=== PATIENT | female | born 1955 | race American Indian/Alaskan Native ===

== ENCOUNTER 2019-07-05 14:04 | Emergency (ER) | payer MEDICARE, OTHER ==
[~2019-07-05] VITALS: Ht 157.5 cm; Wt 104.3 kg
[~2019-07-05 14:04] MED LIST: ALBUTEROL SULF8.5 GM INH; CLINDAMYCIN HC300 MG PO; DULERA 200 MCG/13 GM INH; FENOFIBRATE54 MG PO; GLIPIZIDE XL10 MG PO; GLYBURIDE2.5 MG PO; LANTUS100 UNITS/ SUB-Q; LISINOPRIL5 MG PO; LORATADINE10 MG PO; LYRICA50 MG PO; MAGOX 400400 MG PO; METFORMIN HCL1000 MG PO; PANTOPRAZOLE SO40 MG PO; SIMVASTATIN20 MG PO; TRAMADOL HCL50 MG PO; VICODIN HP 10-1 EAC1 PO; VITAMIN D5000 UNIT PO
--- OUTSIDE RECORDS SUMMARY | 2019-07-05 14:08 | XMS ---
PreManage Notification: NOLAN SCHUMACHER [employer] [facility] Events No recent Security Events currently on file CRITERIA MET - FERN CARE PROVIDERS Madeline Castaneda [facility] Marychuy MATHUR PHONE: [phone] Samantha has no Care Guidelines for this patient. E.Hunter VISIT COUNT (12 MO.) 2 Kobi Ross M.C. 1 [facility] Bland TOTAL 3 NOTE: Visits indicate total known visits. ED/C VISIT TRACKING (12 MO.) 07/05/2019 14:05 [facility]ru[facility] TYPE: Emergency COMPLAINT: - HIP PAIN, NON INJ 05/27/2019 20:00 [facility] [place] TYPE: Emergency DIAGNOSES: - Unspecified abdominal pain - Flank Pain - Sciatica, right side - Hip/leg/lower back pain [facility] DIAGNOSES: - Lumbago with sciatica, right side - Hip Pain - back pain INPATIENT VISIT TRACKING (12 MO.) No inpatient visits to display in this time frame [id number]
== END 2019-07-05 18:00 | disposition home or self-care (01) ==
LOC: ED 14:04
DX: G89.29 Other chronic pain (principal); M25.551 Pain in right hip; I10 Essential (primary) hypertension; E11.9 Type 2 diabetes mellitus without complications; Z87.891 Personal history of nicotine dependence; Z88.0 Allergy status to penicillin; Z79.899 Other long term (current) drug therapy; Z79.4 Long term (current) use of insulin
CPT/HCPCS: 96372; 99283; J1200; J1630; J1885; J2060

== ENCOUNTER 2019-07-20 11:14 | Inpatient (IN) | payer MEDICARE, OTHER ==
[~2019-07-20] VITALS: Ht 157.5 cm; Wt 112.0 kg
--- NOTE | ~2019-07-20 | DS ---
[facility] [address] [place], [place] [address] Draft ADMISSION DATE: 07/27/2019 DISCHARGE DATE: 07/29/2019 FINAL DIAGNOSES AT THE TIME OF DISCHARGE: 1. End-stage osteoarthritis, right hip. 2. Diabetes. 3. Chronic pain syndrome. 4. Chronic obstructive pulmonary disease. HISTORY OF PRESENT ILLNESS: The patient is a 64-year-old female with end-stage osteoarthritis of the right hip. She has gone to the point where no treatment gives her any significant pain relief. Because of the failure of conservative management, she presents for elective total hip arthroplasty, having been previously seen and cleared by her primary care provider out at [facility]. HOSPITAL COURSE: The patient was admitted to Day Surgery on July 27, 2019 and was taken from the Day Surgery area to the operating room, where she underwent an uneventful press-fit total hip arthroplasty on the right with a [place] cup on the right with two screws, 52 mm shell, 36 mm neutral insert, and a size 4 standard offset 36 mm Oxford stem. Postoperatively, the patient has done well. Despite her chronic pain issues, she is currently well managed with the Dilaudid and Oxy IR. We will plan on discharging her home, weightbearing as tolerated. She has been on and will continue on Xarelto 10 mg one once a day for DVT prophylaxis. We are sending her home on alternating Dilaudid and Oxy IR. We have been told her she will need to follow up with her primary care provider for her chronic pain management medication, which appears to be an extended release oral morphine preparation. We will have her referred to physical therapy for the total hip program. I have told her it is okay for her to bathe with her current dressing on. She can remove the dressing on Friday and re-dress as needed. Also explained to her that there are no sutures and there are no clips. Her skin was closed with a perforated strip and Super glue. She can leave that in place until we see her back. I would have her follow up in about six weeks. Bebeto Carey MD PATIENT NAME: NOLAN SCHUMACHER DISCHARGE SUMMARY DATE OF : 57 REPORT #: [id number] PHYSICIAN: BEBETO CAREY MD PCP: LIZ KING REPORT IS CONFIDENTIAL AND NOT TO BE RELEASED WITHOUT AUTHORIZATION [facility] [address] [facility] [place] [address] Draft TRAN/PARISA /[id number] Copies: ~ PATIENT NAME: NOLAN SCHUMACHER DISCHARGE SUMMARY DATE OF : 57 REPORT #: [id number] PHYSICIAN: BEBETO CAREY MD PCP: LIZ KING REPORT IS CONFIDENTIAL AND NOT TO BE RELEASED WITHOUT AUTHORIZATION
--- OUTSIDE RECORDS SUMMARY | ~2019-07-20 | XMS | Encounter Summary ---
Demographics + + + | Address | [address] | | | [place] [address] | + + + | Home Phone | | + + + | Preferred Language | Unknown | + + + | Marital Status | Single | + + + | Restorationist Affiliation | Unknown | + + + | Race | Unknown | + + + | Ethnic Group | Unknown | + + + Author + + + | Author | [facility] | | | and [place] | + + + | Organization | [facility] | | | and [place] | + + + | Address | Unknown | + + + | Phone | Unavailable | + + + Support + + + + + | Name | Relationship | Address | Phone | + + + + + | Geni Serrano | ECON | [place] | | | | | [phone] | | + + + + + | Brittany Cabrera | ECON | Unknown | | + + + + + Care Team Providers + +------+ + | Care Urologist Md Name | Role | Phone | + +------+ + | Madeline Castaneda PA-C | PCP | Unavailable | + +------+ + Reason for Visit + + + | Reason | Comments | + + + | Neck Pain | | + + + Encounter Details +--------+ + + + + | Date | Type | Department | Care Team | Description | +--------+ + + + + | 07/09/ | Emergency | [facility] | Terrell Hollingsworth MD | Neck pain (Primary | | 2019 | | [facility] | [address] | Dx); COPD | | | | CENTER [address] | [place] | exacerbation (HCC); | | | | [place] | [phone] | Bronchitis | | | | [address] | | | | | | [phone] | Chacho García, | | | | | | [address] | | | | | | [facility] | | | | | | [place] [address] | | | | | | [phone] | | | | | | | | +--------+ + + + + Social History + + + +--------+------+ | Tobacco Use | Types | Packs/Day | Years | Date | | | | | Used | | + + + +--------+------+ | Former Smoker | Cigarettes | 1 | 45 | | + + + +--------+------+ + +---+---+---+ | Smokeless Tobacco: | | | | | Never Used | | | | + +---+---+---+ + + +---------+ + | Alcohol Use | Drinks/We | oz/Week | Comments | | | ek | | | + + +---------+ + | Yes | 0 | 0.0 | Rare | | | Standard | | | | | drinks or | | | | | | | | | | equivalen | | | | | t | | | + + +---------+ + + + + | Sex Assigned at | Date Recorded | | | | + + + | Not on file | | + + + + + + + | Job Start Date | Occupation | Industry | + + + + | Not on file | Not on file | Not on file | + + + + + + + + | Travel History | Travel Start | Travel End | + + + + + + | No recent travel history available. | + + documented as of this encounter Last Filed Vital Signs + + + + | Vital Sign | Reading | Time Taken | + + + + | Blood Pressure | 138/64 | 07/09/20191457 PDT | + + + + | Pulse | 85 | 07/09/20191935 PDT | + + + + | Temperature | 38.2 C (100.7 F) | 07/09/20191457 PDT | + + + + | Respiratory Rate | 18 | 07/09/20191644 PDT | + + + + | Oxygen Saturation | 96% | 07/09/20191935 PDT | + + + + | Inhaled Oxygen | - | - | | Concentration | | | + + + + | Weight | - | - | + + + + | Height | 157.5 cm (5' 2") | 07/09/2019 1458 PDT | + + + + | Body Mass Index | - | - | + + + + documented in this encounter Discharge Instructions Instructions Chacho García MD - 07/09/2019Prednisone for 5 days Use your inhalers every 4-6 hours Azithromycin for 5 days Robaxin muscle relaxer for your neck Follow-up with primary care Continue your current medications AttachmentsThe following attachments cannot be sent through Care Everywhere.Bronchitis, Ant ibiotic Treatment (Adult) (Latvian)Back and Neck Pain, General (Latvian)COPD Flare (Latvian) documented in this encounter Medications at Time of Discharge + + + +---------+ + + | Medication | Sig | Dispensed | Refills | Start | End Date | | | | | | Date | | + + + +---------+ + + | albuterol 90 | Inhale 1-2 puffs | | 0 | | | | mcg/puff inhaler | into the lungs every | | | | | | | 6 hours as needed | | | | | | | for Wheezing. | | | | | + + + +---------+ + + | Alcohol Swabs 70 % | by Does not apply | | 0 | | | | PADS | route. 1 to wipe | | | | | | | area as directed | | | | | + + + +---------+ + + | atorvaSTATin | Take 1 tablet by | 30 | 5 | 11/24/19 | | | (LIPITOR) 20 mg | mouth nightly. | tablet | | 18 | | | tablet | | | | | | + + + +---------+ + + | azithromycin | Take 2 tablets by | 6 | 0 | 07/09/20 | | | (ZITHROMAX) 250 mg | mouth on day 1, and | tablet | | 19 | | | tablet | 1 tablet by mouth | | | | | | | every day | | | | | + + + +---------+ + + | furosemide (LASIX) | Take 1 tablet by | 30 | 5 | 11/24/19 | | | 80 mg tablet | mouth Daily. | tablet | | 18 | | + + + +---------+ + + | | Take 1 tablet by | | 0 | | | | HYDROcodone-acetamin | mouth every 6 hours | | | | | | ophen (NORCO) 10-325 | as needed for Pain. | | | | | | mg per tablet | | | | | | + + + +---------+ + + | insulin glargine | Inject 18 Units | 1 pen | 4 | 05/03/20 | | | (LANTUS SOLOSTAR) | under the skin | | | 16 | | | 100 units/mL | nightly. | | | | | | injection (pen) | | | | | | + + + +---------+ + + | insulin lispro | Inject 0-6 Units | | 0 | 02/27/20 | | | (HUMALOG KWIKPEN) | under the skin 4 | | | 16 | | | 100 units/mL | times daily (with | | | | | | injection (pen) | meals and nightly). | | | | | + + + +---------+ + + | levothyroxine | Take 1 tablet by | 30 | 0 | 02/27/20 | | | (SYNTHROID, | mouth every morning | tablet | | 16 | | | LEVOTHROID) 50 mcg | (before breakfast). | | | | | | tablet | | | | | | + + + +---------+ + + | loratadine | Take 10 mg by mouth | | 0 | | | | (CLARITIN) 10 mg | Daily. | | | | | | tablet | | | | | | + + + +---------+ + + | losartan (COZAAR) | Take 1 tablet by | | 0 | 11/24/19 | | | 50 mg tablet | mouth Daily. | | | 18 | | + + + +---------+ + + | metFORMIN | Take 1,000 mg by | | 0 | | | | (GLUCOPHAGE) 1000 MG | mouth 2 times daily | | | | | | tablet | (with breakfast & | | | | | | | dinner). | | | | | + + + +---------+ + + | morphine (MSIR) 15 | Take 15 mg by mouth | | 0 | | | | mg tablet | every 12 hours as | | | | | | | needed for Pain. | | | | | + + + +---------+ + + | nicotine | Place 1 patch onto | | 0 | | | | (NICODERM) 21 mg/24 | the skin every 24 | | | | | | hr | hours. | | | | | + + + +---------+ + + | potassium chloride | Take 10 mEq by mouth | | 0 | | | | (KLOR-CON) 10 MEQ | Daily. With food | | | | | | ER tablet | | | | | | + + + +---------+ + + | pregabalin | Take 300 mg by mouth | | 0 | | | | (LYRICA) 150 MG | 2 times daily. | | | | | | capsule | | | | | | + + + +---------+ + + | methocarbamol | Take 2 tablets by | 30 | 0 | 07/09/20 | | | (ROBAXIN) 750 mg | mouth every 6 hours | tablet | | 19 | 9 | | tablet | as needed for Muscle | | | | | | | spasms for up to 3 | | | | | | | days. | | | | | + + + +---------+ + + | predniSONE | Take 6 tablets by | 30 | 0 | 07/09/20 | | | (DELTASONE) 10 mg | mouth Daily for 5 | tablet | | 19 | 9 | | tablet | days. | | | | | + + + +---------+ + + documented as of this encounter Plan of Treatment +--------+---------+ + + + | Date | Type | Specialty | Care Team | Description | +--------+---------+ + + + | 07/27/ | Office | Pulmonology | Jayy Oswald MD | | | 2019 | Visit | | [address] | | | | | | [place] | | | | | | [address] | | | | | | | | +--------+---------+ + + + + +--------+ + + | Name | Priori | Associated Diagnoses | Date/Time | | | ty | | | + +--------+ + + | ED INFORMATION EXCHANGE | Routin | | 07/09/2019 14:31 PDT | | | e | | | + +--------+ + + documented as of this encounter Procedures + +--------+ + + + | Procedure Name | Priori | Date/Time | Associated Diagnosis | Comments | | | ty | | | | + +--------+ + + + | CT ANGIOGRAM | STAT | 07/09/2019 | | Results for this | | PULMONARY | | 18:22 PDT | | procedure are in the | | | | | | results section. | + +--------+ + + + | XR CERVICAL SPINE 2 | STAT | 07/09/2019 | | Results for this | | OR 3 VIEWS | | 17:36 PDT | | procedure are in the | | | | | | results section. | + +--------+ + + + | XR CHEST AP PORTABLE | STAT | 07/09/2019 | | Results for this | | | | 17:36 PDT | | procedure are in the | | | | | | results section. | + +--------+ + + + | CBC WITH | STAT | 07/09/2019 | | Results for this | | DIFFERENTIAL | | 17:03 PDT | | procedure are in the | | | | | | results section. | + +--------+ + + + | B TYPE NATRIURETIC | STAT | 07/09/2019 | | Results for this | | PEPTIDE | | 17:03 PDT | | procedure are in the | | | | | | results section. | + +--------+ + + + | D-DIMER | STAT | 07/09/2019 | | Results for this | | | | 16:44 PDT | | procedure are in the | | | | | | results section. | + +--------+ + + + | BASIC METABOLIC | STAT | 07/09/2019 | | Results for this | | PANEL | | 16:44 PDT | | procedure are in the | | | | | | results section. | + +--------+ + + + | ED INFORMATION | Routin | 07/09/2019 | | | | EXCHANGE | e | 14:31 PDT | | | + +--------+ + + + +---+--------+ | | | | | Proced | | | ure | | | Note - | | | Cruzito, | | | Lab In | | | | | | Hlseve | | | n - | | | | | | 2018 | | | 1432 | | | PDT | | | Format | | | ting | | | of | | | this | | | note | | | might | | | be | | | differ | | | ent | | | from | | | the | | | origin | | | al.COL | | | LECTIV | | | E?NOTI | | | FICATI | | | ON?/ | | | | | | 9 | | | 14:30? | | | ENDY, | | | HOPE | | | M?MRN: | | | | | | [id number] | | | [id number] | | | riteri | | | a Met | | | Care | | | Guidel | | | inesSe | | | curity | | | and | | | Safety | | | No | | | recent | | | | | | Securi | | | ty | | | Events | | | | | | curren | | | tly on | | | | | | fileED | | | Care | | | Guidel | | | inesTh | | | ere | | | are | | | curren | | | tly no | | | ED | | | Care | | | Guidel | | | john | | | for | | | this | | | patien | | | t. | | | Please | | | check | | | your | | | facili | | | ty's | | | medica | | | l | | | record | | | s | | | system | | | .Care | | | Histor | | | yMedic | | | al/Scot | | | [email or web address] | | | /10/19 | | | 12:00 | | | AM | | | [facility] | | [facility] | | | al?? | | | PATIEN | | | T IS A | | | | | | YELLOW | | | [facility] | | | MEMBER | | | .?? | | | PLEASE | | | REFER | | | | | | PATIEN | | | T TO | | | [facility] | | | [facility] | [facility] | | | FOR | | | NON | | | EMERGE | | | NT | | | MEDICA | | | L | | | NEEDS. | | | ?? | | | [facility]LLOW | | | [facility] | | | [facility] | | | CAN | | | SEE | | | PATIEN | | | TS | | | SAME | | | DAY | | | FOR | | | APTS | | | IF | | | PATIEN | | | T | | | CALLS | | | FIRST | | | THING | | | IN THE | | | | | | MORNIN | | | G.Pres | | | cripti | | | on | | | Drug | | | Report | | | (12 | | | Mo.)Rx | | | | | | Detail | | | sFill | | | Date | | | Drug | | | Descri | | | ption | | | Qty. | | | Prescr | | | iber | | | CS MED | | | | | | 2018-0 | | | 9-18 | | | OXYCOD | | | ONE-AC | | | ETAMIN | | | OPHEN | | | 5-325 | | | 15 | | | MICHAE | | | L | | | MINCKL | | | ER 2 | | | 22.5 | | | Rx | | | Summar | | | yMetri | | | c | | | Count | | | CS | | | II-V | | | Rx 1 | | | CS-II | | | Rx 1 | | | Quanti | | | ty | | | Dispen | | | sed 15 | | | | | | Unique | | | | | | Prescr | | | ibers | | | 1 | | | Unique | | | | | | Pharma | | | cies 1 | | | | | | Benzos | | | 0 | | | Opioid | | | s 1 | | | Long | | | Acting | | | | | | Opioid | | | s 0 | | | E.D. | | | Visit | | | Count | | | (12 | | | mo.)Fa | | | cility | | | | | | Visits | | | Low | | | Acuity | | | | | | Provid | | | ence | | | [facility] | | | [facility] | | Medica | | | l | | | Center | | | 3 0 | | | [facility] | | [facility] | | | al 1 0 | | | Total | | | 4 0 | | | Note: | | | Visits | | | | | | indica | | | te | | | total | | | known | | | visits | | | . | | | Medica | | | id Low | | | | | | Acuity | | | Dx | | | are | | | the | | | number | | | of | | | primar | | | y | | | diagno | | | ses on | | | the | | | Medica | | | id's | | | Low | | | Acuity | | | dx | | | list. | | | | | | Recent | | | | | | Emerge | | | ncy | | | Depart | | | ment | | | Visit | | | Summar | | | yDate | | | Facili | | | ty | | | City | | | State | | | Type | | | Diagno | | | ses or | | | Chief | | | | | | Compla | | | int | | | Sep | | | 13, | | | 2019 | | | Provid | | | ence | | | [facility] | [facility] | | [place] | | | [place] | | | Emerge | | | ncy | | | Neck | | | Pain | | | Sep 9, | | | 2019 | | | [facility] | | [facility] | | | [place] | | | [place] | | | Emerge | | | ncy | | | Pain | | | in | | | right | | | hip | | | Type | | | 2 | | | diabet | | | es | | | mellit | | | us | | | withou | | | t | | | compli | | | cation | | | s | | | Other | | | chroni | | | c pain | | | | | | Person | | | al | | | histor | | | y of | | | nicoti | | | ne | | | depend | | | ence | | | Long | | | term | | | (curre | | | nt) | | | use of | | | | | | insuli | | | n | | | Allerg | | | y | | | status | | | to | | | penici | | | llin | | | | | | Essent | | | ial | | | (prima | | | ry) | | | hypert | | | ension | | | | | | Other | | | long | | | term | | | (curre | | | nt) | | | drug | | | therap | | | y Aug | | | 1, | | | 2019 | | | Prov[facility] | | | ence | | | [facility] | | [place] | | | [place] | | | Emerge | | | ncy | | | | | | Hip/le | | | g/lowe | | | r back | | | pain | | | | | | Flank | | | Pain | | | | | | Unspec | | | ified | | | abdomi | | | nal | | | pain | | | | | | Sciati | | | ca, | | | right | | | side | | | Sep | | | 18, | | | 2018 | | | Provid | | | ence | | | [facility] | [facility] | | [place] | | | [place] | | | Emerge | | | ncy | | | back | | | pain | | | Hip | | | Pain | | | | | | Lumbag | | | o with | | | | | | sciati | | | ca, | | | right | | | side | | | Recent | | | | | | Inpati | | | ent | | | Visit | | | Summar | | | yNo | | | record | | | ed | | | inpati | | | ent | | | visits | | | . Care | | | | | | TeamPr | | | ovider | | | | | | Specia | | | lty | | | Phone | | | Fax | | | Servic | | | e | | | Dates | | | CANWEL | | | L, | | | LIZ | | | MARY ANNE, | | | PA-C | | | Physic | | | indu | | | Assist | | | ant: | | | Medica | | | l | | | Sep | | | 10, | | | 2019 - | | | | | | Curren | | | t | | | Jaci | | | n | | | Bourre | | | t, | | | PA-C, | | | PA-C | | | Primar | | | y Care | | | ([phone]) | | | | | | [phone] | | | 30 | | | [phone]) | | | [phone] | | | 72 | | | Curren | | | t | | | Collec | | | tive | | | Portal | | | This | | | patien | | | t has | | | regist | | | ered | | | at the | | | | | | Provid | | | ence | | | [facility] | | | [facility] | [facility] | | | l | | | Center | | | | | | Emerge | | | ncy | | | Depart | | | ment | | | For | | | more | | | inform | | | ation | | | visit: | | | | | | https: | | | //secu | | | re.col | | | lectiv | | | emedic | | | al.com | | | /notif | | | [id number] | | | [email or web address]-[email or web address] | | | [phone] | | | [phone] | | | [phone] | | | [email or web address] | | | f6 | | | PLEASE | | | NOTE: | | | 1. | | | Any | | | care | | | recomm | | | endati | | | ons | | | and | | | other | | | clinic | | | al | | | inform | | | ation | | | are | | | provid | | | ed as | | | guidel | | | john | | | or for | | | | | | histor | | | ical | | | purpos | | | es | | | only, | | | and | | | provid | | | ers | | | should | | | | | | exerci | | | se | | | their | | | own | | | clinic | | | al | | | judgme | | | nt | | | when | | | provid | | | ing | | | care. | | | 2. | | | You | | | may | | | only | | | use | | | this | | | inform | | | ation | | | for | | | purpos | | | es of | | | treatm | | | ent, | | | paymen | | | t or | | | health | | | care | | | operat | | | ions | | | activi | | | ties, | | | and | | | subjec | | | t to | | | the | | | limita | | | tions | | | of | | | applic | | | able | | | Collec | | | tive | | | Polici | | | es. | | | 3. | | | You | | | should | | | | | | consul | | | t | | | direct | | | ly | | | with | | | the | | | organi | | | zation | | | that | | | provid | | | ed a | | | care | | | guidel | | | ine or | | | other | | | | | | clinic | | | al | | | histor | | | y with | | | any | | | questi | | | ons | | | about | | | additi | | | onal | | | inform | | | ation | | | or | | | accura | | | cy or | | | comple | | | teness | | | of | | | inform | | | ation | | | provid | | | ed.? | | | 2018 | | | Collec | | | tive | | | Medica | | | l | | | [employer] | | | logies | | | , Inc[employer] | | | - | | | [email or web address] | | | llecti | | | vemedi | | | [email or web address] | | | m | +---+--------+ documented in this encounter Results CT Angiogram Pulmonary w Contrast (07/09/2019 18:22 PDT) + + | Specimen | + + | | + + + + + | Narrative | Performed At | + + + | TECHNIQUE: After administration of 80 mL Omnipaque 350 | [facility] | | intravenously, axial CT imaging was obtained through the chest with | | | coronal and sagittal reformats. CLINICAL INFORMATION: cough low | | | O2 sat COMPARISON: Chest radiograph obtained same day. | | | FINDINGS: DIAGNOSTIC QUALITY: Motion artifact and suboptimal contrast | | | opacification of the distal subsegmental arteries limits evaluation. | | | BONES: No osteoblastic or osteolytic lesion. Rightward curvature | | | of the thoracic spine. No acute osseous abnormality. CHEST: | | | Chest Wall: No supraclavicular or axillary lymphadenopathy. No acute | | | subcutaneous soft tissue abnormality. Mediastinum and loy: Mildly | | | prominent precarinal lymph node measuring up to 13 mm in short axis. | | | Mild prominent appearance of multiple right hilar lymph nodes | | | measuring up to 13 mm in short axis. Heart and pericardium: No CT | | | evidence of right heart strain. Borderline cardiomegaly. No | | | pericardial effusion. Vessels: Given limitations, there is no | | | evidence of a pulmonary artery filling defect. Normal caliber of the | | | thoracic aorta. Coronary artery calcifications. Lungs: Platelike | | | atelectasis at the lingula and lower lobes. Tiny calcified granuloma | | | at the inferior right middle lobe. Atelectasis noted at the medial | | | aspect of the right middle lobe. Small patchy groundglass opacities | | | are noted at the medial left lower lobe with up to 6 mm groundglass | | | nodular components. Large airways: Unremarkable. Pleura: No pleural | | | effusion or pneumothorax. UPPER ABDOMEN: Low-attenuation of the | | | liver likely representing hepatic steatosis. IMPRESSION - | | | Suboptimal opacification of the subsegmental pulmonary arteries and | | | motion artifact limiting evaluation. However, there is no evidence of | | | central to segmental pulmonary embolism. Small groundglass | | | opacities at the medial left lower lobe may represent an | | | infectious/inflammatory process. The largest groundglass nodular | | | component measures up to 6 mm. Mild mediastinal and right hilar | | | lymph node enlargement, likely reactive changes. Borderline | | | cardiomegaly. Hepatic steatosis. Dictated and Signed by: | | | Shon Kramer MD Electronically signed: 07/09/2019 7:11 PM | | + + + + + | Procedure Note | + + | Cruzito, Rad Results In - 07/09/2019 1914 PDT TECHNIQUE: After administration of 80 mL | | Omnipaque 350 intravenously, axial CTimaging was obtained through the chest with coronal | | and sagittal reformats.CLINICAL INFORMATION: coughlow O2 satCOMPARISON: Chest | | radiograph obtained same day.FINDINGS:DIAGNOSTIC QUALITY: Motion artifact and suboptimal | | contrast opacification of thedistal subsegmental arteries limits evaluation.BONES: No | | osteoblastic or osteolytic lesion. Rightward curvature of the thoracicspine. No acute | | osseous abnormality.CHEST:Chest Wall: No supraclavicular or axillary lymphadenopathy. No | | acutesubcutaneous soft tissue abnormality.Mediastinum and loy: Mildly prominent | | precarinal lymph node measuring up to 13mm in short axis. Mild prominent appearance of | | multiple right hilar lymph nodesmeasuring up to 13 mm in short axis.Heart and | | pericardium: No CT evidence of right heart strain. Borderlinecardiomegaly. No | | pericardial effusion. Vessels: Given limitations, there is no evidence of a pulmonary | | artery fillingdefect. Normal caliber of the thoracic aorta. Coronary artery | | calcifications. Lungs: Platelike atelectasis at the lingula and lower lobes. Tiny | | calcifiedgranuloma at the inferior right middle lobe. Atelectasis noted at the | | medialaspect of the right middle lobe. Small patchy groundglass opacities are noted | | atthe medial left lower lobe with up to 6 mm groundglass nodular components.Large | | airways: Unremarkable.Pleura: No pleural effusion or pneumothorax. UPPER ABDOMEN: | | Low-attenuation of the liver likely representing hepaticsteatosis.IMPRESSION -Suboptimal | | opacification of the subsegmental pulmonary arteries and motionartifact limiting | | evaluation. However, there is no evidence of central tosegmental pulmonary | | embolism.Small groundglass opacities at the medial left lower lobe may represent | | aninfectious/inflammatory process. The largest groundglass nodular componentmeasures up | | to 6 mm.Mild mediastinal and right hilar lymph node enlargement, likely | | reactivechanges.Borderline cardiomegaly.Hepatic steatosis.Dictated and Signed by: | | Shon Kramer MD Electronically signed: 07/09/2019 7:11 PM | | | |Lungs: Platelike atelectasis at the lingula and lower lobes. Tiny calcified | |granuloma at the inferior right middle lobe. Atelectasis noted at the medial | |aspect of the right middle lobe. Small patchy groundglass opacities are noted at | |the medial left lower lobe with up to 6 mm groundglass nodular components. | |Large airways: Unremarkable. | |Pleura: No pleural effusion or pneumothorax. | | | |UPPER ABDOMEN: Low-attenuation of the liver likely representing hepatic | |steatosis. | | | | | |IMPRESSION - | | | |Suboptimal opacification of the subsegmental pulmonary arteries and motion | |artifact limiting evaluation. However, there is no evidence of central to | |segmental pulmonary embolism. | | | |Small groundglass opacities at the medial left lower lobe may represent an | |infectious/inflammatory process. The largest groundglass nodular component | |measures up to 6 mm. | | | |Mild mediastinal and right hilar lymph node enlargement, likely reactive | |changes. | | | |Borderline cardiomegaly. | | | |Hepatic steatosis. | | | |Dictated and Signed by: Shon Kramer MD | | Electronically signed: 07/09/2019 7:11 PM | + + + +---------+ + + | Performing | Address | City/State/Zipcode | Phone Number | | Organization | | | | + +---------+ + + | [facility] | | | | + +---------+ + + XR Cervical Spine 2 or 3 Views (07/09/2019 17:36 PDT) + + | Specimen | + + | | + + + + + | Narrative | Performed At | + + + | CLINICAL INFORMATION: NECK PAIN. COMPARISON: None. | [facility] | | FINDINGS: AP, lateral, and odontoid views of the cervical spine. | | | Limited visualization of C7 and T1. Alignment: Mild degenerative | | | anterolisthesis of C4. Vertebral bodies: Normal in height. No | | | vertebral fracture. Disk spaces and facet joints: Moderate | | | degenerative disc disease at C5-C6. Multilevel facet arthrosis, most | | | notable at C4-C5. Soft tissues: No acute abnormality appreciated. | | | IMPRESSION - Limited assessment of the lower cervical | | | spine. Otherwise, no acute cervical spine abnormality identified. | | | Multilevel cervical spondylosis with mild C4 degenerative | | | spondylolisthesis. Dictated and Signed by: Shon Kramer MD | | | Electronically signed: 07/09/2019 9:22 PM | | + + + + + | Procedure Note | + + | Cruzito, Rad Results In 07/09/20196 PDT | | CLINICAL INFORMATION: NECK PAIN. | | | | COMPARISON: None. | | | | FINDINGS: | | AP, lateral, and odontoid views of the cervical spine. Limited visualization of | | C7 and T1. | | | | Alignment: Mild degenerative anterolisthesis of C4. | | | | Vertebral bodies: Normal in height. No vertebral fracture. | | | | Disk spaces and facet joints: Moderate degenerative disc disease at C5-C6. | | Multilevel facet arthrosis, most notable at C4-C5. | | | | Soft tissues: No acute abnormality appreciated. | | | | | | IMPRESSION - | | | | Limited assessment of the lower cervical spine. Otherwise, no acute cervical | | spine abnormality identified. | | | | Multilevel cervical spondylosis with mild C4 degenerative spondylolisthesis. | | | | Dictated and Signed by: Shon Kramer MD | | Electronically signed: 07/09/2019 9:22 PM | + + + +---------+ + + | Performing | Address | City/State[facility] | Phone Number | | Organization | | | | + +---------+ + + | [facility] | | | | + +---------+ + + XR Chest AP Portable (07/09/2019 17:36 PDT) + + | Specimen | + + | | + + + + + | Narrative | Performed At | + + + | CLINICAL INFORMATION: NECK PAIN. COMPARISON: 02/24/2016. | [facility] | | FINDINGS: Portable frontal chest radiograph Lungs: No focal | | | airspace disease, pleural effusion, or pneumothorax. Mild atelectasis | | | at the lung bases. Heart/mediastinum: Cardiac silhouette is of | | | normal size. Central pulmonary vasculature has a normal appearance. | | | Bones: No acute osseous abnormality appreciated. IMPRESSION - | | | No acute disease. Dictated and Signed by: Shon Kramer MD | | | Electronically signed: 07/09/2019 9:23 PM | | + + + + + | Procedure Note | + + | Cruzito, Rad Results In - 07/09/20196 PDT | | CLINICAL INFORMATION: NECK PAIN. | | | | COMPARISON: 02/24/2016. | | | | FINDINGS: | | Portable frontal chest radiograph | | | | Lungs: No focal airspace disease, pleural effusion, or pneumothorax. Mild | | atelectasis at the lung bases. | | | | Heart/mediastinum: Cardiac silhouette is of normal size. Central pulmonary | | vasculature has a normal appearance. | | | | Bones: No acute osseous abnormality appreciated. | | | | IMPRESSION - No acute disease. | | | | Dictated and Signed by: Shon Kramer MD | | Electronically signed: 07/09/2019 9:23 PM | + + + +---------+ + + | Performing | Address | City/State/Zipcode | Phone Number | | Organization | | | | + +---------+ + + | [facility] | | | | + +---------+ + + B Type Natriuretic Peptide (07/09/2019 17:03 PDT) + +-------+ + + + | Component | Value | Ref Range | Performed | Pathologist | | | | | At | Signature | + +-------+ + + + | BNP | 27 | <100 pg/mL | [facility] | | | | | | [facility] | | | | | | [facility] | | | | | | [facility] - | | | | | | LABORATORY | | + +-------+ + + + + + | Specimen | + + | Blood | + + + + + + + | Performing | Address | City/State/Zipcode | Phone Number | | Organization | | | | + + + + + | [facility] | [address] | [place] | [phone] | | [facility] | | [address] | | | - LABORATORY | | | | + + + + + CBC with Differential (07/09/2019 17:03 PDT) + + + + + + | Component | Value | Ref Range | Performed | Pathologist | | | | | At | Signature | + + + + + + | WBC | 14.3 (H) | 4.0 - 11.0 K/uL | [facility] | [facility] | | | [facility] | | | | | | [facility] | | | | | | [facility] - | | | | | | LABORATORY | | + + + + + + | RBC | 4.56 | 3.70 - 5.20 | [facility] | | | | | M/uL | [facility] | | | | | | [facility] | | | | | | C[facility] - | | | | | | LABORATORY | | + + + + + + | Hemoglobin | 14.0 | 11.5 - 16.0 | [facility] | | | | | g/dL | [facility] | | | | | | [facility]ICAL | | | | | | CENTER - | | | | | | LABORATORY | | + + + + + + | Hematocrit | 41.8 | 34.0 - 47.0 % | [facility] | | | | | | [facility] | | | | | | [facility] | | | | | | CENTER - | | | | | | LABORATORY | | + + + + + + | MCV | 91.7 | 83.0 - 101.0 fL | [facility] | | | | | | [facility] | | | | | | [facility] | | | | | | C[facility] - | | | | | | LABORATORY | | + + + + + + | MCH | 30.7 | 28.0 - 35.0 pg | [facility] | | | | | | [facility] | | | | | | [facility] | | | | | | CENTER - | | | | | | LABORATORY | | + + + + + + | MCHC | 33.5 | 32.0 - 36.0 | [facility] | | | | | g/dL | [facility] | | | | | | [facility] | | | | | | CENTER - | | | | | | LABORATORY | | + + + + + + | RDW-CV | 12.9 | <15.0 % | [facility] | | | | | | [facility] | | | | | | [facility] | | | | | | CENTER - | | | | | | LABORATORY | | + + + + + + | RDW-SD | 43.8 | 35.1 - 46.3 fL | [facility] | | | | | | [facility] | | | | | | [facility] | | | | | | [facility] - | | | | | | LABORATORY | | + + + + + + | Platelet | 137 (L) | 140 - 440 K/uL | [facility] | | | Count | | | [facility] | | | | | | [facility] | | | | | | CENTER - | | | | | | LABORATORY | | + + + + + + | MPV | 12.3 | 6.5 - 12.4 fL | [facility] | | | | | | [facility] | | | | | | [facility] | | | | | | CENTER - | | | | | | LABORATORY | | + + + + + + | % | 82.0 | 45.0 - 82.0 % | [facility] | | | Neutrophils | | | [facility] | | | | | | [facility]ICAL | | | | | | CENTER - | | | | | | LABORATORY | | + + + + + + | % | 9.5 (L) | 20.0 - 45.0 % | [facility] | | | Lymphocytes | | | [facility] | | | | | | [facility]ICAL | | | | | | CENTER - | | | | | | LABORATORY | | + + + + + + | % Monocytes | 6.7 | 4.0 - 12.0 % | [facility] | | | | | | [facility] | | | | | | [facility]ICAL | | | | | | CENTER - | | | | | | LABORATORY | | + + + + + + | % | 1.0 | 0.0 - 5.0 % | [facility] | | | Eosinophils | | | [facility] | | | | | | MEDICAL | | | | | | CENTER - | | | | | | LABORATORY | | + + + + + + | % Basophils | 0.4 | 0.0 - 1.0 % | [facility] | | | | | | [facility] | | | | | | MEDICAL | | | | | | CENTER - | | | | | | LABORATORY | | + + + + + + | % Immature | 0.4 | 0.0 - 0.4 % | [facility] | | | Granulocyte | | | [facility] | | | s | | | MEDICAL | | | | | | CENTER - | | | | | | LABORATORY | | + + + + + + | Absolute | 11.72 (H) | 1.80 - 8.50 | [facility] | | | Neutrophils | | K/uL | [facility] | | | | | | [facility] | | | | | | CENTER - | | | | | | LABORATORY | | + + + + + + | Absolute | 1.35 | 0.60 - 3.20 | [facility] | | | Lymphocytes | | K/uL | [facility] | | | | | | [facility] | | | | | | CENTER - | | | | | | LABORATORY | | + + + + + + | Absolute | 0.95 | 0.00 - 1.00 | [facility] | | | Monocytes | | K/uL | [facility] | | | | | | [facility] | | | | | | CENTER - | | | | | | LABORATORY | | + + + + + + | Absolute | 0.14 | 0.00 - 0.40 | [facility] | | | Eosinophils | | K/uL | [facility] | | | | | | [facility]ICAL | | | | | | CENTER - | | | | | | LABORATORY | | + + + + + + | Absolute | 0.05 | 0.00 - 0.10 | [facility] | | | Basophils | | K/uL | [facility] | | | | | | [facility] | | | | | | CENTER - | | | | | | LABORATORY | | + + + + + + | Absolute | 0.05 (H) | 0.00 - 0.03 | [facility] | | | Immature | | K/uL | [facility] | | | Granulocyte | | | MEDICAL | | | s | | | CENTER - | | | | | | LABORATORY | | + + + + + + | % nRBC | 0 | 0 - 2 per 100 | [facility] | | | | | WBCs | [facility] | | | | | | [facility]ICAL | | | | | | CENTER - | | | | | | LABORATORY | | + + + + + + | Absolute | 0.00 | 0.00 - 0.01 | [facility] | | | nRBC | | K/uL | [facility] | | | | | | MEDICAL | | | | | | CENTER - | | | | | | LABORATORY | | + + + + + + + + | Specimen | + + | Blood | + + + + + + + | Performing | Address | City/State/Zipcode | Phone Number | | Organization | | | | + + + + + | [facility] | [address] | [place] | [phone] | | [facility] | | [address] | | | - LABORATORY | | | | + + + + + D-Dimer (07/09/2019 16:44 PDT) + + + + + + | Component | Value | Ref Range | Performed | Pathologist | | | | | At | Signature | + + + + + + | D-Dimer | 0.64 (H)Comment: This | <=0.50 ug/mL | [facility] | | | Quantitativ | quantitative D-Dimer | FEU | [facility] | | | e | assay has been evaluated | | MEDICAL | | | | for screening for | | CENTER - | | | | venous thrombotic | | LABORATORY | | | | disease, and may be | | | | | | useful in ruling out, | | | | | | but not ruling in | | | | | | disease. Values less | | | | | | than 0.50 ug/mL FEU | | | | | | (Fibrinogen Equivalent | | | | | | Units) have a negative | | | | | | predictive value of | | | | | | approximately 95% for | | | | | | ruling out large | | | | | | pulmonary emboli or | | | | | | proximal deep vein | | | | | | thrombosis. Distal DVT | | | | | | are not excluded. An | | | | | | elevated D-dimer can be | | | | | | present in patients with | | | | | | liver disease, | | | | | | , eclampsia, | | | | | | heart disease and some | | | | | | cancers among other | | | | | | conditions. The presence | | | | | | of rheumatoid factor at | | | | | | a level >50 IU/mL may | | | | | | falsely elevate the | | | | | | determined D-dimer | | | | | | levels. | | | | + + + + + + + + | Specimen | + + | Blood | + + + + + + + | Performing | Address | City/State/Zipcode | Phone Number | | Organization | | | | + + + + + | [facility] | [address] | [place] | [phone] | | [facility] | | [address] | | | - LABORATORY | | | | + + + + + Basic Metabolic Panel (07/09/2019 16:44 PDT) + + + + + + | Component | Value | Ref Range | Performed | Pathologist | | | | | At | Signature | + + + + + + | Na | 134 (L) | 136 - 145 | [facility] | | | | | mmol/L | [facility] | | | | | | MEDICAL | | | | | | CENTER - | | | | | | LABORATORY | | + + + + + + | K | 4.7 | 3.4 - 5.1 | [facility] | | | | | mmol/L | [facility] | | | | | | MEDICAL | | | | | | CENTER - | | | | | | LABORATORY | | + + + + + + | Cl | 99 | 98 - 107 mmol/L | [facility] | | | | | | [facility] | | | | | | MEDICAL | | | | | | CENTER - | | | | | | LABORATORY | | + + + + + + | CO2 | 25 | 20 - 31 mmol/L | [facility] | | | | | | [facility] | | | | | | MEDICAL | | | | | | CENTER - | | | | | | LABORATORY | | + + + + + + | Anion Gap | 10 | 3 - 16 mmol/L | [facility] | | | | | | [facility] | | | | | | MED[facility] | | | | | | CENTER - | | | | | | LABORATORY | | + + + + + + | Glucose | 140 (H) | 60 - 106 mg/dL | [facility] | | | | | | [facility] | | | | | | MEDICAL | | | | | | CENTER - | | | | | | LABORATORY | | + + + + + + | BUN | 12 | 9 - 23 mg/dL | [facility] | | | | | | [facility] | | | | | | MEDICAL | | | | | | CENTER - | | | | | | LABORATORY | | + + + + + + | Creatinine | 1.04 (H) | 0.55 - 1.02 | [facility] | | | | | mg/dL | [facility] | | | | | | MEDICAL | | | | | | CENTER - | | | | | | LABORATORY | | + + + + + + | eGFR if not | 54 (L)Comment: | >=60 | [facility] | | | | GLOMERULAR FILTRATION | mL/min/1.73m2 | [facility] | | | [place] | RATE,ESTIMATED mL/min | | MEDICAL | | | | /1.39z4Domv than 60 | | CENTER - | | | | Chronic kidney | | LABORATORY | | | | disease,if found over a | | | | | | 3-month period.Less than | | | | | | 15 Kidney | | | | | | failureFor | | | | | | Americans,multiply the | | | | | | calculated GFR by 1.21. | | | | | | | | | | + + + + + + | Calcium | 9.5 | 8.7 - 10.4 | [facility] | | | | | mg/dL | [facility] | | | | | | MEDICAL | | | | | | CENTER - | | | | | | LABORATORY | | + + + + + + | BUN/Creatin | 11.5 | | [facility] | | | ine Ratio | | | [facility] | | | | | | MEDICAL | | | | | | CENTER - | | | | | | LABORATORY | | + + + + + + + + | Specimen | + + | Blood | + + + + + + + | Performing | Address | City/State/Zipcode | Phone Number | | Organization | | | | + + + + + | [facility] | [address] | [place] | [phone] | | [facility] | | [address] | | | - LABORATORY | | | | + + + + + documented in this encounter Visit Diagnoses + + | Diagnosis | + + | Neck pain - Primary Cervicalgia | + + | COPD exacerbation (HCC) Obstructive chronic bronchitis with exacerbation | + + | Bronchitis Bronchitis, not specified as acute or chronic | + + documented in this encounter Administered Medications + +--------+ +-------+------+------+ | Medication Order | MAR | Action | Dose | Rate | Site | | | Action | Date | | | | + +--------+ +-------+------+------+ | albuterol-ipratropium 2.5-0.5 | Given | 07/09/20 | 3 mLs | | | | mg/3 mL nebulizer solution 3 mL | | 19 16:42 | | | | | 3 mL, Nebulization, RT Once, Fri | | PDT | | | | | 07/09/19 at 1630, For 1 dose | | | | | | + +--------+ +-------+------+------+ +---+---+ | | | +---+---+ + +-------+ +--------+---+---+ | azithromycin (ZITHROMAX) tablet | Given | 07/09/20 | 500 mg | | | | 500 mg 500 mg, Oral, ONCE, Fri | | 19 18:59 | | | | | 07/09/19 at 1835, For 1 dose, | | PDT | | | | | Indications: Bacterial | | | | | | | Exacerbation of COPD | | | | | | + +-------+ +--------+---+---+ +---+---+ | | | +---+---+ + +-------+ +--------+---+---+ | iohexol (OMNIPAQUE 350) 350 | Given | 07/09/20 | 80 mLs | | | | mg/mL injection 80 mL 80 mL, | | 19 18:28 | | | | | Intravenous, ONCE PRN, Other, | | PDT | | | | | Starting 07/09/19 at 1822, For | | | | | | | 1 dose, Cat Scanner | | | | | | + +-------+ +--------+---+---+ +---+---+ | | | +---+---+ + +-------+ + +---+---+ | methocarbamol (ROBAXIN) tablet | Given | 07/09/20 | 1,500 mg | | | | 1,500 mg 1,500 mg, Oral, ONCE, | | 19 16:28 | | | | | 07/09/19 at 1630, For 1 dose | | PDT | | | | + +-------+ + +---+---+ +---+---+ | | | +---+---+ + +-------+ +-------+---+---+ | predniSONE (DELTASONE) tablet | Given | 07/09/20 | 60 mg | | | | 60 mg 60 mg, Oral, ONCE, Fri | | 19 18:59 | | | | | 07/09/19 at 1835, For 1 dose | | PDT | | | | + +-------+ +-------+---+---+ +---+---+ | | | +---+---+ + +------+ +--------+-------+---+ | sodium chloride 0.9% (NS) bolus | Push | 07/09/20 | 45 mLs | 2700 | | | 45 mL 45 mL, Intravenous, | | 19 18:28 | | mL/hr | | | Administer over 1 Minutes, ONCE | | PDT | | | | | PRN, for contrast study, Starting | | | | | | | Fri07/09/19 at 1822, For 1 dose, | | | | | | | May infuse at a different rate | | | | | | | per protocol., Cat Scanner | | | | | | + +------+ +--------+-------+---+ +---+---+ | | | +---+---+ documented in this encounter
--- OUTSIDE RECORDS SUMMARY | ~2019-07-20 | XMS | Encounter Summary ---
Demographics + + + | Address | [address] | | | [place] [address] | + + + | Home Phone | | + + + | Preferred Language | Unknown | + + + | Marital Status | Single | + + + | Alevism Affiliation | NON | + + + | Race | or | + + + | Ethnic Group | Not or | + + + Author + + + | Author | [facility] | + + + | Organization | [facility] | + + + | Address | Unknown | + + + | Phone | Unavailable | + + + Support + + +---------+ + | Name | Relationship | Address | Phone | + + +---------+ + | Geni Oliva | ECON | Unknown | | + + +---------+ + Care Team Providers + +------+ + | Care Veneer Press Operator Name | Role | Phone | + +------+ + | Camacho Fields MD | PCP | | + +------+ + Reason for Referral Consultation (Routine) +--------+--------+ + + + + | Status | Reason | Specialty | Diagnoses / | Referred By | Referred To | | | | | Procedures | Contact | Contact | +--------+--------+ + + + + | Closed | | Orthopedics | Diagnoses | Jayant, | Monico, | | | | | Pain in | MD Cody | MD Nasim | | | | | joint, | [address] | [address] | | | | | pelvic | [place] | [facility] | | | | | region and | Rd | Rd [place], | | | | | thigh | [place], [place] | [place] | | | | | Osteoarthros | [address] | [address] | | | | | is, | Phone: | | | | | | unspecified | [phone] | | | | | | whether | Fax: | | | | | | generalized | [phone] | | | | | | or | | | | | | | localized, | | | | | | | pelvic | | | | | | | region and | | | | | | | thigh | | | | | | | Procedures | | | | | | | CONSULT TO | | | | | | | ORTHOPEDICS | | | | | | | AND | | | | | | | REHABILITATI | | | | | | | ON | | | +--------+--------+ + + + + Reason for Visit + + + | Reason | Comments | + + + | Return Patient | | + + + Consultation (Routine) +--------+--------+ + + + + | Status | Reason | Specialty | Diagnoses / | Referred By | Referred To | | | | | Procedures | Contact | Contact | +--------+--------+ + + + + | Closed | | Orthopedics | | Brody, | Jayant, | | | | | | MD Asuncion | MD Anatoliy | | | | | | [address] | [address] | | | | | | Marcela | [place] | | | | | | [place], [place] | [place], | | | | | | [address] | [place] | | | | | | | [address] | | | | | | | Phone: | | | | | | | [phone] | | | | | | | Fax: | | | | | | | [phone] | +--------+--------+ + + + + Encounter Details +--------+---------+ + + + | Date | Type | Department | Care Team | Description | +--------+---------+ + + + | 04/21/ | Office | Orthopaedic Spine | Cody Saba MD | Lumbago; Spinal | | 2008 | Visit | Center at [facility] [address] | [address] | Stenosis of Lumbar | | | | [address] | [address] [place], | Region; Pain in | | | | Mailcode: CH8N | [place] [address] | Joint, Pelvic Region | | | | [facility] | [phone] | and Thigh; | | | | and Healing, | | Osteoarth NOS-Pelvis | | | | Building | | | | | | Floor [place], [place] | | | | | | [address] | | | | | | [phone] | | | +--------+---------+ + + + Social History + + + +--------+------+ | Tobacco Use | Types | Packs/Day | Years | Date | | | | | Used | | + + + +--------+------+ | Current Every Day | Cigarettes | 1 | 40 | | | Smoker | | | | | + + + +--------+------+ + + +---------+ + | Alcohol Use | Drinks/Week | oz/Week | Comments | + + +---------+ + | Not Asked | | | | + + +---------+ + [...] + + documented as of this encounter Progress Notes Cody Saba MD - 04/21/2009 11:24 AM PDT Hafsa Cabrera is a 53 y.o. female returns to clinic today with a chief complaint of low back pain and right hip pain as described previously. Since the last visit, patient notes she is without significant changes. I have reviewed her MRI and xrays with her today regarding lumbar spine spinal stenosis and hip degenerative joint disease. Past Medical History Diagnosis Date Unspecified Arthropathy, Site Unspecified Asthma Other General Symptoms Depressive Disorder, not Elsewhere Classified Pure Hypercholesterolemia Acute, but Ill-Defined, Cerebrovascular Disease Medications marked Taking as of 04/21/09 encounter (Office Visit) with CODY SABA Medication Sig Dispense Refill Cyanocobalamin (VITAMIN B-12) 1,000 mcg Sublingual Tablet, Sublingual Place 1,000 mcg u nder tongue once daily. Physical examination: patient is alert, cooperative and in no apparent distress. Gait is n on-antalgic with normal coordination. Patient is able to transfer independently to and from chair and exam table. She has na antalgic gait. ASSESSMENT: Encounter Diagnoses Code Name Primary? 724.2 Lumbago 724.02 Spinal Stenosis of Lumbar Region 719.45 Pain in Joint, Pelvic Region and Thigh 715.95 Osteoarth NOS-Pelvis PLAN: Orders Placed This Encounter Consult to orthopedics and rehabilitation Spine Surgery - moderate to severe symptomatic lumbar spine spinal stenosis Ortho - Hip dysplasia/degenerative changes Cyanocobalamin 1,000 mcg sublingual tab Sig: Place 1,000 mcg under tongue once daily. Return if symptoms worsen or fail to improve. documented in this enco unter Plan of Treatment Not on filedocumented as of this encounter Visit Diagnoses + + | Diagnosis | + + | Lumbago | + + | Spinal stenosis, lumbar region, without neurogenic claudication | + + | Pain in joint, pelvic region and thigh | + + | Osteoarthrosis, unspecified whether generalized or localized, pelvic region and thigh | + + documented in this encounter"
--- OUTSIDE RECORDS SUMMARY | ~2019-07-20 | XMS | Encounter Summary ---
Demographics + + + | Address | [address] | | | [place] [address] | + + + | Home Phone | | + + + | Preferred Language | Unknown | + + + | Marital Status | Single | + + + | Zoroastrianism Affiliation | NON | + + + | Race | or | + + + | Ethnic Group | Not or | + + + Author + + + | Author | [facility] | + + + | Organization | [facility] | + + + | Address | Unknown | + + + | Phone | Unavailable | + + + Support + + +---------+ + | Name | Relationship | Address | Phone | + + +---------+ + | Geni Oliva | ECON | Unknown | | + + +---------+ + Care Team Providers + +------+ + | Care Video Arcade Manager Name | Role | Phone | + [...] Closed | | Orthopedics | Diagnoses | [facility] | [facility] | | | | | Lumbar back | MD Asuncion | Ctr [facility] | | | | | pain Rt | [address] | [address] | | | | | knee pain | Ave | Ave | | | | | Procedures | [place], [place] | Mailcode: | | | | | CONSULT TO | [address] | [facility] | | | | | SPINE ORTHO | | for Health | | | | | | | and Healing, | | | | | | | Building [address], | | | | | | | 8th Floor | | | | | | | [facility] [place] | | | | | | | [address] | | | | | | | Phone: | | | | | | | [phone] | | | | | | | Fax: | | | | | | | [phone] | +--------+--------+ + + + + Reason for Visit + + + | Reason | Comments | + + + | New patient | | | consultation | | + + + Consultation (Routine) +--------+--------+ + + + + | Status | Reason | Specialty | Diagnoses / | Referred By | Referred To | | | | | Procedures | Contact | Contact | +--------+--------+ + + + + | Closed | | Neurology | Diagnoses | Donnie, | [facility] | | | | | Back pain | Camacho Wan MD | [facility] [address] | | | | | Leg pain | [place] | [address] | | | | | Neuropathy | [place] | Mailcode: | | | | | | [facility] | [facility] | | | | | | [address] | for Health | | | | | | [place], | and Healing, | | | | | | [place] [address] | Building 1, | | | | | | Phone: | [facility] Floor | | | | | | [phone] | [place], [place] | | | | | | Fax: | [address] | | | | | | [phone] | Phone: | | | | | | | [phone] | | | | | | | Fax: | | | | | | | [phone] | +--------+--------+ + + + + Encounter Details +--------+---------+ + + + | Date | Type | Department | Care Team | Description | +--------+---------+ + + + | 01/27/ | Office | Neurology at | Asuncion Skinner, | Lumbar Back Pain; | | 2008 | Visit | [facility] & | MD | Rt Knee Pain | | | | Healing [address] | | | | | | [address] Mailcode: | | | | | | [facility] | | | | | | Health and Healing, | | | | | | [facility] | | | | | | Floor [place], [place] | | | | | | [address] | | | | | | [phone] | | | +--------+---------+ + + + Social History + +-------+ +--------+------+ | Tobacco Use | Types | Packs/Day | Years | Date | | | | | Used | | + +-------+ +--------+------+ | Never Assessed | | | | | + +-------+ +--------+------+ + + + | Sex Assigned at [...] Filed Vital Signs + + + + + | Vital Sign | Reading | Time Taken | Comments | + + + + + | Blood Pressure | 137/79 | 01/27/2009 9:49 AM | | | | | PDT | | + + + + + | Pulse | 80 | 01/27/2009 9:49 AM | | | | | PDT | | + + + + + | Temperature | - | - | | + + + + + | Respiratory Rate | 18 | 01/27/2009 9:49 AM | | | | | PDT | | + + + + + | Oxygen Saturation | 92% | 01/27/2009 9:49 AM | | | | | PDT | | + + + + + | Inhaled Oxygen | - | - | | | Concentration | | | | + + + + + | Weight | 113.4 kg (250 lb 1.6 | 01/27/2009 9:49 AM | | | | oz) | PDT | | + + + + + | Height | 157.5 cm (5' 2") | 01/27/2009 9:49 AM | | | | | PDT | | + + + + + | Body Mass Index | 45.74 | 01/27/2009 9:49 AM | | | | | PDT | | + + + + + documented in this encounter Patient Instructions Patient Instructions Asuncion Skinner MD - 01/27/2009 11:06 AM PDTRecommend back exercises , physical therapy, and marketing graphics specialist.Electronically signed by Asuncion Skinner MD at 12/2008 11:06 AM PDT documented in this encounter Progress Notes Asuncion Skinner MD - 02/16/2009 5:58 PM PDTMRI Lumbar spine showed: 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 Disk bulges more prominent on the left than the right, however. KD suncion Skinner MD - 01/27/2009 11:05 AM PDT Clinic Date: 01/27/2009 Clinic: General Neurology Clinic Hafsa Cabrera is a 53 y.o. female referred here by Dr. Fields for back and right leg pain. Starting in 2005, her back increased and she developed pain and numbness in the whole right leg. Pain also more pronounced in the right knee. The pain in the back is constant, throbb ing, no change with position or medications (narcotics, Lyrica, Amitriptiline 100 mg, Neuron tin 300 BID, Baclofen 20 BID). The is also coldness down the right leg. More recently, glenys n is coming on in the left leg. There is a sense of bladder/bowel urgency, but she attribut es this to difficulty ambulating to the bathroom due to pain. No incontinence. There are b outs of muscle spasm in the back and anterior abdomen that last a few seconds, but take amanda diego to go away. She also falls once a day due to poor balance from the pain. On review of systems, she also notes: depression, cold intolerance, hot flashes, urinary dribbling, brock e in appetite, fatigue, poor sleep, weight gain, memory changes, headache, dizziness, numbne ss/tingling right leg, leg swelling, shortnes sof breath, wheezing and unbalanced walking. All other systems negative except as noted. 14 point review of systems form completed by etta locke and reviewed by myself during appointment. See patient form scanned into EMR. Past Medical History Diagnosis Date Unspecified Arthropathy, Site Unspecified Asthma Other General Symptoms Depressive Disorder, not Elsewhere Classified Pure Hypercholesterolemia Acute, but Ill-Defined, Cerebrovascular Disease Current outpatient prescriptions Medication Sig fenofibrate nanocrystallized 48 mg Oral Tablet Take 48 mg by mouth once daily. metformin 500 mg Oral Tablet Take 500 mg by mouth once daily. MULTI-VITAMIN ORAL Take by mouth. PHENYLALANINE OR Take by mouth. pioglitazone 15 mg Oral Tablet Take 15 mg by mouth once daily. Take 15mg twice daily Allergies: Penicillins Family History: mother living with HTN, father 72 diabetes and CHF, sister with diabet es, brother with diabetes, another brother with diabetes, brother with IA and aneurysm Social History: History Social History Marital Status: Single Spouse Name: N/A Number of Children: None Years of Education: N/A Occupational History Not working due to back pain. 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 Social History Main Topics Tobacco Use: 1 ppd for 40 yrs Alcohol Use: 1/2 gallon whiskey per week Drug Use: Not on file Sexually Active: Not on file Other Topics Concern Not on file Social History Narrative No narrative on file Physical Examination: Vital Signs: BP 137/79 | Pulse 80 | Resp 18 | Ht 1.575 m (5' 2") | Wt 113.445 kg (250 lb 1. 6 oz) | SpO2 92% General: The patient looks her stated age. She is leaning to the right in the chair from mo derate back pain. She has no speech or language problems. Cardiac: Regular rate and rhythm. Lungs: Clear. Skin: Normal. Neurologic: Cranial Nerve 2: Pupils are equally reactive to light. Visual stewart are intact . Cranial nerves 3, 4, and 6: Extraocular muscles are normal. Cranial nerve 5: Sensation is intact to V1 through V3. Cranial nerve 7: Face is symmetric. Cranial nerve 10: Normal palate movement. Cranial nerve 12: Normal tongue movement. On motor examination,she has 5/5 strength bilaterally in the deltoid, triceps, biceps, inte rossei, left iliopsoas, quadriceps, hamstrings, and dorsiflexion. On the right leg, there w as give away weakness from back and right knee pain. Reflexes are 2+ symmetrically throughout except absent in toes. Toes are downgoing. Sensory exam is decreased to light touch in the left leg. On gait testing, she has an antalgic gait, with flexion of the back. Ancillary Studies: MRI of the lumbar spine: results will be added once scanned into [facility]. Impression: Hafsa Davey is a 53 y.o. female with a 3 year history of back pain. This pain is se teresa enough to render her disabled and has negatively impacted her quality of life. She has n't found any relief from pharmacologic agents. I recommend an exercise program and referra l to a back specialist. There is no clear neuorlogic compromise, and the pain appears to be orthopedic in nature. Plan: I recommend physical therapy and back exercises. I recommend aerobic exercise which may also promote weight loss (her weight gain is likely negatively impacting her back pain as is her sedentary lifestyle) and consultation with a cora quachan. I recommend smoking and alcohol cessation. I referred her to [facility] spine clinic. documented in this e ncounter Plan of Treatment Not on filedocumented as of this encounter Procedures + +--------+ + + + | Procedure Name | Priori | Date/Time | Associated Diagnosis | Comments | | | ty | | | | + +--------+ + + + | LAB REPORTS | | 01/16/2009 | | Results for this | | | | 12:00 AM | | procedure are in the | | | | PDT | | results section. | + +--------+ + + + documented in this encounter Results LAB REPORTS (01/16/2009 12:00 AM PDT) + + + | Narrative | Performed At | + + + | | | + + + + + | Procedure Note | + + | Coral Recio - 01/16/2009 12:00 AM PDT | | | + + documented in this encounter Visit Diagnoses + + | Diagnosis | + + | Lumbar back pain Lumbago | + + | Rt knee pain Pain in joint, lower leg | + + documented in this encounter
--- OUTSIDE RECORDS SUMMARY | ~2019-07-20 | XMS | Encounter Summary ---
Demographics + + + | Address | [address] | | | [place] [address] | + + + | Home Phone | | + + + | Preferred Language | Unknown | + + + | Marital Status | Single | + + + | Spiritism Affiliation | NON | + + + | Race | or | + + + | Ethnic Group | Not or | + + + Author + + + | Author | [facility] | + + + | Organization | [facility] | + + + | Address | Unknown | + + + | Phone | Unavailable | + + + Support + + +---------+ + | Name | Relationship | Address | Phone | + + +---------+ + | Geni Oliva | ECON | Unknown | | + + +---------+ + Care Team Providers + +------+ + | Care Vpk Teacher Name | Role | Phone | + +------+ + | Camacho Fields MD | PCP | | + +------+ + Reason for Visit + + + | Reason | Comments | + + + | Erroneous Encounter | | | - Disregard | | + + + Encounter Details +--------+---------+ + + + | Date | Type | Department | Care Team | Description | +--------+---------+ + + + | 08/24/ | Office | Orthopaedic Spine | Helene Mahoney PA | Other Specified | | 2008 | Visit | Center at [facility] [address] | [address] | Pre-Operative | | | | [address] | [address] [place], | Examination (Primary | | | | Mailcode: [address] | [place] [address] | Dx); ERRONEOUS | | | | [facility] | [phone] | ENCOUNTER - NO | | | | and Healing, | | DIAGNOSIS | | | | [address], [address]th | | | | | | Floor [facility] [place] | | | | | | [address] | | | | | | [phone] | | | +--------+---------+ + + + Social History + + + +--------+------+ | Tobacco Use | Types | Packs/Day | Years | Date | | | | | Used | | + + + +--------+------+ | Former Smoker | Cigarettes | 1 | 40 | | + + + +--------+------+ + + +---------+ + | Alcohol Use | Drinks/Week | oz/Week | Comments | + + +---------+ + | Yes | | | 1/2 kevinon riddhiey | | | | | per week, | | | | | occassional | + + +---------+ + + + [...] + + documented as of this encounter Patient Instructions Patient Instructions Ana Love - 07/19/2009 12:10 PM PDTRegistration Locations (please check in at one of the following registration desks prior to surgery) For surgeries scheduled [place] take place [place] the [facility]: Surgeries scheduled in the [facility] ( [facility]): registration is located on the 4th floor of [facility] (Day Surgery). Surgeries scheduled in the [facility]: registration is located on the 9th floor. Surgeries scheduled in [facility]: registration is located on the 6th floor. Surgeries scheduled in the [facility]: registration is located i n the [facility] on the first floor. For surgeries scheduled to take place at the [facility]: registration is l ocated on the 4th floor (Surgery Center). Important Information Due to the increased prevalence of pests in our community, we are asking patients to partne r with us to keep our hospital clean. If you have noticed bugs or other pests in your home, on your belongings or on your body, please contact your doctor's office prior to your admis erik. For your safety and protection, please limit what you bring to the hospital. All valuables should be left at home. This includes pillows, blankets, clothing, purses, wallets, money an d jewelry. Patients may not bring personal electronics into the hospital, including hairdry ers, electric dwain, radios and CD players. If you use specialized medical equipment at [facility], please check with your provider before bringing it with you into the hospital. Registration Process for all Admissions/Surgeries Please bring your insurance card(s) with you and be prepared to pay any co-payment, co-insu therese or deposit that may be required. Once you arrive at the registration desk, you will be interviewed by a Patient Access Servi ce Specialist (FILEMON). Demographics will be verified (example: name, date of , Social Se curity Number, address, insurance). You will be asked to sign some paperwork: Terms and Conditions of Service, Notice of Privac y Practices Acknowledgement and Genetic Testing Opt Out. You will be given some paperwork: copies of any forms signed by you, Patient Rights, Respon sibilities and Safety, Understanding Advance Directives, and Smoking Cessation Brochure.Elec tronically signed by Ana Love at 07/19/2009 12:10 PM PDT documented in this encounter Progress Notes Helene Mahoney PA - 08/25/2009 8:09 AM PDTThis encounter was opened in error. Please disre jacobo this note. document ed in this encounter Plan of Treatment Not on filedocumented as of this encounter Visit Diagnoses + + | Diagnosis | + + | Other specified pre-operative examination - Primary | + + | ERRONEOUS ENCOUNTER - NO DIAGNOSIS | + + documented in this encounter"
--- OUTSIDE RECORDS SUMMARY | ~2019-07-20 | XMS | Encounter Summary ---
Demographics + + + | Address | [address] | | | [place] [address] | + + + | Home Phone | | + + + | Preferred Language | Unknown | + + + | Marital Status | Single | + + + | Yarsanism Affiliation | NON | + + + | Race | or | + + + | Ethnic Group | Not or | + + + Author + + + | Author | [facility] | + + + | Organization | [facility] | + + + | Address | Unknown | + + + | Phone | Unavailable | + + + Support + + +---------+ + | Name | Relationship | Address | Phone | + + +---------+ + | Geni Oliva | ECON | Unknown | | + + +---------+ + Care Team Providers + +------+ + | Care Header Machine Operator Name | Role | Phone | + +------+ + | Camacho Fields MD | PCP | | + +------+ + Encounter Details +--------+ + + + + | Date | Type | Department | Care Team | Description | +--------+ + + + + | 11/20/ | Hospital | Radiology/Imaging | | | | 2009 | Encounter | Lab at [facility] [address] | | | | | | [address] Mailcode: | | | | | | [facility] | | | | | | Health and Healing, | | | | | | [facility] | | | | | | Floor [place], [place] | | | | | | [address] | | | | | | [phone] | | | +--------+ + + + [...] + | Yes | | | 1/2 jeff lord | | | | | per week, [...] + + documented as of this encounter Medications at Time of Discharge + + + +---------+ + + | Medication | Sig | Dispensed | Refills | Start | End Date | | | | | | Date | | + + + +---------+ + + | fenofibrate | Take 0.5 Tabs by | qs | 0 | 08/22/20 | | | nanocrystallized 145 | mouth once daily. | | | 09 | | | mg Oral Tablet | | | | | | + + + +---------+ + + | fenofibrate | Take 48 mg by mouth | | 0 | | | | nanocrystallized 48 | once daily. | | | | | | mg Oral Tablet | | | | | | + + + +---------+ + + | glimepiride | Take 1 Tab by mouth | qs | 0 | 08/22/20 | | | (AMARYL) 4 mg Oral | once daily with | | | 09 | | | Tablet | breakfast. | | | | | + + + +---------+ + + | metformin 500 mg | Take 4 Tabs by mouth | qs | 0 | 08/22/20 | | | Oral Tablet | once daily. | | | 09 | | + + + +---------+ + + | oxycodone, | Take 1-3 Tabs by | 250 Tab | 0 | 11/20/19 | | | immediate release, 5 | mouth every six | | | 10 | | | mg Oral Tablet | hours as needed. | | | | | + + + +---------+ + + | sodium phosphates | Insert 118 mL | qs | 0 | 08/22/20 | | | 19-7 gram/118 mL | rectally once daily | | | 09 | | | Rectal Enema | as needed for | | | | | | | constipation. | | | | | + + + +---------+ + + | sorbitol 70 % | Take by mouth. | qs | 0 | 08/22/20 | | | Solution | | | | 09 | | + + + +---------+ + + documented as of this encounter Plan of Treatment Not on filedocumented as of this encounter Procedures + +--------+ + + + | Procedure Name | Priori | Date/Time | Associated Diagnosis | Comments | | | ty | | | | + +--------+ + + + | X-RAY SPINE | Routin | 11/20/2009 | Spinal stenosis of | Results for this | | LUMBOSACRAL 3 VIEWS | e | 12:03 PM | lumbar region | procedure are in the | | | | PST | | results section. | + +--------+ + + + documented in this encounter Results X-RAY SPINE LUMBOSACRAL 3 VIEWS (11/20/2009 12:03 PM PST) + + + + + + | Component | Value | Ref Range | Performed | Pathologist | | | | | At | Signature | + + + + + + | SPINE | STUDY: SPINE LUMBOSACRAL | | | | | LUMBOSACRAL | 3 VIEWS 11/20/09 | | | | | 3 VIEWS | 12:03:00 COMPARISON: | | | | | | 09/06/09 FINDINGS: There | | | | | | is redemonstration of | | | | | | prior diskectomies and | | | | | | interbody bonegrafting | | | | | | from L3 through L5 and | | | | | | posterior paraspinal citlali | | | | | | and | | | | | | screwfixation. There | | | | | | is no hardware loosening | | | | | | or failure or change | | | | | | ingraft | | | | | | position. There is no | | | | | | motion across the fused | | | | | | levels withflexion and | | | | | | extension. Trace | | | | | | retrolisthesis of L2 on | | | | | | L3 is unchangedand does | | | | | | not change between | | | | | | flexion and | | | | | | extension. A | | | | | | minimalthoracolumbar | | | | | | levoscoliosis is | | | | | | unchanged. Mild L2-3 | | | | | | degenerativedisk disease | | | | | | is stable. IMPRESSION: | | | | | | 1. Unchanged L3-L5 | | | | | | anterior and posterior | | | | | | fusion. No change | | | | | | inalignment, dynamic | | | | | | instability, or hardware | | | | | | or graft complication. | | | | | | 2. Unchanged mild | | | | | | L2-3 degenerative disk | | | | | | disease, trace | | | | | | L2-3retrolisthesis, and | | | | | | mild thoracolumbar | | | | | | levoscoliosis. I have | | | | | | personally viewed this | | | | | | procedure/exam and | | | | | | reviewed this report. | | | | | | Author: KONG ORONA, | | | | | | StephanReviewer: KONG ORONA, | | | | | | Stephan STATUS FINAL / | | | | | | Dr. KONG ORONA | | | | + + + + + + + + | Specimen | + + | | + + + +---------+ + + | Performing | Address | City/State/Zipcode | Phone Number | | Organization | | | | + +---------+ + + | [facility]PARTMENT OF | | | | | RADIOLOGY | | | | + +---------+ + + documented in this encounter Visit Diagnoses + + | Diagnosis | + + | Spinal stenosis, lumbar region, without neurogenic claudication | + + documented in this encounter"
--- OUTSIDE RECORDS SUMMARY | ~2019-07-20 | XMS | Encounter Summary ---
Demographics + + + | Address | [address] | | | [place] [address] | + + + | Home Phone | | + + + | Preferred Language | Unknown | + + + | Marital Status | Single | + + + | Temple Affiliation | NON | + + + | Race | or | + + + | Ethnic Group | Not or | + + + Author + + + | Author | [facility] | + + + | Organization | [facility] | + + + | Address | Unknown | + + + | Phone | Unavailable | + + + Support + + +---------+ + | Name | Relationship | Address | Phone | + + +---------+ + | Geni Oliva | ECON | Unknown | | + + +---------+ + Care Team Providers + +------+ + | Care Commercial Front Load Driver Name | Role | Phone | + +------+ + PCP | Unavailable | + +------+ + Encounter Details +--------+ + + + + | Date | Type | Department | Care Team | Description | +--------+ + + + + | 09/11/ | Results | Surgical Oncology | Orville Szymanski MD | | | 2000 | Only | [address] | [address] | | | | | [place] Mailcode: | [place], [place] | | | | | [id number] [facility] | [address] | | | | | [address] | [phone] | | | | | [place], [place] | | | | | | [address] | | | | | | [phone] | | | +--------+ + + + + Social History + +-------+ [...] | + +--------+ + + + | NON COMMUNICATION ELECTRONIC TECHNICIAN CYTOLOGY | Routin | 09/11/2001 | | Results for this | | | e | | | procedure are in the | | | | | | results section. | + +--------+ + + + documented in this encounter Results NON-COMMUNICATION ELECTRONIC TECHNICIAN CYTOLOGY (09/11/2001) + + + + + + | Component | Value | Ref Range | Performed | Pathologist | | | | | At | Signature | + + + + + + | NON-COMMUNICATION ELECTRONIC TECHNICIAN | [facility] | | [facility] | | | CYTOLOGY | DESCRIPTION:CLINICAL | | DEPARTMENT | | | | HISTORY: 46 yo with | | OF | | | | Right breast upper outer | | PATHOLOGY | | | | quadrant | | | | | | withfibrocystii change | | | | | | with dominant nodule | | | | | | approximately 2 cm | | | | | | tender,non-fixed.SOURCE | | | | | | OF SPECIMEN:FNA Breast | | | | | | FNA, done by pathologist | | | | | | Diagnosis:Negative for | | | | | | malignancy. | | | | | | Adequacy:Satisfactory | | | | | | for evaluation. | | | | | | Immediate | | | | | | Impression:Negative for | | | | | | malignancy.Rendering | | | | | | Diagnostician: Aris | | | | | | jakob Carrillo | | | | | | Stephan,Ph.D.PathologistEle | | | | | | ctronically Signed | | | | | | 09/15/2001Comment: | | | | | | SOURCE OF SPECIMEN: | | | | | | Breast FNA, done by | | | | | | pathologist | | | | + + + + + + + + | Specimen | + + | | + + + + + + + | Performing | Address | City/State/Zipcode | Phone Number | | Organization | | | | + + + + + | [facility]PARTMENT | [phone] | [place] [address] | | | PATHOLOGY | [address] | | | + + + + + | [facility] | [phone] | [place] [address] | | | PATHOLOGY | [address] | | | + + + + + documented in this encounter Visit Diagnoses Not on filedocumented in this encounter"
--- OUTSIDE RECORDS SUMMARY | ~2019-07-20 | XMS | Clinical Summary ---
Demographics + + + | Address | [address] | | | [place] [address] | + + + | Home Phone | | + + + | Preferred Language | Unknown | + + + | Marital Status | Single | + + + | Baptism Affiliation | Unknown | + + + | Race | Unknown | + + + | Ethnic Group | Unknown | + + + Author + + + | Author | [facility] | | | and [place] | + + + | Organization | [facility] | | | and [place] | + + + | Address | Unknown | + + + | Phone | Unavailable | + + + Support + + + + + | Name | Relationship | Address | Phone | + + + + + | Geni Serrano | ECON | [place] | | | | | [address] | | + + + + + | Brittany Cabrera | ECON | Unknown | | + + + + + Care Team Providers + +------+ + | Care Service Mechanic Name | Role | Phone | + +------+ + | Madeline Castaneda PA-C | PCP | Unavailable | + +------+ + Allergies + + + +--------+ + | Active Allergy | Reactions | Severity | Noted | Comments | | | | | Date | | + + + +--------+ + | Penicillin V | Hives | Low | | | | Potassium | | | | | + + + +--------+ + Medications + + + +---------+------+------+-------+ | Medication | Sig | Dispensed | Refills | Star | End | Statu | | | | | | t | Date | s | | | | | | Date | | | + + + +---------+------+------+-------+ | albuterol 90 | Inhale 1-2 puffs | | 0 | | | Activ | | mcg/puff inhaler | into the lungs every | | | | | e | | | 6 hours as needed | | | | | | | | for Wheezing. | | | | | | + + + +---------+------+------+-------+ | insulin lispro | Inject 0-6 Units | | 0 | 05/0 | | Activ | | (HUMALOG KWIKPEN) | under the skin 4 | | | 3/20 | | e | | 100 units/mL | times daily (with | | | 16 | | | | injection (pen) | meals and nightly). | | | | | | + + + +---------+------+------+-------+ | levothyroxine | Take 1 tablet by | 30 | 0 | 05/0 | | Activ | | (SYNTHROID, | mouth every morning | tablet | | 3/20 | | e | | LEVOTHROID) 50 mcg | (before breakfast). | | | 16 | | | | tablet | | | | | | | + + + +---------+------+------+-------+ | insulin glargine | Inject 18 Units | 1 pen | 4 | 05/0 | | Activ | | (LANTUS SOLOSTAR) | under the skin | | | 3/20 | | e | | 100 units/mL | nightly. | | | 16 | | | | injection (pen) | | | | | | | + + + +---------+------+------+-------+ | | Take 1 tablet by | | 0 | | | Activ | | HYDROcodone-acetamin | mouth every 6 hours | | | | | e | | ophen (NORCO) 10-325 | as needed for Pain. | | | | | | | mg per tablet | | | | | | | + + + +---------+------+------+-------+ | loratadine | Take 10 mg by mouth | | 0 | | | Activ | | (CLARITIN) 10 mg | Daily. | | | | | e | | tablet | | | | | | | + + + +---------+------+------+-------+ | metFORMIN | Take 1,000 mg by | | 0 | | | Activ | | (GLUCOPHAGE) 1000 MG | mouth 2 times daily | | | | | e | | tablet | (with breakfast & | | | | | | | | dinner). | | | | | | + + + +---------+------+------+-------+ | potassium chloride | Take 10 mEq by mouth | | 0 | | | Activ | | (KLOR-CON) 10 MEQ | Daily. With food | | | | | e | | ER tablet | | | | | | | + + + +---------+------+------+-------+ | atorvaSTATin | Take 1 tablet by | 30 | 5 | 01/2 | | Activ | | (LIPITOR) 20 mg | mouth nightly. | tablet | | 9/20 | | e | | tablet | | | | 18 | | | + + + +---------+------+------+-------+ | furosemide (LASIX) | Take 1 tablet by | 30 | 5 | 01/2 | | Activ | | 80 mg tablet | mouth Daily. | tablet | | 9/20 | | e | | | | | | 18 | | | + + + +---------+------+------+-------+ | losartan (COZAAR) | Take 1 tablet by | | 0 | 01/2 | | Activ | | 50 mg tablet | mouth Daily. | | | 9/20 | | e | | | | | | 18 | | | + + + +---------+------+------+-------+ | Alcohol Swabs 70 % | by Does not apply | | 0 | | | Activ | | PADS | route. 1 to wipe | | | | | e | | | area as directed | | | | | | + + + +---------+------+------+-------+ | pregabalin | Take 300 mg by mouth | | 0 | | | Activ | | (LYRICA) 150 MG | 2 times daily. | | | | | e | | capsule | | | | | | | + + + +---------+------+------+-------+ | nicotine | Place 1 patch onto | | 0 | | | Activ | | (NICODERM) 21 mg/24 | the skin every 24 | | | | | e | | hr | hours. | | | | | | + + + +---------+------+------+-------+ | morphine (MSIR) 15 | Take 15 mg by mouth | | 0 | | | Activ | | mg tablet | every 12 hours as | | | | | e | | | needed for Pain. | | | | | | + + + +---------+------+------+-------+ | azithromycin | Take 2 tablets by | 6 | 0 | 09/1 | | Activ | | (ZITHROMAX) 250 mg | mouth on day 1, and | tablet | | 3/20 | | e | | tablet | 1 tablet by mouth | | | 19 | | | | | every day | | | | | | + + + +---------+------+------+-------+ | predniSONE | Take 6 tablets by | 30 | 0 | 09/1 | 09/1 | Expir | | (DELTASONE) 10 mg | mouth Daily for 5 | tablet | | 3/20 | 8/20 | ed | | tablet | days. | | | 19 | 19 | | + + + +---------+------+------+-------+ | methocarbamol | Take 2 tablets by | 30 | 0 | 09/1 | 09/1 | Expir | | (ROBAXIN) 750 mg | mouth every 6 hours | tablet | | 3/20 | 6/20 | ed | | tablet | as needed for Muscle | | | 19 | 19 | | | | spasms for up to 3 | | | | | | | | days. | | | | | | + + + +---------+------+------+-------+ Active Problems + + + | Problem | Noted Date | + + + | Central stenosis of spinal canal L1/2 | 09/30/2018 | + + + | Chest pain | 01/21/2018 | + + + + + | Overview: Nuclear Stress Test 12/10/17 shows regadenoson EKG | | is normal, normal Regadenoson Sestamibi myocardial perfusion | | study with a normal left ventricular size and wall thickness, | | preserved left ventricular systolic function. LVEF by gated | | SPECT 83 %.Echocardiogram done on 02/03/18 shows mild biatrial | | dilatation, normal left ventricular size with a mild concentric | | left ventricular hypertrophy, left ventricular systolic function | | is preserved, LVEF is 65%, grade 1 left ventricular diastolic | | dysfunction, normal valvular structure, normal right-sided | | pressure, normal IVC with normal respiratory collapse, the | | predominant rhythm is normal sinus with the heart rate ranging | | between 72 and 129 beats per minute, the average heart rate was | | 89 beats per minute during the 47:28 hour recording, very rare | | premature ventricular contractions including three runs of | | bigeminy, the longest being 3 cycles, very rare premature atrial | | contractions, all singles, two runs of sinus tachycardia with the | | longest run 11 beats (14:06-3) and the maximum heart rate 132 | | beats per minute (14:07-3), the patient did not return a diary or | | report any symptoms. Geovani Duckworth MD48 hour holter monitor | | done on 02/06/18 shows the predominant rhythm is normal sinus | | with the heart rate ranging between 72 and 129 beats per minute, | | the average heart rate was 89 beats per minute during the 47:28 | | hour recording, very rare premature ventricular contractions | | including three runs of bigeminy, the longest being 3 cycles, | | very rare premature atrial contractions, all singles, two runs of | | sinus tachycardia with the longest run 11 beats (14:06-3) and | | the maximum heart rate 132 beats per minute (14:07-3), the | | patient did not return a diary or report any symptoms. Geovani | | MD Donita | + + + + + | Stress incontinence | 07/29/2017 | + + + | Laryngeal mass | 06/10/2016 | + + + | Chronic kidney disease, stage 3 | 02/24/2016 | + + + | Metabolic acidosis with increased anion gap and reduced excretion | 02/24/2016 | | of inorganic acids | | + + + | Acute renal failure (ARF) | 02/23/2016 | + + + | Hyperkalemia | 02/23/2016 | + + + | Hypoglycemia | 02/23/2016 | + + + | Type 2 diabetes mellitus with kidney complication | 02/23/2016 | + + + | SCIATICA | | + + + | ARTHRITIS, KNEES, BILATERAL | | + + + | LUMBAR RADICULOPATHY | | + + + | Morbid obesity | | + + + | ARTHROSCOPY, HX OF | | + + + | OSTEOARTHRITIS, LUMBOSACRAL SPINE | | + + + | TOTAL KNEE REPLACEMENT, RIGHT, HX OF | | + + + | DIABETIC PERIPHERAL NEUROPATHY | | + + + | Hyperlipidemia, mixed | | + + + | Chronic low back pain | | + + + | Vitamin D deficiency | | + + + | COPD (chronic obstructive pulmonary disease) | | + + + | Allergic rhinitis | | + + + | Trochanteric bursitis | | + + + | Acquired hypothyroidism | | + + + | Asthma | | + + + | Essential hypertension with goal blood pressure less than 130/80 | | + + + | GERD (gastroesophageal reflux disease) | | + + + | History of cardioembolic stroke | | + + + | Palpitations | | + + + + + | Overview: 48-hour Holter monitor 02/03/2018 shows | | predominant rhythm is normal sinus with the heart rate ranging | | between 72 and 129 beats per minute, average heart rate was 89 | | beats per minute during the 47:28 hour recording, very rare | | premature ventricular contractions including three runs of | | bigeminy, the longest being 3 cycles, very rare premature atrial | | contractions, all singles, two runs of sinus tachycardia with the | | longest run 11 beats (14:06-3) and the maximum heart rate 132 | | beats per minute (14:07-3), patient did not return a diary or | | report any symptoms. | + + + +---+ | Heart failure | | + +---+ + + | Overview: Echocardiogram 02/03/2018 shows mild biatrial | | dilatation, normal left ventricular size with a mild concentric | | left ventricular hypertrophy, left ventricular systolic function | | is preserved. LVEF is 65%, grade 1 left ventricular diastolic | | dysfunction, normal valvular structure, normal right-sided | | pressure, normal IVC with normal respiratory collapse. | + + Encounters +--------+ + + + + | Date | Type | Specialty | Care Team | Description | +--------+ + + + + | 07/09/ | Emergency | Emergency Medicine | Terrell Hollingsworth MD | Neck pain (Primary | | 2018 | | | Chacho García, | Dx); COPD | | | | | MD | exacerbation ([facility]); | | | | | | Bronchitis | +--------+ + + + + | 05/27/ | Emergency | Emergency Medicine | Chacho García, | Right flank pain | | 2018 | | | MD | (Primary Dx); Right | | | | | | sided sciatica | +--------+ + + + + from Last 3 Months Family History + + + + + | Medical History | Relation | Name | Comments | + + + + + | Brain cancer | Brother | | | + + + + + | Hypertension | Brother | | | + + + + + | Diabetes | Brother | | | + + + + + | Hypertension | Brother | | | + + + + + | Renal failure | Brother | | | + + + + + | Heart disease | Brother | | | + + + + + | Hypertension | Brother | | | + + + + + | Hypertension | Brother | | | + + + + + | Hypertension | Brother | | | + + + + + | Diabetes | Father | Carrillo | | | | | F Deborah | | | | | Sr | | + + + + + | Heart failure | Father | Carrillo | | | | | F Deborah | | | | | Sr | | + + + + + | Hypertension | Father | Carrillo | | | | | F Deborah | | | | | Sr | | + + + + + | No known problems | Maternal | | | | | Grandfath | | | | | er | | | + + + + + | No known problems | Maternal | | | | | Grandmoth | | | | | er | | | + + + + + | Other (see comment) | Maternal | | Brain Tumor | | | Uncle | | | + + + + + | Arthritis | Mother | Bobbi L | | | | | Whitrigh | | | | | t | | + + + + + | COPD | Mother | Bobbi L | | | | | Whitrigh | | | | | t | | + + + + + | Heart disease | Mother | Bobbi L | Stent placed | | | | Whitrigh | | | | | t | | + + + + + | Hypertension | Mother | Bobbi L | | | | | Whitrigh | | | | | t | | + + + + + | Uterine cancer | Mother | Bobbi L | | | | | Whitrigh | | | | | t | | + + + + + | No known problems | Paternal | | | | | Grandfath | | | | | er | | | + + + + + | No known problems | Paternal | | | | | Grandmoth | | | | | er | | | + + + + + | Diabetes | Sister | Geni | | | | | Kosey | | + + + + + | Diabetes | Sister | | | + + + + + + + + + + | Relation | Name | Status | Comments | + + + + + | Brother | | | Brain Tumor | | | | (Age | | | | | 10) | | + + + + + | Brother | | Alive | | + + + + + | Brother | | Alive | | + + + + + | Brother | | Alive | | + + + + + | Brother | | | | + + + + + | Brother | | | | + + + + + | Father | Carrillo F | | Heart Failure | | | Deborah Sr | (Age | | | | | 72) | | + + + + + | Maternal Grandfather | | | | + + + + + | Maternal Grandmother | | | | + + + + + | Maternal Uncle | | | | + + + + + | Mother | Bobbi L | Alive | | | | [place] | | | + + + + + | Paternal Grandfather | | Alive | | + + + + + | Paternal Grandmother | | Alive | | + + + + + | Sister | Geni | Alive | | | | [place]y | | | + + + + + | Sister | | | | + + + + + Social History + [...] recent travel history available. | + + Last Filed Vital Signs + + + + | Vital Sign | Reading | Time Taken | + + + + | Blood Pressure | 138/64 | 07/09/2019 1458 PDT | + + + + | Pulse | 85 | 07/09/2019 1936 PDT | + + + + | Temperature | 38.2 C (100.7 F) | 07/09/20191457 PDT | + + + + | Respiratory Rate | 18 | 07/09/2019 1645 PDT | + + + + | Oxygen Saturation | 96% | 07/09/20191935 PDT | + + + + | Inhaled Oxygen | - | - | | Concentration | | | + + + + | Weight | 108.2 kg (238 lb 8.6 | 10/12/2018 0739 PST | | | oz) | | + + + + | Height | 157.5 cm (5' 2") | 07/09/20191457 PDT | + + + + | Body Mass Index | 43.63 | 10/12/2018 0739 PST | + + + + Plan of Treatment +--------+---------+ + + + | Date | Type | Specialty | Care Team | Description | +--------+---------+ + + + | 07/27/ | Office | Pulmonology | Jayy Oswald MD | | | 2019 | Visit | | [address] | | | | | | [place] | | | | | | [address] | | | | | | | | +--------+---------+ + + + + + + + + | Health Maintenance | Due Date | Last Done | Comments | + + + + + | Diabetic Eye Exam | | | | | | 4 | | | + + + + + | Diabetic Foot Exam | | | | | | 4 | | | + + + + + | Breast Cancer | | | | | Screening | 6 | | | + + + + + | Colorectal Cancer | | | | | Screening | 6 | | | | (Colonoscopy) | | | | + + + + + | Vaccine: | | 08/27/2009, 09/04/2000 | | | Dtap/Tdap/Td (1 - | 9 | | | | Tdap) | | | | + + + + + | Vaccine: | | 08/14/2010, 08/28/2005 | | | Pneumococcal 19-64 | 1 | | | | Highest Risk (3 of 3 | | | | | - PCV13) | | | | + + + + + | Adult Annual | | | | | Wellness Visit | 5 | | | + + + + + | Statin Therapy | | | | | (optimal intensity) | 5 | | | + + + + + | Hemoglobin A1c | | 02/24/2016 | | | Screening | 6 | | | + + + + + | Vaccine: Zoster (2 | | 06/27/2016 | | | of 3) | 6 | | | + + + + + | Vaccine: Influenza | | 07/07/2018, 08/06/2017, | | | (#1) | 9 | 06/27/2016, Additional history | | | | | exists | | + + + + + | Hepatitis C | Completed | 02/24/2016 | | | Screening | | | | + + + + + Implants + +------+--------+ +--------+--------+--------+ | Implanted | Type | Area | Manufacture | Device | Shelf | Model | | | | | r | | Expira | / | | | | | | Identi | tion | Serial | | | | | | fier | Date | / Lot | + +------+--------+ +--------+--------+--------+ | Graft Infuse Bone Kit Xxs - | | Right: | SOF[employer]OR | | 03/26/ | [id number] | | [id number]: Qty: 1 on | | Spine | DANEK - DIV | | 2016 | 0 / | | 08/22/2015 by Brady Becerra | | | [employer] | | | [id number] | | DO Edy | | Lumbar | - SFDK | | | [id number] | + +------+--------+ +--------+--------+--------+ | Set Scrw Ns G5 Brk Off Ti | | Right: | SOFAMOR | | | [id number] | | 4.75 - [id number]: | | Spine | DANEK - DIV | | | 0 / / | | Qty: 6 on 08/22/2015 by | | | [employer] | | | | | Brady Becerra DO | | Lumbar | - SFDK | | | | + +------+--------+ +--------+--------+--------+ | Puneet Sextant Ccm [id number] - | | Right: | [employer] - | | | [id number] | | [id number]: Qty: 2 on | | Spine | MEDT | | | 5100 / | | 08/22/2015 by Brady Becerra | | | | | | / | | DO Edy | | Lumbar | | | | | + +------+--------+ +--------+--------+--------+ | Bone Chips 15cc - | | Right: | TAIWANESE | | 01/26/ | [id number] | | [id number]: Qty: 1 on | | Spine | RED CROSS - | | 2019 | / | | 08/22/2015 by Brady Becerra | | | AMRR | | | /38-36 | | DO Edy | | Lumbar | | | | 55 | + +------+--------+ +--------+--------+--------+ | Impl Spn Spcr Capstone | | Right: | [employer] - | | 06/19/ | [id number] | | [id number] - [id number]: | | Spine | MEDT | | 2023 | 0 / | | Qty: 1 on 08/22/2015 by | | | | | | /[id number] | | Brady Becerra DO | | Lumbar | | | | 583 | + +------+--------+ +--------+--------+--------+ | Algrft Stephanie [place] 5cc Dbm | | Right: | OSTEOTECH - | | 04/17/ | [id number] | | - [id number]: Qty: | | Spine | OSTT | | 2018 | /[id number] | | 1 on 08/22/2015 by Hernan, | | | | | | 3-033 | | Brady Snow DO | | Lumbar | | | | / | + +------+--------+ +--------+--------+--------+ | Screw Irma Solera 6.5x55mm - | | Right: | SOF[employer]OR | | | [id number] | | [id number]: Qty: 2 on | | Spine | DANEK - DIV | | | [id number] | | 08/22/2015 by Brady Becerra | | | [employer] | | | / / | | DO Edy | | Lumbar | - SFDK | | | | + +------+--------+ +--------+--------+--------+ | Screw Irma Solera 6.5x60mm - | | Right: | SOFAMOR | | | [id number] | | [id number]: Qty: 1 on | | Spine | DANEK - DIV | | | [id number] | | 08/22/2015 by Brady Becerra | | | [employer] | | | / / | | DO Edy | | Lumbar | - SFDK | | | | + +------+--------+ +--------+--------+--------+ | Screw Solera Sextant 7.5x60 - | | Right: | [employer] - | | | [id number] | | [id number]: Qty: 1 | | Spine | MEDT | | | [id number] | | on 08/22/2015 by Hernan, | | | | | | / / | | Brady Snow DO | | Lumbar | | | | | + +------+--------+ +--------+--------+--------+ | Screw 7.5x50mm Sextant - | | Right: | [employer] - | | | [id number] | | [id number]: Qty: 1 on | | Spine | MEDT | | | [id number] | | 08/22/2015 by Brady Becerra | | | | | | / / | | DO Edy | | Lumbar | | | | | + +------+--------+ +--------+--------+--------+ | Screw Slra Andersontant 7.5.55 - | | Right: | [employer] - | | | [id number] | | [id number]: Qty: 1 on | | Spine | MEDT | | | 71856 | | 08/22/2015 by Brady Becerra | | | | | | / / | | A, DO | | Lumbar | | | | | + +------+--------+ +--------+--------+--------+ Procedures + +--------+ + + + | [...] | | n - | | | 09/13/ | | | 2019 | | | 1432 | | | [...] | | | FICATI | | | ON?09/ | | | 13/201 | | | 9 | | | 14:30? | | | DEBORAH, | | | HOPE | | | M?MRN: | | | | | | [id number] | | | [id number] | | | riteri | | | [...] | | | St. | | | [place] | | | y | | | [...] | | | St. | | | [place] | | | y | | | [...] | | | St. | | | [place] | | | y H. | | [...] | | | ed.? | | | 2019 | | | Collec | | | tive | | | Medica | | | l | | | Techno | | | logies | | | , Inc[employer] | | | - | | | [email or web address] | | | llecti | | | vemedi | | | [email or web address] | | | m | +---+--------+ + +--------+ +---+ + | CT RENAL STONE WO | STAT | 05/27/2019 | | Results for this | | CONTRAST | | 22:25 PDT | | procedure are in the | | | | | | results section. | + +--------+ +---+ + | URINALYSIS WITH | STAT | 05/27/2019 | | Results for this | | MICROSCOPIC WITH | | 21:38 PDT | | procedure are in the | | CULTURE IF INDICATED | | | | results section. | + +--------+ +---+ + | EXTRA LAVENDER TOP | Routin | 05/27/2019 | | Results for this | | TUBE | e | 20:59 PDT | | procedure are in the | | | | | | results section. | + +--------+ +---+ + | EXTRA BLUE TOP TUBE | Routin | 05/27/2019 | | Results for this | | | e | 20:59 PDT | | procedure are in the | | | | | | results section. | + +--------+ +---+ + | EXTRA GREEN TOP TUBE | Routin | 05/27/2019 | | Results for this | | | e | 20:59 PDT | | procedure are in the | | | | | | results section. | + +--------+ +---+ + | COMPREHENSIVE | STAT | 05/27/2019 | | Results for this | | METABOLIC PANEL | | 20:59 PDT | | procedure are in the | | | | | | results section. | + +--------+ +---+ + | CBC WITH | STAT | 05/27/2019 | | Results for this | | DIFFERENTIAL | | 20:59 PDT | | procedure are in the | | | | | | results section. | + +--------+ +---+ + from Last [address] Angiogram Pulmonary w Contrast (07/09/2019 [...] + + | Performing | Address | City/[facility] | Phone Number | | Organization [...] | | spondylolisthesis. Dictated and Signed by: hSon Kramer MD | | | Electronically signed: [...] + | [place], Rad Results In - 07/09/20192125 PDT | | CLINICAL INFORMATION: NECK PAIN. [...] | | | + +---------+ + + CBC with Differential (07/09/2019 17:03 PDT)Only the most recent of 2 results within the ti me period is included. + + + + + + | [...] | | | | M/uL | [facility] | | | | [...] | | Neutrophils | | K/uL | [facility] | | | | | | [facility] | | | | | | [facility] - | | | | | | LABORATORY | | + + + + + + | Absolute | 1.35 | 0.60 - 3.20 | [facility] | | | Lymphocytes | | K/uL | [facility] | | | | | | [facility] | | | | | | [facility] - | | | | | | LABORATORY | | + + + + + + | Absolute | 0.95 | 0.00 - 1.00 | [facility] | | | Monocytes | | K/uL | [facility] | | | | | | [facility] | | | | | | C[facility] - | | | | | | LABORATORY | | + + + + + + | Absolute | 0.14 | 0.00 - 0.40 | [facility] | | | Eosinophils | | K/uL | [facility] | | | | | | MEDICAL | | | | | | CENTER - | | | | | | LABORATORY | | + + + + + + | Absolute | 0.05 | 0.00 - 0.10 | [facility] | | | Basophils | | K/uL | [facility] | | | | | | MEDICAL | | | | | | CENTER - | | | | | | LABORATORY | | + + + + + + | Absolute | 0.05 (H) | 0.00 - 0.03 | [facility] | | | Immature | | K/uL | [facility] | | | Granulocyte | | [...] | 0.00 | 0.00 - 0.01 | [facility] | | | nRBC | | K/uL | [facility] | | | | | [...] | [address] | [place] | [phone] | | [facility] | | [address] | | | - LABORATORY | | | | + + + + + B Type Natriuretic Peptide (07/09/2019 [...] + | [facility] | [address] | [place] | [phone] | | [facility] | | [address] | | | - LABORATORY | | [...] Quantitativ | quantitative D-Dimer | FEU | [facility] | | | e | assay has [...] + + + + + | [facility] | [address] | [place] | [phone] | | [facility] | | [address] | | | - LABORATORY | | | | + + + + + Basic Metabolic Panel (07/09/2019 16:44 PDT) + + + + + + | Component | Value | Ref Range | Performed | Pathologist | | | | | At | Signature | + + + + + + | Na | 134 (L) | 136 - 145 | [facility] | | | | | mmol/L | [facility] | | | | | | MEDICAL | | | | | | CENTER - | | | | | | LABORATORY | | + + + + + + | K | 4.7 | 3.4 - 5.1 | [facility] | | | | | mmol/L | [...] [facility] | | | | | | [facility] | | | | | | [...] not | 54 (L)Comment: | >=60 | [facility] | | | | GLOMERULAR FILTRATION | mL/min/1.73m2 | [facility] | | | [place] | RATE,ESTIMATED mL/min | | MEDICAL | | | | /1.78c4Bdyi than 60 | | CENTER - | [...] + | BUN/Creatin | 11.5 | | [facility] | | | ine Ratio | | | [facility] | | [...] + + | [facility] | [address] | [place] | [phone] | | [facility] | | [address] | | | - LABORATORY | | | | + + + + + CT Renal Stone Wo Contrast (05/27/2019 22:25 PDT) + + | Specimen | + + | | + + + + + | Narrative | Performed At | + + + | CT ABDOMEN AND PELVIS WITHOUT CONTRAST (CPT) CT KUB | [facility] | | CLINICAL INFORMATION: Right flank and back pain. COMPARISON: [place] | | | ASP AND/OR INJ MAJOR JOINT RIGHT (11/16/2018); CT ABDOMEN PELVIS WO | | | CONTRAST (07/14/2018); [place] KEREN STATS NO CHARGE (08/22/2015); | | | PROCEDURE: Axial images through the abdomen and pelvis. Multiplanar | | | reconstructions. At least one of the following CT dose | | | optimization techniques were used: Automated exposure control; | | | Adjustment of mA and/or kV according to patient size; Use of | | | iterative reconstruction technique. FINDINGS: No acute hepatic | | | abnormality. Evidence of prior cholecystectomy. Mild physiologic | | | dilatation of the extrahepatic bile ducts. Normal appearance of the | | | pancreas, spleen, and adrenal glands. Mild nonspecific bilateral | | | perinephric fat stranding. No significant hydronephrosis, | | | hydroureter, or renal calculi. Urinary bladder is largely collapsed | | | and without evidence for suspicious abnormality. Uterus is surgically | | | absent. A few noninflamed colonic diverticula are identified. No | | | evidence of suspicious bowel dilatation or thickening. Small | | | fat-containing umbilical hernia without evidence of inflammatory | | | changes. Severe right and moderate left hip osteoarthritis. No acute | | | osseous abnormality identified. Posterior interbody fusion changes | | | are without acute abnormality. Multilevel severe neural foraminal | | | narrowing and likely central spinal stenosis. IMPRESSION- No | | | acute findings within the abdomen or pelvis. No urinary system | | | stone or obstruction. A preliminary report was sent without | | | significant discrepancy. Dictated and Signed by: | | | Gilbert Short MD Electronically signed: 05/28/2019 7:49 AM | | + + + + + | Procedure Note | + + | [place], Rad Results In - 05/28/2019 0752 PDT | | CT ABDOMEN AND PELVIS WITHOUT CONTRAST (CPT) | | | | CT KUB | | | | CLINICAL INFORMATION: | | Right flank and back pain. | | | | COMPARISON: | | [place] ASP AND/OR INJ MAJOR JOINT RIGHT (11/16/2018); CT ABDOMEN PELVIS WO | | CONTRAST (07/14/2018); [place] KEREN STATS NO CHARGE (08/22/2015); | | | | PROCEDURE: | | Axial images through the abdomen and pelvis. Multiplanar | | reconstructions. | | | | At least one of the following CT dose optimization techniques were | | used: Automated exposure control; Adjustment of mA and/or kV according | | to patient size; Use of iterative reconstruction technique. | | | | FINDINGS: | | No acute hepatic abnormality. Evidence of prior cholecystectomy. Mild | | physiologic dilatation of the extrahepatic bile ducts. Normal appearance of the | | pancreas, spleen, and adrenal glands. Mild nonspecific bilateral perinephric fat | | stranding. No significant hydronephrosis, hydroureter, or renal calculi. Urinary | | bladder is largely collapsed and without evidence for suspicious abnormality. | | Uterus is surgically absent. A few noninflamed colonic diverticula are | | identified. No evidence of suspicious bowel dilatation or thickening. Small | | fat-containing umbilical hernia without evidence of inflammatory changes. Severe | | right and moderate left hip osteoarthritis. No acute osseous abnormality | | identified. Posterior interbody fusion changes are without acute abnormality. | | Multilevel severe neural foraminal narrowing and likely central spinal stenosis. | | | | IMPRESSION- | | No acute findings within the abdomen or pelvis. | | | | No urinary system stone or obstruction. | | | | | | | | A preliminary report was sent without significant discrepancy. | | | | Dictated and Signed by: Gilbert Short MD | | Electronically signed: 05/28/2019 7:49 AM | + + + +---------+ + + | Performing | Address | City/State/Zipcode | Phone Number | | Organization | | | | + +---------+ + + | [facility] | | | | + +---------+ + + Urinalysis with Microscopic with Culture if Indicated (05/27/2019 21:38 PDT) + + + + + + | Component | Value | Ref Range | Performed | Pathologist | | | | | At | Signature | + + + + + + | Color | Yellow | Light Yellow, | [facility] | | | | | Yellow, Straw | [facility] | | | | | | [facility] | | | | | | [facility] - | | | | | | LABORATORY | | + + + + + + | Clarity | Hazy (A) | Clear | [facility] | | | | | | [facility] | | | | [facility] | [facility] | | | [facility] - | | | | | | LAB[facility]ATORY | | + + + + + + | pH, Urine | 5.0 | 5.0 - 8.0 | [facility] | | | | | | [facility] | | | | [facility] | [facility] | | | | | | [facility] - | | | | | | LABORATORY | | + + + + + + | Specific | 1.020 | 1.001 - 1.030 | [facility] | | | [place] | | | [facility] | | | | | | [facility] | | | | | | [facility] - | | | | | | LABORATORY | | + + + + + + | Protein, | 30 mg/dL (A) | Negative | [facility] | | | Urine | | | [facility] | | | | | | [facility] | | | | | | [facility] - | | | | | | LABORATORY | | + + + + + + | Blood, | Negative | Negative | [facility] | | | Urine | | | [facility] | | | | | | [facility] | | | | | | [facility] - | | | | | | LABORATORY | | + + + + + + | Glucose, | Negative | Negative | [facility] | | | Urine | | | [facility] | | | | | | [facility] | | | | | | [facility] - | | | | | | LABORATORY | | + + + + + + | Ketones, | Negative | Negative | [facility] | | | Urine | | | [facility] | | | | | | [facility] | | | | | | [facility] - | | | | | | LABORATORY | | + + + + + + | Bilirubin, | Negative | Negative | [facility] | | | Urine | | | [facility] | | | | | | [facility] | | | | | | [facility] - | | | | | | LABORATORY | | + + + + + + | Nitrite, | Negative | Negative | [facility] | | | Urine | | | [facility] | | | | | | [facility] | | | | | | C[facility] - | | | | | | LABORATORY | | + + + + + + | Leukocyte | Negative | Negative | [facility] | | | Esterase, | | | [facility] | | | Urine | | | MEDICAL | | | | | | CENTER - | | | | | | LABORATORY | | + + + + + + | Urobilinoge | Negative | 0.2 mg/dL, 1.0 | [facility] | | | n, Urine | | mg/dL, Negative | [facility] | | | | | | [facility] | | | | | | C[facility] - | | | | | | LABORATORY | | + + + + + + | WBC UA | 0-2 | 0 - 2 /HPF | [facility] | | | | | | [facility] | | | | | | [facility] | | | | | | [facility] - | | | | | | LABORATORY | | + + + + + + | RBC UA | 0-2 | 0 - 2 /HPF | [facility] | | | | | | [facility] | | | | | | [facility] | | | | | | [facility] - | | | | | | LABORATORY | | + + + + + + | SQUAMOUS | 50-100 (A) | 0 - 2 /LPF | [facility] | | | EPITHELIAL | | | [facility] | | | UA | | | MEDICAL | | | | | | CENTER - | | | | | | LABORATORY | | + + + + + + | BACTERIA UA | Negative | Negative /HPF | [facility] | | | | | | [facility] | | | | | | [facility] | | | | | | CENTER - | | | | | | LABORATORY | | + + + + + + | MUCUS UA | Present (A) | Negative /LPF | [facility] | | | | | | [facility] | | | | | | [facility] | | | | | | CENTER - | | | | | | LABORATORY | | + + + + + + + + | Specimen | + + | Urine | + + + + + + + | Performing | Address | City/State/Zipcode | Phone Number | | Organization | | | | + + + + + | [facility] | [address] | [place] | [phone] | | [facility] | | [address] | | | - LABORATORY | | | | + + + + + Extra Lavender Top Tube (05/27/2019 20:59 PDT) + +-------+ + + + | Component | Value | Ref Range | Performed | Pathologist | | | | | At | Signature | + +-------+ + + + | Extra | Done | | [facility] | | | Lavender | | | [facility] | | | Top Tube | | | MEDICAL | | | [...] + | [facility] | [address] | [place] | [phone] | | [facility] | | [address] | | | - LABORATORY | | | | + + + + + Extra Green Top Tube (05/27/2019 20:59 PDT) + +-------+ + + + | Component | Value | Ref Range | Performed | Pathologist | | | | | At | Signature | + +-------+ + + + | Extra Green | Done | | [facility] | | | Top Tube | | | [facility] | | | | | | [...] [facility] | [address] | [place] | [phone] | | [facility] | | [address] | | | - LABORATORY | | | | + + + + + Extra Blue Top Tube (05/27/2019 20:59 PDT) + +-------+ + + + | Component | Value | Ref Range | Performed | Pathologist | | | | | At | Signature | + +-------+ + + + | Extra Blue | Done | | [facility] | | | Top Tube | | | [facility] | | [...] + + | [facility] | [address] | [place] | [phone] | | [facility] | | [address] | | | - LABORATORY | | | | + + + + + Comprehensive Metabolic Panel (05/27/2019 20:59 PDT) + + + + + + | Component | Value | Ref Range | Performed | Pathologist | | | | | At | Signature | + + + + + + | Na | 139 | 136 - 145 | [facility] | | | | | mmol/L | [facility] | | | | | | MEDICAL | | | | | | CENTER - | | | | | | LABORATORY | | + + + + + + | K | 3.9 | 3.4 - 5.1 | [facility] | | | | | mmol/L | [facility] | | | | | | MEDICAL | | | | | | CENTER - | | | | | | LABORATORY | | + + + + + + | Cl | 105 | 98 - 107 mmol/L | [facility] | | | | | | [facility] | | | | | | [facility] | | | | | | CENTER - | | | | | | LABORATORY | | + + + + + + | CO2 | 27 | 20 - 31 mmol/L | [facility] | | | | | | [facility] | | | | | | [facility] | | | | | | CENTER - | | | | | | LABORATORY | | + + + + + + | Anion Gap | 7 | 3 - 16 mmol/L | [facility] | | | | | | [facility] | | | | | | [facility] | | | | | | CENTER - | | | | | | LABORATORY | | + + + + + + | Glucose | 214 (H) | 60 - 106 mg/dL | [facility] | | | | | | [facility] | | | | | | [facility] | | | | | | CENTER - | | | | | | LABORATORY | | + + + + + + | BUN | 17 | 9 - 23 mg/dL | [facility] | | | [facility] | [facility] | [facility] | | | | | | [facility] - | | | | | | LAB[facility]ATORY | | + + + + + + | Creatinine | 1.25 (H) | 0.55 - 1.02 | [facility] | | | | | mg/dL | [facility] | | | | [facility] | | | | | | CENTER - | | | | | | LABORATORY | | + + + + + + | eGFR if not | 43 (L)Comment: | >=60 | [facility] | | | | GLOMERULAR FILTRATION | mL/min/1.73m2 | [facility] | | | [place] | RATE,ESTIMATED mL/min | | MEDICAL | | | | /1.60o0Rvap than 60 | | CENTER - | [...] + + + + | Calcium | 10.4 | 8.7 - 10.4 | [facility] | | | | | mg/dL | [facility] | | | | | | [facility] | | | | | | CENTER - | | | | | | LABORATORY | | + + + + + + | Albumin | 4.5 | 3.2 - 4.8 g/dL | [facility] | | | | | | [facility] | [facility] | [facility] | | | | | | C[facility] - | | | | | | LABORATORY | | + + + + + + | Bilirubin | 0.4 | 0.3 - 1.2 mg/dL | [facility] | | | Total | | | [facility] | | | | | | [facility] | | | | | | CENTER - | | | | | | LABORATORY | | + + + + + + | Total | 7.4 | 5.7 - 8.2 g/dL | [facility] | | | Protein | | | [facility] | | | | | | [facility] | | | | | | CENTER - | | | | | | LABORATORY | | + + + + + + | AST | 16 | 0 - 34 U/L | [facility] | | | | | | [facility] | | | [facility] | | [facility] | | | | | | CENTER - | | | | | | LABORATORY | | + + + + + + | ALT | 16 | 10 - 49 U/L | [facility] | | | | | | [facility] | | | | | | [facility] | | | | | | CENTER - | | | | | | LABORATORY | | + + + + + + | Alkaline | 122 (H) | 46 - 116 U/L | [facility] | | | Phosphatase | | | [facility] | | | | | | [facility] | | | | | | CENTER - | | | | | | LABORATORY | | + + + + + + | Globulin | 2.9 | 2.1 - 3.8 g/dL | [facility] | | | | | | [facility] | | | | | | [facility] | | | | | | CENTER - | | | | | | LABORATORY | | + + + + + + | Albumin/Tita | 1.6 | 0.8 - 1.9 | [facility] | | | bulin Ratio | | | [facility] | | | | | | [facility] | | | | | | CENTER - | | | | | | LABORATORY | | + + + + + + | BUN/Creatin | 13.6 | | [facility] | | | ine [...] ST[facility] | [address] | [place] | [phone] | | [facility] | | [address] | | | - LABORATORY | | | | + + + + + from Last 3 Months Insurance + +--------+ +--------+ +---------+--------+ | Payer | Benefi | Subscriber | Effect | Phone | Address | Type | | | t Plan | ID | janice | | | | | | / | | Dates | | | | | | Group | | | | | | + +--------+ +--------+ +---------+--------+ | MEDICARE | MEDICA | [id number] | 06/27/20 | [phone] | | Medica | | | RE | | 09-Pre | 5 | | re | | | PART A | | sent | | | | | | AND B | | | | | | + +--------+ +--------+ +---------+--------+ | MEDICARE | MEDICA | [id number] | 06/27/20 | [phone] | | Medica | | | RE | | 09-Pre | 5 | | re | | | PART A | | sent | | | | | | AND B | | | | | | + +--------+ +--------+ +---------+--------+ | [employer] | [employer] | [id number] | | | | Indemn | | SERVICE | YELLOW | | 956-Pr | | | ity | | | HAWK | | esent | | | | + +--------+ +--------+ +---------+--------+ | [employer] | [employer] | [id number] | 10/27/19 | | | Indemn | | SERVICE | YELLOW | | 19-Pre | | | ity | | | HAWK | | sent | | | | + +--------+ +--------+ +---------+--------+ + +--------+ +--------+ + + | Guarantor Name | Accoun | Relation to | Date | Phone | Billing Address | | | t Type | Patient | of | | | | | | | | | | + +--------+ +--------+ + + | Hafsa Cabrera | Person | Self [birth year] | [address] | | | al/Fam | | 1955 | [phone] | [place] | | | teri | | | 1 (Home) | [phone] | + +--------+ +--------+ + + | Hafsa Cabrera | Person | Self | [birth year] | | [address] | | | al/Fam | | 1955 | [phone] | [place] | | | [place] | | | [address] (Home) | [phone] | + +--------+ +--------+ + + Advance Directives Patient has advance care planning documents, and code status on file. For more information, please contact:[facility] [place] [address] + + + + + | Code Status | Date | Date | Comments | | | Activated | Inactivated | | + + + + + | Full Code | 06/18/2016 | 06/18/2016 | | | | 16:03 | 19:39 | | + + + + + + + + + + | | | | | + + + + + | DNR (No | 02/24/2016 | 02/27/2016 | DNR DNI per patient | | Code) | 2:13 | 15:23 | | + + + + + + + +---+ | Orders discussed with: | Patient | | + + +---+ | RN or MD to pronounce: | RN may | | | | pronounce | | + + +---+ + + + +---+ | | | | | + + + +---+ | Full Code | 08/22/2015 | 08/25/2015 | | | | 15:20 | 14:11 | | + + + +---+
--- OUTSIDE RECORDS SUMMARY | ~2019-07-20 | XMS | Encounter Summary ---
Demographics + + + | Address | [address] | | | [place] [address] | + + + | Home Phone | | + + + | Preferred Language | Unknown | + + + | Marital Status | Single | + + + | Congregation Affiliation | NON | + + + | Race | or | + + + | Ethnic Group | Not or | + + + Author + + + | Author | [facility] | + + + | Organization | [facility] | + + + | Address | Unknown | + + + | Phone | Unavailable | + + + Support + + +---------+ + | Name | Relationship | Address | Phone | + + +---------+ + | Geni Oliva | ECON | Unknown | | + + +---------+ + Care Team Providers + +------+ + | Care Policy Checker Name | Role | Phone | + +------+ + | Camacho Fields MD | PCP | | + +------+ + Reason for Visit + + + | Reason | Comments | + + + | Change of medication | | + + + Encounter Details +--------+ + + + + | Date | Type | Department | Care Team | Description | +--------+ + + + + | 03/08/ | Telephone | [facility] | [facility] | Change of medication | | 2009 | | Center at [facility] [address] | [facility] | | | | | [address] | Care [address] | | | | | Mailcode: [address] | | | | | [facility] | [place] [address] | | | | | and Healing, | [phone] | | | | | Building | | | | | | Floor [place], [place] | | | | | | [address] | | | | | | [phone] | | | +--------+ + + + [...] + | Yes | | | 1/2 gallon whiskey | | | | | per week, [...] filedocumented as of this encounter Visit Diagnoses Not on filedocumented in this encounter"
--- OUTSIDE RECORDS SUMMARY | ~2019-07-20 | XMS | Encounter Summary ---
Demographics + + + | Address | [address] | | | [place] [address] | + + + | Home Phone | | + + + | Preferred Language | Unknown | + + + | Marital Status | Single | + + + | Episcopal Affiliation | Unknown | + + + | Race | Unknown | + + + | Ethnic Group | Unknown | + + + Author + + + | Author | [facility] | | | and [place] | + + + | Organization | [facility] | | | and [place] | + + + | Address | Unknown | + + + | Phone | Unavailable | + + + Support + + + + + | Name | Relationship | Address | Phone | + + + + + | Geni Serrano | ECON | [place] | | | | | [phone] | | + + + + + | Brittany Cabrera | ECON | Unknown | | + + + + + Care Team Providers + +------+ + | Care Scagliola Mechanic Name | Role | Phone | + +------+ + | Madeline Castaneda PA-C | PCP | Unavailable | + +------+ + Reason for Visit + + + | Reason | Comments | + + + | Flank Pain | right | + + + Auth/Cert +--------+--------+ + + + + | Status | Reason | Specialty | Diagnoses / | Referred By | Referred To | | | | | Procedures | Contact | Contact | +--------+--------+ + + + + | | | | | | | +--------+--------+ + + + + Encounter Details +--------+ + + + + | Date | Type | Department | Care Team | Description | +--------+ + + + + | 05/27/ | Emergency | [facility] | Chacho García, | Right flank pain | | 2019 | [facility] | MD [address] | (Primary Dx); Right | | | | CENTER [address] | [facility] [place] | sided sciatica | | | | [place], [place] | [place] [address] | | | | | [address] | [phone] | | | | | [phone] | | | +--------+ + + + [...] + + + | Blood Pressure | 164/78 | 05/27/20192314 PDT | + + + + | Pulse | 85 | 05/27/20192314 PDT | + + + + | Temperature | 36.9 C (98.4 F) | 05/27/20192017 PDT | + + + + | Respiratory Rate | 20 | 05/27/20192017 PDT | + + + + | Oxygen Saturation | 96% | 05/27/2019 2315 PDT | + + + + | Inhaled Oxygen | - | - | | Concentration | | | + + + + | Weight | - | - | + + + + | Height | - | - | + + + + | Body Mass Index | - | - | + + + + documented in this encounter Discharge Instructions Instructions Chacho García MD - 05/27/2019Resume your usual medications Follow-up with primary care AttachmentsThe following attachments cannot be sent through Care Everywhere.Sciatica (Engli )Flank Pain, Uncertain Cause (Citizen Of [place])documented in this encounter Medications at Time of [...] Units | 1 pen | 4 | 02/27/20 | | | (LANTUS SOLOSTAR) | under [...] [place] | | | | | | [address] | | | | | | | | +--------+---------+ + + + documented as of this encounter Procedures + +--------+ + + + | Procedure Name | Priori | Date/Time | Associated Diagnosis | Comments | | | ty | | | | + +--------+ + + + | CT RENAL STONE WO | STAT | 05/27/2019 | | Results for this | | CONTRAST | | 22:25 PDT | | procedure are in the | | | | | | results section. | + +--------+ + + + | URINALYSIS WITH | STAT | 05/27/2019 | | Results for this | | MICROSCOPIC WITH | | 21:38 PDT | | procedure are in the | | CULTURE IF INDICATED | | | | results section. | + +--------+ + + + | EXTRA LAVENDER TOP | Routin | 05/27/2019 | | Results for this | | TUBE | e | 20:59 PDT | | procedure are in the | | | | | | results section. | + +--------+ + + + | EXTRA GREEN TOP TUBE | Routin | 05/27/2019 | | Results for this | | | e | 20:59 PDT | | procedure are in the | | | | | | results section. | + +--------+ + + + | EXTRA BLUE TOP TUBE | [...] | + +--------+ + + + | COMPREHENSIVE | STAT | 05/27/2019 | | Results for this | | METABOLIC PANEL | | 20:59 PDT | | procedure are in the | | | | | | results section. | + +--------+ + + + documented in this encounter Results CT Renal Stone Wo Contrast (05/27/2019 22:25 [...] | | | Yellow, Straw | [facility] | | | | | | [facility] | | | | | | CENTER - | | | | | | LABORATORY | | + + + + + + | Clarity | Hazy (A) | Clear | [facility] | | | | | | [facility] | | | | | | [facility] | | | | | | [facility] - | | | | | | LABORATORY | | + + + + + + | pH, Urine | 5.0 | 5.0 - 8.0 | [facility] | | | | | | [facility] | | | | | | [facility] | | | | | | CENTER - | | | | | | LABORATORY | | + + + + + + | Specific | 1.020 | 1.001 - 1.030 | [facility] | | | [place] | | | [facility] | | | | | | [facility] | | | | | | CENTER - | | | | | | LABORATORY | | + + + + + + | Protein, | 30 mg/dL (A) | Negative | [facility] | | | Urine | | | [facility] | | | | | | [facility] | | | | | | CENTER - | | | | | | LABORATORY | | + + + + + + | Blood, | Negative | Negative | [facility] | | | Urine | | | [facility] | | | | | | [facility] | | | | | | CENTER - | | | | | | LABORATORY | | + + + + + + | Glucose, | Negative | Negative | [facility] | | | Urine | | | [facility] | | | | | | [facility] | | | | | | CENTER - | | | | | | LABORATORY | | + + + + + + | Ketones, | Negative | Negative | [facility] | | | Urine | | | [facility] | | | | | | [facility] | | | | | | CENTER - | | | | | | LABORATORY | | + + + + + + | Bilirubin, | Negative | Negative | [facility] | | | Urine | | | [facility] | | | | | | [facility] | | | | | | CENTER - | | | | | | LABORATORY | | + + + + + + | Nitrite, | Negative | Negative | [facility] | | | Urine | | | [facility] | | | | | | MEDICAL | | | | | | CENTER - | | | | | | LABORATORY | | + + + + + + | Leukocyte | Negative | Negative | [facility] | | | Esterase, | | | [facility] | | | Urine | | | MEDICAL | | | | | | CENTER - | | | | | | LABORATORY | | + + + + + + | Urobilinoge | Negative | 0.2 mg/dL, 1.0 | [facility] | | | n, Urine | | mg/dL, Negative | [facility] | | | | | | MEDICAL | | | | | | CENTER - | | | | | | LABORATORY | | + + + + + + | WBC UA | 0-2 | 0 - 2 /HPF | [facility] | | | | | | [facility] | | | | | | [facility] | | | | | | [facility]ENTER - | | | | | | LABORATORY | | + + + + + + | RBC UA | 0-2 | 0 - 2 /HPF | [facility] | | | | | | [facility] | | | | | | [facility] | | | | | | CENTER - | | | | | | LABORATORY | | + + + + + + | SQUAMOUS | 50-100 (A) | 0 - 2 /LPF | [facility] | | | EPITHELIAL | | | [facility] | | | UA | | | MEDICAL | | | | | | CENTER - | | | | | | LABORATORY | | + + + + + + | BACTERIA UA | Negative | Negative /HPF | [facility] | | | | | | [facility] | | | | | | [facility] | | | | | | CENTER - | | | | | | LABORATORY | | + + + + + + | MUCUS UA | Present (A) | Negative /LPF | [facility] | | | | | | [facility] [address] | [place] | [phone] | | [facility] | | [address] | | | - LABORATORY | | [...] | | Lavender | | | [facility] | | | Top Tube | | [...] | + + + + + | [address] | [address] | [place] | [phone] | | [facility] | | [address] | | | - LABORATORY | | [...] [address] | [place] | [phone] | | [facility] | | [address] | | | - LABORATORY | | [...] | | Top Tube | | | [facility] | | [...] [address] | [place] | [phone] | | [facility] | | [address] | | | - LABORATORY | | [...] | | | | mmol/L | [facility] | | | | | | MEDICAL | | | | | | CENTER - | | | | | | LABORATORY | | + + + + + + | K | 3.9 | 3.4 - 5.1 | [facility] | | | | | mmol/L | [facility] | | | | | | MEDICAL | | | | | | CENTER - | | | | | | LABORATORY | | + + + + + + | Cl | 105 | 98 - 107 mmol/L | [facility] | | | | | | [facility] | | | | | | MEDICAL [...] | | | | | | [facility] | | | | | | MEDICAL | | | | | | CENTER - | | | | | | LABORATORY | | + + + + + + | Glucose | 214 (H) | 60 - 106 mg/dL | [facility] | | | | | | [facility] | | | | | | [facility]ICAL | | | | | | CENTER - | | | | | | LABORATORY | | + + + + + + | BUN | 17 | 9 - 23 mg/dL | [facility] | | | | | | [facility] | | | | | | MEDICAL | | | | | | CENTER - | | | | | | LABORATORY | | + + + + + + | Creatinine | 1.25 (H) | 0.55 - 1.02 | [facility] | | | | | mg/dL | [facility] | | | | | | MEDICAL | | | | | | CENTER - | | | | | | LABORATORY | | + + + + + + | eGFR if not | 43 (L)Comment: | >=60 | [facility] | | | | GLOMERULAR FILTRATION | mL/min/1.73m2 | [facility] | | | [place] | RATE,ESTIMATED mL/min | | MEDICAL | | | | /1.62l9Mfrc than 60 | | CENTER - | [...] | | | | mg/dL | [facility] | | | | | | MEDICAL | | | | | | CENTER - | | | | | | LABORATORY | | + + + + + + | Albumin | 4.5 | 3.2 - 4.8 g/dL | [facility] | | | | | | [facility] | | | | | | MEDICAL | | | | | | CENTER - | | | | | | LABORATORY | | + + + + + + | Bilirubin | 0.4 | 0.3 - 1.2 mg/dL | [facility] | | | Total | | | [facility] | | | | | | MEDICAL | | | | | | CENTER - | | | | | | LABORATORY | | + + + + + + | Total | 7.4 | 5.7 - 8.2 g/dL | [facility] | | | Protein | | | [facility] | | | | | | MEDICAL | | | | | | CENTER - | | | | | | LABORATORY | | + + + + + + | AST | 16 | 0 - 34 U/L | [facility] | | | | | | [facility] | | | | | | MEDICAL | | | | | | CENTER - | | | | | | LABORATORY | | + + + + + + | ALT | 16 | 10 - 49 U/L | [facility] | | | | | | [facility] | | | | | | MEDICAL | | | | | | CENTER - | | | | | | LABORATORY | | + + + + + + | Alkaline | 122 (H) | 46 - 116 U/L | [facility] | | | Phosphatase | | | [facility] | | | | | | MEDICAL | | | | | | CENTER - | | | | | | LABORATORY | | + + + + + + | Globulin | 2.9 | 2.1 - 3.8 g/dL | [facility] | | | | | | [facility] | | | | | | MEDICAL | | | | | | CENTER - | | | | | | LABORATORY | | + + + + + + | Albumin/Tita | 1.6 | 0.8 - 1.9 | [facility] | | | bulin Ratio | | | [facility] | | | | | | MEDICAL | | | | | | CENTER - | | | | | | LABORATORY | | + + + + + + | BUN/Creatin | 13.6 | | [facility] | | | ine Ratio | | | [facility] | | | | | | MEDICAL [...] + + | [facility] | [address] | [place] | [phone] | | [facility] | | [address] | | | - LABORATORY | | | | + + + + + CBC with Differential (05/27/2019 20:59 PDT) + + + + + + | Component | Value | Ref Range | Performed | Pathologist | | | | | At | Signature | + + + + + + | WBC | 12.6 (H) | 4.0 - 11.0 K/uL | [facility] | | | | | | [facility] | | | | | | MEDICAL | | | | | | CENTER - | | | | | | LABORATORY | | + + + + + + | RBC | 4.77 | 3.70 - 5.20 | [facility] | | | | | M/uL | [facility] | | | | | | MEDICAL | | | | | | CENTER - | | | | | | LABORATORY | | + + + + + + | Hemoglobin | 14.3 | 11.5 - 16.0 | [facility] | | | | | g/dL | [facility] | | | | | | MEDICAL | | | | | | CENTER - | | | | | | LABORATORY | | + + + + + + | Hematocrit | 43.6 | 34.0 - 47.0 % | [facility] | | | | | | [facility] | | | | | | MEDICAL | | | | | | CENTER - | | | | | | LABORATORY | | + + + + + + | MCV | 91.4 | 83.0 - 101.0 fL | [facility] | | | | | | [facility] | | | | | | MEDICAL | | | | | | CENTER - | | | | | | LABORATORY | | + + + + + + | MCH | 30.0 | 28.0 - 35.0 pg | [facility] | | | | | | [facility] | | | | | | MEDICAL | | | | | | CENTER - | | | | | | LABORATORY | | + + + + + + | MCHC | 32.8 | 32.0 - 36.0 | [facility] | | | | | g/dL | [facility] | | | | | | MEDICAL | | | | | | CENTER - | | | | | | LABORATORY | | + + + + + + | RDW-CV | 13.0 | <15.0 % | [facility] | | | | | | [facility] | | | | | | MEDICAL | | | | | | CENTER - | | | | | | LABORATORY | | + + + + + + | RDW-SD | 43.4 | 35.1 - 46.3 fL | [facility] | | | | | | [facility] | | | | | | MEDICAL | | | | | | CENTER - | | | | | | LABORATORY | | + + + + + + | Platelet | 199 | 140 - 440 K/uL | [facility] | | | Count | | | [facility] | | | | | | MEDICAL | | | | | | CENTER - | | | | | | LABORATORY | | + + + + + + | MPV | 11.8 | 6.5 - 12.4 fL | [facility] | | | | | | [facility] | | | | | | MEDICAL | | | | | | CENTER - | | | | | | LABORATORY | | + + + + + + | % | 79.3 | 45.0 - 82.0 % | [facility] | | | Neutrophils | | | [facility] | | | | | | MEDICAL | | | | | | CENTER - | | | | | | LABORATORY | | + + + + + + | % | 12.7 (L) | 20.0 - 45.0 % | [facility] | | | Lymphocytes | | | [facility] | | | | | | MEDICAL | | | | | | CENTER - | | | | | | LABORATORY | | + + + + + + | % Monocytes | 7.0 | 4.0 - 12.0 % | [facility] | | | | | | [facility] | | | | | | MEDICAL | | | | | | CENTER - | | | | | | LABORATORY | | + + + + + + | % | 0.3 | 0.0 - 5.0 % | [facility] | | | Eosinophils | | | [facility] | | | | | | MEDICAL | | | | | | CENTER - | | | | | | LABORATORY | | + + + + + + | % Basophils | 0.4 | 0.0 - 1.0 % | [facility] | | | | | | [facility] | | | | | | MEDICAL | | | | | | CENTER - | | | | | | LABORATORY | | + + + + + + | % Immature | 0.3 | 0.0 - 0.4 % | [facility] | | | Granulocyte | | | [facility] | | | s | | | MEDICAL | | | | | | CENTER - | | | | | | LABORATORY | | + + + + + + | Absolute | 10.03 (H) | 1.80 - 8.50 | [facility] | | | Neutrophils | | K/uL | [facility] | | | | | | [facility] | | | | | | CENTER - | | | | | | LABORATORY | | + + + + + + | Absolute | 1.60 | 0.60 - 3.20 | [facility] | | | Lymphocytes | | K/uL | [facility] | | | | | | MEDICAL | | | | | | CENTER - | | | | | | LABORATORY | | + + + + + + | Absolute | 0.88 | 0.00 - 1.00 | [facility] | | | Monocytes | | K/uL | [facility] | | | | | | MEDICAL | | | | | | CENTER - | | | | | | LABORATORY | | + + + + + + | Absolute | 0.04 | 0.00 - 0.40 | [facility] | | | Eosinophils | | K/uL | [facility] | | | | | | MEDICAL | | | | | | CENTER - | | | | | | LABORATORY | | + + + + + + | Absolute | 0.05 | 0.00 - 0.10 | [facility] | | | Basophils | | K/uL | [facility] | | | | | | MEDICAL | | | | | | CENTER - | | | | | | LABORATORY | | + + + + + + | Absolute | 0.04 (H) | 0.00 - 0.03 | [facility] | | | Immature | | K/uL | [facility] | | | Granulocyte | | | MEDICAL | | | s | | | CENTER - | | | | | | LABORATORY | | + + + + + + | % nRBC | 0 | 0 - 2 per 100 | [facility] | | | | | WBCs | [facility] | | | | | | MEDICAL | | | | | | CENTER - | | | | | | LABORATORY | | + + + + + + | Absolute | 0.00 | 0.00 - 0.01 | [facility] | | | nRBC | | K/uL | [facility] | | | | | | [facility] [...] [address] | [place] | [phone] | | [facility] | | [address] | | | - LABORATORY | | | | + + + + + documented in this encounter Visit Diagnoses + + | Diagnosis | + + | Right flank pain - Primary Abdominal pain, unspecified site | + + | Right sided sciatica Sciatica | + + documented in this encounter Administered Medications + +--------+ +------+------+------+ | Medication Order | MAR | Action | Dose | Rate | Site | | | Action | Date | | | | + +--------+ +------+------+------+ | morphine injection 4 mg 4 mg, | Given | 05/27/20 | 4 mg | | | | Intravenous, ONCE, Laquita 05/27/19 at | | 19 21:55 | | | | | 2150, For 1 dose | | PDT | | | | + +--------+ +------+------+------+ +---+---+ | | | +---+---+ + +-------+ +------+---+---+ | morphine injection 8 mg 8 mg, | Given | 05/27/20 | 8 mg | | | | Intravenous, ONCE, Laquita 05/27/19 at | | 19 21:02 | | | | | 2050, For 1 dose | | PDT | | | | + +-------+ +------+---+---+ +---+---+ | | | +---+---+ + +-------+ +------+---+---+ | ondansetron (ZOFRAN) injection | Given | 05/27/20 | 4 mg | | | | 4 mg 4 mg, Intravenous, ONCE, | | 19 21:02 | | | | | Laquita 05/27/19 at 2050, For 1 dose | | PDT | | | | + +-------+ +------+---+---+ +---+---+ | | | +---+---+ + +---------+ +--------+-------+---+ | sodium chloride 0.9% (NS) bolus | New Bag | 05/27/20 | 1,000 | 1000 | | | 1,000 mL 1,000 mL, Intravenous, | | 19 21:02 | mLs | mL/hr | | | Administer over 1 Hours, ONCE, | | PDT | | | | | Laquita 05/27/19 at 2049, For 1 dose | | | | | | + +---------+ +--------+-------+---+ +---+---+ | | | +---+---+ documented in this encounter"
--- OUTSIDE RECORDS SUMMARY | ~2019-07-20 | XMS | Encounter Summary ---
Demographics + + + | Address | [address] | | | [place] [address] | + + + | Home Phone | | + + + | Preferred Language | Unknown | + + + | Marital Status | Single | + + + | Shinto Affiliation | NON | + + + | Race | or | + + + | Ethnic Group | Not or | + + + Author + + + | Author | [facility] | + + + | Organization | [facility] | + + + | Address | Unknown | + + + | Phone | Unavailable | + + + Support + + +---------+ + | Name | Relationship | Address | Phone | + + +---------+ + | Geni Oliva | ECON | Unknown | | + + +---------+ + Care Team Providers + +------+ + | Care Histologist Technologist Name | Role | Phone | + [...] Closed | | Orthopedics | Diagnoses | Saba, | [place], | | | | | Pain in | MD Artemio | MD Nasim | | | | | joint, | [address] | [address] | | | | | pelvic | [place] | | | | | region and | Rd | Rd [place], | | | | | thigh | [place], [place] | [place] | | | | | Osteoarthros | [address] | [address] | | | | | is, | Phone: | | | | | | unspecified | [phone] | | | | | | whether | Fax: | | | | | | generalized | [phone] | | | | | | or [...] Description | +--------+---------+ + + + | 05/15/ | Office | Orthopaedics at | [place], | Spinal Stenosis of | | 2008 | Visit | [facility] [address] | MD Nasim | Lumbar Region | | | | [address] | | (Primary Dx) | | | | Mailcode: [id number] | | | | | | Physician's [facility] | | | | | | [place], [place] | | | | | | [address] | | | | | | [phone] | | | +--------+---------+ + + + [...] +---------+ + | Yes | | | | + + +---------+ [...] + + + | Blood Pressure | - | - | | + + + + + | Pulse | - | - | | + + + + + | Temperature | - | - | | + + + + + | Respiratory Rate | - | - | | + + + + + | Oxygen Saturation | - | - | | + + + + + | Inhaled Oxygen | - | - | | | Concentration | | | | + + + + + | Weight | 113.4 kg (250 lb) | 05/15/2009 1:48 PM | | | | | PDT | | + + + + + | Height | 157.5 cm (5' 2") | 05/15/2009 1:48 PM | | | | | PDT | | + + + + + | Body Mass Index | 45.73 | 05/15/2009 1:48 PM | | | | | PDT | | + + + + + documented in this encounter Progress Notes Chato Zelaya MD - 05/24/2009 2:58 PM PDT [id number] [id number] Referred From and Faxed To: Dr. Saba Referred To: Bryan Marc M.D. Consulting Physician: Bryan Marc M.D. Consultation Date: 05/15/2009 Referring Physician: Dr. Saba Chief Complaint: Hip and back pain. HPI: This is a 53-year-old female with a 3-year history of hip, back, and flank pain which seems to radiate down to the knee. The pain became severe over the course of the year and has been increasing since that time. The patient has tried gabapentin with minimal relief. The pain seems to be worse when she is ambulating but appears to be fairly constant at all other times. She was referred from Dr. Saba to Dr. Hope and to Dr. Marc. Dr. Hope's initial assessment was these were changes secondary to the stenosis of the lumbar spine, but he wanted to get a recommendation from Dr. Marc prior to any surgery in the spine. The pain does seem to improve with swimming. Past Medical History: Diabetes and high blood pressure. Medications: Please see chart. Allergies: PENICILLIN. Social History: The patient has a 45 pack-year history of smoking and currently smokes a pack a day. Review of Systems: There was some intake form reviewed, and it is shown to be otherwise noncontributory. Physical Exam: The patient is 5 feet 2 inches, 250 pounds. She ambulates with cane favoring her left leg. She has hip flexion on the lower extremities from 0 to 110 and internal and external rotation of the hip flexed refers to the right flank and buttocks area. She is tender diffusely starting at the flank and buttock on the right side all the way to the knee. She has 4/5 knee extension, 4+/5 ankle dorsiflexion, 5/5 ankle plantar flexion, and palpable DP pulse. Imaging: X-rays show mild degenerative changes in the hip. There is no collapse of femoral head. Assessment and Plan: Etiology of pain is unlikely to be coming from the hip. The exams are consistent with an osteoarthritis pain and no pain refers to the groin area. Plan: The patient to follow up with Dr. Hope for potential surgery. The patient does not need to follow up with a joint surgeon. [place]o [place] M.D. Bryan Marc M.D. JJ / JOSE [id number] / [id number] / [id number] / cc: * Dr. Saba Shelia Morales MD - 05/15/2009 2:36 PM PDTI performed a history and physical examination of the patient and discussed her management with the resident. I reviewed the resident s note and agree with the documented findings and plan of care. No evidence of significant hip disease and s uspect most if not all symptoms from spine but prognosis guarded for complete relief with figueredo rgery. 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 Bryan Marc M.D. Short Story Writer Adult Reconstruction documented in this encounter Plan of Treatment Not on filedocumented as of this encounter Visit Diagnoses + + | Diagnosis | + + | Spinal stenosis, lumbar region, without neurogenic claudication - Primary | + + documented in this encounter
--- OUTSIDE RECORDS SUMMARY | ~2019-07-20 | XMS | Encounter Summary ---
Demographics + + + | Address | [address] | | | [place] [address] | + + + | Home Phone | | + + + | Preferred Language | Unknown | + + + | Marital Status | Single | + + + | Rastafari Affiliation | NON | + + + | Race | or | + + + | Ethnic Group | Not or | + + + Author + + + | Author | [facility] | + + + | Organization | [facility] | + + + | Address | Unknown | + + + | Phone | Unavailable | + + + Support + + +---------+ + | Name | Relationship | Address | Phone | + + +---------+ + | Geni Oliva | ECON | Unknown | | + + +---------+ + Care Team Providers + +------+ + | Care Executive Personal Assistant Name | Role | Phone | + +------+ + | Camacho Fields MD | PCP | | + +------+ + Reason for Referral Diagnostic Testing (Routine) +--------+--------+ + + + + | Status | Reason | Specialty | Diagnoses / | Referred By | Referred To | | | | | Procedures | Contact | Contact | +--------+--------+ + + + + | Closed | | Radiology | Diagnoses | Berent, | Rad Ct Scan | | | | | Spinal | CLAYTON Narayan | [address] | | | | | stenosis, | [address] | [address] | | | | | lumbar | [address] Ven[address]as | [address] | | | | | region, | Rd | Mailcode: | | | | | without | [place], [place] | [address] [facility] | | | | | neurogenic | [address] | Hospital | | | | | claudication | Phone: | [place], [place] | | | | | Procedures | [phone] | [address] | | | | | CT SPINE | Fax: | Phone: | | | | | LUMBAR WO | [phone] | [phone] | | | | | CONTRASTR | | Fax: | | | | | | | [phone] | +--------+--------+ + + + + Diagnostic Testing (Routine) +--------+--------+ + + + + | Status | Reason | Specialty | Diagnoses / | Referred By | Referred To | | | | | Procedures | Contact | Contact | +--------+--------+ + + + + | Closed | | Radiology | Diagnoses | Berent, | Rad Ct Scan | | | | | Spinal | CLAYTON Narayan | Rickey [address] | | | | | stenosis, | [address] | [address] | | | | | lumbar | [address] Ven[address]as | [address] | | | | | region, | Rd | Mailcode: | | | | | without | [place], [place] | [address] [facility] | | | | | neurogenic | [address] | Hospital | | | | | claudication | Phone: | [place], [place] | | | | | Procedures | [phone] | [address] | | | | | CT SPINE | Fax: | Phone: | | | | | LUMBAR WO | [phone] | [phone] | | | | | CONTRASTR | | Fax: | | | | | | | [phone] | +--------+--------+ + + + + Encounter Details +--------+ + + + + | Date | Type | Department | Care Team | Description | +--------+ + + + + | 12/21/ | Hospital | Radiology/Imaging | | | | 2009 | Encounter | Lab at [facility] [address] | | | | | | [address] Mailcode: | | | | | | [facility] | | | | | | Health and Healing, | | | | | | [place] [address], [facility] | | | | | | Floor [place], [place] | | | | | | [address] | | | | | | [phone] | | | +--------+ + + + [...] + +--------+ + + + | CT SPINE LUMBAR WO | Routin | 12/21/2009 | Spinal stenosis of | Results for this | | CONTRAST | e | 10:21 AM | lumbar region | procedure are in the | | | | PST | | results section. | + +--------+ + + + documented in this encounter Results CT SPINE LUMBAR WO CONTRASTR (12/21/2009 10:21 AM PST) + + + + + + | Component | Value | Ref Range | Performed | Pathologist | | | | | At | Signature | + + + + + + | CT LUMBAR | TECHNIQUE:LUMBAR SPINE | | | | | SPINE WO | CT WITHOUT CONTRAST | | | | | CONTRAST | CLINICAL DATA:Right | | | | | | lumbar radiculopathy sp | | | | | | fusion. LUMBAR | | | | | | SPINE:posterior spinal | | | | | | fusion hardware includes | | | | | | pedicle screws at | | | | | | [id number] L5. At L4, | | | | | | only a left-sided screw | | | | | | is | | | | | | present. Bilateralscr | | | | | | ews are seen at L3 and | | | | | | at L5. Each screw | | | | | | extends through | | | | | | thepedicle, on the left | | | | | | at L3 and right at L5, | | | | | | the medial margin of | | | | | | thepedicle cortex is | | | | | | disrupted by the | | | | | | screw. The screw tips | | | | | | remain inthe vertebral | | | | | | bodies. Intervertebra | | | | | | l spacing devices in the | | | | | | rodsspanning the L3 | | | | | | through L5 levels are | | | | | | also present. A | | | | | | hemilaminectomy defect | | | | | | and a defect in the | | | | | | superior | | | | | | facetarticulations is | | | | | | seen at the left side of | | | | | | L3. A right | | | | | | [id number] has | | | | | | been performed. Lumbar | | | | | | lordosis is | | | | | | maintained. The | | | | | | vertebral body | | | | | | heights,intervertebral | | | | | | disc heights are | | | | | | normally maintained. | | | | | | Broad-based disk at | | | | | | L2-L3, disk osteophyte | | | | | | at L3-L4 and | | | | | | broad-baseddisk at L4-L5 | | | | | | result in narrowing of | | | | | | the spinal canal. The | | | | | | left F8gcoyap foramen | | | | | | is at least mildly | | | | | | narrowed. L3, L4 and | | | | | | L5 neuralforaminal | | | | | | narrowing is noted on | | | | | | the right. Air and soft | | | | | | tissue swelling have | | | | | | resolved. | | | | | | IMPRESSION:Since | | | | | | [id number];Resolving soft | | | | | | tissue postoperative | | | | | | changes.No change in | | | | | | hardware | | | | | | position.Persistent | | | | | | multilevel neural | | | | | | foraminal stenosis and | | | | | | mild spinal | | | | | | canalstenosis. I have | | | | | | personally viewed this | | | | | | procedure/exam and | | | | | | reviewed this report. | | | | | | Author: ROBINSON DOMINGUEZ | | | | | | StephanReviewer: ROBINSON Hendrix | | | | | | Stephan DOMINGUEZ STATUS | | | | | | FINAL / Dr. ROBINSON Hendrix | | | | | | ALBERTO | | | | + + + + + + + + | Specimen | + + | | + + + +---------+ + + | Performing | Address | City/State/Zipcode | Phone Number | | Organization | | | | + +---------+ + + | [facility] | | | | | RADIOLOGY | | | | + +---------+ + + documented in this encounter Visit Diagnoses + + | Diagnosis | + + | Spinal stenosis, lumbar region, without neurogenic claudication | + + documented in this encounter"
--- OUTSIDE RECORDS SUMMARY | ~2019-07-20 | XMS | Encounter Summary ---
Demographics + + + | Address | [address] | | | [place] [address] | + + + | Home Phone | | + + + | Preferred Language | Unknown | + + + | Marital Status | Single | + + + | Sabianism Affiliation | NON | + + + | Race | or | + + + | Ethnic Group | Not or | + + + Author + + + | Author | [facility] | + + + | Organization | [facility] | + + + | Address | Unknown | + + + | Phone | Unavailable | + + + Support + + +---------+ + | Name | Relationship | Address | Phone | + + +---------+ + | Geni Oliva | ECON | Unknown | | + + +---------+ + Care Team Providers + +------+ + | Care Franchise Specialist Name | Role | Phone | + +------+ + | Camacho Fields MD | PCP | | + +------+ + Reason for Visit + + + | Reason | Comments | + + + | Refill Encounters | | + + + Encounter Details +--------+ + + + + | Date | Type | Department | Care Team | Description | +--------+ + + + + | 10/24/ | Telephone | Orthopaedic Spine | Sherwin Hope | Refill Encounters | | 2008 | | Center at [facility] [address] | MD [facility] | | | | | [address] | Care [address] | | | | | Mailcode: [address] | [address] | | | | | [facility] | [place] [address] | | | | | and Healing, | [phone] | | | | | [facility] | | | | | | Floor [place], [place] | | | | | | [address] | | | | | | [phone] | | | +--------+ + + + [...] | Yes | | | 1/2 jeff whiskey | | | | | per [...]
--- OUTSIDE RECORDS SUMMARY | ~2019-07-20 | XMS | Encounter Summary ---
Demographics + + + | Address | [address] | | | [place] [address] | + + + | Home Phone | | + + + | Preferred Language | Unknown | + + + | Marital Status | Single | + + + | Mandaeism Affiliation | NON | + + + | Race | or | + + + | Ethnic Group | Not or | + + + Author + + + | Author | [facility] | + + + | Organization | [facility] | + + + | Address | Unknown | + + + | Phone | Unavailable | + + + Support + + +---------+ + | Name | Relationship | Address | Phone | + + +---------+ + | Geni Oliva | ECON | Unknown | | + + +---------+ + Care Team Providers + +------+ + | Care Insights Strategist Name | Role | Phone | + [...] Description | +--------+---------+ + + + | 07/20/ | Office | Orthopaedic Spine | Helene Mahoney PA | Other Specified | | 2008 | Visit | Center at [facility] [address] | [address] | Pre-Operative | | | | [address] | [address] [place], | Examination (Primary | | | | Mailcode: [address] | [place] [address] | Dx); ERRONEOUS | | | | [facility] | [phone] | ENCOUNTER - NO | | | | and Healing, | | DIAGNOSIS | | | | Building [address], [address]th | | | | | | Floor [facility] [place] | | | | | | [address] | | | | | | [phone] | | | +--------+---------+ + + + [...] Patient Instructions Patient Instructions Ana Love - 06/23/2009 9:35 AM PDTRegistration Locations (please check in at one of the following registration desks prior to surgery) For surgeries scheduled to take place on the mallory at the [facility]: Surgeries scheduled in the [facility] ([address] [place] [address]): registration is located on the 4th floor of [facility] (Day Surgery). Surgeries scheduled in the [facility]: registration is located on the 9th floor. Surgeries scheduled in [facility]: registration is located on the 6th floor. Surgeries scheduled in the [facility]: registration is located i n the [facility] on the first floor. For surgeries scheduled to take place at the [facility]: registration is l [...] If you use specialized medical equipment at [facility], please check with your provider [...] Brochure.Elec tronically signed by Ana Love at 06/23/2009 9:35 AM PDT documented in this encounter Progress Notes Helene Mahoney PA - 07/21/2009 8:48 AM PDTThis encounter was opened in error. [...]
--- OUTSIDE RECORDS SUMMARY | ~2019-07-20 | XMS | Encounter Summary ---
Demographics + + + | Address | [address] | | | [place] [address] | + + + | Home Phone | | + + + | Preferred Language | Unknown | + + + | Marital Status | Single | + + + | Judaism Affiliation | NON | + + + | Race | or | + + + | Ethnic Group | Not or | + + + Author + + + | Author | [facility] | + + + | Organization | [facility] | + + + | Address | Unknown | + + + | Phone | Unavailable | + + + Support + + +---------+ + | Name | Relationship | Address | Phone | + + +---------+ + | Geni Oliva | ECON | Unknown | | + + +---------+ + Care Team Providers + +------+ + | Care Meat Seafood Associate Name | Role | Phone | + +------+ + | Camacho Fields MD | PCP | | + +------+ + Reason for Visit AUTH/CERT +--------+--------+ + + + + | Status | Reason | Specialty | Diagnoses / | Referred By | Referred To | | | | | Procedures | Contact | Contact | +--------+--------+ + + + + | Closed | | | | | [facility] | | | | | | | Orthopaedics | | | | | | | [address] | | | | | | | [address] | | | | | | | [address] | | | | | | | [facility] | | | | | | | [facility] | | | | | | | (MNP/OLD ILSAN) | | | | | | | [place], | | | | | | | [place] [address] | +--------+--------+ + + + + Encounter Details +--------+ + + + + | Date | Type | Department | Care Team | Description | +--------+ + + + + | 08/17/ | Hospital | Cardiac | Sjh, Car Ecg Tech | | | 2008 | Encounter | Non-Invasive Testing | [address] | | | | | at [facility] | [facility] | | | | | [address] [facility] | [place] [address] | | | | | [facility] | | | | | | Mailcode: [address] | | | | | | [facility] | | | | | | [facility] | | | | | | [place] [address] | | | | | | [phone] | | | +--------+ + + + [...] | + +--------+ + + + | 12 LEAD ECG | Routin | 08/17/2009 | Other specified | Results for this | | | e | 9:56 AM | pre-operative | procedure are in the | | | | PDT | examination | results section. | + +--------+ + + + documented in this encounter Results 12 LEAD ECG (08/17/2009 9:56 AM PDT) + + + + + + | Component | Value | Ref Range | Performed | Pathologist | | | | | At | Signature | + + + + + + | VENTRICULAR | 86 | BPM | [facility] | | | RATE | | | OF | | | | | | CARDIOLOGY | | + + + + + + | ATRIAL RATE | 86 | BPM | [facility] | | | | | | OF | | | | | | CARDIOLOGY | | + + + + + + | P-R | 140 | ms | [facility] | | | INTERVAL | | | OF | | | | | | CARDIOLOGY | | + + + + + + | QRS | 80 | ms | [facility] | | | DURATION | | | OF | | | | | | CARDIOLOGY | | + + + + + + | QT | 370 | ms | [facility] | | | | | | OF | | | | | | CARDIOLOGY | | + + + + + + | QTC | 442 | ms | [facility] | | | | | | OF | | | | | | CARDIOLOGY | | + + + + + + | P AXIS | 73 | degrees | [facility] | | | | | | OF | | | | | | CARDIOLOGY | | + + + + + + | R AXIS | 8 | degrees | [facility] | | | | | | OF | | | | | | CARDIOLOGY | | + + + + + + | T AXIS | 36 | degrees | [facility] | | | | | | OF | | | | | | CARDIOLOGY | | + + + + + + | EKG | Normal sinus rhythmLow | | [facility] | | | DIAGNOSIS | voltage QRSBorderline | | OF | | | | ECG"I have personally | | CARDIOLOGY | | | | interpreted this report, | | | | | | either alone or with a | | | | | | trainee."Confirmed by | | | | | | SANTI KIRKLAND ([id number]) on | | | | | | 18-Aug-2009 19:41:46 | | | | + + + + + + | LINK TO | | | [facility] | | | [facility] | | | OF | | | (ECG | | | CARDIOLOGY | | | VIEWER) | | | | | + + + + + + + + | Specimen | + + | | + + + + + | Narrative | Performed At | + + + | Please click | [facility] | | on view image for the detailed interpretation from [employer] results. | CARDIOLOGY | | | | + + + + + + + + | Performing | Address | City/State/Zipcode | Phone Number | | Organization | | | | + + + + + | [facility] | [address] | [place], [place] | | | CARDIOLOGY | [address] | [address] | | + + + + + documented in this encounter Visit Diagnoses + + | Diagnosis | + + | Other specified pre-operative examination | + + documented in this encounter
--- OUTSIDE RECORDS SUMMARY | ~2019-07-20 | XMS | Encounter Summary ---
Demographics + + + | Address | [address] | | | [place] [address] | + + + | Home Phone | | + + + | Preferred Language | Unknown | + + + | Marital Status | Single | + + + | Religion Affiliation | NON | + + + | Race | or | + + + | Ethnic Group | Not or | + + + Author + + + | Author | [facility] | + + + | Organization | [facility] | + + + | Address | Unknown | + + + | Phone | Unavailable | + + + Support + + +---------+ + | Name | Relationship | Address | Phone | + + +---------+ + | Geni Oliva | ECON | Unknown | | + + +---------+ + Care Team Providers + +------+ + | Care Commercial Loan Officer Name | Role | Phone | + +------+ + | Camacho Fields MD | PCP | | + +------+ + Encounter Details +--------+ + + + + | Date | Type | Department | Care Team | Description | +--------+ + + + + | 05/02/ | Documentati | Neurology at | Asuncion Skinner, | | | 2008 | on | [facility] & | | | | | | Healing [address] | | | | | | [address] Mailcode: | | | | | | [facility] | | | | | | Health and Healing, | | | | | | Building | | | | | | Floor [place], [place] | | | | | | [address] | | | | | | [phone] | | | +--------+ + + + [...]
--- OUTSIDE RECORDS SUMMARY | ~2019-07-20 | XMS | Encounter Summary ---
Demographics + + + | Address | [address] | | | [place] [address] | + + + | Home Phone | | + + + | Preferred Language | Unknown | + + + | Marital Status | Single | + + + | Sikh Affiliation | NON | + + + [...] Team Providers + +------+ + | Care Livestock Brands Inspector Name | Role | Phone | + [...] Closed | | Radiology | Diagnoses | Jayant | [facility] | | | | | Lumbago | MD Artemio | [address] | | | | | Acquired | [address] | [address] | | | | | spondylolysi | [address] | Rd | | | | | s Lumbar | Rd | Mailcode: | | | | | radiculopath | [place], [place] | [address] | | | | | y | [address] | [place] | | | | | Procedures | Phone: | Research | | | | | MRI SPINE | [phone] | Center | | | | | LUMBAR WO | Fax: | [place], [place] | | | | | CONT | [phone] | [address] | | | | | | | Phone: | | | | | | | [phone] | | | | | | | Fax: | | | | | | | [phone] | +--------+--------+ + + + + Diagnostic Testing (Routine) +--------+--------+ + + + + | Status | Reason | Specialty | Diagnoses / | Referred By | Referred To | | | | | Procedures | Contact | Contact | +--------+--------+ + + + + | Closed | | Radiology | Diagnoses | [place], | [facility] | | | | | Lumbago | MD Artemio | [address] | | | | | Acquired | [address] | [address] | | | | | spondylolysi | [address] | Rd | | | | | s Lumbar | Rd | Mailcode: | | | | | radiculopath | [place], [place] | [address] | | | | | y | [address] | [place] | | | | | Procedures | Phone: | Research | | | | | MRI SPINE | [phone] | Center | | | | | LUMBAR WO | Fax: | [place], [place] | | | | | CONT | [phone] | [address] | | | | | | | Phone: | | | | | | | [phone] | | | | | | | Fax: | | | | | | | [phone] | +--------+--------+ + + + + Encounter Details +--------+ + + + + | Date | Type | Department | Care Team | Description | +--------+ + + + + | 04/21/ | Hospital | Radiology/Imaging | | | | 2008 | Encounter | Lab at [facility] [address] | | | | | | [address] Mailcode: | | | | | | [facility] | | | | | | Health and Healing, | | | | | | Building [address] | | | | | | Floor [place], [place] | | | | | | [address] | | | | | | [phone] | | | +--------+ + + + [...] at Time of Discharge + + + +---------+--------+ + | Medication | Sig | Dispensed | Refills | Start | End Date | | | | | | Date | | + + + +---------+--------+ + | fenofibrate | Take 48 mg by mouth | | 0 | | | | nanocrystallized 48 | once daily. | | | | | | mg Oral Tablet | | | | | | + + + +---------+--------+ + documented as of this encounter Plan of Treatment Not on filedocumented as of this encounter Procedures + +--------+ + + + | Procedure Name | Priori | Date/Time | Associated Diagnosis | Comments | | | ty | | | | + +--------+ + + + | MRI SPINE LUMBAR WO | Routin | 04/21/2009 | Lumbago Acquired | Results for this | | CONT | e | 9:26 AM | Spondylolysis | procedure are in the | | | | PDT | Lumbar Radiculopathy | results section. | + +--------+ + + + documented in this encounter Results MRI SPINE LUMBAR WO CONT (04/21/2009 9:26 AM PDT) + + + + + + | Component | Value | Ref Range | Performed | Pathologist | | | | | At | Signature | + + + + + + | MR LUMBAR | Examination: MRI of the | | | | | SPINE WO | lumbar spine without | | | | | CONT | contrast.Comparison: | | | | | | None available.History: | | | | | | Right L5 | | | | | | radiculopathy.Technique: | | | | | | Using a 1.5 Jaymie | | | | | | magnet, multiple routine | | | | | | MR images wereobtained | | | | | | through the lumbar spine | | | | | | without | | | | | | contrast.Findings: The | | | | | | examination is mildly | | | | | | degraded secondary to | | | | | | patientmotion and | | | | | | several sequences were | | | | | | repeated. There is | | | | | | minimalanterior | | | | | | subluxation of L3 on L4 | | | | | | which is felt to be | | | | | | secondary to | | | | | | theassociated | | | | | | degenerative articular | | | | | | facet changes. The | | | | | | vertebral bodyheights | | | | | | are maintained. The | | | | | | bone marrow and cord | | | | | | signal are normalexcept | | | | | | for mild edematous | | | | | | degenerative endplate | | | | | | changes at L3-L4.The | | | | | | conus terminates at the | | | | | | superior third of | | | | | | L1. The spinal | | | | | | canalis diffusely | | | | | | narrowed secondary to | | | | | | congenitally short | | | | | | pedicles.T12-L1: Minimal | | | | | | degenerative endplate | | | | | | changes without spinal | | | | | | canalstenosis or neural | | | | | | foraminal | | | | | | narrowing.L1-L2: Minimal | | | | | | degenerative end plate | | | | | | and right greater than | | | | | | leftarticular facet | | | | | | changes without spinal | | | | | | canal stenosis or | | | | | | neuralforaminal | | | | | | narrowing.L2-L3: | | | | | | Degenerative endplate | | | | | | and articular facet | | | | | | changes withoutspinal | | | | | | canal stenosis or neural | | | | | | foraminal | | | | | | narrowing.L3-L4: | | | | | | Degenerative endplate | | | | | | and articular facet | | | | | | changes witharticular | | | | | | facet hypertrophy and | | | | | | ligamentum flavum laxity | | | | | | along withthe | | | | | | congenitally narrowed | | | | | | canal are contributing | | | | | | to near | | | | | | completeeffacement of | | | | | | the cerebral spinal | | | | | | fluid, moderate to | | | | | | severe spinalcanal | | | | | | stenosis, bilateral | | | | | | lateral recess | | | | | | narrowing, and | | | | | | mildbilateral neural | | | | | | foraminal narrowing | | | | | | slightly worse on the | | | | | | right.L4-L5: | | | | | | Degenerative endplate | | | | | | and articular facet | | | | | | changes witharticular | | | | | | facet hypertrophy and | | | | | | ligamentum flavum laxity | | | | | | arecontributing to | | | | | | partial effacement of | | | | | | the cerebral spinal | | | | | | fluid whencombined with | | | | | | the generally small | | | | | | canal are causing | | | | | | moderate spinalcanal | | | | | | stenosis, mild bilateral | | | | | | lateral recess | | | | | | narrowing, and | | | | | | moderateright greater | | | | | | than left neural | | | | | | foraminal | | | | | | narrowing.L5-S1: Mild | | | | | | degenerative endplate | | | | | | and articular facet | | | | | | changes withoutspinal | | | | | | canal stenosis or neural | | | | | | foraminal | | | | | | narrowing.Impression:Deg | | | | | | enerative changes of the | | | | | | lumbar spine which are | | | | | | worst at L3-L4 andL4-L5 | | | | | | which is primarily | | | | | | secondary to articular | | | | | | facet hypertrophy | | | | | | andligamentum flavum | | | | | | laxity in the setting of | | | | | | a 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 KRISTY HICKS | | | | | | PRELIMINARY - UNSIGNED / | | | | | | Dr. KRISTY OLIVAREZ | | | | + + + + + + + + | Specimen | + + | | + + + +---------+ + + | Performing | Address | City/State/Zipcode | Phone Number | | Organization | | | | + +---------+ + + | [facility] | | | | | RADIOLOGY | | | | + +---------+ + + documented in this encounter Visit Diagnoses + + | Diagnosis | + + | Lumbago | + + | Acquired spondylolysis Acquired spondylolisthesis | + + | Lumbar radiculopathy Thoracic or lumbosacral neuritis or radiculitis, unspecified | + + documented in this encounter"
--- OUTSIDE RECORDS SUMMARY | ~2019-07-20 | XMS | Encounter Summary ---
Demographics + + + | Address | [address] | | | [place] [address] | + + + | Home Phone | | + + + | Preferred Language | Unknown | + + + | Marital Status | Single | + + + | Mu-Ism Affiliation | NON | + + + | Race | or | + + + | Ethnic Group | Not or | + + + Author + + + | Author | [facility] | + + + | Organization | [facility] | + + + | Address | Unknown | + + + | Phone | Unavailable | + + + Support + + +---------+ + | Name | Relationship | Address | Phone | + + +---------+ + | Geni Oliva | ECON | Unknown | | + + +---------+ + Care Team Providers + +------+ + | Care Tomographic Tech Name | Role | Phone | + +------+ + | Camacho Fields MD | PCP | | + +------+ + Reason for Visit +--------+ + | Reason | Comments | +--------+ + | Preop | | +--------+ + Encounter Details +--------+ + + + + | Date | Type | Department | Care Team | Description | +--------+ + + + + | 06/23/ | Telephone | Orthopaedic Spine | Sherwin Hope | Preop | | 2008 | | Center at [facility] [address] | MD [facility] | | | | | [address] | Care | | | | | Mailcode: CH8N | [address] | | | | | [facility] | [place] [address] | | | | | and [place], | [phone] | | | | | Building | | | | | | Floor [place], [place] | | | | | | [address] | | | | | | [phone] | | | +--------+ + + + [...]
--- OUTSIDE RECORDS SUMMARY | ~2019-07-20 | XMS | Encounter Summary ---
Demographics + + + | Address | [address] | | | [place] [address] | + + + | Home Phone | | + + + | Preferred Language | Unknown | + + + | Marital Status | Single | + + + | Jain Affiliation | NON | + + + | Race | or | + + + | Ethnic Group | Not or | + + + Author + + + | Author | [facility] | + + + | Organization | [facility] | + + + | Address | Unknown | + + + | Phone | Unavailable | + + + Support + + +---------+ + | Name | Relationship | Address | Phone | + + +---------+ + | Geni Oliva | ECON | Unknown | | + + +---------+ + Care Team Providers + +------+ + | Care First Dyer Name | Role | Phone | + +------+ + | Camacho Fields MD | PCP | | + +------+ + Reason for Visit + + + | Reason | Comments | + + + | Pre-op evaluation | | + + + Encounter Details +--------+---------+ + + + | Date | Type | Department | Care Team | Description | +--------+---------+ + + + | 08/17/ | Office | Orthopaedic Spine | Helene Mahoney PA | Other Specified | | 2008 | Visit | Center at [facility] [address] | [address] | Pre-Operative | | | | [address] | [address] [place], | Examination (Primary | | | | Mailcode: [address] | [place] [address] | Dx) | | | | [facility] | [phone] | | | | | and Healing, | | | | | | Building | | | | | | Floor [place], [place] | | | | | | [address] | | | | | | [phone] | | | +--------+---------+ + + + [...] + + + + | Weight | 115.2 kg (254 lb) | 08/17/2009 11:03 AM | | | | | PDT | | + + + + + | Height | 157.5 cm (5' 2") | 08/17/2009 11:03 AM | | | | | PDT | | + + + + + | Body Mass Index | 46.46 | 08/17/2009 11:03 AM | | | | | PDT | | + + + + + documented in this encounter Patient Instructions Patient Instructions Ana Love - 08/11/2009 12:13 PM PDTRegistration Locations (please check in at one of the following registration desks prior to surgery) For surgeries scheduled to take place on the [place] [facility] the [place]: Surgeries scheduled in the [facility] ([address] [place] [address]): registration is located on the 4th floor of [facility] (Day Surgery). Surgeries scheduled in the [facility]: registration is located on the 9th floor. Surgeries scheduled in [facility]: registration is located on the 6th floor. Surgeries scheduled in the [facility]: registration is located i n the [facility] on the first floor. For surgeries scheduled to take place at the [facility]: registration is l [...] If you use specialized medical equipment at [facility], please check with your provider before bringing [...] Brochure.Elec tronically signed by Ana Love at 08/11/2009 12:13 PM PDT documented in this encounter Progress Notes Helene Mahoney PA - 08/17/2009 1:43 PM PDTFormatting of this note might be different from t he original. Subjective: Hafsa Cabrera is a 54 y.o. female who is a patient of Dr. Hope. The patient is here today for a preoperative visit. She has a history of LBP and right leg pain. The pat ient has been diagnosed with lumbar stenosis L3-5 and spondylolisthesis L3-4. Planned Proce dure: POSTERIOR SPINAL FUSION L3-5; POSTERIOR INTERBODY FUSION L3-4 AND L4-5; INSTRUMENTATIO N L3-5; PLACE PROSTHETIC DEVICE X 2 (CAGES); BMP on 08/18/09. Research category: Lumbar fusion Past Medical History Diagnosis Date Unspecified Arthropathy, Site Unspecified Asthma Other General Symptoms Depressive Disorder, not Elsewhere Classified Pure Hypercholesterolemia Acute, but Ill-Defined, Cerebrovascular Disease Past Surgical History Procedure Date Hx cholecystectomy 1989 Hx hysterectomy 2004 Current outpatient prescriptions: fenofibrate nanocrystallized 48 mg Oral Tablet, Take 48 m g by mouth once daily. , Disp: , Rfl: metformin 500 mg Oral Tablet, Take 500 mg by mouth once daily. , Disp: , Rfl: PHENYLALANINE OR, Take by mouth. , Disp: , Rfl: History Social History Marital Status: Single Spouse Name: N/A Number of Children: N/A Years of Education: N/A Occupational History Not on file. Social History Main Topics Tobacco Use: Quit -- 1.0 packs/day for 40 years Alcohol Use: Yes Drug Use: No Sexually Active: Not on file Other Topics Concern Not on file Social History Narrative No narrative on file Allergies Allergen Reactions Penicillins Family History Problem Relation Heart Father CHD Heart Brother CHD Diabetes Father Diabetes Sister Diabetes Brother Review of Systems: Patient is in good health, denies recent health changes. Review of Sys tems: An [place] review of systems was conducted. Denies recent F/C/N/V. Likewise no SOB, BP, LO, dizziness. No changes in B/B. Pertinent positives: none. Objective: GA: Hafsa Cabrera is a 54 y.o. female who is a well-formed, well nourished female in no acut e distress. She is alert and oriented x 3. Affect is appropriate. Ht 1.575 m (5' 2") | Wt 115.214 kg (254 lb) MUSCULOSKELETAL: deferred to subsequent exam. Spine: no special positioning consideration s. DERM: Surgical site is clear of any skin irritation or rash. Previous incision: none. IMAGING: mri in impax Assessment: lumbar stenosis and spondylolisthesis. Recommendations/Plan: PARQ held with patient: yes Patient has freely signed the consent form for surgery: yes Date/time of surgery: 08/18/09 6 am Driving directions, map, hotel list: yes NPO the night before surgery: yes Med reconciliation form and allergy list reviewed: yes Patient given spine surgery guide: yes Patient informed of length of surgery time and length of stay: 4 days Patient made aware of possible ICU admission, if indicated: na Make pt aware of approximate discharge time: yes Patient made aware of possible brace application after surgery (TLSO or aspen collar): na Patient made aware of possible need for bone stimulator: na Patient given PPI (prilosec 20mg the night before and the morning of surgeryfor cervical sp ine surgery): na. Patient informed to stop asa, nsaids, coumadin, steroids (for RA or resp), or fosamax: na. Patient encouraged on smoking cessation: quit months ago. Films requested to be printed: no Patient informed of follow up visit: yes Hospitalist or PCP preop clearence: na Patient sent to PAT and Lab: yes. Other: icbma signed. Should the patient have any questions or concerns prior to their next visit, they have been notified to contact the clinic. documented in this encou nter Plan of Treatment Not on filedocumented as of this encounter Visit Diagnoses + + | Diagnosis | + + | Other specified pre-operative examination - Primary | + + documented in this encounter
--- OUTSIDE RECORDS SUMMARY | ~2019-07-20 | XMS | Encounter Summary ---
Demographics + + + | Address | [address] | | | [place] [address] | + + + | Home Phone | | + + + | Preferred Language | Unknown | + + + | Marital Status | Single | + + + | Tenriism Affiliation | NON | + + + [...] Team Providers + +------+ + | Care Tumble Tailstock Turret Lathe Operator Name | Role | Phone | + +------+ + PCP | Unavailable | + +------+ + Encounter Details +--------+ + + + + | Date | Type | Department | Care Team | Description | +--------+ + + + + | 09/11/ | Office | [facility] | Note, Outpatient | Progress Note | | 2000 | Visit-Trans | MEDICINE | Clinic | | | | cribed | | | | +--------+ + + [...] documented as of this encounter Progress Notes Interface, Brick And Tile Making Machine Operator In - 07/30/2006 1:04 AM PDTCLINIC DATE: 09/11/2001 MULTIDISCIPLINARY BREAST CLINIC REASON FOR NOTE: Consultation. CONSULTING PROVIDERS: Dr. Vika Mcdermott and Dr. Rajiv Pastor. REASON FOR CONSULTATION: Right breast mass. HISTORY OF PRESENT ILLNESS: Ms. Cabrera is a 47-year-old female who comes to clinic today, is referred for right breast mass. This mass has been present for 6 months, and the patient believes that it is enlarged. It is tender. The patient denies any trauma, previous similar masses, no lymphadenopathy, or any nipple discharge. REVIEW OF SYSTEMS: The patient has no new systemic complaints and also denies any new cardiac, pulmonary, GI, , CLINICAL REHABILITATION AIDE, musculoskeletal, neurological, or ENT problems. PAST MEDICAL HISTORY: Unremarkable. PREVIOUS OPERATIONS: Include an open cholecystectomy and an ovarian cystectomy. FAMILY HISTORY: Negative for breast or ovarian cancer. GYNECOLOGICAL HISTORY: The patient had menarche at the age of 12. She is 1, and perimenopausal. ALLERGIES: She has no allergies. MEDICATIONS: She takes no medicines. PERSONAL HISTORY: She has a history of both alcohol and cigarette intake. PHYSICAL EXAMINATION: GENERAL: A stocky, healthy-appearing female who is pleasant and in no acute distress. HEENT: Sclerae anicteric. Back is nontender. There is no supraclavicular, cervical, or axillary adenopathy on either side. BREASTS: Large and pendulous, and palpation reveals deeply located fibrocystic tissue clustered in the upper outer quadrant and found somewhat firm. It is firmer on the right than on the left side; on the right side, the patient's upper outer quadrant tissue is coalesced into a rubbery area which I believe constitutes the mass in question. It is slightly tender, surrounded by other fibrocystic tissue and not hard or worrisome on palpation. There are no overlying skin changes. There is no nipple discharge and no other dominant masses on either breast. Fine needle aspiration of this mass was performed by Dr. Anirudh Carrillo at my request. The results were benign. The patient brings with her mammograms from the [facility], which were done on September 10, 2001. An ultrasound was also performed at the same time. These studies were negative. Specifically, the mammography was done with a metal marker, and there was no underlying mass seen. Further ( ) is unremarkable, and no focal masses were seen. ASSESSMENT: The patient has a triple test score of 4. That is, the mass is dominant but likely represents fibrocystic tissue. Imaging and biopsy are negative. In our experience, such lesions were all benign, and I think it can be safely watched. The patient appears quiet compliant and after some discussion, we mutually agreed on the following plan: The patient can be discharged from clinic. She is interested in embarkingon Friday for some extensive traveling, and I think it is safe to do so given the negative triple test. The patient will return on a p.r.n. basis if the mass enlarges or if she, otherwise, has concern. Otherwise, she will follow up with her providers at [facility]. Radiographically, the patient should have another mammogram in 1 year's time. Orville Szymanski M.D. KATELYN / JOSE [id number] / [id number] / [id number] / [id number] cc: [facility] [address] [place] [address] Vika Mcdermott M.D. [address] [address] Rajiv Pastor M.D. [address] [address] [id number] signed by Interface, Brick And Tile Making Machine Operator In at 07/30/2006 1:04 AM PDTdoc umented in this encounter Plan of Treatment Not on filedocumented as of this encounter Visit Diagnoses Not on filedocumented in this encounter"
--- OUTSIDE RECORDS SUMMARY | ~2019-07-20 | XMS | Encounter Summary ---
Demographics + + + | Address | [address] | | | [place] [address] | + + + | Home Phone | | + + + | Preferred Language | Unknown | + + + | Marital Status | Single | + + + | Congregational Affiliation | NON | + + + | Race | or | + + + | Ethnic Group | Not or | + + + Author + + + | Author | [facility] | + + + | Organization | [facility] | + + + | Address | Unknown | + + + | Phone | Unavailable | + + + Support + + +---------+ + | Name | Relationship | Address | Phone | + + +---------+ + | Geni Oliva | ECON | Unknown | | + + +---------+ + Care Team Providers + +------+ + | Care Professor Of Geology Name | Role | Phone | + [...] | | | | | without | [place], [place] | [address] [facility] | | | | | neurogenic | [address] | Hospital | | | | | claudication | Phone: | [place], [place] | | | | | Procedures | [phone] | [address] | | | | | CT SPINE | Fax: | Phone: | | | | | LUMBAR WO | [phone] | [phone] | | | | | CONTRASTR | | Fax: | | | | | | | [phone] | +--------+--------+ + + + + Encounter Details +--------+ + + + + | Date | Type | Department | Care Team | Description | +--------+ + + + + | 11/24/ | Documentati | Orthopaedics at | Helene Mahoney PA | | | 2009 | on | [facility] [address] | [address] | | | | | [address] Mailcode: CH12A | [address] [place], | | | | | [facility] | [place] [address] | | | | | and Healing, | [phone] | | | | | | | | | | | Floor [place], [place] | | | | | | [address] | | | | | | [phone] | | | +--------+ + + + [...] | Yes | | | 1/2 kevinon whiskey | | | | | per [...] Not on filedocumented as of this encounter Results CT SPINE LUMBAR WO [...] at | | | | | | [id number] L5. At L4, | | | | [...] right | | | | | | V0wkxknlkgudtdnmo has | | | | | | [...] | | | | | | left [id number] foramen | | | | | | [...] IMPRESSION:Since | | | | | | [id number];Resolving soft | | | | | | [...] | | | | | Author: ROBINSON DOMINGUEZ, | | | | | | M.HunterReviewer: ROBINSON Hendrix | | | | | | Stephan DOMINGUEZ STATUS | | | | | | FINAL / DrFelix Hendrix | | | | | | ALBERTO | | | | + + + + + + + + | Specimen | + + | | + + + +---------+ + + | Performing | Address | City/State/Zipcode | Phone Number | | Organization | | | | + +---------+ + + | [facility] DEPARTMENT OF | | | | | RADIOLOGY | | | | + +---------+ + + documented in this encounter Visit Diagnoses + + | Diagnosis | + + | Spinal stenosis, lumbar region, without neurogenic claudication - Primary | + + documented in this encounter"
--- OUTSIDE RECORDS SUMMARY | ~2019-07-20 | XMS | Encounter Summary ---
Demographics + + + | Address | [address] | | | [place] [address] | + + + | Home Phone | | + + + | Preferred Language | Unknown | + + + | Marital Status | Single | + + + | Mormon Affiliation | NON | + + + | Race | or | + + + | Ethnic Group | Not or | + + + Author + + + | Author | [facility] | + + + | Organization | [facility] | + + + | Address | Unknown | + + + | Phone | Unavailable | + + + Support + + +---------+ + | Name | Relationship | Address | Phone | + + +---------+ + | Geni Oliva | ECON | Unknown | | + + +---------+ + Care Team Providers + +------+ + | Care Automation Qa Analyst Name | Role | Phone | + +------+ + | Camacho Fields MD | PCP | | + +------+ + Encounter Details +--------+ + + + + | Date | Type | Department | Care Team | Description | +--------+ + + + + | 11/20/ | Water Supply Engineer | Orthopaedic Spine | Sherwin Hope | Spinal stenosis of | | 2009 | | Center at [facility] [address] | MD [facility] | lumbar region | | | | [address] | Care | (Primary Dx) | | | | Mailcode: CH8N | [address] | | | | | [facility] | [place] [address] | | | | | and [place], | [phone] | | | | | [facility] | | | | | | Floor [place], [place] | | | | | | [address] | | | | | | [phone] | | | +--------+ + + + [...] on filedocumented as of this encounter Results X-RAY SPINE LUMBOSACRAL 3 [...] | | | | | posterior paraspinal ictlali | | | | | | and [...] ORONA, | | | | | | M.Danielle.Reviewer: KONG ORONA, | | | | | | M.Danielle. STATUS FINAL / | | | | | | Dr. KONG ORONA | | | | + + + + + + + + | Specimen | + + | | + + + +---------+ + + | Performing | Address | City/State/Zipcode | Phone Number | | Organization | | | | + +---------+ + + | [place] DEPARTMENT OF | | | | | RADIOLOGY | | | | + +---------+ + + documented in this encounter Visit Diagnoses + + | Diagnosis | + + | Spinal stenosis, lumbar region, without neurogenic claudication - Primary | + + documented in this encounter"
--- OUTSIDE RECORDS SUMMARY | ~2019-07-20 | XMS | Encounter Summary ---
Demographics + + + | Address | [address] | | | [place] [address] | + + + | Home Phone [...] Team Providers + +------+ + | Care Charge Poster Name | Role | Phone | + +------+ + | Marlen Rodarte MD | PCP | | + +------+ + Encounter Details +--------+ + + + + | Date | Type | Department | Care Team | Description | +--------+ + + + + | 10/06/ | Results | Orthopaedics at | Sherwin Hope | | | 2008 | Only | [facility] [address] MD [facility] | | | | | Ave Mailcode: CH12A | Care | | | | | [facility] | [address] | | | | | and Healing, | [place] [address] | | | | | Building [address], [address]th | [phone] | | | | | Floor [place], [place] | | | | | | [address] | | | | | | [phone] | | | +--------+ + + + [...] | + +--------+ + + + | ORT L-SPN3V OR LESS | Routin | 10/06/2009 | | Results for this | | [id number] | e | 11:16 AM | | procedure are in the | | | | PST | | results section. | + +--------+ + + + documented in this encounter Results ORT L-SPN3V OR LESS [id number] (10/06/2009 11:16 AM PST) + + | Specimen | + + | | + + + + + | Narrative | Performed At | + + + | EXAM: LUMBAR SPINE SERIES HISTORY: Back surgery. Follow-up. | [facility] | | COMPARISON: None FINDINGS: AP, flexion lateral and extension lateral | DEPARTMENT OF | | views of the lumbar spine were obtained. Fixation device is noted | RADIOLOGY | | extending from L3-L5. There are five screws securing the fixation | | | rods to the vertebra. No evidence of loosening is seen. Slight | | | retrolisthesis (5 mm) is noted at L2-L3. No change in alignment of | | | the vertebra is seen with flexion and extension. Small spurs are | | | noted throughout. There is narrowing of the L3-4 and L4-5 disc spaces | | | present. Disc prostheses are seen at L3-4 and L4-5. No | | | compression deformity is noted. Surgical clips are seen in the right | | | upper abdomen. IMPRESSION: Postsurgical changes are noted. No | | | change in alignment is seen with flexion and extension. Mild to | | | moderate degenerative disease. | | + + + + + | Procedure Note | + + | Interface, Radiology Results - 06/16/2015 11:58 AM PDT EXAM: LUMBAR SPINE SERIES | | HISTORY: Back surgery. Follow-up. | | COMPARISON: None | | FINDINGS: AP, flexion lateral and extension lateral views of the | | lumbar spine were obtained. Fixation device is noted extending from | | L3-L5. There are five screws securing the fixation rods to the | | vertebra. No evidence of loosening is seen. Slight retrolisthesis | | (5 mm) is noted at L2-L3. No change in alignment of the vertebra is | | seen with flexion and extension. Small spurs are noted throughout. | | There is narrowing of the L3-4 and L4-5 disc spaces present. Disc | | prostheses are seen at L3-4 and L4-5. No compression deformity is | | noted. Surgical clips are seen in the right upper abdomen. | | IMPRESSION: Postsurgical changes are noted. No change in | | alignment is seen with flexion and extension. Mild to moderate | | degenerative disease. | + + + +---------+ + + | Performing | Address | City/State/Zipcode | Phone Number | | Organization | | | | + +---------+ + + | [facility] DEPARTMENT OF | | | | | RADIOLOGY | | | | + +---------+ + + documented in this encounter Visit Diagnoses Not on filedocumented in this encounter"
--- OUTSIDE RECORDS SUMMARY | ~2019-07-20 | XMS | Encounter Summary ---
Demographics + + + | Address | [address] | | | [place] [address] | + + + | Home Phone | | + + + | Preferred Language | Unknown | + + + | Marital Status | Single | + + + | Gnosticism Affiliation | NON | + + + | Race | or | + + + | Ethnic Group | Not or | + + + Author + + + | Author | [facility] | + + + | Organization | [facility] | + + + | Address | Unknown | + + + | Phone | Unavailable | + + + Support + + +---------+ + | Name | Relationship | Address | Phone | + + +---------+ + | Geni Oliva | ECON | Unknown | | + + +---------+ + Care Team Providers + +------+ + | Care Jira Administrator Name | Role | Phone | + +------+ + | Camacho Richardson MD | PCP | | + +------+ + Reason for Referral Diagnostic Testing (Urgent) +--------+--------+ + + + + | Status | Reason | Specialty | Diagnoses / | Referred By | Referred To | | | | | Procedures | Contact | Contact | +--------+--------+ + + + + | Closed | | Radiology | Procedures | Rakesh | [address] Scan | | | | | CT SPINE | Camila Snow MD | [facility] [address] | | | | | [address] | | [address] | | | | | CONTRASTR | Orthopaedics | [address] | | | | | | [address] | Mailcode: | | | | | | [address] | [address] [facility] | | | | | [address] | [facility] | | | | | | [place], [place] | [place], [place] | | | | | | [address] | [phone] | | | | | | | Phone: | | | | | | | [phone] | | | | | | | Fax: | | | | | | | [phone] | +--------+--------+ + + + + Diagnostic Testing (Urgent) +--------+--------+ + + + + | Status | Reason | Specialty | Diagnoses / | Referred By | Referred To | | | | | Procedures | Contact | Contact | +--------+--------+ + + + + | Closed | | Radiology | Procedures | [place], | Rad Ct Scan | | | | | CT SPINE | Camila Snow MD | [address] | | | | | LUM[address] WO | | Jessica Reis | | | | | CONTRASTR | Orthopaedics | [address] | | | | | | [address] | Mailcode: | | | | | | Jessica Reis | [address] [facility] | | | | | | [address] | [facility] | | | | | | [place], [place] | [place], [place] | | | | | | [address] | [address] | | | | | | | Phone: | | | | | | | [phone] | | | | | | | Fax: | | | | | | | [phone] | +--------+--------+ + + + + Reason for Visit AUTH/CERT +--------+--------+ + [...] | | | | | [address] | | | | | | | [address] | | | | | | | [address] | | | | | | | [place] | | | | | | | [facility] | | | | | | | ([facility]) | | | | | | | [place], | | | | | | | [place] [address] | +--------+--------+ + + + + Encounter Details +--------+ + + + + | Date | Type | Department | Care Team | Description | +--------+ + + + + | 08/18/ | Hospital | [facility] [address] [address] | Sherwin Hope | | | 2008 - | Encounter | [address] | MD [facility] | | | | | [address] | Care [address] | | | 08/22/ | | [facility] | [address] | | | 2008 | | ([facility]) | [place] [address] | | | | | [place], [place] | [phone] | | | | | [address] | | | +--------+ + + + [...] + + + | Blood Pressure | 119/81 | 08/22/2009 8:22 AM | | | | | PDT | | + + + + + | Pulse | 96 | 08/22/2009 8:22 AM | | | | | PDT | | + + + + + | Temperature | 37.1 C (98.8 F) | 08/22/2009 8:22 AM | | | | | PDT | | + + + + + | Respiratory Rate | 16 | 08/22/2009 8:22 AM | | | | | PDT | | + + + + + | Oxygen Saturation | 97% | 08/22/2009 8:22 AM | | | | | PDT | | + + + + + | Inhaled Oxygen | - | - | | | Concentration | | | | + + + + + | Weight | 115 kg (253 lb 8.5 | 08/18/2009 6:27 AM | | | | oz) | PDT | | + + + + + | Height | 157.5 cm (5' 2") | 08/18/2009 2:00 AM | | | | | PDT | | + + + + + | Body Mass Index | 46.37 | 08/18/2009 2:00 AM | | | | | PDT | | + + + + + documented in this encounter Discharge Summaries Helene Mahoney PA - 08/22/2009 8:45 AM PDTFormatting of this note might be different from matteo riley. INPATIENT PHYSICIAN DISCHARGE SUMMARY Attending Physician: Sherwin Hope MD PCP: Camacho RICHARDSON Admission Date: 08/18/2009 Discharge Date: 08/22/09 Diagnoses Prinicipal Final Diagnosis 1. L3-4 degenerative spondylolisthesis and stenosis, L4-5 stenosis Postoperative Diagnosis: Same Procedure Performed: L3-4, L4-5 interbody fusion, placement of prostheetic devices Instrumentation L3-L5 Hemilaminectomy L3-4 and L4-5 for decompression of nerve roots BMP, allograft chips Microscopic dissection of foramen Additional Diagnoses: DM TYPE 2 (DIABETES MELLITUS, TYPE 2) COPD (CHRONIC OBSTRUCTIVE PULMONARY DISEASE) DEPRESSION DYSLIPIDEMIA ACUTE, BUT ILL-DEFINED, CEREBROVASCULAR DISEASE OBESITY Reason For Admission: Spine surgery Hospital Course: Patient admitted on 08/18/09 for spine surgery under care of Trae Hope MD and the Spine S [facility]. There were no complications. Transferred to ortho floor [facility] for recovery and rehab iliation. Hospital course uneventful. PT and OT daily. Mobilized well. Drains removed an d dressing changed daily over incision site. Pain well controlled on oral pain medication. Tolerated regular diet. Bowel and bladder function normal. Ready for discharge on 9 to SNF in stable condition. START taking these medications acetaminophen 325 mg Oral Tablet Take 1-2 Tabs by mouth every four hours as needed. Qty: qs Refills: 0 bisacodyl 10 mg Rectal Suppository Insert 1 Suppository rectally twice daily as needed for constipation. Qty: qs Refills: 0 cyclobenzaprine 5 mg Oral Tablet Take 1 Tab by mouth three times daily as needed for muscle spasms. Do not use longer than 2-3 weeks. Qty: qs Refills: 0 fenofibrate nanocrystallized 145 mg Oral Tablet Take 0.5 Tabs by mouth once daily. Qty: qs Refills: 0 glimepiride (AMARYL) 4 mg Oral Tablet Take 1 Tab by mouth once daily with breakfast. Qty: qs Refills: 0 magnesium hydroxide 400 mg/5 mL Oral Suspension Take 30 mL by mouth every four hours as needed for constipation. Qty: qs Refills: 0 oxycodone, immediate release, 5 mg Oral Tablet Take 1-4 Tabs by mouth every three hours as needed. Qty: 150 Refills: 0 pregabalin 100 mg Oral Capsule Take 1 Cap by mouth two times daily. Max: 600 mg/day Qty: qs Refills: 0 promethazine 12.5 mg Oral Tablet Take 1 Tab by mouth four times daily as needed for nausea/vomiting. Qty: qs Refills: 0 senna-docusate 8.6-50 mg Oral Tablet Take 1 Tab by mouth two times daily. Qty: qs Refills: 0 simethicone chew 80 mg Oral Tablet, Chewable Take 1 Tab by mouth three times daily as needed for bloating. Qty: qs Refills: 0 sodium phosphates 19-7 gram/118 mL Rectal Enema Insert 118 mL rectally once daily as needed for constipation. Qty: qs Refills: 0 sorbitol 70 % Solution Take by mouth. Qty: qs Refills: 0 CONTINUE these medications which have CHANGED metformin 500 mg Oral Tablet Take 4 Tabs by mouth once daily. Qty: qs Refills: 0 CONTINUE these medications which have NOT CHANGED fenofibrate nanocrystallized 48 mg Oral Tablet Take 48 mg by mouth once daily. PHENYLALANINE OR Take by mouth. Vital Signs Per policy PPD for Facility Administer PPD upon arrival Wound Care Wound Care Your incision should be kept clean and dry. Change your dressing daily and check the incis ion for any signs of infection, such as: redness, swelling, unusual pain, or increasing manuel inage. If you have sutures or eleonora, do not get your wound wet for 5-7 days after your operation . Sponge bath or cover the incision with a waterproof bandage. Keep your incision covered with a dressing until there is no discharge on bandage. If you have sterie strips (paper tape) over your incision, keep the incision covered until there is no discharge on bandage. Do not remove sterie strips, they will fall off on own. Trim edges of the sterie strips if they start to peel up. Do not get your wound wet for 5-7 days after your operation. Do not soak in a bath tub or hot tub until your wound is completely healed, this usually ta kes 3-4 weeks. Do not use lotions, powders, oils, or ointments on your incision. Diet Diabetic (Consistent Carbohydrate) Activity Physical Activity Walking everyday will help you recover your strength and endurance. You may also use stair s as much as you can tolerate. Walking outside or walking on a treadmill is permitted (no i ncline). Restrictions Do not bend or twist your waist if you had lumbar surgery. Do not lift anything greater than ten pounds until your doctor tells you it is okay. You cannot drive a car while taking narcotic pain medication or while you are in a cervical collar. You may be a passenger for short distances (20-30 minutes). If you must take a lo nger trip, be sure to make several stops, so you can walk and stretch your legs. Reclining the passenger seat seems to be the most comfortable position for most patients. Do not smoke or chew tobacco for at least 3 months if you have had a fusion. ROM Precautions lumbar spine precautions Spine Precautions No Brace Necessary Discharge POLST completed unknown Destination: Destination: [facility] Facility Condition on Discharge Good Discharge Follow Up Provider and Clinic: follow up with PCP in 2 weeks for wound check and suture removal. Fol low up with Dr Hope at the [facility] during October 05 or . Call to p & s surgery center appointments [phone] Outstanding labs/studies: none Discharging Physician: CLAYTON MONTANA Attending Physician: Sherwin Hope MD documented in this encou nter Discharge Instructions Instructions Helene Mahoney PA - 08/21/2009 Spine Surgery Discharge Instructions For patients having Discectomy, Laminectomy, or Fusion Surgery Medication You will be given a written prescription for narcotic pain medication. Please follow th e directions as prescribed. Please remember that the purpose of the pain medication is to d ecrease the amount of pain you are experiencing, not to eliminate all of your pain. You may take the written prescription to any pharmacy. [facility] has a pharmacy located in the [facility] and the [facility] and [facility]. We will give you enough pain medication for the first two weeks you are at home. If you ne ed a refill please call [phone]. Please allow 48 hours for refills to be filled. Some medications require the written prescription be picked up in person or it can be mailed to pharmacy. If you feel you do not need your prescribed pain medication, you may use over the counter T ylenol. Follow the dose on the bottle. Make sure to take an oral stool softener while on narcotic pain medication to prevent const ipation. We suggest over the counter colace (docusate sodium) or senokot (senna). Anti-inflammatory medications such as Advil, Motrin, Ibuprofen, Naproxen, Aleve, Relafen, a nd Celebrex should not be used if you had a spinal fusion. Please avoid these medications f or three months after surgery. Tylenol is safe to use after a fusion. Steroid medications such as Prednisone or Solu-Medrol should not be used if you had a spina l fusion. If you are prescribed a steroid medication after surgery please notify your surge on. If you are prescribed a blood thinner (lovenox, heparin, or coumadin) after surgery please notify your surgeon. Physical Activity Walking everyday will help you recover your strength and endurance. You may also use st airs as much as you can tolerate. Walking outside or walking on a treadmill is permitted (n o incline). Restrictions Do not bend or twist your waist if you had lumbar surgery. Do not lift anything greater than ten pounds until your doctor tells you it is okay. You cannot drive a car while taking narcotic pain medication or while you are in a cervical collar. You may be a passenger for short distances (20-30 minutes). If you must take a lo nger trip, be sure to make several stops, so you can walk and stretch your legs. Reclining the passenger seat seems to be the most comfortable position for most patients. Do not smoke or chew tobacco for at least 3 months if you have had a fusion. Wound Care Your incision should be kept clean and dry. Change your dressing daily and check the in cision for any signs of infection, such as: redness, swelling, unusual pain, or increasing drainage. If you have sutures or eleonora, do not get your wound wet for 5-7 days after your operation . Sponge bath or cover the incision with a waterproof bandage. Keep your incision covered with a dressing until there is no discharge on bandage. If you have sterie strips (paper tape) over your incision, keep the incision covered until there is no discharge on bandage. Do not remove sterie strips, they will fall off on own. Trim edges of the sterie strips if they start to peel up. Do not get your wound wet for 5-7 days after your operation. Do not soak in a bath tub or hot tub until your wound is completely healed, this usually ta kes 3-4 weeks. Do not use lotions, powders, oils, or ointments on your incision. Sleeping You may sleep in any position which makes you comfortable. Many patients find comfort s leeping in a reclining chair. It is normal to have difficulty sleeping for the first few we eks following your surgery. We recommend trying over the counter Benadryl or Tylenol PM. Follow-up Appointments You will need a follow-up appointment at 2 weeks, 6 weeks, and 12 weeks after surgery. Please call [phone] to schedule or confirm your 2 week post-op appointment for a wound check and suture/staple removal. Primary care doctor: as needed for non orthopedic issues When to call us Call us right away if any of the following occur: Redness or warm around the incision Excessive bleeding or drainage from the incision. Fever, chills, or night sweats New weakness or lack of sensation in your arms or legs Shortness of breath or difficulty breathing. Bowel or bladder incontinence Swelling of your thighs or calves Postural headache (one that is worse when you are sitting or standing upright and better wh en you are lying flat). Contact Information [facility] Located at [facility]12th floor [address] [place] [address] Website [email or web address] Center[facility]/spine Nights or weekends, call the [facility] depalletizer operator [phone] and ask to speak with the orthopedi c resident concrete handler. documented in this encounter Medications at Time of Discharge + + + +---------+ + + | Medication | Sig | Dispensed | Refills | Start | End Date | | | | | | Date | | + + + +---------+ + + | fenofibrate | Take 0.5 Tabs by | qs | 0 | 10/27/20 | | | nanocrystallized 145 | mouth [...] documented as of this encounter Progress Notes Christopher Novak MD - 08/22/2009 8:46 AM PDTFormatting of this note might be different f rom the original. Ortho Progress Note 08/22/2009 Hospital Day #4 POD #4 s/p L3-4, L4-5 interbody fusion, placement of prostheetic devices, instrumentation L 3-L5, hemilaminectomy L3-4 and L4-5 for decompression of nerve roots, BMP, allograft chips, microscopic dissection of foramen S: Some sleep last PM. Pain OK. O: Ht 157.5 cm (5' 2")( < 3 %ile), Wt 115 kg (253 lbs 8.5 oz)( < 3 %ile), BP 105/63, Pulse 91, Temperature 36.7 C (98 F), RR 16, SpO2 96%. Intake/Output Summary (Last 24 hours) at 08/21/09915 Last data filed at 08/21/09 0600 Gross per 24 hour Intake 1810 ml Output 1750 ml Net 60 ml Drains: none Exam: AAO x4 PERRL 4 to 3 mm bilaterally No facial asymmetry DARLING spon +follows commands x4 Dressing changed, incision c/d/i RLE 4/5 HF/KE/DF/EHL/PF R lateral calf with reduced sensation A/P: 54 yo female with degenerative spondylolisthesis L3-4, lumbar stenosis L3-4 L4-5, s/p L3-4, L4-5 interbody fusion, placement of prostheetic devices, instrumentation L3-L5, hemila minectomy L3-4 and L4-5 for decompression of nerve roots, BMP, allograft chips, microscopic dissection of foramen 1. Patient is improving. Exam stable. 2. Mobilize with PT/OT 3. Pain management 4. DC to SNF today robles Faculty - 08/22/2009 12:00 AM ATIFHafsa Cabrera [id number] [facility] REC NUMBER: [id number] NAME : Hafsa Cabrera DATE : 1955 Admit Date: 08/18/2009 Discharge Date: 08/22/2009 PHYSICIAN'S REQUEST FOR HOME HEALTH SERVICES Relevant History: Location to receive services if other than home: Allergies: Height: Weight: Ordering Physician: [id number] [facility] , [place] [address] Physician to follow for ongoing home health orders: PCP Name: PCP Phone: Discharge Need(s): 1. [facility] Facility Discharge Vendor: [employer] Discharge Suggested First Visit/Delivery Date: Discharge Service/Equipment: 2. Transportation Discharge Vendor: [facility] Discharge Suggested First Visit/Delivery Date: 08/22/2009 Discharge Service/Equipment: Plant Technician/Control Room Operator: RAJAN Wolfe Cuchulain L, MD - 08/21/2009 9:15 AM PDT Ortho Progress Note 08/21/2009 Hospital Day #3 POD # 3 s/p L3-4, L4-5 interbody fusion, placement of prostheetic devices, instrumentation L3-L5, hemilaminectomy L3-4 and L4-5 for decompression of nerve roots, BMP, allograft chips, microscopic dissection of foramen S: Painful earlier this AM, no meds overnight. Feels OK. Doesn't want stacy out. O: Ht 157.5 cm (5' 2")( < 3 %ile), Wt 115 kg (253 lbs 8.5 oz)( < 3 %ile), BP 124/58, Pulse 98, Temperature 36.7 C (98.1 F), RR 16, SpO2 93%. Intake/Output Summary (Last 24 hours) at 08/21/09 0916 Last data filed at 08/21/09 0600 Gross per 24 hour Intake 1810 ml Output 1750 ml Net 60 ml Drains: none Exam: AAO x4 PERRL 4 to 3 mm bilaterally No facial asymmetry DARLING spon +follows commands x4 RLE 4/5 HF/KE/DF/EHL/PF R lateral calf with reduced sensation A/P: 54 yo female with degenerative spondylolisthesis L3-4, lumbar stenosis L3-4 L4-5, s/p L3-4, L4-5 interbody fusion, placement of prostheetic devices, instrumentation L3-L5, hemila minectomy L3-4 and L4-5 for decompression of nerve roots, BMP, allograft chips, microscopic dissection of foramen 1. Patient is improving. Exam stable. 2. Mobilize with PT/OT 3. Pain management 4. DC stacy today. Will likely need protective undergarments. 5. Appreciate glycemic team input 6. DC planning, will need SNF 9 :18 AM Luis Medrano MD - 08/21/2009 8:01 AM PDT CLINICAL HOSPITALIST SERVICE ([facility])-PROGRESS NOTE Glycemic team follow up: HOSPITAL DAY: 3 Author: LUIS SANTANA MD Subjective: No n/v Physical Exam: Vitals (Most recent): Blood pressure 124/58, pulse 98, temperature 36.7 C (98.1 F), res p. rate 16, height 1.575 m (5' 2"), weight 115 kg (253 lb 8.5 oz), SpO2 93%. Intake/Output Summary (Last 24 hours) at 08/21/09800 Last data filed at 08/21/09 06 Gross per 24 hour Intake 1810 ml Output 1750 ml Net 60 ml General : Alert and oriented x 3 Studies: CBC with diff last 72 hours (or 3 results) Recent Labs Basename 08/21/0963608/20/0971908/19/09699 WBC 9.0 11.0 11.7* HB 10.2* 10.3* 11.7* HCT 29.6* 30.0* 34.5* PLT 142* 137* 145* NEUTROPERC -- -- -- BANDPCT -- -- -- LYMPHPERC -- -- -- MONOPERC -- -- -- BASOPERC -- -- -- EOSPERC -- -- -- Chemistries: Last 72 Hours (or 3 results): Recent Labs Basename 08/21/0937 08/20/0920 08/19/09 0700 NA 133* 132* 133* K 4.4 3.7 4.5 CL 96* 97 100 BICARB 30 29 23 BUN 8 11 13 CR 0.73 0.72 1.25* GLU 188* 217* 344* CA 8.3* 8.0* 8.0* MG -- -- -- PO4 -- -- -- Lab Results Component Value Date GLU 188 08/21/09 GLU 217 08/20/09 GLU 344 08/19/09 Current Meds: acetaminophen (aka TYLENOL) tablet 325-650 mg, 325-650 mg, Oral, Q4H PRN bisacodyl (aka DULCOLAX) suppository 10 mg, 10 mg, Rectal, BID PRN cyclobenzaprine (aka FLEXERIL) tablet 5 mg, 5 mg, Oral, TID PRN dextrose injection 25 mL, 25 mL, Intravenous, PRN vzfwhfpeeqAITUU-egyoiowgx-SOJGLB (aka SPECIAL MOUTHWASH) suspension 5 mL, 5 mL, Oral, QID P RN docusate sodium (aka COLACE) capsule 100 mg, 100 mg, Oral, BID PRN fenofibrate nanocrystallized (aka TRICOR) tablet 72.5 mg, 72.5 mg, Oral, DAILY glucagon (aka GLUCAGEN) injection 1 mg, 1 mg, Intramuscular, PRN glucose chewable tablet 15 g, 15 g, Oral, Q15MIN PRN HYDROmorphone (aka DILAUDID) injection 0.2-0.8 mg, 0.2-0.8 mg, Intravenous, Q2H PRN influenza (tri-stephanie split) - PF vaccine (aka FLUZONE) injection 0.5 mL, 0.5 mL, Intramus cular, ONE TIME DURING VISIT insulin aspart (aka NOVOLOG) injection 1-16 Units, 1-16 Units, Subcutaneous, AC and HS PRN insulin aspart (aka NOVOLOG) injection 10 Units, 10 Units, Subcutaneous, TID AC insulin glargine (aka LANTUS) injection 45 Units, 45 Units, Subcutaneous, DAILY magnesium hydroxide (aka MILK OF MAGNESIA) suspension 30 mL, 30 mL, Oral, Q4H PRN naloxone (aka NARCAN) injection, , Intravenous, PRN ondansetron (aka ZOFRAN) injection 4 mg, 4 mg, Intravenous, Q12H PRN oxycodone immediate release (aka ROXICODONE) tablet 5-20 mg, 5-20 mg, Oral, Q3H PRN pregabalin (aka LYRICA) capsule 100 mg, 100 mg, Oral, BID prochlorperazine (aka COMPAZINE) injection 2.5-10 mg, 2.5-10 mg, Intravenous, Q4H PRN promethazine (aka PHENERGAN) injection 6.25-12.5 mg, 6.25-12.5 mg, Intravenous, Q4H PRN senna-docusate (aka SENOKOT S) 8.6-50 mg 1 Tab, 1 Tab, Oral, BID simethicone chew (aka MYLICON) tablet 80 mg, 80 mg, Oral, TID PRN sodium phosphates (aka FLEET) 19-7 gram/118 mL rectal enema 118 mL, 118 mL, Rectal, DAILY P RN sorbitol liquid 30-60 mL, 30-60 mL, Oral, Q2H PRN Assessment/Plan: 54F with type 2 DM, COPD, depression, dyslipidemia and cerebrovascular dis ease underwent lumbar spine surgery. 1. Type 2 DM: HbA1C is pending. Diet : Diabetic CBGs (24h) : 192 202 226 223 169 Target glucose : Fasting <140 and Random <180 (Non-ICU patients) Home Rx : Metformin 1250 mg once a day Current Rx : Lantus 35 units qam, Novolog 8 units tid ac and Novolog SSI-aggressive scal e IV fluids : None BMP : Noted. K is 4.4 Hypoglycemia : None Other pertinent factors : Obese, non-compliance with Rx and diet. Recommendations: 1. Increase Lantus to 45 units daily. 2. Increase pre-prandial Novolog to 10 units tid. 3. Change Novolog SSI to moderate scale. 4. At the time of discharge, due to her non-compliance and disinclination to take insulin, start her on Metformin ER 2000 mg once a day (4 pills of Metformin ER 500 mg) Amaryl 4 mg daily. LUIS SANTANA MD [facility] Clinical Hospitalist Service [facility] DEPARTMENT: Hosp ([facility])- [phone] Place of Service: - [address] [facility] [id number] CPT: 95189 Subsequent Visit Prob Focused/Low Complexity 15 min Total time spent on this encounter: 15 minutes Camila Caruso MD - 08/20/2009 9:04 AM PDT Ortho Progress Note 08/20/2009 Hospital Day #2 POD # 2 s/p L3-4, L4-5 interbody fusion, placement of prostheetic devices, instrumentation L3-L5, hemilaminectomy L3-4 and L4-5 for decompression of nerve roots, BMP, allograft chips, microscopic dissection of foramen S: No events reported overnight. Patient states that her R leg pain is better, but "still there." Patient is waiting on "new bed" for comfort. O: Last Vitals: BP 95/63 | Pulse 107 | Temp 37.4 C (99.3 F) | Resp 16 | Ht 1.575 m (5' 2") | Wt 115 kg (253 lb 8.5 oz) | SpO2 97% 24 Hour Vital Min/Max: Systolic (24hrs), Av mmHg, Min:95 mmHg, Max:126 mmHg Diastolic (24hrs), Av mmHg, Min:63 mmHg, Max:72 mmHg Pulse Min: 97 Max: 107 Temp Min: 36.9 C (98.4 F) Max: 37.4 C (99.3 F) Resp Min: 14 Max: 16 SpO2 Min: 93 % Max: 97 % Intake/Output Summary (Last 24 hours) at 08/20/09 0905 Last data filed at 08/20/09 0800 Gross per 24 hour Intake 2995 ml Output 3325 ml Net -330 ml Drains: none Exam: AAO x4 PERRL 4 to 3 mm bilaterally No facial asymmetry DARLING spon +follows commands x4 RLE 4+/5 HF 4/5 KE 5/5 DF/EHL/PF Allodynia R thigh non-dermatomal medial>lateral A/P: 54 yo female with degenerative spondylolisthesis L3-4, lumbar stenosis L3-4 L4-5, s/p L3-4, L4-5 interbody fusion, placement of prostheetic devices, instrumentation L3-L5, hemila minectomy L3-4 and L4-5 for decompression of nerve roots, BMP, allograft chips, microscopic dissection of foramen 1. Patient is improved this morning 2. Mobilize with PT/OT 3. Pain management Luis Hardy MD - 08/20/2009 7:58 AM PDTFormatting of this note might be different f rom the original. CLINICAL HOSPITALIST SERVICE ([facility])-PROGRESS NOTE Glycemic team follow up: HOSPITAL DAY: 2 Author: LUIS SANTANA MD Subjective: No n/v. Physical Exam: Vitals (Most recent): Blood pressure 95/63, pulse 107, temperature 37.4 C (99.3 F), res p. rate 16, height 1.575 m (5' 2"), weight 115 kg (253 lb 8.5 oz), SpO2 97%. Intake/Output Summary (Last 24 hours) at 08/20/09 0758 Last data filed at 08/20/09 0500 Gross per 24 hour Intake 2645 ml Output 3325 ml Net -680 ml General : Asleep. Easily woken up. Studies: CBC with diff last 72 hours (or 3 results) Recent Labs Basename 08/19/09 0700 08/17/09 0950 WBC 11.7* 8.7 HB 11.7* 13.5 HCT 34.5* 39.9 PLT 145* 163 NEUTROPERC -- -- BANDPCT -- -- LYMPHPERC -- -- MONOPERC -- -- BASOPERC -- -- EOSPERC -- -- Chemistries: Last 72 Hours (or 3 results): Recent Labs Basename 08/19/09 0700 08/17/09 0950 NA 133* 138 K 4.5 4.1 CL 100 99 BICARB 23 26 BUN 13 13 CR 1.25* 0.74 GLU 344* 281* CA 8.0* 9.3 MG -- -- PO4 -- -- Lab Results Component Value Date GLU 344 08/19/09 GLU 281 08/17/09 Current Meds: acetaminophen (aka TYLENOL) tablet 325-650 mg, 325-650 mg, Oral, Q4H PRN bisacodyl (aka DULCOLAX) suppository 10 mg, 10 mg, Rectal, BID PRN cyclobenzaprine (aka FLEXERIL) tablet 5 mg, 5 mg, Oral, TID PRN dextrose injection 25 mL, 25 mL, Intravenous, PRN docusate sodium (aka COLACE) capsule 100 mg, 100 mg, Oral, BID PRN fenofibrate nanocrystallized (aka TRICOR) tablet 72.5 mg, 72.5 mg, Oral, DAILY glucagon (aka GLUCAGEN) injection 1 mg, 1 mg, Intramuscular, PRN glucose chewable tablet 15 g, 15 g, Oral, Q15MIN PRN HYDROmorphone (aka DILAUDID) injection 0.2-0.8 mg, 0.2-0.8 mg, Intravenous, Q2H PRN influenza (tri-stephanie split) 07-06 PF vaccine (aka FLUZONE) injection 0.5 mL, 0.5 mL, Intramus cular, ONE TIME DURING VISIT insulin aspart (aka NOVOLOG) injection 1-16 Units, 1-16 Units, Subcutaneous, AC and HS PRN insulin aspart (aka NOVOLOG) injection 8 Units, 8 Units, Subcutaneous, TID AC insulin glargine (aka LANTUS) injection 35 Units, 35 Units, Subcutaneous, DAILY lactated ringers IV, , Intravenous, CONTINUOUS magnesium hydroxide (aka MILK OF MAGNESIA) suspension 30 mL, 30 mL, Oral, Q4H PRN naloxone (aka NARCAN) injection, , Intravenous, PRN ondansetron (aka ZOFRAN) injection 4 mg, 4 mg, Intravenous, Q12H PRN oxycodone immediate release (aka ROXICODONE) tablet 5-20 mg, 5-20 mg, Oral, Q3H PRN pregabalin (aka LYRICA) capsule 100 mg, 100 mg, Oral, BID prochlorperazine (aka COMPAZINE) injection 2.5-10 mg, 2.5-10 mg, Intravenous, Q4H PRN promethazine (aka PHENERGAN) injection 6.25-12.5 mg, 6.25-12.5 mg, Intravenous, Q4H PRN senna-docusate (aka SENOKOT S) 8.6-50 mg 1 Tab, 1 Tab, Oral, BID simethicone chew (aka MYLICON) tablet 80 mg, 80 mg, Oral, TID PRN sodium phosphates (aka FLEET) 19-7 gram/118 mL rectal enema 118 mL, 118 mL, Rectal, DAILY P RN sorbitol liquid 30-60 mL, 30-60 mL, Oral, Q2H PRN Assessment/Plan: 54F with type 2 DM, COPD, depression, dyslipidemia and cerebrovascular dis ease underwent lumbar spine surgery. 1. Type 2 DM: HbA1C is pending. Diet : Diabetic CBGs (24h) : [phone] 192 Target glucose : Fasting <140 and Random <180 (Non-ICU patients) Home Rx : Metformin 1250 mg once a day Current Rx : Metformin 500 mg daily IV fluids : LR at 125 cc/hr BMP : Noted. K is 3.7 and creatinine is 0.72 Hypoglycemia : None Other pertinent factors : Obese, non-compliance with Rx and diet. Recommendations: 1. Increase Lantus to 35 units daily. 2. Increase pre-prandial Novolog to 8 units tid. 3. Change Novolog SSI to aggressive scale. 4. Stop iv fluids. 5. Supplement K+. LUIS SANTANA MD [address] Clinical Hospitalist Service [facility] EPIC DEPARTMENT: Hosp ([facility])- [phone] Place of Service: IP - [phone] [facility] [phone] CPT: 21812 Subsequent Visit Prob Focused/Low Complexity 15 min Total time spent on this encounter: 10 minutes Camila Caruso MD - 08/19/2009 8:51 AM PDT Ortho Progress Note 08/19/2009 Hospital Day #1 POD # 1 s/p L3-4, L4-5 interbody fusion, placement of prostheetic devices, instrumentation L3-L5, hemilaminectomy L3-4 and L4-5 for decompression of nerve roots, BMP, allograft chips, microscopic dissection of foramen S: Refer to post-operative notes for events overnight. Patient states he R leg is feeling better this morning O: Last Vitals: BP 151/78 | Pulse 109 | Temp 37 C (98.6 F) | Resp 16 | Ht 1.575 m (5' 2") | Wt 115 kg (253 lb 8.5 oz) | SpO2 100% 24 hour Vitals min/max : Temp Min: 36.8 C (98.2 F) Max: 37 C (98.6 F) Systolic (24hrs), Av mmHg, Min:97 mmHg, Max:151 mmHg Diastolic (24hrs), Av mmHg, Min:63 mmHg, Max:98 mmHg Pulse Min: 88 Max: 109 SpO2 Min: 100 % Max: 100 % Drains: none Exam: AAO x4 PERRL 4 to 3 mm bilaterally No facial asymmetry DARLING spon +follows commands x4 RLE 4+/5 HF 4-/5 KE 5/5 DF/EHL/PF Allodynia R thigh non-dermatomal medial>lateral HEMATOCRIT Date Value Range Status 08/19/09 34.5* 36.0-46.0 (%) Final 08/17/09 39.9 36.0-46.0 (%) Final A/P: 54 yo female with degenerative spondylolisthesis L3-4, lumbar stenosis L3-4 L4-5, s/p L3-4, L4-5 interbody fusion, placement of prostheetic devices, instrumentation L3-L5, hemila minectomy L3-4 and L4-5 for decompression of nerve roots, BMP, allograft chips, microscopic dissection of foramen 1. Patient is improved this morning 2. Suspect either neuroapraxia from surgical intervention versus positioning for surgery, t his is improving this morning 3. Mobilize with PT/OT 4. Pain management [facility] Sherwin muñoz MD - 08/19/2009 6:48 AM PDTOrthopaedic Spine Staff Note S: R thigh numbness, but feels strong to her. Pain control is good. O: Blood pressure 151/78, pulse 109, temperature 37 C (98.6 F), resp. rate 16, height 1.575 m (5' 2"), weight 115 kg (253 lb 8.5 oz), SpO2 100%. Incision/Dressing C/D/I Sens I to LT IP Q TA EHL G R 5 5 5 5 L 5 5 5 5 A/P: POD#1 s/p MIS TLIF L3-4, L4-5 1. I think this is positioning related 2. Pain control 3. Mobilize, but will need to be careful with quad weakness when she mobilizes. Sherwin Hope M.D. Dialysis Registered Nurse [facility] Camila Caruso MD - 08/18/2009 9:38 PM PDTOrtho Spine Fellow Post-operative Note: Patient is s/p L3-4, L4-5 interbody fusion, placement of prostheetic devices, instrumentati on L3-L5, hemilaminectomy L3-4 and L4-5 for decompression of nerve roots, BMP, allograft chi ps, microscopic dissection of foramen S: Patient complains of R leg pain. States that her R leg feels painful in the entire thi gh. States that this radiates to the hip with movement. Pain is different from prior to figueredo rgical intervention. O: Ht 157.5 cm (5' 2")( < 3 %ile), Wt 115 kg (253 lbs 8.5 oz)( < 3 %ile), BP 97/63, Pulse 89, Temperature 36.8 C (98.2 F), RR 16, SpO2 100%. AAO x4 PERRL 3 to 2 mm bilaterally No facial asymmetry DARLING spon, decreased in RLE RLE motor HF/KE 2/5 DF/EHL/PF 3/4 Allodynia throughout R thigh - no dermatomal distribution Exam limited by pain A/P: 54 yo female with R leg and low back pain, noted to have lumbar stenosis, L3/L4 degen erative spondylosis and scoliosis. 1. Will obtain an urgent CT L-spine to evaluate hardware placement 2. Compartments in thigh are soft at this time, however will monitor throughout the night f or evidence of possible compartment syndrome 3. Will start Lyrica 100mg PO bid 4. Will give one time dose of Decadron 10mg IV 5. Discussed with Dr. Hope who is aware and agrees documented in this encounter Plan of Treatment Not on filedocumented as of this encounter Procedures + +--------+ + + + | Procedure Name | Priori | Date/Time | Associated Diagnosis | Comments | | | ty | | | | + +--------+ + + + | PROCEDURE NOTE | Routin | 12/01/2015 | | Results for this | | | e | 11:58 AM | | procedure are in the | | | | PST | | results section. | + +--------+ + + + | BASIC METABOLIC SET | Routin | 08/21/2009 | | Results for this | | (NA, K, CL, TCO2, | e | 6:37 AM | | procedure are in the | | BUN, CR, GLU, CA) | | PDT | | results section. | + +--------+ + + + | CBC ONLY | Routin | 08/21/2009 | | Results for this | | | e | 6:37 AM | | procedure are in the | | | | PDT | | results section. | + +--------+ + + + | BASIC METABOLIC SET | Routin | 08/20/2009 | | Results for this | | (NA, K, CL, TCO2, | e | 7:20 AM | | procedure are in the | | BUN, CR, GLU, CA) | | PDT | | results section. | + +--------+ + + + | CBC ONLY | Routin | 08/20/2009 | | Results for this | | | e | 7:20 AM | | procedure are in the | | | | PDT | | results section. | + +--------+ + + + | HEMOGLOBIN A1C, | Routin | 08/20/2009 | | Results for this | | BLOOD | e | 7:20 AM | | procedure are in the | | | | PDT | | results section. | + +--------+ + + + | ANESTHESIA/SEDATION | | 08/20/2009 | | Results for this | | | | 12:00 AM | | procedure are in the | | | | PDT | | results section. | + +--------+ + + + | BASIC METABOLIC SET | Routin | 08/19/2009 | | Results for this | | (NA, K, CL, TCO2, | e | 7:00 AM | | procedure are in the | | BUN, CR, GLU, CA) | | PDT | | results section. | + +--------+ + + + | CBC ONLY | Routin | 08/19/2009 | | Results for this | | | e | 7:00 AM | | procedure are in the | | | | PDT | | results section. | + +--------+ + + + | CT SPINE LUMBAR WO | Urgent | 08/18/2009 | | Results for this | | CONTRAST | | 7:39 PM | | procedure are in the | | | | PDT | | results section. | + +--------+ + + + | X-RAY PORTABLE SPINE | Routin | 08/18/2009 | | Results for this | | LUMBOSACRAL 2 VIEWS | e | 4:17 PM | | procedure are in the | | | | PDT | | results section. | + +--------+ + + + | X-RAY FLUOROSCOPY > | Routin | 08/18/2009 | | Results for this | | 1 HOUR | e | 4:16 PM | | procedure are in the | | | | PDT | | results section. | + +--------+ + + + | PRODUCT - RED CELLS | Routin | 08/18/2009 | | Results for this | | LEUKOREDUCED | e | 8:48 AM | | procedure are in the | | | | PDT | | results section. | + +--------+ + + + | PRODUCT - RED CELLS | Routin | 08/18/2009 | | Results for this | | LEUKOREDUCED | e | 8:48 AM | | procedure are in the | | | | PDT | | results section. | + +--------+ + + + | ANESTHESIA/SEDATION | | 08/18/2009 | | Results for this | | | | 12:00 AM | | procedure are in the | | | | PDT | | results section. | + +--------+ + + + | ANESTHESIA/SEDATION | | 08/18/2009 | | Results for this | | | | 12:00 AM | | procedure are in the | | | | PDT | | results section. | + +--------+ + + + | INTRAOPERATIVE NEURO | Routin | 08/18/2009 | | Results for this | | MONITORING | e | | | procedure are in the | | | | | | results section. | + +--------+ + + + | ORDERS OTHER | | 08/17/2009 | | Results for this | | | | 5:42 PM | | procedure are in the | | | | PDT | | results section. | + +--------+ + + + | ANESTHESIA/SEDATION | | 08/17/2009 | | Results for this | | | | 12:00 AM | | procedure are in the | | | | PDT | | results section. | + +--------+ + + + documented in this encounter Results PROCEDURE NOTE (12/01/2015 11:58 AM PST)CBC ONLY (08/21/2009 6:37 AM PDT) + + + + + + | Component | Value | Ref Range | Performed | Pathologist | | | | | At | Signature | + + + + + + | WHITE CELL | 9.0 | 4.4 - 11.0 K/cu | [facility] | | | COUNT | | mm | DEPARTMENT | | | | | | OF | | | | | | PATHOLOGY | | + + + + + + | RED CELL | 3.31 (L) | 4.00 - 5.20 | [facility] | | | COUNT | | M/cu mm | DEPARTMENT | | | | | | OF | | | | | | PATHOLOGY | | + + + + + + | HEMOGLOBIN | 10.2 (L) | 12.0 - 16.0 | [facility] | | | | | g/dL | DEPARTMENT | | | | | | OF | | | | | | PATHOLOGY | | + + + + + + | HEMATOCRIT | 29.6 (L) | 36.0 - 46.0 % | [facility] | | | | | | DEPARTMENT | | | | | | OF | | | | | | PATHOLOGY | | + + + + + + | MCV | 89.3 | 80.0 - 96.0 fL | [facility] | | | | | | DEPARTMENT | | | | | | OF | | | | | | PATHOLOGY | | + + + + + + | MCHC | 34.4 | 33.4 - 35.5 | [facility] | | | | | g/dL | DEPARTMENT | | | | | | OF | | | | | | PATHOLOGY | | + + + + + + | RDW | 12.3 | 11.5 - 15.0 % | [facility] | | | | | | DEPARTMENT | | | | | | OF | | | | | | PATHOLOGY | | + + + + + + | PLATELET | 142 (L) | 150 - 400 K/cu | [facility] | | | COUNT | | mm | DEPARTMENT | | | | | | OF | | | | | | PATHOLOGY | | + + + + + + + + | Specimen | + + | Blood - Blood | + + + + + + + | Performing | Address | City/State/Zipcode | Phone Number | | Organization | | | | + + + + + | [facility] DEPARTMENT [facility] | [address] | [place] [address] | | | PATHOLOGY | [address] | | | + + + + + BASIC METABOLIC SET (NA, K, CL, TCO2, BUN, CR, GLU, CA) (08/21/2009 6:37 AM PDT) + +---------+ + + + | Component | Value | Ref Range | Performed | Pathologist | | | | | At | Signature | + +---------+ + + + | GLUCOSE, | 188 (H) | 60 - 99 mg/dL | [facility] | | | PLASMA | | | DEPARTMENT | | | (LAB) | | | OF | | | | | | PATHOLOGY | | + +---------+ + + + | BUN, PLASMA | 8 | 6 - 20 mg/dL | [facility] | | | (LAB) | | | DEPARTMENT | | | | | | OF | | | | | | PATHOLOGY | | + +---------+ + + + | CREATININE | 0.73 | 0.60 - 1.10 | [facility] | | | PLASMA | | mg/dL | DEPARTMENT | | | (LAB) | | | OF | | | | | | PATHOLOGY | | + +---------+ + + + | SODIUM, | 133 (L) | 134 - 143 | [facility] | | | PLASMA | | mmol/L | DEPARTMENT | | | (LAB) | | | OF | | | | | | PATHOLOGY | | + +---------+ + + + | POTASSIUM, | 4.4 | 3.4 - 5.0 | [facility] | | | PLASMA | | mmol/L | DEPARTMENT | | | (LAB) | | | OF | | | | | | PATHOLOGY | | + +---------+ + + + | CHLORIDE, | 96 (L) | 97 - 108 mmol/L | [facility] | | | PLASMA | | | DEPARTMENT | | | (LAB) | | | OF | | | | | | PATHOLOGY | | + +---------+ + + + | CALCIUM, | 8.3 (L) | 8.6 - 10.2 | [facility] | | | PLASMA | | mg/dL | DEPARTMENT | | | (LAB) | | | OF | | | | | | PATHOLOGY | | + +---------+ + + + | TOTAL CO2, | 30 | 23 - 31 mmol/L | [facility] | | | PLASMA | | | DEPARTMENT | | | (LAB) | | | OF | | | | | | PATHOLOGY | | + +---------+ + + + + + | Specimen | + + | Blood - Blood | + + + + + + + | Performing | Address | City/State/Zipcode | Phone Number | | Organization | | | | + + + + + | [facility] DE[facility]MENT [facility] | [address] | [place] [address] | | | PATHOLOGY | [address] | | | + + + + + HEMOGLOBIN A1C, BLOOD (08/20/2009 7:20 AM PDT) + + + + + + | Component | Value | Ref Range | Performed | Pathologist | | | | | At | Signature | + + + + + + | HEMOGLOBIN | 10.9 (H) | <5.8 % | | | | A1C | | | | | + + + + + + + + | Specimen | + + | Blood - Blood | + + + + + | Narrative | Performed At | + + + | | [facility] | | Non-Diabetic: | DEPARTMENT OF | | 4.0 - 5.7% Risk | PATHOLOGY | | For Chronic Complications In Adults: | | | | | | Low <7.0% | | | | | | Medium 7.0-7.9% | | | | | | High >7.9% [facility] ([place] | | | Kaleb Barcenas) [facility] [place] [address] [address] | | | [place] [address] | | + + + + + + + + | Performing | Address | City/State/Zipcode | Phone Number | | Organization | | | | + + + + + | [facility] DE[facility]MENT [facility] | [address] | [place] [address] | | | PATHOLOGY | [address] | | | + + + + + CBC ONLY (08/20/2009 7:20 AM PDT) + + + + + + | Component | Value | Ref Range | Performed | Pathologist | | | | | At | Signature | + + + + + + | WHITE CELL | 11.0 | 4.4 - 11.0 K/cu | [facility] | | | COUNT | | mm | DEPARTMENT | | | | | | OF | | | | | | PATHOLOGY | | + + + + + + | RED CELL | 3.35 (L) | 4.00 - 5.20 | [facility] | | | COUNT | | M/cu mm | DEPARTMENT | | | | | | OF | | | | | | PATHOLOGY | | + + + + + + | HEMOGLOBIN | 10.3 (L) | 12.0 - 16.0 | [facility] | | | | | g/dL | DEPARTMENT | | | | | | OF | | | | | | PATHOLOGY | | + + + + + + | HEMATOCRIT | 30.0 (L) | 36.0 - 46.0 % | [facility] | | | | | | DEPARTMENT | | | | | | OF | | | | | | PATHOLOGY | | + + + + + + | MCV | 89.6 | 80.0 - 96.0 fL | [facility] | | | | | | DEPARTMENT | | | | | | OF | | | | | | PATHOLOGY | | + + + + + + | MCHC | 34.3 | 33.4 - 35.5 | [facility] | | | | | g/dL | DEPARTMENT | | | | | | OF | | | | | | PATHOLOGY | | + + + + + + | RDW | 12.4 | 11.5 - 15.0 % | [facility] | | | | | | DEPARTMENT | | | | | | OF | | | | | | PATHOLOGY | | + + + + + + | PLATELET | 137 (L) | 150 - 400 K/cu | [facility] | | | COUNT | | mm | DEPARTMENT | | | | | | OF | | | | | | PATHOLOGY | | + + + + + + + + | Specimen | + + | Blood - Blood | + + + + + + + | Performing | Address | City/State/Zipcode | Phone Number | | Organization | | | | + + + + + | [facility]MENT [facility] | [address] | [place] [address] | | | PATHOLOGY | [address] | | | + + + + + BASIC METABOLIC SET (NA, K, CL, TCO2, BUN, CR, GLU, CA) (08/20/2009 7:20 AM PDT) + +---------+ + + + | Component | Value | Ref Range | Performed | Pathologist | | | | | At | Signature | + +---------+ + + + | GLUCOSE, | 217 (H) | 60 - 99 mg/dL | [facility] | | | PLASMA | | | DEPARTMENT | | | (LAB) | | | OF | | | | | | PATHOLOGY | | + +---------+ + + + | BUN, PLASMA | 11 | 6 - 20 mg/dL | [facility] | | | (LAB) | | | DEPARTMENT | | | | | | OF | | | | | | PATHOLOGY | | + +---------+ + + + | CREATININE | 0.72 | 0.60 - 1.10 | [facility] | | | PLASMA | | mg/dL | DEPARTMENT | | | (LAB) | | | OF | | | | | | PATHOLOGY | | + +---------+ + + + | SODIUM, | 132 (L) | 134 - 143 | [facility] | | | PLASMA | | mmol/L | DEPARTMENT | | | (LAB) | | | OF | | | | | | PATHOLOGY | | + +---------+ + + + | POTASSIUM, | 3.7 | 3.4 - 5.0 | [facility] | | | PLASMA | | mmol/L | DEPARTMENT | | | (LAB) | | | OF | | | | | | PATHOLOGY | | + +---------+ + + + | CHLORIDE, | 97 | 97 - 108 mmol/L | [facility] | | | PLASMA | | | DEPARTMENT | | | (LAB) | | | OF | | | | | | PATHOLOGY | | + +---------+ + + + | CALCIUM, | 8.0 (L) | 8.6 - 10.2 | [facility] | | | PLASMA | | mg/dL | DEPARTMENT | | | (LAB) | | | OF | | | | | | PATHOLOGY | | + +---------+ + + + | TOTAL CO2, | 29 | 23 - 31 mmol/L | [facility] | | | PLASMA | | | DEPARTMENT | | | (LAB) | | | OF | | | | | | PATHOLOGY | | + +---------+ + + + + + | Specimen | + + | Blood - Blood | + + + + + + + | Performing | Address | City/State/Zipcode | Phone Number | | Organization | | | | + + + + + | [facility] | [address] | [place] [address] | | | PATHOLOGY | [address] | | | + + + + + ANESTHESIA/SEDATION (08/20/2009 12:00 AM PDT) + + + | Narrative | Performed At | + + + | | | + + + + + | Procedure Note | + + | Other, Faculty - 08/20/2009 12:00 AM PDT | | | + + CBC ONLY (08/19/2009 7:00 AM PDT) + + + + + + | Component | Value | Ref Range | Performed | Pathologist | | | | | At | Signature | + + + + + + | WHITE CELL | 11.7 (H) | 4.4 - 11.0 K/cu | [facility] | | | COUNT | | mm | DEPARTMENT | | | | | | OF | | | | | | PATHOLOGY | | + + + + + + | RED CELL | 3.84 (L) | 4.00 - 5.20 | [facility] | | | COUNT | | M/cu mm | DEPARTMENT | | | | | | OF | | | | | | PATHOLOGY | | + + + + + + | HEMOGLOBIN | 11.7 (L) | 12.0 - 16.0 | [facility] | | | | | g/dL | DEPARTMENT | | | | | | OF | | | | | | PATHOLOGY | | + + + + + + | HEMATOCRIT | 34.5 (L) | 36.0 - 46.0 % | [facility] | | | | | | DEPARTMENT | | | | | | OF | | | | | | PATHOLOGY | | + + + + + + | MCV | 89.8 | 80.0 - 96.0 fL | [facility] | | | | | | DEPARTMENT | | | | | | OF | | | | | | PATHOLOGY | | + + + + + + | MCHC | 33.9 | 33.4 - 35.5 | [facility] | | | | | g/dL | DEPARTMENT | | | | | | OF | | | | | | PATHOLOGY | | + + + + + + | RDW | 12.1 | 11.5 - 15.0 % | [facility] | | | | | | DEPARTMENT | | | | | | OF | | | | | | PATHOLOGY | | + + + + + + | PLATELET | 145 (L) | 150 - 400 K/cu | [facility] | | | COUNT | | mm | DEPARTMENT | | | | | | OF | | | | | | PATHOLOGY | | + + + + + + + + | Specimen | + + | Blood - Blood | + + + + + + + | Performing | Address | City/State/Zipcode | Phone Number | | Organization | | | | + + + + + | [facility] DEPARTMENT | [address] | [place] [address] | | | PATHOLOGY | [address] | | | + + + + + BASIC METABOLIC SET (NA, K, CL, TCO2, BUN, CR, GLU, CA) (08/19/2009 7:00 AM PDT) + + + + + + | Component | Value | Ref Range | Performed | Pathologist | | | | | At | Signature | + + + + + + | GLUCOSE, | 344 (H) | 60 - 99 mg/dL | [facility] | | | PLASMA | | | DEPARTMENT | | | (LAB) | | | OF | | | | | | PATHOLOGY | | + + + + + + | BUN, PLASMA | 13 | 6 - 20 mg/dL | [facility] | | | (LAB) | | | DEPARTMENT | | | | | | OF | | | | | | PATHOLOGY | | + + + + + + | CREATININE | 1.25 (H) | 0.60 - 1.10 | [facility] | | | PLASMA | | mg/dL | DEPARTMENT | | | (LAB) | | | OF | | | | | | PATHOLOGY | | + + + + + + | SODIUM, | 133 (L) | 134 - 143 | [facility] | | | PLASMA | | mmol/L | DEPARTMENT | | | (LAB) | | | OF | | | | | | PATHOLOGY | | + + + + + + | POTASSIUM, | 4.5 | 3.4 - 5.0 | [facility] | | | PLASMA | | mmol/L | DEPARTMENT | | | (LAB) | | | OF | | | | | | PATHOLOGY | | + + + + + + | CHLORIDE, | 100 | 97 - 108 mmol/L | [facility] | | | PLASMA | | | DEPARTMENT | | | (LAB) | | | OF | | | | | | PATHOLOGY | | + + + + + + | CALCIUM, | 8.0 (L) | 8.6 - 10.2 | [facility] | | | PLASMA | | mg/dL | DEPARTMENT | | | (LAB) | | | OF | | | | | | PATHOLOGY | | + + + + + + | TOTAL CO2, | 23 | 23 - 31 mmol/L | [facility] | | | PLASMA | | | DEPARTMENT | | | (LAB) | | | OF | | | | | | PATHOLOGY | | + + + + + + + + | Specimen | + + | Blood - Blood | + + + + + + + | Performing | Address | City/State/Zipcode | Phone Number | | Organization | | | | + + + + + | [facility] DEPARTMENT [facility] | [address] | [place] [address] | | | PATHOLOGY | [address] | | | + + + + + CT SPINE LUMBAR WO CONTRASTR (08/18/2009 7:39 PM PDT) + + + + + + | Component | Value | Ref Range | Performed | Pathologist | | | | | At | Signature | + + + + + + | CT LUMBAR | Examination: CT scan of | | | | | SPINE WO | the lumbar | | | | | CONTRAST | spine.Comparison: Plain | | | | | | films dated | | | | | | 05/15/09.Indication: | | | | | | Status post L3 to L5 | | | | | | instrumentation. New | | | | | | onset leg | | | | | | pain.Technique: 3-mm | | | | | | axial images of the | | | | | | lumbar spine with | | | | | | sagittal andcoronal | | | | | | reformats.Findings: | | | | | | There has been interval | | | | | | posterior fusion with | | | | | | pairedpedicle screws at | | | | | | L5 and L3 with a single | | | | | | left pedicle screw at | | | | | | L4.The right L5 pedicle | | | | | | screw transverses the | | | | | | cortex of the right | | | | | | [id number] foramina with | | | | | | possible minimal | | | | | | narrowing of the right | | | | | | [id number] | | | | | | foramina. There is no | | | | | | lucency surrounding the | | | | | | screws. Thescrews | | | | | | are connected by | | | | | | vertical rods. There | | | | | | is been left L3-4 | | | | | | andright L4-5 | | | | | | laminectomies with | | | | | | associated resection of | | | | | | the right L4-5and the | | | | | | left L3-4 facet | | | | | | joints. Disk | | | | | | prostheses are noted at | | | | | | bothlevels. Air and | | | | | | fluid in the posterior | | | | | | paraspinal musculature | | | | | | isnoted. Near-anatomi | | | | | | c alignment is | | | | | | noted. Mild disk | | | | | | space narrowingat the | | | | | | L3-4 level is noted with | | | | | | prominent osteophyte | | | | | | formation.Spinal canal | | | | | | narrowing is noted at | | | | | | L4-5 and L5-S1, | | | | | | incompletelyevaluated. | | | | | | Effacement of the | | | | | | epidural fat is noted at | | | | | | L3-4 and L4-5from | | | | | | postsurgical changes. | | | | | | The neural foramina | | | | | | appear | | | | | | patent,incompletely | | | | | | evaluated on | | | | | | CT. Surgical packing | | | | | | is noted thelaminotomy | | | | | | site.Impression1. Int | | | | | | erval placement of L3 | | | | | | through L5 posterior | | | | | | pedicle screws,vertical | | | | | | rods, and disk | | | | | | prostheses.2. Persist | | | | | | ent spinal canal | | | | | | narrowing is noted at | | | | | | L3-4 and L4-5,difficult | | | | | | to evaluate on a CT scan | | | | | | because of surgical | | | | | | changeseffacing the | | | | | | epidural fat.I have | | | | | | personally viewed this | | | | | | procedure/exam and | | | | | | reviewed this | | | | | | report.Author: MIRTHA | | | | | | Alicia MORROWwer: | | | | | | JITENDRA DUFFY, | | | | | | M.DFelixSTATUS FINAL / | | | | | | JITENDRA WRIGHT | | | | | | PENDING FINAL APPROVAL / | | | | | | Dr. MIRTHA HALL | | | | | | PRELIMINARY - UNSIGNED / | | | | | | Dr. MIRTHA MORROW | | | | + + + + + + + + | Specimen | + + | | + + + +---------+ + + | Performing | Address | City/State/Zipcode | Phone Number | | Organization | | | | + +---------+ + + | [facility] | | | | | RADIOLOGY | | | | + +---------+ + + X-RAY PORTABLE SPINE LUMBOSACRAL 2 VIEWS (08/18/2009 4:17 PM PDT) + + + + + + | Component | Value | Ref Range | Performed | Pathologist | | | | | At | Signature | + + + + + + | X-RAY | EXAM: Two views | | | | | PORTABLE | lumbosacral | | | | | SPINE | spine. 08/18/09.SENA | | | | | LUMBOSACRAL | RISON: 05/15/09.FINDIN | | | | | 2 VIEWS | GS:Spot intraoperative | | | | | | fluoroscopic images show | | | | | | posterior spinal | | | | | | fusionfrom L3 through L5 | | | | | | with bilateral | | | | | | paraspinal rods and | | | | | | pedicle screws. Anterior | | | | | | spinal fusion is also | | | | | | present from L3 through | | | | | | L5 withdiskectomy and | | | | | | interbody graft | | | | | | placement at L3-4 and | | | | | | L4-5.I have personally | | | | | | viewed this | | | | | | procedure/exam and | | | | | | reviewed this | | | | | | report.Author: DANIEL | | | | | | Stephan HOLLINSReviewer: | | | | | | KONG ORONA M.D.STATUS | | | | | | FINAL / Dr. TRIANA | | | | | | [place] FINAL / | | | | | | [place] | | | | | | PRELIMINARY - UNSIGNED / | | | | | | Dr. DANIEL HOLLINS | | | | + + + + + + + + | Specimen | + + | | + + + +---------+ + + | Performing | Address | City/State/Zipcode | Phone Number | | Organization | | | | + +---------+ + + | [facility] | | | | | RADIOLOGY | | | | + +---------+ + + X-RAY FLUOROSCOPY > 1 HOUR (08/18/2009 4:16 PM PDT) + + + + + + | Component | Value | Ref Range | Performed | Pathologist | | | | | At | Signature | + + + + + + | FLUOROSCOPY | EXAM: Two views | | | | | > 1 HOUR | lumbosacral | | | | | | spine. 08/18/09.SENA | | | | | | RISON: 05/15/09.FINDIN | | | | | | GS:Spot intraoperative | | | | | | fluoroscopic images show | | | | | | posterior spinal | | | | | | fusionfrom L3 through L5 | | | | | | with bilateral | | | | | | paraspinal rods and | | | | | | pedicle screws. Anterior | | | | | | spinal fusion is also | | | | | | present from L3 through | | | | | | L5 withdiskectomy and | | | | | | interbody graft | | | | | | placement at L3-4 and | | | | | | L4-5.I have personally | | | | | | viewed this | | | | | | procedure/exam and | | | | | | reviewed this | | | | | | report.Author: DANIEL | | | | | | Stephan HOLLINSReviewer: | | | | | | KONG ORONA M.D.STATUS | | | | | | FINAL / Dr. TRIANA | | | | | | [place] FINAL / | | | | | | [place] | | | | | | PRELIMINARY - UNSIGNED / | | | | | | Dr. DANIEL HOLLINS | | | | + + + + + + + + | Specimen | + + | | + + + +---------+ + + | Performing | Address | City/State/Zipcode | Phone Number | | Organization | | | | + +---------+ + + | [facility] | | | | | RADIOLOGY | | | | + +---------+ + + PRODUCT- RED CELLS LEUKOREDUCED (08/18/2009 8:48 AM PDT) + + + + + + | Component | Value | Ref Range | Performed | Pathologist | | | | | At | Signature | + + + + + + | PRODUCT | -1 RED BLOOD | | [facility] | | | DESCRIPTION | CELLS,ADENINE-SALINE | | DEPARTMENT | | | | ADDED,LEUKOCYTES REDUCED | | OF | | | | | | PATHOLOGY | | + + + + + + | PRODUCT | [id number] | | [facility] | | | UNIT # | | | DEPARTMENT | | | | | | OF | | | | | | PATHOLOGY | | + + + + + + | UNIT ABO | O | | [facility] | | | | | | DEPARTMENT | | | | | | OF | | | | | | PATHOLOGY | | + + + + + + | UNIT RH | POS | | [facility] | | | | | | DEPARTMENT | | | | | | OF | | | | | | PATHOLOGY | | + + + + + + | STATUS OF | Returned to Blood Bank | | [facility] | | | UNIT | | | DEPARTMENT | | | | | | OF | | | | | | PATHOLOGY | | + + + + + + + + | Specimen | + + | | + + + + + + + | Performing | Address | City/State/Zipcode | Phone Number | | Organization | | | | + + + + + | [facility] | [address] | [place] [address] | | | PATHOLOGY | [address] | | | + + + + + PRODUCT- RED CELLS LEUKOREDUCED (08/18/2009 8:48 AM PDT) + + + + + + | Component | Value | Ref Range | Performed | Pathologist | | | | | At | Signature | + + + + + + | PRODUCT | -1 RED BLOOD | | [facility] | | | DESCRIPTION | CELLS,ADENINE-SALINE | | DEPARTMENT | | | | ADDED,LEUKOCYTES REDUCED | | OF | | | | | | PATHOLOGY | | + + + + + + | PRODUCT | [id number] | | [facility] | | | UNIT # | | | DEPARTMENT | | | | | | OF | | | | | | PATHOLOGY | | + + + + + + | UNIT ABO | O | | [facility] | | | | | | DEPARTMENT | | | | | | OF | | | | | | PATHOLOGY | | + + + + + + | UNIT RH | POS | | [facility] | | | | | | DEPARTMENT | | | | | | OF | | | | | | PATHOLOGY | | + + + + + + | STATUS OF | Returned to Blood Bank | | [facility] | | | UNIT | | | DEPARTMENT | | | | | | OF | | | | | | PATHOLOGY | | + + + + + + + + | Specimen | + + | | + + + + + + + | Performing | Address | City/State/Zipcode | Phone Number | | Organization | | | | + + + + + | [facility] | [address] | [place] [address] | | | PATHOLOGY | [address] | | | + + + + + ANESTHESIA/SEDATION (08/18/2009 12:00 AM PDT) + + + | Narrative | Performed At | + + + | | | + + + + + | Procedure Note | + + | Coral Recio - 08/18/2009 12:00 AM PDT | | | + + ANESTHESIA/SEDATION (08/18/2009 12:00 AM PDT) + + + | Narrative | Performed At | + + + | | | + + + + + | Procedure Note | + + | Almita Faculty - 08/18/2009 12:00 AM PDT | | | + + INTRAOPERATIVE NEURO MONITORING (08/18/2009) + + + | Narrative | Performed At | + + + | Patient Name: Hafsa Cabrera Date of : 1955 Medical | | | Record Number: [id number] Date of Test: 08/18/2009 | | | INTRAOPERATIVE NEURO MONITORING History: This is a 54 year-old | | | female with a history of sponylolisthesis. Patient was | | | admitted for L4-L5 posteriro spinal fusion procedure. | | | Conditions of Recording: Repetitive electrical stimulation of the | | | posterior tibial nerve was performed at the ankle, with recordings | | | over the popliteal fossa, cervical spine and scalp. | | | Repetitive electrical stimulation of the ulnar nerve was performed at | | | the wrist, with recordings over the brachial plexus, the cervical | | | spine and the scalp. To obtain transcranial electrical motor | | | evoked potentials, trains of 6 pulses with an individual pulse | | | duration of 0.5 ms and an interstimulus interval of 4 ms were | | | delivered over the bilateral central regions of the scalp. | | | Free-running EMG was recorded from bilateral leg muscles. | | | Description of recording: Preoperative waveforms were obtained after | | | general anesthesia for baseline. During surgery, SSEPs were | | | repetitively performed. Following posterior tibial nerve | | | stimulation, there was a reproducible subcortical potential, N29, at | | | latencies of approximately 30.7 msec. A reproducible cortical | | | waveform, N37, was present at latencies of about 41.2 msec. There | | | were no significant changes in the latencies or amplitudes of the | | | posterior tibial nerve responses as compared to baseline values. | | | Following ulnar nerve stimulation, there was a cervical potential, | | | N13, at latencies of approximately 14.2 msec. The cortical | | | waveform, N20, was present at latencies of about 22.1 msec. There | | | were no significant changes in the latencies or amplitudes of the | | | ulnar nerve responses as compared to baseline values. Following | | | transcranial stimulation, there were reproducible EMG responses from | | | the thenar, the hypothenar, the tibialis anterior muscle and from the | | | abductor hallucis brevis muscles bilaterally. There were no | | | significant changes in the latencies or amplitudes during the | | | surgical procedure. Occasionally, firing of selected muscles was | | | observed due to mechanical root irritation in the surgical field and | | | the surgeon was notified. No unusual events were noted during the | | | procedure. Intraoperative interpretation was performed | | | using real-time display of intraoperative neurophysiologic | | | recordings and communication with the operative team for 10 hours. | | | Impression: No change in baseline waveforms during surgery. | | | Ana Correia, Ph.D. Clinical Neurophysiology Department | | | Pascual Abbott M.D. Dialysis Registered Nurse Neurology / Clinical | | | Neurophysiology [facility] | | + + + ORDERS OTHER (08/17/2009 5:42 PM PDT) + + + | Narrative | Performed At | + + + | | | + + + + + | Procedure Note | + + | Coral Recio - 08/17/2009 5:42 PM PDT | | | + + ANESTHESIA/SEDATION (08/17/2009 12:00 AM PDT) + + + | Narrative | Performed At | + + + | | | + + + + + | Procedure Note | + + | Coral Recio - 08/17/2009 12:00 AM PDT | | | + + documented in this encounter Visit Diagnoses + + | Diagnosis | + + | Lumbar spinal stenosis Spinal stenosis, lumbar region, without neurogenic | | claudication | + + documented in this encounter Administered Medications + +--------+ +--------+------+------+ | Medication Order | MAR | Action | Dose | Rate | Site | | | Action | Date | | | | + +--------+ +--------+------+------+ | acetaminophen (aka TYLENOL) | Given | 08/21/20 | 650 mg | | | | tablet 325-650 mg 325-650 mg, | | 09 8:13 | | | | | oral, EVERY 4 HOURS NEEDED, | | PM PDT | | | | | Starting Fri08/18/09 at 1949, | | | | | | | Until Fri08/22/09 at 1655, mild | | | | | | | pain | | | | | | + +--------+ +--------+------+------+ +---+---+ | | | +---+---+ + +-------+ +-----+---+---+ | ceFAZolin (aka ANCEF) injection | Given | 08/19/20 | 1 g | | | | 1 g 1 g, intravenous, EVERY 8 | | 09 12:00 | | | | | HOURS, 3 doses, First dose on Fri | | PM PDT | | | | | 08/18/09 at 2000, Last dose on | | | | | | | 08/19/09 at 1200 | | | | | | + +-------+ +-----+---+---+ +-------+ +-----+---+---+ | Given | 08/19/20 | 1 g | | | | | 09 4:00 | | | | | | AM PDT | | | | +-------+ +-----+---+---+ | Given | 08/18/20 | 1 g | | | | | 09 8:00 | | | | | | PM PDT | | | | +-------+ +-----+---+---+ +---+---+ | | | +---+---+ + +-------+ +------+---+---+ | cyclobenzaprine (aka FLEXERIL) | Given | 08/21/20 | 5 mg | | | | tablet 5 mg 5 mg, oral, THREE | | 09 8:14 | | | | | TIMES DAILY NEEDED, Starting | | AM PDT | | | | | 08/18/09 at 1949, Until Tue | | | | | | | 08/22/09 at 1655, muscle spasms | | | | | | + +-------+ +------+---+---+ +-------+ +------+---+---+ | Given | 20 | 5 mg | | | | | 09 7:58 | | | | | | PM PDT | | | | +-------+ +------+---+---+ | Given | 20 | 5 mg | | | | | 09 8:10 | | | | | | AM PDT | | | | +-------+ +------+---+---+ +---+---+ | | | +---+---+ + +-------+ +----+---+---+ | dexamethasone (aka DECADRON) | Given | 08/18/20 | mg | | | | injection 1 dose, Starting Fri | | 09 7:19 | | | | | 08/18/09 at 1918, Until Fri | | PM PDT | | | | | 08/18/09 at 1919 | | | | | | + +-------+ +----+---+---+ +---+---+ | | | +---+---+ + +-------+ +------+---+---+ | | Given | 08/21/20 | 5 mL | | | | nnjwjrprvrIPACK-dqynhoxwn-FLPGFU | | 09 8:28 | | | | | (aka SPECIAL MOUTHWASH) | | PM PDT | | | | | suspension 5 mL 5 mL, oral, FOUR | | | | | | | TIMES DAILY NEEDED, Starting | | | | | | | 08/20/09 at 1301, Until Tue | | | | | | | 08/22/09 at 1655, sore mouth, | | | | | | | swish and spit | | | | | | + +-------+ +------+---+---+ +-------+ +------+---+---+ | Given | 08/20/20 | 5 mL | | | | | 09 8:42 | | | | | | PM PDT | | | | +-------+ +------+---+---+ | Given | 08/20/20 | 5 mL | | | | | 09 3:00 | | | | | | PM PDT | | | | +-------+ +------+---+---+ +---+---+ | | | +---+---+ + +-------+ +---------+---+---+ | fenofibrate nanocrystallized | Given | 08/22/20 | 72.5 mg | | | | (aka TRICOR) tablet 72.5 mg 72.5 | | 09 10:00 | | | | | mg, oral, DAILY, First dose on | | AM PDT | | | | | 08/19/09 at 0900, Until | | | | | | | Discontinued | | | | | | + +-------+ +---------+---+---+ +-------+ +---------+---+---+ | Given | 08/21/20 | 72.5 mg | | | | | 09 9:00 | | | | | | AM PDT | | | | +-------+ +---------+---+---+ | Given | 08/20/20 | 72.5 mg | | | | | 09 9:00 | | | | | | AM PDT | | | | +-------+ +---------+---+---+ +---+---+ | | | +---+---+ + +-------+ +---------+---+---+ | fentanyl (aka SUBLIMAZE) | Given | 08/18/20 | 150 mcg | | | | injection 1 dose, Starting Fri | | 09 7:15 | | | | | 08/18/09 at 1729, Until Fri | | PM PDT | | | | | 08/18/09 at 1915 | | | | | | + +-------+ +---------+---+---+ +---+---+ | | | +---+---+ + +-------+ +--------+---+---+ | HYDROmorphone (aka DILAUDID) | Given | 08/21/20 | 0.8 mg | | | | injection 0.2-0.8 mg 0.2-0.8 mg, | | 09 3:25 | | | | | intravenous, EVERY 2 HOURS | | PM PDT | | | | | NEEDED, Starting Fri08/18/09 at | | | | | | | 1949, Until Tu08/22/09 at 1655, | | | | | | | moderate pain | | | | | | + +-------+ +--------+---+---+ +-------+ +--------+---+---+ | Given | 08/19/20 | 0.8 mg | | | | | 09 4:56 | | | | | | AM PDT | | | | +-------+ +--------+---+---+ | Given | 08/18/20 | 0.8 mg | | | | | 09 10:11 | | | | | | PM PDT | | | | +-------+ +--------+---+---+ +---+---+ | | | +---+---+ + +-------+ +--------+---+---+ | HYDROmorphone (aka DILAUDID) | Given | 08/18/20 | 1.4 mg | | | | injection 1 dose, Starting Fri | | 09 7:15 | | | | | 08/18/09 at 1728, Until Fri | | PM PDT | | | | | 08/18/09 at 1915 | | | | | | + +-------+ +--------+---+---+ +---+---+ | | | +---+---+ + +-------+ +--------+---+ + | influenza (tri-stephanie split) 09-10 | Given | 08/22/20 | 0.5 mL | | Left Arm | | PF vaccine (aka FLUZONE) | | 09 3:20 | | | | | injection 0.5 mL 0.5 mL, | | AM PDT | | | | | intramuscular, ONE TIME DURING | | | | | | | VISIT, 1 dose, Starting Fri | | | | | | | 08/18/09 at 1949, Until Tue | | | | | | | 08/22/09 at 0320 | | | | | | + +-------+ +--------+---+ + +---+---+ | | | +---+---+ + +-------+ +---------+---+---+ | insulin aspart (aka NOVOLOG) | Given | 08/19/20 | 8 Units | | | | injection 1-16 Units 1-16 Units, | | 09 7:00 | | | | | subcutaneous, BEFORE MEALS AND | | AM PDT | | | | | BEDTIME, First dose on Fri | | | | | | | 08/18/09 at 2100, Until | | | | | | | Discontinued | | | | | | + +-------+ +---------+---+---+ +-------+ +---------+---+---+ | Given | 08/18/20 | 2 Units | | | | | 09 9:00 | | | | | | PM PDT | | | | +-------+ +---------+---+---+ +---+---+ | | | +---+---+ + +-------+ +---------+---+---+ | insulin aspart (aka NOVOLOG) | Given | 08/19/20 | 4 Units | | | | injection 1-16 Units 1-16 Units, | | 09 10:02 | | | | | subcutaneous, BEFORE MEALS AND | | PM PDT | | | | | BEDTIME NEEDED, Starting Sat | | | | | | | 08/19/09 at 1031, Until Sun | | | | | | | 08/20/09 at 0740, hyperglycemia | | | | | | + +-------+ +---------+---+---+ +-------+ +---------+---+---+ | Given | 08/19/20 | 6 Units | | | | | 09 5:08 | | | | | | PM PDT | | | | +-------+ +---------+---+---+ | Given | 08/19/20 | 8 Units | | | | | 09 12:08 | | | | | | PM PDT | | | | +-------+ +---------+---+---+ +---+---+ | | | +---+---+ + +-------+ +---------+---+---+ | insulin aspart (aka NOVOLOG) | Given | 08/21/20 | 4 Units | | | | injection 1-16 Units 1-16 Units, | | 09 7:59 | | | | | subcutaneous, BEFORE MEALS AND | | AM PDT | | | | | BEDTIME NEEDED, Starting Sun | | | | | | | 08/20/09 at 0740, Until Mon | | | | | | | 08/21/09 at 0802, hyperglycemia | | | | | | + +-------+ +---------+---+---+ +-------+ +---------+---+---+ | Given | 08/20/20 | 3 Units | | | | | 09 8:58 | | | | | | PM PDT | | | | +-------+ +---------+---+---+ | Given | 08/20/20 | 6 Units | | | | | 09 6:04 | | | | | | PM PDT | | | | +-------+ +---------+---+---+ +---+---+ | | | +---+---+ + +-------+ +---------+---+---+ | insulin aspart (aka NOVOLOG) | Given | 08/22/20 | 4 Units | | | | injection 1-16 Units 1-16 Units, | | 09 8:26 | | | | | subcutaneous, BEFORE MEALS AND | | AM PDT | | | | | BEDTIME NEEDED, Starting Mon | | | | | | | 08/21/09 at 0803, Until Tue | | | | | | | 08/22/09 at 1655, hyperglycemia | | | | | | + +-------+ +---------+---+---+ +-------+ +---------+---+---+ | Given | 08/21/20 | 2 Units | | | | | 09 5:10 | | | | | | PM PDT | | | | +-------+ +---------+---+---+ | Given | 08/21/20 | 4 Units | | | | | 09 1:27 | | | | | | PM PDT | | | | +-------+ +---------+---+---+ +---+---+ | | | +---+---+ + +-------+ + +---+---+ | insulin aspart (aka NOVOLOG) | Given | 08/22/20 | 10 Units | | | | injection 10 Units 10 Units, | | 09 7:00 | | | | | subcutaneous, THREE TIMES DAILY | | AM PDT | | | | | BEFORE MEALS, First dose on Mon | | | | | | | 08/21/09 at 1100, Until | | | | | | | Discontinued | | | | | | + +-------+ + +---+---+ +-------+ + +---+---+ | Given | 08/21/20 | 10 Units | | | | | 09 5:00 | | | | | | PM PDT | | | | +-------+ + +---+---+ | Given | 08/21/20 | 10 Units | | | | | 09 11:00 | | | | | | AM PDT | | | | +-------+ + +---+---+ +---+---+ | | | +---+---+ + +-------+ +---------+---+---+ | insulin aspart (aka NOVOLOG) | Given | 08/20/20 | 5 Units | | | | injection 5 Units 5 Units, | | 09 7:00 | | | | | subcutaneous, THREE TIMES DAILY | | AM PDT | | | | | BEFORE MEALS, First dose on Sat | | | | | | | 08/19/09 at 1100, Until | | | | | | | Discontinued | | | | | | + +-------+ +---------+---+---+ +-------+ +---------+---+---+ | Given | 08/19/20 | 5 Units | | | | | 09 5:00 | | | | | | PM PDT | | | | +-------+ +---------+---+---+ | Given | 08/19/20 | 5 Units | | | | | 09 11:00 | | | | | | AM PDT | | | | +-------+ +---------+---+---+ +---+---+ | | | +---+---+ + +-------+ +---------+---+---+ | insulin aspart (aka NOVOLOG) | Given | 08/21/20 | 8 Units | | | | injection 8 Units 8 Units, | | 09 7:00 | | | | | subcutaneous, THREE TIMES DAILY | | AM PDT | | | | | BEFORE MEALS, First dose on Sun | | | | | | | 08/20/09 at 1100, Until | | | | | | | Discontinued | | | | | | + +-------+ +---------+---+---+ +-------+ +---------+---+---+ | Given | 08/20/20 | 8 Units | | | | | 09 5:00 | | | | | | PM PDT | | | | +-------+ +---------+---+---+ | Given | 08/20/20 | 8 Units | | | | | 09 11:00 | | | | | | AM PDT | | | | +-------+ +---------+---+---+ +---+---+ | | | +---+---+ + +-------+ + +---+---+ | insulin glargine (aka LANTUS) | Given | 08/19/20 | 25 Units | | | | injection 25 Units 25 Units, | | 09 12:00 | | | | | subcutaneous, DAILY, First dose | | PM PDT | | | | | on 08/19/09 at 1200, Until | | | | | | | Discontinued | | | | | | + +-------+ + +---+---+ +---+---+ | | | +---+---+ + +-------+ + +---+---+ | insulin glargine (aka LANTUS) | Given | 08/21/20 | 35 Units | | | | injection 35 Units 35 Units, | | 09 9:00 | | | | | subcutaneous, DAILY, First dose | | AM PDT | | | | | on 08/20/09 at 0900, Until | | | | | | | Discontinued | | | | | | + +-------+ + +---+---+ +-------+ + +---+---+ | Given | 08/20/20 | 35 Units | | | | | 09 9:00 | | | | | | AM PDT | | | | +-------+ + +---+---+ +---+---+ | | | +---+---+ + +-------+ + +---+---+ | insulin glargine (aka LANTUS) | Given | 08/22/20 | 45 Units | | | | injection 45 Units 45 Units, | | 09 9:00 | | | | | subcutaneous, DAILY, First dose | | AM PDT | | | | | on 08/21/09 at 0900, Until | | | | | | | Discontinued | | | | | | + +-------+ + +---+---+ +-------+ + +---+---+ | Given | 08/21/20 | 10 Units | | | | | 09 9:00 | | | | | | AM PDT | | | | +-------+ + +---+---+ +---+---+ | | | +---+---+ + +---------+ +---+-------+---+ | lactated ringers IV | New Bag | 08/18/20 | | 125 | | | intravenous, CONTINUOUS, Starting | | 09 5:30 | | mL/hr | | | 08/18/09 at 1730, Until Sun | | PM PDT | | | | | 08/20/09 at 1017 | | | | | | + +---------+ +---+-------+---+ +---+---+ | | | +---+---+ + +-------+ +--------+---+---+ | metformin (aka GLUCOPHAGE) | Given | 08/19/20 | 500 mg | | | | tablet 500 mg 500 mg, oral, | | 09 9:00 | | | | | DAILY, First dose on 08/19/09 | | AM PDT | | | | | at 0900, Until Discontinued | | | | | | + +-------+ +--------+---+---+ +---+---+ | | | +---+---+ + +-------+ +-------+---+---+ | oxycodone immediate release | Given | 08/22/20 | 20 mg | | | | (aka ROXICODONE) tablet 5-20 mg | | 09 6:02 | | | | | 5-20 mg, oral, EVERY 3 HOURS | | AM PDT | | | | | NEEDED, Starting Fri08/18/09 at | | | | | | | 1949, Until Fri08/22/09 at 1655, | | | | | | | severe pain | | | | | | + +-------+ +-------+---+---+ +-------+ +-------+---+---+ | Given | 08/22/20 | 20 mg | | | | | 09 3:02 | | | | | | AM PDT | | | | +-------+ +-------+---+---+ | Given | 08/22/20 | 20 mg | | | | | 09 12:00 | | | | | | AM PDT | | | | +-------+ +-------+---+---+ +---+---+ | | | +---+---+ + +-------+ +--------+---+---+ | potassium chloride SR (aka | Given | 08/20/20 | 40 mEq | | | | K-DUR) tablet 40 mEq 40 mEq, | | 09 9:00 | | | | | oral, TWICE DAILY, 2 doses, First | | PM PDT | | | | | dose on 08/20/09 at 1030, | | | | | | | Last dose on 08/20/09 at 2100 | | | | | | + +-------+ +--------+---+---+ +-------+ +--------+---+---+ | Given | 08/20/20 | 40 mEq | | | | | 09 10:30 | | | | | | AM PDT | | | | +-------+ +--------+---+---+ +---+---+ | | | +---+---+ + +-------+ +--------+---+---+ | pregabalin (aka LYRICA) capsule | Given | 08/22/20 | 100 mg | | | | 100 mg 100 mg, oral, TWICE | | 09 9:00 | | | | | DAILY, First dose on Fri08/18/09 | | AM PDT | | | | | at 2100, Until Discontinued | | | | | | + +-------+ +--------+---+---+ +-------+ +--------+---+---+ | Given | 08/21/20 | 100 mg | | | | | 09 8:15 | | | | | | PM PDT | | | | +-------+ +--------+---+---+ | Given | 08/21/20 | 100 mg | | | | | 09 9:00 | | | | | | AM PDT | | | | +-------+ +--------+---+---+ +---+---+ | | | +---+---+ + +-------+ +--------+---+---+ | pregabalin (aka LYRICA) capsule | Given | 08/18/20 | 100 mg | | | | 1 dose, Starting Fri08/18/09 | | 09 7:15 | | | | | at 1913, Until Fri08/18/09 at | | PM PDT | | | | | 1915 | | | | | | + +-------+ +--------+---+---+ +---+---+ | | | +---+---+ + +-------+ +-------+---+---+ | prochlorperazine (aka | Given | 08/22/20 | 10 mg | | | | COMPAZINE) tablet 10 mg 10 mg, | | 09 10:30 | | | | | oral, ONCE, 1 dose, 08/22/09 | | AM PDT | | | | | at 1030 | | | | | | + +-------+ +-------+---+---+ +---+---+ | | | +---+---+ + +-------+ + +---+---+ | senna-docusate (aka SENOKOT S) | Given | 08/22/20 | 1 tablet | | | | 8.6-50 mg 1 Tab 1 tablet, oral, | | 09 9:00 | | | | | TWICE DAILY, First dose on Fri | | AM PDT | | | | | 08/18/09 at 2100, Until | | | | | | | Discontinued | | | | | | + +-------+ + +---+---+ +-------+ + +---+---+ | Given | 08/21/20 | 1 tablet | | | | | 09 8:15 | | | | | | PM PDT | | | | +-------+ + +---+---+ | Given | 08/21/20 | 1 tablet | | | | | 09 9:00 | | | | | | AM PDT | | | | +-------+ + +---+---+ +---+---+ | | | +---+---+ + +-------+ +-------+---+---+ | simethicone chew (aka MYLICON) | Given | 08/22/20 | 80 mg | | | | tablet 80 mg 80 mg, oral, THREE | | 09 10:21 | | | | | TIMES DAILY NEEDED, Starting | | AM PDT | | | | | 08/18/09 at 1949, Until Tue | | | | | | | 08/22/09 at 1655, bloating | | | | | | + +-------+ +-------+---+---+ +---+---+ | | | +---+---+ documented in this encounter
--- OUTSIDE RECORDS SUMMARY | ~2019-07-20 | XMS | Encounter Summary ---
Demographics + + + | Address | [address] | | | [place] [address] | + + + | Home Phone | | + + + | Preferred Language | Unknown | + + + | Marital Status | Single | + + + | Episcopalian Affiliation | NON | + + + | Race | or | + + + | Ethnic Group | Not or | + + + Author + + + | Author | [facility] | + + + | Organization | [facility] | + + + | Address | Unknown | + + + | Phone | Unavailable | + + + Support + + +---------+ + | Name | Relationship | Address | Phone | + + +---------+ + | Geni Oliva | ECON | Unknown | | + + +---------+ + Care Team Providers + +------+ + | Care Key Bed Installer Name | Role | Phone | + +------+ + | Camacho Fields MD | PCP | | + +------+ + Reason for Visit + + + | Reason | Comments | + + + | Medication requested | | + + + Encounter Details +--------+ + + + + | Date | Type | Department | Care Team | Description | +--------+ + + + + | 04/02/ | Telephone | [facility] | [facility] | Medication requested | | 2009 | | [facility] at [facility] [address] | [facility] | | | | | [address] | Care [address] | | | | | Mailcode: [address] | | | | | [facility] | [place] [address] | | | | | and Healing, | [phone] | | | | | Building | | | | | | Floor [place], [place] | | | | | | [address] | | | | | | [phone] | | | +--------+ + + + [...]
--- OUTSIDE RECORDS SUMMARY | ~2019-07-20 | XMS | Encounter Summary ---
Demographics + + + | Address | [address] | | | [place] [address] | + + + | Home Phone | | + + + | Preferred Language | Unknown | + + + | Marital Status | Single | + + + | Restorationist Affiliation | NON | + + + | Race | or | + + + | Ethnic Group | Not or | + + + Author + + + | Author | [facility] | + + + | Organization | [facility] | + + + | Address | Unknown | + + + | Phone | Unavailable | + + + Support + + +---------+ + | Name | Relationship | Address | Phone | + + +---------+ + | Geni Oliva | ECON | Unknown | | + + +---------+ + Care Team Providers + +------+ + | Care Site Supervisor Name | Role | Phone | + +------+ + | Camacho Fields MD | PCP | | + +------+ + Encounter Details +--------+ + + + + | Date | Type | Department | Care Team | Description | +--------+ + + + + | 03/17/ | Hospital | Radiology/Imaging | | | | 2008 | Encounter | Lab at [facility] [address] | | | | | | [address] Mailcode: | | | | | | [facility] | | | | | | Health and Healing, | | | | | | [facility] | | | | | | Floor [place], [place] | | | | | | [address] | | | | | | [phone] | | | +--------+ + + + [...] + +--------+ + + + | X-RAY PELVIS 2 VIEWS | Routin | 03/17/2009 | Lumbago Acquired | Results for this | | | e | 11:47 AM | Spondylolysis | procedure are in the | | | | PDT | Lumbar Radiculopathy | results section. | + +--------+ + + + documented in this encounter Results X-RAY PELVIS 2 VIEWS (03/17/2009 11:47 AM PDT) + + + + + + | Component | Value | Ref Range | Performed | Pathologist | | | | | At | Signature | + + + + + + | PELVIS 2 | PELVIS, TWO | | | | | VIEWS | VIEWS: 03/17/2009 | | | | | | Dictated | | | | | | 03/17/2009COMPARISON: | | | | | | None.FINDINGS: The | | | | | | osseous structures are | | | | | | intact with no fracture | | | | | | orfocal | | | | | | destruction. There is | | | | | | mild bilateral hip | | | | | | joint space | | | | | | narrowingwith small | | | | | | acetabular | | | | | | osteophytes. Mild | | | | | | lateral uncovering is | | | | | | notedof the right | | | | | | femoral head by the dome | | | | | | of the acetabulum | | | | | | byapproximately | | | | | | 15%. The center-edge | | | | | | angle on the right | | | | | | measuresapproximately 22 | | | | | | degrees and on the left | | | | | | measures 42 | | | | | | degrees.Degenerative | | | | | | changes are noted of the | | | | | | lower lumbar | | | | | | spine. Thesacroiliac | | | | | | joints and symphysis | | | | | | pubis are | | | | | | maintained.IMPRESSION:IM | | | | | | PRESSION:1. 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 Mild | | | | | | bilateral hip | | | | | | degenerative joint | | | | | | disease.END | | | | | | IMPRESSION:END | | | | | | IMPRESSIONI have | | | | | | personally viewed this | | | | | | procedure/exam and | | | | | | reviewed this | | | | | | report.Author: MARGARITA | | | | | | PAULA | | | | | | StephanReviewer: MARGARITA | | | | | | Stephan MITCHELLSTATUS | | | | | | FINAL / Dr. AVILA | | | | | | PAULASTATUS | | | | | | PRELIMINARY - UNSIGNED / | | | | | | Dr. MARGARITA MITCHELL | | | | + + + [...]
--- OUTSIDE RECORDS SUMMARY | ~2019-07-20 | XMS | Encounter Summary ---
Demographics + + + | Address | [address] | | | [place] [address] | + + + | Home Phone | | + + + | Preferred Language | Unknown | + + + | Marital Status | Single | + + + | Jewish Affiliation | NON | + + + | Race | or | + + + | Ethnic Group | Not or | + + + Author + + + | Author | [facility] | + + + | Organization | [facility] | + + + | Address | Unknown | + + + | Phone | Unavailable | + + + Support + + +---------+ + | Name | Relationship | Address | Phone | + + +---------+ + | Geni Oliva | ECON | Unknown | | + + +---------+ + Care Team Providers + +------+ + | Care Lace Winder Name | Role | Phone | + +------+ + | Camacho Fields MD | PCP | | + +------+ + Reason for Visit + + + | Reason | Comments | + + + | Return Patient | | + + + Encounter Details +--------+---------+ + + + | Date | Type | Department | Care Team | Description | +--------+---------+ + + + | 11/20/ | Office | Orthopaedic Spine | Helene Mahoney PA | Spinal stenosis of | | 2009 | Visit | Center at [facility] [address] | [address] | lumbar region | | | | [address] | [address] [place], | (Primary Dx) | | | | Mailcode: [address] | [place] [address] | | | | | [facility] | [phone] | | | | | and Healing, | | | | | | [address] | | | | | | Floor [place], [place] | | | | | | [address] | | | | | | [phone] | | | +--------+---------+ + + + [...] + + + + | Weight | 102.5 kg (226 lb) | 11/20/2009 12:35 PM | | | | | PST | | + + + + + | Height | 157.5 cm (5' 2") | 11/20/2009 12:35 PM | | | | | PST | | + + + + + | Body Mass Index | 41.34 | 11/20/2009 12:35 PM | | | | | PST | | + + + + + documented in this encounter Progress Notes Helene Mahoney PA - 11/20/2009 1:42 PM PSTSubjective: Hafsa Cabrera is a patient of Dr. Kranthi patel who is 3 mths status post L3-5 PSF. Patient is here today for routine exam and x-ray revi ew. Chief complaint today: she is having recurrence of right leg pain. The pain starts in right buttock and radiates lateral to thigh and then wrap across anterior thigh to knee. So metimes the pain radiates to foot. No weakness or numbness. No b/b changes. She was doing well until suzanne. She is on oxycodone 5mg tabs. She takes 25 mg in am and 25 mg in pm . She is off oxycontin (she was on oxycontin 40mg bid after surgery). She is off lyrica an d on gabapentin. She takes 1200mg of gabapentin bid. HPI: surgery on 08/18/09. Pain location: right low back to right lateral thigh to right anterior knee. Pain level: P atient reports a pain level of 9 today. Pain meds: Oxycodone 5mg- 5 tabs in am and 5 tabs in pm. Also on gabapentin 1200mg bid. Refill requested: Yes, of oxycodone. She states pc p gives her neurontin. Pharmacy: unknown. Exercise: ambulates with cane. Brace: none. T obacco Use: unknown. Review of Systems: An Eight Point review of systems was conducted. Denies recent F/C/N/V. Likewise no SOB, CP, LO, dizziness. No changes in B/B. Pertinent positives: Right leg p ain. Objective: General: The patient is a well-informed, well nourished, and no acute distress who appears of stated age. Affect and mood are normal. Patient is normocephalic, conjugate gaze. Sarah athing is normal. Skin is normal color, temperature. No significant lymphedema. She ambul ates with limp because of right leg pain Musculoskeletal: Examination of the lumbar spine demonstrates no skin changes or areas of induration. Flexibility is normal to flexion, extension, , lateral bending, and axial rotat ion. Hip and knee ROM is within normal limits. Neurologic: Muscle strength is 5/5 in all motor groups of the lower extremity. L2 (hip fl exion), L3 (knee extension), L4 (dorsiflexion), L5 (EHL), S1 (plantar flexion). LE deep ten don reflexes are 2+ at the knee (L3-4) and achilles (S1-2). Toes are down going. There is n o clonus. Sensation is grossly intact to light touch throughout. L2 (med thigh), L3 (med k nee), L4 (med mall), L5 (mid toe), S1 (lat heel).. Special tests: Straight leg raise test is negative. Imaging: xr: Hardware in place L3-5. No evidence of hardware failure. She has some rotati on at L2-3, but she had this at preop. Assessment: 1. Lumbar radiculopathy 3 months surgery Recommendations/Plan: Activity: Patient to continue with home exercise program as instructed (walking). Medication: oxycodone prescription given to patient. Medication precautions given to johnny ent. I suggested she use neurontin 1200mg tid for her nerve pain. Other: I will discuss her case with Dr Hope. He would pt to get ct scan to look at fusion . Other- [facility] formed signed for 3 mths. Letter for airport security given to pt along with xr images. Followup: Patient will follow up after ct scan. Should they have any questions or concern s prior to their next visit they will contact the clinic. documented in this encou nter Plan of Treatment Not on filedocumented as of this encounter Visit Diagnoses + + | Diagnosis | + + | Spinal stenosis, lumbar region, without neurogenic claudication - Primary | + + documented in this encounter
--- OUTSIDE RECORDS SUMMARY | ~2019-07-20 | XMS | Encounter Summary ---
Demographics + + + | Address | [address] | | | [place] [address] | + + + | Home Phone | | + + + | Preferred Language | Unknown | + + + | Marital Status | Single | + + + | Voodoo Affiliation | NON | + + + | Race | or | + + + | Ethnic Group | Not or | + + + Author + + + | Author | [facility] | + + + | Organization | [facility] | + + + | Address | Unknown | + + + | Phone | Unavailable | + + + Support + + +---------+ + | Name | Relationship | Address | Phone | + + +---------+ + | Geni Oliva | ECON | Unknown | | + + +---------+ + Care Team Providers + +------+ + | Care Assistant Oceanographer Name | Role | Phone | + +------+ + | Camacho Fields MD | PCP | | + +------+ + Reason for Visit +---------+ + | Reason | Comments | +---------+ + | Post Op | | +---------+ + PROC - Inpatient Surgery (Routine) +--------+--------+ + + + + | Status | Reason | Specialty | Diagnoses / | Referred By | Referred To | | | | | Procedures | Contact | Contact | +--------+--------+ + + + + | Closed | | Orthopedics | Diagnoses | Saba, | Herminia, | | | | | Spinal | Artemio, MD | Sherwin C, | | | | | stenosis, | [address] | [place] | | | | | lumbar | [place] | [facility] | | | | | region, | Rd | [address] | | | | | without | [place], [place] | [address] | | | | | neurogenic | [address] | [address] | | | | | claudication | Phone: | [place], [place] | | | | | Procedures | [phone] | [address] Phone: | | | | | REQUEST TO | Fax: | [phone] | | | | | SURGERY | [phone] | Fax: | | | | | [facility] | | [phone] | | | | | [place] LUMBAR | | | | | | | SPINE | | | | | | | FUSN,POST | | | | | | | TECH MN | | | | | | | SPINE | | | | | | | FUSN,POST | | | | | | | TECH,EA | | | | | | | ADDNL SGMT | | | | | | | MN LUMBAR | | | | | | | SPINE | | | | | | | FUSN,POST | | | | | | | INTRBDY MN | | | | | | | LUMB SP | | | | | | | FUSN,POST | | | | | | | INTERBDY,EA | | | | | | | ADDNL MN | | | | | | | INSERT VERT | | | | | | | FIX | | | | | | | DEV,POST,3-6 | | | | | | | SGMTS MN | | | | | | | SPIN BONE | | | | | | | ALLOGRFT | | | | | | | MORSELIZED | | | | | | | MN | | | | | | | APPLY,SPINE | | | | | | | PROSTHETIC | | | | | | | DEVICE MN | | | | | | | APPLY,SPINE | | | | | | | PROSTHETIC | | | | | | | DEVICE MN | | | | | | | LAMINEC/FACE | | | | | | | TECT/FORAMIN | | | | | | | ,LUMBAR MN | | | | | | | LAMINEC/FACE | | | | | | | TECT/FORAMIN | | | | | | | ,EACH ADDNL | | | | | | | MN | | | | | | | LAMINEC/FACE | | | | | | | TECT/FORAMIN | | | | | | | ,EACH ADDNL | | | +--------+--------+ + + + + Encounter Details +--------+---------+ + + + | Date | Type | Department | Care Team | Description | +--------+---------+ + + + | 09/06/ | Office | Orthopaedic Spine | Helene Mahoney PA | Spinal Stenosis of | | 2008 | Visit | Center at [facility] [address] | [address] | Lumbar Region | | | | [address] | [address] [place], | (Primary Dx) | | | | Mail[address]: [address] | [place] [address] | | | | | [place] [facility] | [phone] | | | | | and Healing, | | | | | | | | | | | | Floor [place], [place] | | | | | | [address] | | | | | | [phone] | | | +--------+---------+ + + + [...] Weight | 115.2 kg (254 lb) | 09/06/2009 1:58 PM | | | | | PST | | + + + + + | Height | 157.5 cm (5' 2") | 09/06/2009 1:58 PM | | | | | PST | | + + + + + | Body Mass Index | 46.46 | 09/06/2009 1:58 PM | | | | | PST | | + + + + + documented in this encounter Progress Notes Helene Mahoney PA - 09/06/2009 2:53 PM PSTSubjective: Hafsa Cabrera is a patient of Dr. Kranthi patel who is 2 wks status post L3-5 PSF. Patient is here today for routine post op visit for wo und check. Chief complaint today: back pain and leg pain. Leg pain is a little bit less si nce surgery. She is at [facility]. Ambulates with walker. On lyrica 100mg bid, oxycontin 40mg bid , and oxycodone 5-20mg q 3 hrs. She wasn't on pain meds before surgery. She states she was doing PT at [facility] and felt pop in back. No recent images since she felt pop. She is at [facility]. HPI: surgery on 08/18/09. Review of Systems: An Eight Point review of systems was conducted. Denies recent F/C/N/V. Likewise no SOB, CP, LO, dizziness. No changes in B/B. Pertinent positives: none. Objective: General: The patient is a well-informed, well nourished, and no acute distress who appears of stated age. Affect and mood are normal. Patient is normocephalic, conjugate gaze. Sarah athing is normal. Skin is normal color, temperature. No significant lymphedema. Station a nd gait are satisfactory. Derm: Incision is clean and dry. No signs of erythema, drainage, or infection. Incision is not warm to the touch. Imagin views lumbar spine. Hardware in place from L3-5. No evidence of hardware failu re. Assessment: Progressing well, 2 wks status post surgery. Plan: Wound Care: none Activity: no brace needed. Patient to continue with exercise program as instructed (carie stevens). Patient to continue with spine precautions (no bending, twisting, or lifting > 5 lbs.) . Cont PT and OT at [facility]. Continue walker. Plans to dc to home around Sep 20, 2009. Start dc planning. Medications: I gave her oxycodone, pregablin, and cyclobenabrine prescription given to pt for when she discharges home. Continue current regimen for pain. Medication precautions gi rolan. Other: I suggest benadryl 25mg at night for sleep. Follow-up: Patient will follow up in 4 wks for reassessment and imaging. X-rays to includ e 2 views lumbar spine. She has appt with DR Hope at [facility] already. Should the patient hav e any questions or concerns prior to their next visit they will contact the clinic. documented in this enc nter Plan of Treatment Not on filedocumented as of this encounter Results X-RAY SPINE LUMBOSACRAL 2 VIEWS (09/06/2009 2:57 PM PST) + + + + + + | Component | Value | Ref Range | Performed | Pathologist | | | | | At | Signature | + + + + + + | SPINE | STUDY: SPINE LUMBOSACRAL | | | | | LUMBOSACRAL | 2 VIEWS 09/06/09 | | | | | 2 VIEWS | 14:57:00COMPARISON: | | | | | | 08/18/09FINDINGS: there | | | | | | has been posterior | | | | | | fusion with pedicle | | | | | | screw and rodfixation | | | | | | from L3 through | | | | | | L5. There has also | | | | | | been diskectomy withbone | | | | | | graft interposition and | | | | | | anterior fusion at L3-4 | | | | | | and | | | | | | L4-5. Mildnarrowing | | | | | | is present at the L2-3 | | | | | | and L5-S1 disk | | | | | | bases. There is | | | | | | mildlevoscoliosis of the | | | | | | lumbar spine.Since the | | | | | | prior study on 08/18/09 | | | | | | the fixation hardware, | | | | | | the bonegraft | | | | | | interposition and the | | | | | | alignment are stable in | | | | | | the mid and lowerlumbar | | | | | | spine.IMPRESSION:Posteri | | | | | | or fusion with pedicle | | | | | | screw and citlali fixation | | | | | | as well asdiskectomy | | | | | | with anterior fusion | | | | | | L3-4 and L4-5. The | | | | | | alignment andfixation | | | | | | hardware are stable | | | | | | since the prior | | | | | | study.Mild degenerative | | | | | | disk disease and facet | | | | | | degeneration at L2-3 | | | | | | andL5-S1.Mild | | | | | | thoracolumbar | | | | | | levoscoliosis.No change | | | | | | is seen since 08/18/09I | | | | | | have personally viewed | | | | | | this procedure/exam and | | | | | | reviewed this | | | | | | report.Author: QUE | | | | | | Stephan MADERAReviewer: | | | | | | QUE MADERA | | | | | | StephanSTATUS FINAL / . | | | | | | QUE MADERA | | | | + + + + + + + + | Specimen | + + | | + + + +---------+ + + | Performing | Address | City/State/Zipcode | Phone Number | | Organization | | | | + +---------+ + + | [facility] DEPARTMENT OF | | | | | RADIOLOGY | | | | + +---------+ + + documented in this encounter Visit Diagnoses + + | Diagnosis | + + | Spinal stenosis, lumbar region, without neurogenic claudication - Primary | + + documented in this encounter
--- OUTSIDE RECORDS SUMMARY | ~2019-07-20 | XMS | Encounter Summary ---
Demographics + + + | Address | [address] | | | [place] [address] | + + + | Home Phone [...] + + + | Author | [facility] | + + + | Organization | [facility] | + + + | Address | Unknown | + + + | Phone | Unavailable | + + + Support + + +---------+ + | Name | Relationship | Address | Phone | + + +---------+ + | Geni Oliva | ECON | Unknown | | + + +---------+ + Care Team Providers + +------+ + | Care Ramp Agent Name | Role | Phone | + +------+ + | Camacho Fields MD | PCP | | + +------+ + Reason for Visit + + + | Reason | Comments | + + + | Post Op Problem | | + + + Encounter Details +--------+ + + + + | Date | Type | Department | Care Team | Description | +--------+ + + + + | 08/28/ | Telephone | Orthopaedic Spine | Sherwin Hope | Post Op Problem | | 2008 | | Center at [facility] [address] | [facility] | | | | | [address] | Care [address] | | | | | Mailcode: [address] | [address] | | | | | [facility] | [place] [address] | | | | | and Healing, | [phone] | | | | | Building | | | | | | Floor [place], [place] | | | | | | [address] | | | | | | [phone] | | | +--------+ + + + [...] | Yes | | | 1/2 jeff hannoney | | | | | per week, [...]
--- OUTSIDE RECORDS SUMMARY | ~2019-07-20 | XMS | Encounter Summary ---
Demographics + + + | Address | [address] | | | [place] [address] | + + + | Home Phone [...] Team Providers + +------+ + | Care Vacuum Extractor Operator Name | Role | Phone | [...] | +--------+ + + + + | 02/27/ | Telephone | Orthopaedic Spine | Sherwin Hope | Medication requested | | 2009 | | Center at [facility] [address] | [facility] | | | | | [address] | Care [address] | | | | | Mail[address]: [address] | [address] | | | | | [facility] | [place] [address] | | | | | and Healing, | [phone] | | | | | Building | | | | | | [place], [place] | | | | | | [address] | | | | | | [phone] | | | +--------+ + + + [...]
--- OUTSIDE RECORDS SUMMARY | ~2019-07-20 | XMS | Encounter Summary ---
Demographics + + + | Address | [address] | | | [place] [address] | + + + | Home Phone | | + + + | Preferred Language | Unknown | + + + | Marital Status | Single | + + + | Mormonism Affiliation | NON | + + + | Race | or | + + + | Ethnic Group | Not or | + + + Author + + + | Author | [facility] | + + + | Organization | [facility] | + + + | Address | Unknown | + + + | Phone | Unavailable | + + + Support + + +---------+ + | Name | Relationship | Address | Phone | + + +---------+ + | Geni Oliva | ECON | Unknown | | + + +---------+ + Care Team Providers + +------+ + | Care Grain Commodity Manager Name | Role | Phone | + +------+ + | Marlen Rodarte MD | PCP | | + +------+ + Encounter Details +--------+ + + + + | Date | Type | Department | Care Team | Description | +--------+ + + + + | 01/08/ | Results | Orthopaedics at | Sherwin Hope | | | 2009 | Only | [facility] [address] MD [facility] | | | | | [address] Mailcode: [address] | Care | | | | | [facility] | [address] | | | | | and Healing, | [place] [address] | | | | | Building [address] | [phone] | | | | | Floor [place], [place] | | | | | | [address] | | | | | | [phone] | | | +--------+ + + + [...] ORT L-SPN3V OR LESS | Routin | 01/08/2010 | | Results for this | | [id number] | e | 1:17 PM | | procedure are in the | | | | PDT | | results section. | + +--------+ + + + documented in this encounter Results ORT L-SPN3V OR LESS [id number] (01/08/2010 1:17 PM PDT) + + | Specimen | + + | | + + + + + | Narrative | Performed At | + + + | EXAM: LUMBAR SPINE SERIES CLINICAL HISTORY: Back pain, history of | [facility] | | fusion. TECHNIQUE: AP, lateral flexion and extension views of the | DEPARTMENT OF | | lumbar spine were obtained. COMPARISON: Lumbar spine x-ray from | RADIOLOGY | | 10/06/2009. FINDINGS: Exaggeration of the normal lumbar lordosis is | | | visualized. There is posterior fusion of L3, L4 and L5 with bilateral | | | transpedicular screws at L3 and L5 and a left-sided transpedicular | | | screw at L4. Intervertebral disc spacers are seen at L4-L5 and | | | L5-S1. There is approximately 2-3 mm of retrolisthesis of L3 on L4 | | | on extension which increases to approximately 4-5 mm on flexion. | | | This is similar to the previous examination. There is mild loss of | | | height of the L3-L4 and L4-L5 intervertebral disc spaces. Endplate | | | sclerosis is seen at L3-L4 and L4-L5. There is no hardware failure | | | noted. There is moderate narrowing of the L5-S1 intervertebral | | | disc space. IMPRESSION: Posterior fusion of L3, L4 and L5. No | | | hardware failure. Mild increase in retrolisthesis of L3 on L4 with | | | flexion. | | + + + + + | Procedure Note | + + | Interface, Radiology Results - 06/12/2015 2:00 PM PDT EXAM: LUMBAR SPINE SERIES | | CLINICAL HISTORY: Back pain, history of fusion. | | TECHNIQUE: AP, lateral flexion and extension views of the lumbar | | spine were obtained. | | COMPARISON: Lumbar spine x-ray from 10/06/2009. | | FINDINGS: Exaggeration of the normal lumbar lordosis is visualized. | | There is posterior fusion of L3, L4 and L5 with bilateral | | transpedicular screws at L3 and L5 and a left-sided transpedicular | | screw at L4. Intervertebral disc spacers are seen at L4-L5 and | | L5-S1. There is approximately 2-3 mm of retrolisthesis of L3 on L4 | | on extension which increases to approximately 4-5 mm on flexion. | | This is similar to the previous examination. | | There is mild loss of height of the L3-L4 and L4-L5 intervertebral | | disc spaces. Endplate sclerosis is seen at L3-L4 and L4-L5. There is | | no hardware failure noted. There is moderate narrowing of the L5-S1 | | intervertebral disc space. | | IMPRESSION: Posterior fusion of L3, L4 and L5. No hardware | | failure. Mild increase in retrolisthesis of L3 on L4 with flexion. | + + + +---------+ + + [...]
--- OUTSIDE RECORDS SUMMARY | ~2019-07-20 | XMS | Encounter Summary ---
Demographics + + + | Address | [address] | | | [place] [address] | + + + | Home Phone | | + + + | Preferred Language | Unknown | + + + | Marital Status | Single | + + + | Moravian Affiliation | NON | + + + [...] Team Providers + +------+ + | Care Road Cutter Name | Role | Phone | + +------+ + | Camacho Fields MD | PCP | | + +------+ + Encounter Details +--------+ + + + + | Date | Type | Department | Care Team | Description | +--------+ + + + + | 03/15/ | Hospital | Radiology/Imaging | | | | 2009 | Encounter | Lab at [facility] [address] | | | | | | Keven Medrano Mailcode: | | | | | | [facility] | | | | | | Health and Healing, | | | | | | Building | | | | | | Floor [place], [place] | | | | | | [address] | | | | | | [phone] | | | +--------+ + + + [...] + +--------+ + + + | X-RAY HIP 2 VIEWS | Routin | 03/15/2010 | Arthritis, hip | Results for this | | RIGHT W/ PELVIS 1 | e | 9:20 AM | | procedure are in the | | VIEW | | PDT | | results section. | + +--------+ + + + documented in this encounter Results X-RAY HIP 2 VIEWS RIGHT W/ PELVIS 1 VIEW (03/15/2010 9:20 AM PDT) + + + + + + | Component | Value | Ref Range | Performed | Pathologist | | | | | At | Signature | + + + + + + | X-RAY HIP 2 | STUDY: HIP 2 VIEWS RIGHT | | | | | VIEWS | W/ PELVIS 1 VIEW | | | | | RIGHT W/ | 03/15/10 09:20:00 | | | | | PELVIS 1 | COMPARISON: 03/17/09 | | | | | VIEW | FINDINGS: Minimal joint | | | | | | space narrowing in both | | | | | | hips is | | | | | | unchanged. There is | | | | | | nofracture, | | | | | | malalignment, | | | | | | osteonecrosis, or | | | | | | osseous | | | | | | destruction. Thesacro | | | | | | iliac joints and | | | | | | symphysis pubis are | | | | | | normal. Prior lower | | | | | | lumbaranterior and | | | | | | posterior fusion is | | | | | | noted. IMPRESSION: | | | | | | Unchanged minimal | | | | | | bilateral hip | | | | | | degenerative joint | | | | | | disease. I have | | | | | [...] | | + +---------+ + + | [facility] DEPARTMENT OF | | | | | RADIOLOGY | | | | + +---------+ + + documented in this encounter Visit Diagnoses + + | Diagnosis | + + | Arthritis, hip Unspecified arthropathy, pelvic region and thigh | + + documented in this encounter"
--- OUTSIDE RECORDS SUMMARY | ~2019-07-20 | XMS | Encounter Summary ---
Demographics + + + | Address | [address] | | | [place] [address] | + + + | Home Phone | | + + + | Preferred Language | Unknown | + + + | Marital Status | Single | + + + | Bahai Affiliation | NON | + + + | Race | or | + + + | Ethnic Group | Not or | + + + Author + + + | Author | [facility] | + + + | Organization | [facility] | + + + | Address | Unknown | + + + | Phone | Unavailable | + + + Support + + +---------+ + | Name | Relationship | Address | Phone | + + +---------+ + | Geni Oliva | ECON | Unknown | | + + +---------+ + Care Team Providers + +------+ + | Care Fisher Name | Role | Phone | + +------+ + | Camacho Fields MD | PCP | | + +------+ + Reason for Visit + + + | Reason | Comments | + + + | Diagnostic | xray results | | radiography | | + + + Encounter Details +--------+ + + + + | Date | Type | Department | Care Team | Description | +--------+ + + + + | 03/20/ | Telephone | Orthopaedic Spine | Sherwin Hope | Diagnostic | | 2009 | | Center at [facility] [address] | MD [facility] | radiography (xray | | | | [address] | [address] | results) | | | | Mailcode: [address] | [address] | | | | | [facility] | [place] [address] | | | | | and Healing, | [phone] | | | | | Building | | | | | | Floor [place], [place] | | | | | | [address] | | | | | | [phone] | | | +--------+ + + + [...]
--- OUTSIDE RECORDS SUMMARY | ~2019-07-20 | XMS | Encounter Summary ---
Demographics + + + | Address | [address] | | | [place] [address] | + + + | Home Phone | | + + + | Preferred Language | Unknown | + + + | Marital Status | Single | + + + | Protestant Affiliation | NON | + + + | Race | or | + + + | Ethnic Group | Not or | + + + Author + + + | Author | [facility] | + + + | Organization | [facility] | + + + | Address | Unknown | + + + | Phone | Unavailable | + + + Support + + +---------+ + | Name | Relationship | Address | Phone | + + +---------+ + | Geni Oliva | ECON | Unknown | | + + +---------+ + Care Team Providers + +------+ + | Care Head Cd Reactor Operator Name | Role | Phone | + +------+ + | Khushi Fields MD | PCP | | + [...] + + + | Closed | | Orthopedic | Diagnoses | [place], | [facility] | | | | Surgery / | Lumbago | MD Artemio | [facility] | | | | Orthopedics | Spinal | [address] | [address] | | | | | stenosis, | [place] | Ave | | | | | lumbar | Rd | Mailcode: | | | | | region, | [place], [place] | [address] | | | | | without | [address] | for Health | | | | | neurogenic | Phone: | and Healing, | | | | | claudication | [phone] | Building [address], | | | | | | Fax: | 8th Floor | | | | | | [phone] | [facility] [place] | | | | | | | [address] | | | | | | | Phone: | | | | | | | [phone] | | | | | | | Fax: | | | | | | | [phone] | +--------+--------+ + + + + Encounter Details +--------+---------+ + + + | Date | Type | Department | Care Team | Description | +--------+---------+ + + + | 05/15/ | Office | Orthopaedic Spine | Sherwin Hope | Spinal Stenosis of | | 2008 | Visit | Center at [facility] [address] | MD [facility] [place] [facility] | Lumbar Region | | | | [address] | [address] [address] [address] | (Primary Dx) | | | | Mailcode: [address] | [address] | | | | | [facility] | [place], [place] [address] | | | | | and Healing, | [phone] | | | | | Building | | | | | | Floor [place], [place] | | | | | | [address] | | | | | | [phone] | | | +--------+---------+ + + + [...] + + + | Blood Pressure | 116/79 | 05/15/2009 9:11 AM | | | | | PDT | | + + + + + | Pulse | 80 | 05/15/2009 9:11 AM | | | | | PDT | | + + + + + | Temperature | 36.6 C (97.9 F) | 05/15/2009 9:11 AM | | | | | PDT | | + + + + + | Respiratory Rate | 14 | 05/15/2009 9:11 AM | | | | | PDT | | + + + + + | Oxygen Saturation | - | - | | + + + + + | Inhaled Oxygen | - | - | | | Concentration | | | | + + + + + | Weight | 113.4 kg (250 lb) | 05/15/2009 9:11 AM | | | | | PDT | | + + + + + | Height | 157.5 cm (5' 2") | 05/15/2009 9:11 AM | | | | | PDT | | + + + + + | Body Mass Index | 45.73 | 05/15/2009 9:11 AM | | | | | PDT | | + + + + + documented in this encounter Progress Notes Sherwin Hope MD - 05/15/2009 12:27 PM PDTOrthopaedic Spine Staff Note I personally examined the patient, duplicated the pertinent parts of the physical examinati on and personally formulated the plan with the resident. I have reviewed, entered my findin gs, and agree with the above documentation. 4 year history R leg pain = LBP > L leg pain. 1 ppd smoker. Standing tolerance is less th an doing dishes (<5 minutes). Some relief with forward flexion. 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 I think she may have a spondy lolisthesis at L3-4. We will see based on the images. She does have a fair amount of knee and hip pain with motion at these joints, but she tells me that her pain that keeps her from standing is the pain that runs down her leg to her foot. She is going to see Dr. Juares a bout her hipa nd knee. My inclination would be to perform her low back surgery first, but I will wait to hear from Dr. Juares. In terms fo her low back she has tried injections and PT without progress and she is very disabled by this in terms fo her functional ability. I would recommend laminectomy L3-L5, probably with posterolateral fusion at L3-4. She underst ands that I will not consider this operation for her unless he is able to quit smoking. I w ill see her back in a month to see how she is doing and if Dr. Juares does not feel strongl y about her hip and knee and if she is able to quit smoking by then, we will proceed with [facility] scheduling. I told her her low back is less likely to get a whole lot better, but I t hink we can dramatically improve her leg pain. Sherwin Hope M.D. [facility] agdish Khoury MD - 05/15/2009 12:03 PM PDT cc: low back pain x 3-4 years HPI: Hafsa Cabrera is a 53 y.o. female who has a history of low back pain x 3-4 years. She d escribes the symptoms as insidious onset. She denies trauma. 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 These symptoms are located in the area of lumbar spine and bilateral buttocks. It is stocking glove down the entire right leg. It is starting to do this on the left leg as well, it is down to the thigh level on this side. They improve with swimming. Walking, bending makes them worse. There is numbness/tingling/weakness. She's had falling twice a w pala, sometimes more. Prior treatment has included physical therapy, this did not help. Had epidural in 2004 t hat did not help. She's tried pain medications that she cannot remember the name. Gabapent in which does not help. Has been on for a year. Has tried narcotic medications which does not help. Prior spine surgery includes none. Hafsa Cabrera is currently taking the following medications for her symptoms: see above She reports no fevers, chills, or unexplained weight loss, yes to weight gain. no loss o f bowel or bladder control. yes balance problems, no new clumsiness or problems with manipu lating fine objects. PMH: includes diabetes, hyperlipidemia, CVA without deficits. . Please see the intake for m which I have reviewed for full details. PSH: cholecystectomy, hysterectomy Medications: Current outpatient prescriptions: Cyanocobalamin (VITAMIN B-12) 1,000 mcg Sublingual Tablet , Sublingual, Place 1,000 mcg under tongue once daily., Disp: , Rfl: fenofibrate nanocrystallized 48 mg Oral Tablet, Take 48 mg by mouth once daily. , Disp: , R fl: metformin 500 mg Oral Tablet, Take 500 mg by mouth once daily. , Disp: , Rfl: MULTI-VITAMIN ORAL, Take by mouth. , Disp: , Rfl: PHENYLALANINE OR, Take by mouth. , Disp: , Rfl: pioglitazone 15 mg Oral Tablet, Take 15 mg by mouth once daily. Take 15mg twice daily , Dis p: , Rfl: Allergies: Allergies Allergen Reactions Penicillins Social Hx: Works as a retired. Currently disabled. Tobacco history is smoke 1 ppd x 45 years. Alcohol history is significant. Family Hx: noncontributory. ROS: Please see the intake form which I have reviewed for full details. Exam: General: The patient is a well-formed, well nourished individual in no acute distress who appears of stated age. Affect and mood are normal. Patient is normocephalic. Peripheral p ulses are normal. Breathing is normal. Abdomen is soft, non-tender. Skin is normal color, temperature. No significant lymphedema. Station and gait are antalgic . Vital Signs: As per intake form. Musculoskeletal: Examination of the lumbar spine demonstrates no skin changes or areas of induration. There are no masses, there is no surgical incision. Flexibility is limited to flexion, extension, lateral bending, and axial rotation. Hip and knee ROM is limited on the right an painful. She has about 30 degrees of IR and ER. Neurologic: Muscle strength is 5/5 in all motor groups of the lower extremities, except as noted below. Deep tendon reflexes are 2+ and 1+, respectively at knees and ankles. Toes ar e down going. There is no clonus. Sensation is grossly intact to light touch throughout. S traight leg raise test is positive. She walks with right sided antalgic gait with short stance phase, she uses a cane to ambula te. She has pain with PROm of the right hip RLE, 4+/5 KE, KF, EHL, PF, 5/5 DF, stlt intact L1-S1, 2+ patellar, 1+ achilles, no clonus, downgoing toes, 2+ dp pulse LLE 5/5 KE, KF, EHL, PF, DF, stlt intact L1-S1, 2+ patellar, 1+ achilles, no clonus, downgo ing toes, 2+ dp pulse Tender parasplinal and SI and gluteal folds both sides Positive straight leg raise both sides Radiographs: CT/MRI dated 04/21/09 shows degenerative spondylolisthesis, L2-4 central stenosis with mil d foraminal stenosis. Impression: Hafsa Cabrera is a 53 y.o. female with lumbar stenosis and symptomatic back pain as a result of this. She also has right hip pain. Plan: we discussed the need for her to stop smoking. We also discussed surgical treatment for this including lumbar laminectomy and posterolateral fusion with instrumentation. She s eems to understand. We asked her to stop smoking and she says she will next week. We will see her back in about 6 weeks. If she's still not smoking at that point we'll proceed with scheduling her for surgery. She understands that she cannot smoke for an additional 3 month s after the surgery to allow the fusion to consolidate. She is agreeable to this. We also discussed that the surgery will not take away her hip or knee pain and that this is likely d ue to arthritis. She voiced understanding of this as well. We'll see her back in 6 weeks w nay documented in thi s encounter Plan of Treatment Not on filedocumented as of this encounter Results X-RAY SPINE LUMBOSACRAL 3 VIEWS (05/15/2009 12:47 PM PDT) + + + + + + | Component | Value | Ref Range | Performed | Pathologist | | | | | At | Signature | + + + + + + | SPINE | LUMBOSACRAL SPINE, THREE | | | | | LUMBOSACRAL | | | | | | 3 VIEWS | VIEWS: 05/15/2009 | | | | | | Dictated | | | | | | 05/15/2009COMPARISON: | | | | | | None.FINDINGS: There | | | | | | is mild lower thoracic | | | | | | and upper | | | | | | lumbarlevoscoliosis. | | | | | | There is grade 1 | | | | | | anterolisthesis of L3 on | | | | | | L4,unchanged between | | | | | | flexion and | | | | | | extension. There is | | | | | | narrowing of theL3-L4 | | | | | | disc space. There is | | | | | | spurring of the L2-L3 | | | | | | and L3-L4 | | | | | | discspaces. There is | | | | | | diffuse lumbar facet | | | | | | arthrosis. Cholecyste | | | | | | ctomyclips are | | | | | | noted.IMPRESSION:1. D | | | | | | iffuse lumbar facet | | | | | | arthrosis.2. Grade 1 | | | | | | anterolisthesis of L2 on | | | | | | L3, unchanged between | | | | | | flexionand | | | | | | extension.3. Mild | | | | | | L2-L3 and L4-L5 | | | | | | degenerative disc | | | | | | disease.4. Mild lower | | | | | | thoracic and upper | | | | | | lumbar levoscoliosis.END | | | | | | IMPRESSIONI have | | | | | | personally viewed this | | | | | | procedure/exam and | | | | | | reviewed this | | | | | | report.Author: KHUSHI | | | | | | Stephan DENNISReviewer: | | | | | | KHUSHI DENNIS, | | | | | | StephanSTATUS FINAL / | | | | | | KHUSHI NASH | | | | | | PRELIMINARY - UNSIGNED / | | | | | | Dr. KHUSHI DENNIS | | | | + + + [...]
--- OUTSIDE RECORDS SUMMARY | ~2019-07-20 | XMS | Encounter Summary ---
Demographics + + + | Address | [address] | | | [place] [address] | + + + | Home Phone | | + + + | Preferred Language | Unknown | + + + | Marital Status | Single | + + + | Muslim Affiliation | NON | + + + | Race | or | + + + | Ethnic Group | Not or | + + + Author + + + | Author | [facility] | + + + | Organization | [facility] | + + + | Address | Unknown | + + + | Phone | Unavailable | + + + Support + + +---------+ + | Name | Relationship | Address | Phone | + + +---------+ + | Geni Oliva | ECON | Unknown | | + + +---------+ + Care Team Providers + +------+ + | Care Human Resource Adviser Name | Role | Phone | + +------+ + | Marlen Rodarte MD | PCP | | + +------+ + Reason for Visit + + + | Reason | Comments | + + + | Pre-op Medication | | | Guidance | | + + + Encounter Details +--------+ + + + + | Date | Type | Department | Care Team | Description | +--------+ + + + + | 07/19/ | Telephone | Orthopaedic Spine | Sherwin Hope | Pre-op Medication | | 2008 | | Center at [facility] [address] | MD Anthony [place] [facility] | Guidance | | | | [address] | Care [address] | | | | | Mailcode: [address] | [address] | | | | | [facility] | [place] [address] | | | | | and Healing, | [phone] | | | | | Building | | | | | | [place], [place] | | | | | | [address] | | | | | | [phone] | | | +--------+ + + + [...]
--- OUTSIDE RECORDS SUMMARY | ~2019-07-20 | XMS | Encounter Summary ---
Demographics + + + | Address | [address] | | | [place] [address] | + + + | Home Phone [...] Team Providers + +------+ + | Care Manager Research And Development Name | Role | Phone | + +------+ + | Camacho Fields MD | PCP | | + +------+ + Reason for Visit + + + | Reason | Comments | + + + | Return Patient | | + + + Office Visit - E/M Services (Routine) +--------+--------+ + + + + | Status | Reason | Specialty | Diagnoses / | Referred By | Referred To | | | | | Procedures | Contact | Contact | +--------+--------+ + + + + | Closed | | Orthopedics | | Jayant, | Herminia, | | | | | | MD Artemio | Sherwin Cruz, | | | | | | [address] | MD Mcmahon | | | | | | [place] | Spine Care | | | | | | [address] | [address] | | | | | | [place], [place] | e [address] | | | | | | [address] | [address] | | | | | | Phone: | [place], [place] | | | | | | [phone] | [address] Phone: | | | | | | Fax: | [phone] | | | | | | [phone] | Fax: | | | | | | | [phone] | +--------+--------+ + + + + Encounter Details +--------+---------+ + + + | Date | Type | Department | Care Team | Description | +--------+---------+ + + + | 12/21/ | Office | Orthopaedic Spine | Sherwin Hope | Spinal stenosis of | | 2009 | Visit | [place] [facility] [address] | MD [facility] | lumbar region | | | | [address] | [address] | (Primary Dx) | | | | Mailcode: [address] | [address] | | | | | [facility] | [place] [address] | | | | | and Healing, | [phone] | | | | | Building | | | | | | Floor [place], [place] | | | | | | [address] | | | | | | [phone] | | | +--------+---------+ + + + [...] + + + + | Weight | 106.6 kg (235 lb) | 12/21/2009 10:49 AM | | | | | PST | | + + + + + | Height | 157.5 cm (5' 2") | 12/21/2009 10:49 AM | | | | | PST | | + + + + + | Body Mass Index | 42.98 | 12/21/2009 10:49 AM | | | | | PST | | + + + + + documented in this encounter Progress Notes Sherwin Hope MD - 12/21/2009 11:35 AM Mike Cabrera returns for follow-up on 4 manuela hs from 2 level TLIF. Her complaints are primarily R buttock and around front of thigh and front of knee, some on the left as well. Getting worse. Worse with walking, sitting. ROS: no bowel and bladder symptoms, some numbness and tingling in the extremities. Exam: no changes Radiographic Evaluation shows Ct shows some osteolysis around cages, but no collapse. Scre w position is fine. Plan: I am not sure what is going on here. She had bee doing well for about 2 months and t hen had more leg pain, and that has lasted now about 2 months. I don't see any evidence of screw malposition or collapse. I am suspicious that this is radiculitis and BMP reaction. I am going to try a medrol dose pack, she knows that this may affect her sugars. Ia m hopef ul this will calm things down and That time will do the rest. I will see her in a month in the [facility] (I am there january 08), she will need to schedule that. If she is not better we will get an EMG. documented in this encounter Plan of Treatment Not on filedocumented as of this encounter Visit Diagnoses + + | Diagnosis | + + | Spinal stenosis, lumbar region, without neurogenic claudication - Primary | + + documented in this encounter
--- OUTSIDE RECORDS SUMMARY | ~2019-07-20 | XMS | Clinical Summary ---
Demographics + + + | Address | [address] | | | [place] [address] | + + + | Home Phone | | + + + | Preferred Language | Unknown | + + + | Marital Status | Single | + + + | Anabaptist Affiliation | [id number] | + + + | Race | Unknown | + + + | Ethnic Group | Unknown | + + + Author + + + | Author | [facility] (Historical as of | | | 06-12-19) | + + + | Organization | [facility] (Historical as of | | | 06-12-19) | + + + | Address | Unknown | + + + | Phone | Unavailable | + + + Support + + +---------+ + | Name | Relationship | Address | Phone | + + +---------+ + | Geni Serrano | ECON | Unknown | | + + +---------+ + Care Team Providers + +------+ + | Care Net Solutions Architect Name | Role | Phone | + +------+ + | Nena Ansari | PP | | + +------+ + Allergies No Known Allergies Current Medications + + +-------+---------+------+------+-------+ | Prescription | Sig. | Disp. | Refills | Star | End | Statu | | | | | | t | Date | s | | | | | | Date | | | + + +-------+---------+------+------+-------+ | albuterol | Inhale 1-2 puffs | | | | | Activ | | (PROVENTIL | into the lungs. | | | | | e | | HFA;VENTOLIN HFA) | | | | | | | | 108 (90 Base) | | | | | | | | MCG/ACT inhaler | | | | | | | + + +-------+---------+------+------+-------+ | Cholecalciferol | Take 5,000 Units by | | | | | Activ | | (VITAMIN D3) 5000 | mouth. | | | | | e | | units CAPS | | | | | | | + + +-------+---------+------+------+-------+ | cyclobenzaprine | Take 10 mg by mouth. | | | | | Activ | | (FLEXERIL) 10 MG | | | | | | e | | tablet | | | | | | | + + +-------+---------+------+------+-------+ | diltiazem | Take 120 mg by | | | | | Activ | | (CARDIZEM CD) 120 MG | mouth. | | | | | e | | 24 hr capsule | | | | | | | + + +-------+---------+------+------+-------+ | | Take 1 tablet by | | | | | Activ | | HYDROcodone-acetamin | mouth. | | | | | e | | ophen (NORCO) 10-325 | | | | | | | | MG per tablet | | | | | | | + + +-------+---------+------+------+-------+ | insulin glargine | Inject 18 Units into | | | 05/0 | | Activ | | (LANTUS) 100 UNIT/ML | the skin. | | | 3/20 | | e | | injection | | | | 16 | | | + + +-------+---------+------+------+-------+ | insulin lispro, | Inject 6 Units into | | | 05/0 | | Activ | | human, (HUMALOG) 100 | the skin. | | | 3/20 | | e | | UNIT/ML injection | | | | 16 | | | + + +-------+---------+------+------+-------+ | levothyroxine | Take 50 mcg by | | | 05/0 | | Activ | | (SYNTHROID) 50 MCG | mouth. | | | 3/20 | | e | | tablet | | | | 16 | | | + + +-------+---------+------+------+-------+ | pantoprazole | Take 40 mg by mouth. | | | 05/0 | | Activ | | (PROTONIX) 40 MG | | | | 3/20 | | e | | tablet | | | | 16 | | | + + +-------+---------+------+------+-------+ | pregabalin | Take 50 mg by mouth. | | | 05/0 | | Activ | | (LYRICA) 50 MG | | | | 3/20 | | e | | capsule | | | | 16 | | | + + +-------+---------+------+------+-------+ | simvastatin | Take 20 mg by mouth. | | | | | Activ | | (ZOCOR) 20 MG tablet | | | | | | e | + + +-------+---------+------+------+-------+ | varenicline | Take 0.5 mg by | | | 05/0 | | Activ | | (CHANTIX) 0.5 MG | mouth. | | | 01/13 | | e | | tablet | | | | 16 | | | + + +-------+---------+------+------+-------+ Active Problems + + + | Problem | Noted Date | + + + | Stress incontinence | 07/29/2017 | + + + Social History + +-------+ +--------+------+ | Tobacco Use | Types | Packs/Day | Years | Date | | | | | Used | | + +-------+ +--------+------+ | Current Some Day | | 1 | 45 | | | Smoker | | | | | + +-------+ +--------+------+ + +---+---+---+ | Smokeless Tobacco: | | | | | Current User | | | | + +---+---+---+ + + +---------+ + | Alcohol Use | Drinks/We | oz/Week | Comments | | | ek | | | + + +---------+ + | Yes | | | rare | + + +---------+ + + + + | Sex Assigned at | Date Recorded | | | | + + + | Not on file | | + + + Last Filed Vital Signs + + + + | Vital Sign | Reading | Time Taken | + + + + | Blood Pressure | - | - | + + + + | Pulse | 118 | 09/09/2017 9:50 AM PST | + + + + | Temperature | - | - | + + + + | Respiratory Rate | - | - | + + + + | Oxygen Saturation | 90% | 09/09/2017 9:50 AM PST | + + + + | Inhaled Oxygen | - | - | | Concentration | | | + + + + | Weight | 117.9 kg (260 lb) | 09/09/2017 9:50 AM PST | + + + + | Height | 157.5 cm (5' 2") | 09/09/2017 9:50 AM PST | + + + + | Body Mass Index | 47.55 | 09/09/2017 9:50 AM PST | + + + + Plan of Treatment +--------+---------+ + + + | Date | Type | Specialty | Care Team | Description | +--------+---------+ + + + | 07/27/ | Office | | Jayy Oswald MD | | | 2019 | Visit | | [address] | | | | | | [place] [address] | | | | | | [phone] | | | | | | | | +--------+---------+ + + + + + + + + | Health Maintenance | Due Date | Last Done | Comments | + + + + + | Vaccine: | | | | | Dtap/Tdap/Td (1 - | 5 | | | | Tdap) | | | | + + + + + | Vaccine: | | | | | Pneumococcal 19-64 | 5 | | | | (PPSV23 only) Medium | | | | | Risk (1 of 1 - | | | | | PPSV23) | | | | + + + + + | Cervical Cancer | | | | | Screening (Pap) | 6 | | | + + + + + | Breast Cancer | | | | | Screening | 6 | | | | (Mammogram) | | | | + + + + + | Colon Cancer | | | | | Screening | 6 | | | | (Colonoscopy) | | | | + + + + + | Vaccine: Zoster (1 | | | | | of 2) | 6 | | | + + + + + | Lung Cancer | | | | | Screening | 1 | | | + + + + + | Vaccine: Influenza | | | | | (#1) | 9 | | | + + + + + Results Not on filefrom Last 3 Months Insurance + +--------+ +------+-------+ + | Payer | Benefi | Subscriber | Type | Phone | Address | | | t Plan | ID | | | | | | / | | | | | | | Group | | | | | + +--------+ +------+-------+ + | MEDICARE | MEDICA | [id number] | | | [address] | | | RE | | | | [place], [place] [address] | | | IP-OP | | | | | + +--------+ +------+-------+ + | [employer] | YELLOW | [id number] | | | | | PLANS | [place] | | | | | + +--------+ +------+-------+ + + +--------+ +--------+ + + | Guarantor Name | Accoun | Relation to | Date | Phone | Billing Address | | | t Type | Patient | of | | | | | | | | | | + +--------+ +--------+ + + | NOLAN SCHUMACHER | Person | Self [birth year] | Home: | [address] | | | al/Fam | | 1955 | [phone] | [place] | | | teri | | | [phone] | [phone] | + +--------+ +--------+ + +
--- OUTSIDE RECORDS SUMMARY | ~2019-07-20 | XMS | Encounter Summary ---
Demographics + + + | Address | [address] | | | [place] [address] | + + + | Home Phone | | + + + | Preferred Language | Unknown | + + + | Marital Status | Single | + + + | Zoroastrian Affiliation | NON | + + + [...] Team Providers + +------+ + | Care Measuring Machine Tender Name | Role | Phone | + [...] | | | | | | [address] | [facility]ine Care | | | | | | Rd | [address] | | | | | | [place], [place] | e [address] | | | | | | [address] | [address] | | | | | | Phone: | [place], [place] | | | | | | [phone] | [address] Phone: | | | | | | Fax: | [phone] | | | | | | [phone] | Fax: | | | | | | | [phone] | +--------+--------+ + + + + Encounter Details +--------+---------+ + + + | Date | Type | Department | Care Team | Description | +--------+---------+ + + + | 03/15/ | Office | Orthopaedic Spine | Sherwin Hope | Arthritis, hip | | 2009 | Visit | [place] [facility] [address] | MD [facility] | (Primary Dx); Spinal | | | | [address] | Care | stenosis of lumbar | | | | Mailcode: CH8N | [address] | region | | | | [facility] | [place] [address] | | | | | and Healing, | [phone] | | | | | Building | | | | | | Floor [place], [place] | | | | | | [address] | | | | | | [phone] | | | +--------+---------+ + + + [...] Weight | 117.9 kg (260 lb) | 03/15/2010 8:02 AM | | | | | PDT | | + + + + + | Height | 157.5 cm (5' 2") | 03/15/2010 8:02 AM | | | | | PDT | | + + + + + | Body Mass Index | 47.55 | 03/15/2010 8:02 AM | | | | | PDT | | + + + + + documented in this encounter Progress Notes Sherwin Hope MD - 03/15/2010 8:44 AM Fausto Cabrera returns for follow-up on 6 manuela hs from TLIF for degenerative spondylolisthesis. Her complaints are primarily R leg pain. Some of it is a stripe down her lateral leg, some of it is groin pain, some of it is right a round shubham knee and hurts when she presses on it or walks on it. She has some crepitus in th e joint. EMG is negative for radiculopathy. ROS: no bowel and bladder symptoms, no numbness and tingling in the extremities. Exam: some pain with palpation of femoral condyles Radiographic Evaluation shows no new images, Ct looks good Plan: I think she has two problems here. One is likely some radiculitis and nerve irritabil ity after TLIf. Her description certainly sounds like this, although her EMG and NCV is not very impressive for that. I dont think there is anything to do for it except give it time and let it cool off. I told her it can take 6 months to cool off, but I am hopeful that it will cool off for her. I also suspect that an element of her pain is arthritic pain from her knee and maybe her h ip. She certainly has some crunching in shubham knee and pain with deep palpation and pain with weight bearing. I would like to get some xrays of her right knee and her hips and then if we see arthritis, have her followup in the [place] for possibly some injections. I would lik e to see her in about 3 months in the [place]. documented in this encounter Plan of Treatment Not on filedocumented as of this encounter Results X-RAY KNEE 3 VIEWS RIGHT (03/15/2010 9:20 AM PDT) + + + + + + | Component | Value | Ref Range | Performed | Pathologist | | | | | At | Signature | + + + + + + | KNEE 3 | STUDY: KNEE 3 VIEWS | | | | | VIEWS RIGHT | RIGHT 03/15/10 09:20:00 | | | | | | COMPARISON: None. | | | | | | FINDINGS: There is | | | | | | moderate joint space | | | | | | narrowing and | | | | | | degenerative spurring | | | | | | ofthe medial | | | | | | compartment. The | | | | | | lateral and | | | | | | patellofemoral | | | | | | componentsare relatively | | | | | | well | | | | | | maintained. Mild | | | | | | secondary genu varus is | | | | | | noted.There is no | | | | | | fracture, osseous | | | | | | destruction, or joint | | | | | | effusion. IMPRESSION: | | | | | | Moderate medial | | | | | | compartment degenerative | | | | | | joint disease. I have | | | | | | personally viewed this | | | | | | procedure/exam and | | | | | | reviewed this report. | | | | | | Author: KONG ORONA, | | | | | | MFernando.Reviewer: KONG ORONA, | | | | | | M.D. STATUS FINAL / | | | | | | Dr. KONG ORONA | | | | + + + + + + + + | Specimen | + + | | + + + +---------+ + + | Performing | Address | City/State/Zipcode | Phone Number | | Organization | | | | + +---------+ + + | [facility] DEPARTMENT OF | | | | | RADIOLOGY | | | | + +---------+ + + X-RAY HIP 2 VIEWS RIGHT W/ PELVIS [...] ORONA, | | | | | | MBarbara STATUS FINAL / | | | | | | Dr. KONG ORONA | | | | + + + + + + + + | Specimen | + + | | + + + +---------+ + + | Performing | Address | City/State/Zipcode | Phone Number | | Organization | | | | + +---------+ + + | [facility] DEPARTMENT OF | | | | | RADIOLOGY | | | | + +---------+ + + documented in this encounter Visit Diagnoses + + | Diagnosis | + + | Arthritis, hip - Primary Unspecified arthropathy, pelvic region and thigh | + + | Spinal stenosis, lumbar region, without neurogenic claudication | + + documented in this encounter
--- OUTSIDE RECORDS SUMMARY | ~2019-07-20 | XMS | Encounter Summary ---
Demographics + + + | Address | [address] | | | [place] [address] | + + + | Home Phone | | + + + | Preferred Language | Unknown | + + + | Marital Status | Single | + + + | Samaritan Affiliation | NON | + + + | Race | or | + + + | Ethnic Group | Not or | + + + Author + + + | Author | [facility] | + + + | Organization | [facility] | + + + | Address | Unknown | + + + | Phone | Unavailable | + + + Support + + +---------+ + | Name | Relationship | Address | Phone | + + +---------+ + | Geni Oliva | ECON | Unknown | | + + +---------+ + Care Team Providers + +------+ + | Care Heavy Media Operator Name | Role | Phone | + +------+ + | Camacho Fields MD | PCP | | + +------+ + Encounter Details +--------+ + + + + | Date | Type | Department | Care Team | Description | +--------+ + + + + | 09/06/ | Hospital | Radiology/Imaging | | | | 2008 | Encounter | Lab at [facility] [address] | | | | | | Keven [address] Mailcode: | | | | | | [facility] [facility] | | | | | | Health and Healing, | | | | | | [facility] | | | | | | Floor [place], [place] | | | | | | [address] | | | | | | [phone] | | | +--------+ + + + [...] + | X-RAY SPINE | Routin | 09/06/2009 | Spinal Stenosis of | Results for this | | LUMBOSACRAL 2 VIEWS | e | 2:57 PM | Lumbar Region | procedure are in the | | | | PST | | results section. | + +--------+ + + + documented in this encounter Results X-RAY SPINE LUMBOSACRAL 2 [...] / | | | | | | [facility] | | | | + + + + + + + + | Specimen | + + | | + + + +---------+ + + | Performing | Address | City/State/Zipcode | Phone Number | | Organization | | | | + +---------+ + + | [facility] DEPARTMENT OF | | | | | RADIOLOGY | | | | + +---------+ + + documented in this encounter Visit Diagnoses + + | Diagnosis | + + | Spinal stenosis, lumbar region, without neurogenic claudication | + + documented in this encounter"
--- OUTSIDE RECORDS SUMMARY | ~2019-07-20 | XMS | Encounter Summary ---
Demographics + + + | Address | [address] | | | [place] [address] | + + + | Home Phone | | + + + | Preferred Language | Unknown | + + + | Marital Status | Single | + + + | Synagogue Affiliation | NON | + + + [...] Team Providers + +------+ + | Care Business Services Sales Agent Name | Role | Phone | + +------+ + | Marlen Rodarte MD | PCP | | + +------+ + Reason for Referral Office Visit - E/M Services (Routine) +--------+---------+ + + + + | Status | Reason | Specialty | Diagnoses / | Referred By | Referred To | | | | | Procedures | Contact | Contact | +--------+---------+ + + + + | Closed | Other | Surgery | Diagnoses | Danni, | Gs | | | | | Obesity | Zaire Simmons MD | Bariatric | | | | | Procedures | [address] | [address] | | | | | CONSULT TO | [address] | [address] | | | | | BARIATRIC | [address] | Mailcode: | | | | | SURGERY | [place], [place] | [address] | | | | | | [address] | for Health | | | | | | Phone: | and Healing, | | | | | | [phone] | Building [address], | | | | | | Fax: | 6th Floor | | | | | | [phone] | [place], [place] | | | | | | | [address] | | | | | | | Phone: | | | | | | | [phone] | | | | | | | Fax: | | | | | | | [phone] | +--------+---------+ + + + + Reason for Visit + + + | Reason | Comments | + + + | Follow-up encounter | | + + + Office Visit - E/M Services (Routine) +--------+--------+ + + + + | Status | Reason | Specialty | Diagnoses / | Referred By | Referred To | | | | | Procedures | Contact | Contact | +--------+--------+ + + + + | Closed | | Orthopedic | | Non-[facility] | Danni, | | | | Surgery / | | Epic Dept | Zaire Simmons MD | | | | Orthopedics | | | [address] | | | | | | | [address] | | | | | | | [place], | | | | | | | [place] | | | | | | | [address] | | | | | | | Phone: | | | | | | | [phone] | | | | | | | Fax: | | | | | | | [phone] | +--------+--------+ + + + + Encounter Details +--------+---------+ + + + | Date | Type | Department | Care Team | Description | +--------+---------+ + + + | 06/21/ | Office | Orthopaedics at | Zaire Razo, | Obesity (Primary Dx) | | 2009 | Visit | [facility] [address] | [address] | | | | | [address] Mailcode: [address] | [address] | | | | | [facility] | [place], [place] | | | | | and [place], | [address] | | | | | [facility] | [phone] | | | | | Floor [place], [place] | | | | | | [address] | | | | | | [phone] | | | +--------+---------+ + + + [...] documented as of this encounter Progress Notes Zaire Razo MD - 06/21/2010 2:17 PM PDTHafsa Cabrera is a 54 y.o. female here for righ t lower extremity pain. She has persistent R knee pain associated with known OA. She receive d a Kenalog injection at her last visit which provided minimal relief. She returns for cont inued concerns regarding her pain and frustration with not being able to lose weight. She w as informed at her last visit that due to her COPD, ongoing smoking, and obesity she is a ve ry high risk candidate for arthroplasty Soc: smokes 1 ppd. No alcohol. Lives in the [facility]. Here to care for family member s/p CABG . ROS: recent weight gain, depression, questionnaire reviewed PE: Antalgic gait Right knee ROM 3-100 Xray: moderate right medial JSN and osteophytosis (previous films, no new xrays) A./P: At this point, there are not great options nor a magical solution. I reiterated that she will need to work on aggressive weight loss. I have recommended consult with rashi s pablito. As for her knee, she might benefit frm a series of viscosupplementation. I performed a history and physical examination of the patient and discussed her management with the resident. I reviewed and edited the resident s note and agree with the documente d findings and plan of care. Zaire Razo MD Sports Orthopaedics and Arthroscopy Sed Special Education Teacher Dept. Orthopaedic Surgery and Rehabilitation [facility] [place] documented in this e ncounter Plan of Treatment Not on filedocumented as of this encounter Visit Diagnoses + + | Diagnosis | + + | Obesity - Primary Obesity, unspecified | + + documented in this encounter"
--- OUTSIDE RECORDS SUMMARY | ~2019-07-20 | XMS | Encounter Summary ---
Demographics + + + | Address | [address] | | | [place] [address] | + + + | Home Phone | | + + + | Preferred Language | Unknown | + + + | Marital Status | Single | + + + | Baptist Affiliation | NON | + + + | Race | or | + + + | Ethnic Group | Not or | + + + Author + + + | Author | [facility] | + + + | Organization | [facility] | + + + | Address | Unknown | + + + | Phone | Unavailable | + + + Support + + +---------+ + | Name | Relationship | Address | Phone | + + +---------+ + | Geni Oliva | ECON | Unknown | | + + +---------+ + Care Team Providers + +------+ + | Care Client Relations Representative Name | Role | Phone | + +------+ + | Camacho Fields MD | PCP | | + +------+ + Reason for Visit + + + | Reason | Comments | + + + | Pt - Physical | | | Therapy | | + + + Encounter Details +--------+ + + + + | Date | Type | Department | Care Team | Description | +--------+ + + + + | 06/13/ | Telephone | Orthopaedic Spine | Sherwin Hope | Pt - Physical | | 2008 | | Center at [facility] [address] | MD [facility] [place] [facility] | Therapy | | | | [address] | Care [address] | | | | | Mailcode: [address] | [address] | | | | | [facility] | [place] [address] | | | | | and Healing, | [phone] | | | | | Building | | | | | | Floor [place], [place] | | | | | | [address] | | | | | | [phone] | | | +--------+ + + + [...]
--- OUTSIDE RECORDS SUMMARY | ~2019-07-20 | XMS | Clinical Summary ---
Demographics + + + | Address | [address] | | | [place] [address] | + + + | Home Phone [...] Author + + + | Author | [facility] | + + + | Organization | [facility] | + + + | Address | Unknown | + + + | Phone | Unavailable | + + + Support + + +---------+ + | Name | Relationship | Address | Phone | + + +---------+ + | Geni Oliva | ECON | Unknown | | + + +---------+ + Care Team Providers + +------+ + | Care Xerox Machine Mechanic Name | Role | Phone | + +------+ + | Marlen Rodarte MD | PCP | | + +------+ + Source Comments SMOOTH is fully live on both [facility] Ambulatory and [facility] InPatient.[facility] Allergies + + + + + + | Active Allergy | Reactions | Severity | Noted | Comments | | | | | Date | | + + + + + + | Penicillins | | | 01/28/20 | | | | | | 09 | | + + + + + + Medications + + + +---------+------+------+-------+ | Medication | Sig | Dispensed | Refills | Star | End | Statu | | | | | | t | Date | s | | | | | | Date | | | + + + +---------+------+------+-------+ | fenofibrate | Take 48 mg by mouth | | 0 | | | Activ | | nanocrystallized 48 | once daily. | | | | | e | | mg Oral Tablet | | | | | | | + + + +---------+------+------+-------+ | fenofibrate | Take 0.5 Tabs by | qs | 0 | 10/2 | | Activ | | nanocrystallized 145 | mouth once daily. | | | 7/20 | | e | | mg Oral Tablet | | | | 09 | | | + + + +---------+------+------+-------+ | metformin 500 mg | Take 4 Tabs by mouth | qs | 0 | 10/2 | | Activ | | Oral Tablet | once daily. | | | 7/20 | | e | | | | | | 09 | | | + + + +---------+------+------+-------+ | sodium phosphates | Insert 118 mL | qs | 0 | 10/2 | | Activ | | 19-7 gram/118 mL | rectally once daily | | | 7/20 | | e | | Rectal Enema | as needed for | | | 09 | | | | | constipation. | | | | | | + + + +---------+------+------+-------+ | sorbitol 70 % | Take by mouth. | qs | 0 | 10/2 | | Activ | | Solution | | | | 7/20 | | e | | | | | | 09 | | | + + + +---------+------+------+-------+ | glimepiride | Take 1 Tab by mouth | qs | 0 | 10/2 | | Activ | | (AMARYL) 4 mg Oral | once daily with | | | 7/20 | | e | | Tablet | breakfast. | | | 09 | | | + + + +---------+------+------+-------+ | oxycodone, | Take 1-3 Tabs by | 250 Tab | 0 | 01/2 | | Activ | | immediate release, 5 | mouth every six | | | 5/20 | | e | | mg Oral Tablet | hours as needed. | | | 10 | | | + + + +---------+------+------+-------+ Active Problems + + + | Problem | Noted Date | + + + | Knee pain | 03/22/2010 | + + + | Spinal stenosis, lumbar region, without neurogenic claudication | 05/15/2009 | + + + Immunizations + + + + | Name | Administration Dates | Next Due | + + + + | Influenza, split | 08/22/2009 | | + + + + Family History + + +------+ + | Medical History | Relation | Name | Comments | + + +------+ + | Diabetes | Brother | | | + + +------+ + | Heart Disease | Brother | | CHD | + + +------+ + | Diabetes | Father | | | + + +------+ + | Heart Disease | Father | | CHD | + + +------+ + | Diabetes | Sister | | | + + +------+ + + +------+ + + | Relation | Name | Status | Comments | + +------+ + + | Brother | | Alive | | + +------+ + + | Brother | | Alive | | + +------+ + + | Brother | | Alive | | + +------+ + + | Brother | | Alive | | + +------+ + + | Brother | | Alive | | + +------+ + + | Brother | | | | + +------+ + + | Father | | | | + +------+ + + | Mother | | Alive | | + +------+ + + | Sister | | Alive | | + +------+ + + | Sister | | Alive | | + +------+ + + | Sister | | Alive | | + +------+ + + | Sister | | | | + +------+ + + Social History + + + [...] + + + + | Weight | 116 kg (255 lb 11.7 | 03/22/2010 12:49 PM | | | | oz) | PDT | | + + + + + | Height | 157.5 cm (5' 2") | 03/22/2010 12:49 PM | | | | | PDT | | + + + + + | Body Mass Index | 46.77 | 03/22/2010 12:49 PM | | | | | PDT | | + + + + + Plan of Treatment + + + + + | Health Maintenance | Due Date | Last Done | Comments | + + + + + | Influenza (Flu) | | | | | vaccination (#1) | 9 | | | + + + + + | Pneumococcal | Aged Out | | No longer eligible | | vaccination | | | based on patient's | | | | | age to complete this | | | | | topic | + + + + + Results Not on filefrom Last 3 Months Insurance + +--------+ +--------+ + +--------+ | Payer | Benefi | Subscriber | Effect | Phone | Address | Type | | | t Plan | ID | janice | | | | | | / | | Dates | | | | | | Group | | | | | | + +--------+ +--------+ + +--------+ | MEDICARE | MEDICA | xxxxxxxxxx | 06/27/20 | [phone] | [address] | [address] | | | RE A & | | 09-Pre | | [phone] | | | [address] | | sent | | [place] | | | | | | | | [address] | | + +--------+ +--------+ + +--------+ | FORMERLY [facility] | | [phone] | | | | Agency | | SERVICE | | | 010-Pr | | | | | | HEALTH | | esent | | | | | | | | | | | | | | SERVIC | | | | | | | | E | | | | | | + +--------+ +--------+ + +--------+ + +--------+ +--------+-------+ + | Guarantor Name | Accoun | Relation to | Date | Phone | Billing Address | | | t Type | Patient | of | | | | | | | | | | + +--------+ +--------+-------+ + | Hafsa Cabrera M | Person | Self | [birth year] | [address] | | | al/Fam | | 1954 | | [place] [address] | | | teri | | | | | + +--------+ +--------+-------+ + | Hafsa Cabrera | Agency | Self | [birth year] | | [address] | | | | | 1954 | | [place] [address] | + +--------+ +--------+-------+ + Advance Directives + + + + + | Type | Date Recorded | Patient | Explanation | | | | Battery Mechanic | | + + + + + | Advance | | | | | Directives and | | | | | Living Will | | | | + + + + + | Power of | | | | | Area Development Consultant | | | | + + + + + + + + + + | Code Status | Date | Date | Comments | | | Activated | Inactivated | | + + + + + | Full Code | 08/18/2009 | 08/22/2009 | | | | 7:49 PM | 4:55 PM | | + + + + +
--- OUTSIDE RECORDS SUMMARY | ~2019-07-20 | XMS | Encounter Summary ---
Demographics + + + | Address | [address] | | | [place] [address] | + + + | Home Phone | | + + + | Preferred Language | Unknown | + + + | Marital Status | Single | + + + | Nondenominational Affiliation | NON | + + + | Race | or | + + + | Ethnic Group | Not or | + + + Author + + + | Author | [facility] | + + + | Organization | [facility] | + + + | Address | Unknown | + + + | Phone | Unavailable | + + + Support + + +---------+ + | Name | Relationship | Address | Phone | + + +---------+ + | Geni Oliva | ECON | Unknown | | + + +---------+ + Care Team Providers + +------+ + | Care Underwriting Clerks Supervisor Name | Role | Phone | [...] | +--------+ + + + + | 07/17/ | Telephone | Orthopaedic Spine | Sherwin Hope | Medication requested | | 2008 | | Center at [facility] [address] | [facility] | | | | | [address] | Care [address] | | | | | Mailcode: [address] | [address] | | | | | [facility] | [place] [address] | | | | | and Healing, | [phone] | | | | | Building | | | | | | Floor [place], [place] | | | | | | [address] | | | | | | [phone] | | | +--------+ + + + [...]
--- OUTSIDE RECORDS SUMMARY | ~2019-07-20 | XMS | Encounter Summary ---
Demographics + + + | Address | [address] | | | [place] [address] | + + + | Home Phone | | + + + | Preferred Language | Unknown | + + + | Marital Status | Single | + + + | Sikhism Affiliation | NON | + + + [...] Team Providers + +------+ + | Care Aboriginal Ceremonial Celebrant Name | Role | Phone | + +------+ + | Camacho Fields MD | PCP | | + +------+ + Reason for Referral Physical Therapy (Routine) +--------+--------+ + + + + | Status | Reason | Specialty | Diagnoses / | Referred By | Referred To | | | | | Procedures | Contact | Contact | +--------+--------+ + + + + | Closed | | Physical | Diagnoses | Horace | [facility] | | | | Therapy | Knee pain | Brendan Wan, | [address] | | | | | Arthritis | [place] | [place] | | | | | Procedures | Orthopedics | Mailcode: | | | | | PHYSICAL | [address] | [facility] | | | | | THERAPY | Conor Reis | [facility] | | | | | REFERRAL | Rubi King | and Healing, | | | | | | [place], [place] | [address], | | | | | | [address] | [facility] Floor | | | | | | Phone: | [place], [place] | | | | | | [phone] | [address] | | | | | | | Phone: | | | | | | | [phone] | | | | | | | Fax: | | | | | | | [phone] | +--------+--------+ + + + + Encounter Details +--------+ + + + + | Date | Type | Department | Care Team | Description | +--------+ + + + + | 03/29/ | Telephone | Orthopaedics at | Zaire Razo, | | | 2009 | | [facility] [address] | [address] | | | | | [address] Mailcode: [facility] | [address] | | | | | [place] [facility] | [place], [place] | | | | | and Healing, | [address] | | | | | Building , [address] | [phone] | | | | | Floor [place], [place] | | | | | | [address] | | | | | | [phone] | | | +--------+ + + + [...] + | Diagnosis | + + | Knee pain Pain in joint, lower leg | + + | Arthritis Arthropathy, unspecified, site unspecified | + + documented in this encounter"
--- OUTSIDE RECORDS SUMMARY | ~2019-07-20 | XMS | Encounter Summary ---
Demographics + + + | Address | [address] | | | [place] [address] | + + + | Home Phone [...] Author + + + | Author | [facility] | + + + | Organization | [facility] | + + + | Address | Unknown | + + + | Phone | Unavailable | + + + Support + + +---------+ + | Name | Relationship | Address | Phone | + + +---------+ + | Geni Oliva | ECON | Unknown | | + + +---------+ + Care Team Providers + +------+ + | Care Battery Charger Name | Role | Phone | + +------+ + | Camacho Fields MD | PCP | | + +------+ + Reason for Visit + + + | Reason | Comments | + + + | Medicare | | | Certification | | + + + Encounter Details +--------+---------+ + + + | Date | Type | Department | Care Team | Description | +--------+---------+ + + + | 03/22/ | Office | [facility] | Pham Lama, | Knee pain (Primary | | 2009 | Visit | Therapy Services at | PT [address] | Dx) | | | | [facility] | Ave [place], [place] | | | | | [address] | [address] | | | | | Mailcode: [facility] | | | | | | [facility] | | | | | | and Healing, | | | | | | Building [address], | | | | | | Floor [place], [place] | | | | | | [address] | | | | | | [phone] | | | +--------+---------+ + + + [...] documented as of this encounter Progress Notes Pham Lama PT - 03/23/2010 7:19 AM PDT Addended by: PHAM LAMA' on: 03/23/2010 Modules accepted: Orders ham Lama PT - 03/22/2010 3:18 PM PDT [id number] HAFSA SCHUMACHER Date of : 1955 Start of care: 03/22/2010 Date of onset: 02/24/10 Referring/Attending Practitioner: Zaire Razo Primary/Referral Diagnosis/ICD-9: 1. Knee pain (719.46J) [facility] Insurance: Payor: MEDICARE Plan: MEDICARE A & B Product Type: Medicare Service period from: 03/22/2010 to: 04/22/10 Number visits used/authorized: 11/07 "Pt likes to be called JOSSIE" [facility] PHYSICAL [facility] EVALUATION- ORTHO SUBJECTIVE: History of Presenting Problem: Hafsa Schumacher is a 54 y.o. female who is being referred to ysical therapy with chief complaint of R knee pain x 2 months. No KIM or trauma. Pt had xr ays that showed arthritis, was told that she had to lose weight before a TKA. Pt reports th at she had lumbar fusion in July. Pt always uses SPC for ambulation before her back surg briana due to imbalance and falls. Pt reports no falls in last 2 months. Pt reports that she has pain starting in R hip and traveling to R knee. Pt just had cortizone shot in knee, kvng l plan to get one in hip in 2 weeks. Agg factors: prolonged sitting <30-45 min, standing >60 min, driving >60 min, any touching of the leg hip Easing factors: nothing Pt only in [place] x 2 more weeks while her brother in law in recovering from CABG x 4, then moving back to [facility] Pt was doing PT in [place], , then stopped going because she felt better Normal activity level: community ambulation with SPC Day pattern: no pattern Sleep: does not get to sleep until 5:30 in the morning can sleep x 2 hours, then needs to r eposition Med Hx: Hafsa has a past medical history of DM type 2 (diabetes mellitus, type 2); COPD (chr onic obstructive pulmonary disease); Depression; Dyslipidemia; Acute, but ill-defined, cereb rovascular disease; and Obesity. Surgical Hx: Hafsa has past surgical history that includes hx hysterectomy (2004); hx open c holecystectomy; hx ovarian cyst removal; hx appendectomy; hx tonsillectomy; hx adenoidectomy ; and hx breast biopsy. Meds: Current outpatient prescriptions:acetaminophen 325 mg Oral Tablet, Take 1-2 Tabs by m outh every four hours as needed., Disp: qs, Rfl: 0 bisacodyl 10 mg Rectal Suppository, Insert 1 Suppository rectally twice daily as needed for constipation., Disp: qs, Rfl: 0 cyclobenzaprine 5 mg Oral Tablet, Take 1 Tab by mouth three times daily as needed for muscl e spasms. Do not use longer than 2-3 weeks., Disp: 90, Rfl: 0 fenofibrate nanocrystallized 145 mg Oral Tablet, Take 0.5 Tabs by mouth once daily., Disp: qs, Rfl: 0 fenofibrate nanocrystallized 48 mg Oral Tablet, Take 48 mg by mouth once daily. , Disp: , R fl: gabapentin 300 mg Oral Capsule, Take 4 Caps by mouth three times daily., Disp: 600 Cap, Rfl : 2 gabapentin 600 mg Oral Tablet, Take 2 Tabs by mouth three times daily., Disp: 180 Tab, Rfl: 5 glimepiride (AMARYL) 4 mg Oral Tablet, Take 1 Tab by mouth once daily with breakfast., Disp : qs, Rfl: 0 magnesium hydroxide 400 mg/5 mL Oral Suspension, Take 30 mL by mouth every four hours as ne eded for constipation., Disp: qs, Rfl: 0 metformin 500 mg Oral Tablet, Take 4 Tabs by mouth once daily., Disp: qs, Rfl: 0 oxycodone, immediate release, 5 mg Oral Tablet, Take 1-3 Tabs by mouth every six hours as n eeded., Disp: 250 Tab, Rfl: 0 PHENYLALANINE OR, Take by mouth. , Disp: , Rfl: promethazine 12.5 mg Oral Tablet, Take 1 Tab by mouth four times daily as needed for nausea /vomiting., Disp: qs, Rfl: 0 senna-docusate 8.6-50 mg Oral Tablet, Take 1 Tab by mouth two times daily., Disp: qs, Rfl: 0 simethicone chew 80 mg Oral Tablet, Chewable, Take 1 Tab by mouth three times daily as need ed for bloating., Disp: qs, Rfl: 0 sodium phosphates 19-7 gram/118 mL Rectal Enema, Insert 118 mL rectally once daily as neede d for constipation., Disp: qs, Rfl: 0 sorbitol 70 % Solution, Take by mouth., Disp: qs, Rfl: 0 Precaution/special problems: retired, no stairs at home Pain level (0-10): Patient reports a pain level of 8/10 today. Highest: 10/10, lowest pain : 1/10 Pain description: needles poking and ice cold Equipment at home: FWW and SPC Hope's Goals: "I don't know, no pain" OBJECTIVE: Vitals: There were no vitals taken for this visit. Posture/alignment/observation: obese female, no edema noted Transfers: sit>stand with increased time and estefany's sign Gait: modified 2 point gait pattern with SPC on the R, wide JUANY, antalgic ROM: 0-0-130 on the L, 0-0-110 on the R with pain SLR >70 deg ranjit MMT: R L Hip flexion: 3+ 5 Knee ext 2+ 5 Ankle DF 4 5 Hip abd >3/5 NT Palpation: normal patellar mobility Neuro Screen: see following details: pt reporting parasthesias, but reports light touch in tact BLE. Special tests: Deferred due to pain Treatment consisted of: 1. Gait training; 50 feet x 2 with cueing for correct use of SPC (use in LUE) 2. teaching Hope a home exercise program, written instruction was given: seated hip flexion and LAQ 2 x 20 QID ASSESSMENT: Pt is a 54 yof who presents with R sided knee and hip pain. Evaluation limit ed today by severe amounts of pain. Pt presenting with decreased ROM, decreased strength, g ait deviation, pain, inability to participate in athletic program. Pt will benefit from aqu atic therapy to start exercising in environment that will support body weight while decreasi ng strain on joints. Aquatic Therapy Justification: Weight bearing: Water will allow for gait training in a de-weighted environment due to the patients current weight bearing restrictions or inability to bear full weight during dry-mina d gait. Joint compression: The aquatic environment will decreased joint compressive forces to prote ct the limbs during exercise and gait training. Temperature: The warm water will improve muscle relaxation, improve blood supply and decrea se sympathetic nervous system activity resulting in increased ease of movement. Viscosity: The viscosity of water causes resistance to flow and movement creating an optima l environment for strengthening weakened musculature. Endurance: Water immersion to the neck will increase the total work of breathing by 60% all owing for improved cardiovascular fitness and endurance. Circulatory system: Water immersion displaces blood upward to the great vessels of the ches t and into the heart, leading to a 60% increase in central blood volume, increased central v enous pressure, 27-30% increase in cardiac and stroke volume and 23% increase in cardiac out put. In addition, blood pressure typically decreases in warm water. Hydrostatic pressure: The hydrostatic properties of water may aid in the resolution of levon a and offset the tendency of blood to pool in the extremities. Hope M requires services that can be safely and effectively performed only by a qualified t herapist to address the following problems and achieve the following goals: Rehab Potential: Good, if Hope carries through with home exercise program. LONG-TERM GOALS, discussed with Hope, due in 4 weeks: Long-term goals: Pt will be 100% independent with home exercise program for aquatic exercises Pt will demonstrate gait with appropriate sequencing of SPC over level surfaces x 100 feet with independence Pt will reports decreased pain levels to <7 /10, 100% of the time PLAN OF CARE: Aquatic therapy, Therapeutic exercise to promote stability, ROM, and overall strength, manual therapy as needed to promote joint osteo and arthrokinematics, balance and gait activities, modalities as needed to promote pain control and soft tissue healing. Frequency/Duration: 2x/wk for 2-4 weeks Treatment began: 245 Treatment ended: 330 This note is to serve as the discharge summary if Hope fails to attend further Physical The rapy appointments or contact the therapist regarding any change in their status. PHAM LAMA, PT [facility] [address] [place] Mailcode: [address] And [facility], [address] [facility] [address] documented in this e ncounter Plan of Treatment + + +--------+ + + | Name | Type | Priori | Associated Diagnoses | Order Schedule | | | | ty | | | + + +--------+ + + | [facility] | Procedures | Routin | Knee pain | Ordered: 03/22/2010 | | EVALUATION | | e | | | + + +--------+ + + | REHABILITATION | Procedures | Routin | Knee pain | Ordered: 03/23/2010 | | MEDICARE | | e | | | | CERTIFICATION | | | | | + + +--------+ + + documented as of this encounter Visit Diagnoses + + | Diagnosis | + + | Knee pain - Primary Pain in joint, lower leg | + + documented in this encounter
--- OUTSIDE RECORDS SUMMARY | ~2019-07-20 | XMS | Encounter Summary ---
Demographics + + + | Address | [address] | | | [place] [address] | + + + | Home Phone [...] + + + | Author | [facility] | + + + | Organization | [facility] | + + + | Address | Unknown | + + + | Phone | Unavailable | + + + Support + + +---------+ + | Name | Relationship | Address | Phone | + + +---------+ + | Geni Oliva | ECON | Unknown | | + + +---------+ + Care Team Providers + +------+ + | Care International Marketing Executive Name | Role | Phone | + +------+ + | Camacho Fields MD | PCP | | + +------+ + Reason for Referral Physical Therapy (Routine) +--------+---------+ + + + + | Status | Reason | Specialty | Diagnoses / | Referred By | Referred To | | | | | Procedures | Contact | Contact | +--------+---------+ + + + + | Closed | Other | Physical | Diagnoses | Herminia, | [facility] | | | | Therapy | Spinal | Sherwin Cruz, | [address] | | | | | stenosis, | MD Mcmahon | [address] | | | | | lumbar | Spine Care | Mailcode: | | | | | region, | [address] [address] | [facility] | | | | | without | [address] | for Health | | | | | neurogenic | [address] | and Healing, | | | | | claudication | [place], [place] | [address], | | | | | Procedures | [address] | [address] | | | | | PHYSICAL | Phone: | [place], [place] | | | | | THERAPY | [phone] | [address] | | | | | REFERRAL | Fax: | Phone: | | | | | | [phone] | [phone] | | | | | | | Fax: | | | | | | | [phone] | +--------+---------+ + + + + PROC - Inpatient Surgery (Routine) +--------+--------+ + + + + | Status | Reason | Specialty | Diagnoses / | Referred By | Referred To | | | | | Procedures | Contact | Contact | +--------+--------+ + + + + | Closed | | Orthopedics | Diagnoses | Saba, | Herminia, | | | | | Spinal | MD Artemio | Sherwin Cruz, | | | | | stenosis, | [address] | [place] | | | | | lumbar | [facility] | Spine Care | | | | | region, | Rd | [address] | | | | | without | [place], [place] | [address] | | | | | neurogenic | [address] | [address] | | | | | claudication | Phone: | [place], [place] | | | | | Procedures | [phone] | [address] Phone: | | | | | REQUEST TO | Fax: | [phone] | | | | | SURGERY | [phone] | Fax: | | | | | HISTOLOGY SUPERVISOR | | [phone] | | | | | PA LUMBAR | | | | | | | SPINE | | | | | | | FUSN,POST | | | | | | | TECH PA | | | | | | | SPINE | | | | | | | FUSN,POST | | | | | | | TECH,EA | | | | | | | ADDNL SGMT | | | | | | | PA LUMBAR | | | | | | | SPINE | | | | | | | FUSN,POST | | | | | | | INTRBDY PA | | | | | | | LUMB SP | | | | | | | FUSN,POST | | | | | | | INTERBDY,EA | | | | | | | ADDNL PA | | | | | | | INSERT VERT | | | | | | | FIX | | | | | | | DEV,POST,3-6 | | | | | | | SGMTS PA | | | | | | | SPIN BONE | | | | | | | ALLOGRFT | | | | | | | MORSELIZED | | | | | | | PA | | | | | | | APPLY,SPINE | | | | | | | PROSTHETIC | | | | | | | DEVICE PA | | | | | | | APPLY,SPINE | | | | | | | PROSTHETIC | | | | | | | DEVICE PA | | | | | | | LAMINEC/FACE | | | | | | | TECT/FORAMIN | | | | | | | ,LUMBAR PA | | | | | | | LAMINEC/FACE | | | | | | | TECT/FORAMIN | | | | | | | ,EACH ADDNL | | | | | | | PA | | | | | | | [...] | | | | | | [address] | [place] | | | | | | [facility] | Spine Care | | | | | | Rd | [address] | | | | | | [place], [place] | Ave [address] | | | | | | [address] | [address] | | | | | | Phone: | [place] | | | | | | [phone] | [address] Phone: | | | | | | Fax: | [phone] | | | | | | [phone] | Fax: | | | | | | | [phone] | +--------+--------+ + + + + Encounter Details +--------+---------+ + + + | Date | Type | Department | Care Team | Description | +--------+---------+ + + + | 06/12/ | Office | Orthopaedic Spine | Sherwin Hope | Spinal Stenosis of | | 2008 | Visit | Center at [facility] [address] | MD [facility] [place] [facility] | Lumbar Region | | | | [address] | Care | (Primary Dx) | | | | Mailcode: [address] | [address] | | | | | [facility] [place] | [place] [address] | | | | | and [place], | [phone] | | | | | | | | | | | Floor [place], [place] | | | | | | [address] | | | | | | [phone] | | | +--------+---------+ + + + [...] + + + + | Weight | 119.7 kg (264 lb) | 06/12/2009 10:31 AM | | | | | PDT | | + + + + + | Height | 160 cm (5' 3") | 06/12/2009 10:31 AM | | | | | PDT | | + + + + + | Body Mass Index | 46.77 | 06/12/2009 10:31 AM | | | | | PDT | | + + + + + documented in this encounter Progress Notes Sherwin Hope MD - 06/12/2009 11:07 AM Fausto Cabrera returns for follow-up on lumbar stenosis. Her complaints are primarily LBP=R leg pain. She saw Dr. Juares, who thought s he should focus on her back as well. She has had about two cigarettes since she quit which about a month ago. ROS: no bowel and bladder symptoms, some numbness and tingling in the extremities. Exam: no changes from her last visit Radiographic Evaluation shows gentle scoli from L1 to pelvis, severe facet arthropathy, L3- 4 slip, tightest at L3-4 and L4-5. Plan: We talked about options. She has quit smoking and she is pretty disabled by her back and leg pain. I think surgery is a reasonable options here. I would recommend laminectomy and fusion for her. The extent of this is up for some discussion. I think her primary sym ptoms are coming from L3-4 and L4-5, but I am concerned that her scoliosis will progress if we address just those levels. I presented two options for her, one would be a limited fusio n of L3-4 and L4-5 and laminectomy of those levels. I think this would help her leg pain dr jaimieatically, but would predispose her to needing more surgery down the road. The other would be [id number], which would be more definitive, but a much bigger operation and leave her mo re stiff, and lose most of her ability to twist. I will show some of my colleagues, but she and I are leaning towards the lesser operation and seeing how much time she can get out of that. We will schedule and discuss. We discussed the risks of surgery, including anaesthet ic risks, bleeding, infection, nonunion, hardware problems, adjacent level disease, and neur ologic or vascular injury, and adjacent level disease. We discussed the risks of surgery, including anaesthetic risks, bleeding, infection, dural tear, and neurologic or vascular injury, and adjacent level disease. The patient understan ds these risks and wishes to proceed with surgery. She understands that the risks of nonuni on increase with smoking and NSAID and steroid use and she agrees to avoid smoking and NSAID use for at least three months post-operatively. The patient understands these risks and wis hes to proceed with surgery. I spent 20 minutes [id number] with the patient. I spent more than 50% of this visit in counseling and the total visit time was approximately 20 minutes. documented in this encounter Plan of Treatment Not on filedocumented as of this encounter Visit Diagnoses + + | Diagnosis | + + | Spinal stenosis, lumbar region, without neurogenic claudication - Primary | + + documented in this encounter
--- OUTSIDE RECORDS SUMMARY | ~2019-07-20 | XMS | Encounter Summary ---
Demographics + + + | Address | [address] | | | [place] [address] | + + + | Home Phone | | + + + | Preferred Language | Unknown | + + + | Marital Status | Single | + + + | Roman Catholic Affiliation | NON | + + + [...] Team Providers + +------+ + | Care Warehouse Supervisor Name | Role | Phone | [...] | | | | | radiculopath | [place], [place] | [address] | | | | | y | [address] | Abie | | | | | Procedures | Phone: | Research | | | | | MRI SPINE | [phone] | Center | | | | | LUMBAR WO | Fax: | [place], [place] | | | | | CONT | [phone] | [address] | | | | | | | Phone: | | | | | | | [phone] | | | | | | | Fax: | | | | | | | [phone] | +--------+--------+ + + + + Reason for Visit + + + | Reason | Comments | + + + | New patient | Low back pain | | consultation | | + + + Consultation (Routine) +--------+--------+ + + + + | Status | Reason | Specialty | Diagnoses / | Referred By | Referred To | | | | | Procedures | Contact | Contact | +--------+--------+ + + + + | Closed | | Orthopedics | Diagnoses | Brody, | [facility] | | | | | Lumbar back | MD Asuncion | [facility] | | | | | pain Rt | [address] | [address] | | | | | knee pain | Ave | Ave | | | | | Procedures | [place], [place] | Mailcode: | | | | | CONSULT TO | [address] | [facility] | | | | | SPINE ORTHO | | for Health | | | | | | | and Healing, | | | | | | | [address], | | | | | | | 8th Floor | | | | | | | [place], [place] | | | | | | | [address] | | | | | | | Phone: | | | | | | | [phone] | | | | | | | Fax: | | | | | | | [phone] | +--------+--------+ + + + + Encounter Details +--------+---------+ + + + | Date | Type | Department | Care Team | Description | +--------+---------+ + + + | 03/17/ | Office | Orthopaedic Spine | Artemio Saba MD | Lumbago; Lumbar | | 2009 | Visit | Center at [facility] [address] | [address] | Radiculopathy; | | | | [address] | [address] [place], [facility] | | | | Mailcode: [facility] | [place] [address] | Spondylolysis | | | | Center for Health | [phone] | | | | | and Healing, | | | | | | Building | | | | | | [place], [place] | | | | | | [address] | | | | | | [phone] | | | +--------+---------+ + + + [...] + + + | Blood Pressure | 126/75 | 03/17/2009 10:44 AM | | | | | PDT | | + + + + + | Pulse | 82 | 03/17/2009 10:44 AM | | | | | PDT | | + + + + + | Temperature | 36.4 C (97.6 F) | 03/17/2009 10:44 AM | | | | | PDT | | + + + + + | Respiratory Rate | 16 | 03/17/2009 10:44 AM | | | | | PDT | | + + + + + | Oxygen Saturation | - | - | | + + + + + | Inhaled Oxygen | - | - | | | Concentration | | | | + + + + + | Weight | - | - | | + + + + + | Height | - | - | | + + + + + | Body Mass Index | - | - | | + + + + + documented in this encounter Progress Notes Artemio Saba MD - 03/17/2009 11:23 AM PDT Hafsa Cabrera is a 53 y.o. female who presents today with a history of chronic low back pain that ranges from moderate to severe. The pain is in the low back region and radiates down t he front of the leg to the knee. She describes this as pain and parasthesias that are const ant. 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 She notes some balance difficulties but no diego no other lower extremity weakness. She notes some urinary stress incontinence but no ot her bowel or bladder dysfunction. She has had an MRI of the lumbar spine in 2006 and this is not available for review but is described in Dr. Skinner's note: ASUNCION SKINNER MD, [facility] Feb 16, 2009 5:58 PM Addended MRI Lumbar spine showed: pars defects L3-4, hypertrophy at L4-5, mild central canal stenosi s at L3-4 secondary to disk bulge and hypertrophy and subluxation. Disk bulges more prominen t on the left than the right, however. KD She is taking gabapentin without significant changes. She has no left lower extremity weak ness but some occasional thigh paresthesias. She describes no other fevers, chills, night s weats, unexplained weight loss or appetite changes. She is currently seeing physical therap y without significant changes. Current outpatient prescriptions : fenofibrate nanocrystallized 48 mg Oral Tablet, Take [...] twice daily , Dis p: , Rfl: Allergies Allergen Reactions Penicillins Past Medical History Diagnosis Date Unspecified Arthropathy, Site Unspecified Asthma Other General Symptoms Depressive Disorder, not Elsewhere Classified Pure Hypercholesterolemia Acute, but Ill-Defined, Cerebrovascular Disease Past Surgical History Procedure Date Hx hysterectomy No family history on file. History Social History Marital Status: Single Spouse Name: N/A Number of Children: N/A Years of Education: N/A Occupational History Not on file. Social History Main Topics Tobacco Use: Yes -- 1.0 packs/day for 40 years Alcohol Use: Not on file Drug Use: Not on file Sexually Active: Not on file Other Topics Concern Not on file Social History Narrative No narrative on file ROS: Reviewed on patient information sheet filled out by patient. No other pertinent positives noted. Patient is well developed, alert and oriented and in no apparent discomfort. BP 126/75 | Pulse 82 | Temp 36.4 C (97.6 F) | Resp 16 Examination of the lumbar spine reveals no evidence of scoliosis or list. Spinal range of m otion was decreased with respect to extension, flexion and lateral bending secondary to pa in. The cervical spine range of motion was grossly unremarkable. The patient demonstrated m ild pain to palpation at the paraspinal muscles without spinous process tenderness to palpat ion or instability. Muscle spasm were absent. Motor examination of the lower extremities demonstrated 5/5 motor strength with the excepti on of right 4/5 EHL. Light touch was intact throughout the lower extremities with the excep tion of global right lower extremity decreased sensation to light touch. Knee reflexes were 1+ on the right and 2+ on the left. Ankle reflexes were 1+ on the right and 1+ on the left . No evidence of hyperreflexia of the lower extremities were noted. Plantar responses are f lexor. The patient's gait was unremarkable and the patient was independent with transferring but u ses a cane for balance. Straight leg exam was negative on the right and negative on the left. Dorsalis pulses were intact, bilaterally. Good capillary refill of the skin was noted. Skin exam is unremarkable. Lower extremity edema was absent. Range of motion of the hips were decreased in internal and external rotation and this leads to right groin pain. Assessment: The patients symptoms, physical examination findings are most consistent with lumbar radicu lopathy and possible right hip osteoarthritis. Her hip films 2007 are reviewed and unremark able. An MRI of the lumbar spine and xrays of the hips have been ordered secondary to the continu ed symptoms that are without significant changes over time and / or treatment . Reviewed warning signs of progressive radiculopathy/myelopathy with patient. Patient advis ed to seek urgent medical attention if any of these occur. Encounter Diagnoses Code Name Primary? 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 Plan: Orders Placed This Encounter X-ray pelvis 2 views Standing Status: Future Number of Occurrences: Standing Expiration Date: Ap and frog leg lat Ht on (01/27/2009) 157.5 cm (5' 2"), Wt on (01/27/2009) 113.445 kg (250 lbs 1.6 oz) Mri spine lumbar wo cont Standing Status: Future Number of Occurrences: Standing Expiration Date: CR: BUN: Ht on (01/27/2009) 157.5 cm (5' 2"), Wt on (01/27/2009) 113.445 kg (250 lbs 1.6 oz) Order Specific Question: RAD - EXAM/REFERRAL DIAGNOSIS Answer: right L5 Order Specific Question: RAD - PACEMAKER Answer: No Order Specific Question: RAD - ANEURYSM CLIP Answer: No Order Specific Question: RAD - VNS DEVICE Answer: NO Order Specific Question: RAD - METAL IN EYES Answer: No Order Specific Question: DOES PAT WEIGH MORE THAN 299LBS? Answer: No Order Specific Question: RAD - DIALYSIS Answer: No Order Specific Question: PEDS SEDATION REQUIRED Answer: No Order Specific Question: DID YOU PRE-MEDICATE THE PT FOR ANXIETY OR CLAUSTROPHOBIA Answer: No Return in about 4 weeks (around 04/14/2009) for 4 week follow-up. documented in this enco unter Plan of Treatment Not on filedocumented as of this encounter Results MRI SPINE LUMBAR WO [...] | | | | | Dr. KRISTY ROSADOATUS | | | | | | PRELIMINARY [...] | | + +---------+ + + X-RAY PELVIS 2 VIEWS (03/17/2009 11:47 AM [...] PAULA | | | | | | MBarbaraReviewer: MARGARITA | | | | | | [...] + +---------+ + + | [facility] DEPARTMENT OF | | | | | RADIOLOGY | | | | + +---------+ + + documented in this encounter Visit Diagnoses + + | Diagnosis | + + | Lumbago | + + | Lumbar radiculopathy Thoracic or lumbosacral neuritis or radiculitis, unspecified | + + | Acquired spondylolysis Acquired spondylolisthesis | + + documented in this encounter
--- OUTSIDE RECORDS SUMMARY | ~2019-07-20 | XMS | Encounter Summary ---
Demographics + + + | Address | [address] | | | [place] [address] | + + + | Home Phone | | + + + | Preferred Language | Unknown | + + + | Marital Status | Single | + + + | Jew Affiliation | NON | + + + [...] Team Providers + +------+ + | Care Pay Clerk Name | Role | Phone | + +------+ + | Camacho Fields MD | PCP | | + +------+ + Reason for Visit + + + | Reason | Comments | + + + | Knee pain | | + + + Encounter Details +--------+ + + + + | Date | Type | Department | Care Team | Description | +--------+ + + + + | 03/30/ | Telephone | Orthopaedics at | Zaire Razo, | Knee pain | | 2009 | | [facility] [address] | [address] | | | | | [place] Mailcode: [facility] | [address] | | | | | [facility] | [place], [place] | | | | | and Healing, | [address] | | | | | [facility] | [phone] | | | | | Floor [place], [place] | | | | | | [address] | | | | | | [phone] | | | +--------+ + + + [...]
--- OUTSIDE RECORDS SUMMARY | ~2019-07-20 | XMS | Encounter Summary ---
Demographics + + + | Address | [address] | | | [place] [address] | + + + | Home Phone | | + + + | Preferred Language | Unknown | + + + | Marital Status | Single | + + + | Amish Affiliation | NON | + + + | Race | or | + + + | Ethnic Group | Not or | + + + Author + + + | Author | [facility] | + + + | Organization | [facility] | + + + | Address | Unknown | + + + | Phone | Unavailable | + + + Support + + +---------+ + | Name | Relationship | Address | Phone | + + +---------+ + | Geni Oliva | ECON | Unknown | | + + +---------+ + Care Team Providers + +------+ + | Care Surgical Aide Name | Role | Phone | + +------+ + | Camacho Fields MD | PCP | | + +------+ + Encounter Details +--------+ + + + + | Date | Type | Department | Care Team | Description | +--------+ + + + + | 03/15/ | Hospital | Radiology/Imaging | | | | 2009 | Encounter | Lab at [facility] [address] | | | | | | [address] Mailcode: | | | | | | [facility] | | | | | | Health and Healing, | | | | | | Building | | | | | | Floor [place], [place] | | | | | | [address] | | | | | | [phone] | | | +--------+ + + + [...] + +--------+ + + + | X-RAY KNEE 3 VIEWS | Routin | 03/15/2010 | Arthritis, hip | Results for this | | RIGHT | e | 9:20 AM | | procedure are in the | | | | PDT | | results section. | + +--------+ + + + documented in this encounter Results X-RAY KNEE 3 VIEWS [...] | | + +---------+ + + | [facility] DEPARTMENT OF | | | | | RADIOLOGY | | | | + +---------+ + + documented in this encounter Visit Diagnoses + + | Diagnosis | + + | Arthritis, hip Unspecified arthropathy, pelvic region and thigh | + + documented in this encounter"
--- OUTSIDE RECORDS SUMMARY | ~2019-07-20 | XMS | Encounter Summary ---
Demographics + + + | Address | [address] | | | [place] [address] | + + + | Home Phone [...] Author + + + | Author | [facility] | + + + | Organization | [facility] | + + + | Address | Unknown | + + + | Phone | Unavailable | + + + Support + + +---------+ + | Name | Relationship | Address | Phone | + + +---------+ + | Geni Oliva | ECON | Unknown | | + + +---------+ + Care Team Providers + +------+ + | Care Mop Man Name | Role | Phone | + +------+ + | Khushi Fields MD | PCP | | + +------+ + Encounter Details +--------+ + + + + | Date | Type | Department | Care Team | Description | +--------+ + + + + | 05/15/ | Hospital | Radiology/Imaging | | | | 2008 | Encounter | Lab at [facility] [address] | | | | | | [address] Mailcode: | | | | | | [facility] | | | | | | Health and Healing, | | | | | | [facility] | | | | | | Floor [place], [place] | | | | | | [address] | | | | | | [phone] | | | +--------+ + + + [...] + | X-RAY SPINE | Routin | 05/15/2009 | Spinal Stenosis of | Results for this | | LUMBOSACRAL 3 VIEWS | e | 12:47 PM | Lumbar Region | procedure are [...] | | | | | | KHUSHI DENNIS | | | | | | StephanSTATUS FINAL / | | | | | | KHUSHI PRINCEOSTATUS | | | | | | PRELIMINARY [...]
--- OUTSIDE RECORDS SUMMARY | ~2019-07-20 | XMS | Encounter Summary ---
Demographics + + + | Address | [address] | | | [place] [address] | + + + | Home Phone [...] + + + | Author | [facility] | + + + | Organization | [facility] | + + + | Address | Unknown | + + + | Phone | Unavailable | + + + Support + + +---------+ + | Name | Relationship | Address | Phone | + + +---------+ + | Geni Oliva | ECON | Unknown | | + + +---------+ + Care Team Providers + +------+ + | Care Block And Case Maker Name | Role | Phone | + +------+ + | Camacho Fields MD | PCP | | + +------+ + Reason for Visit + + + | Reason | Comments | + + + | EMG - | RLE | | Electromyography | | + + + Office Visit - E/M Services (Routine) +--------+--------+ + + + + | Status | Reason | Specialty | Diagnoses / | Referred By | Referred To | | | | | Procedures | Contact | Contact | +--------+--------+ + + + + | Closed | | Orthopedics | Procedures | Donnie, | Jayant, | | | | | EMG | Camacho Wan MD | MD Artemio | | | | | | LUIS FESTEFANIK | [address] | | | | | | [place] | [facility] | | | | | [facility] | [address] [place], | | | | | | [address] | [place] | | | | | | [place], | [address] | | | | | | [place] [address] | Phone: | | | | | | Phone: | [phone] | | | | | | [phone] | Fax: | | | | | | Fax: | [phone] | | | | | | [phone] | | +--------+--------+ + + + + Encounter Details +--------+---------+ + + + | Date | Type | Department | Care Team | Description | +--------+---------+ + + + | 03/14/ | Office | Orthopaedics at | Artemio Saba MD | LBP radiating to | | 2009 | Visit | [facility] [address] | [address] | right leg | | | | Ave Mailcode: CH12A | Rubi [facility] | | | | | [facility] | [place] [address] | | | | | and Healing, | [phone] | | | | | Building | | | | | | Floor [place], [place] | | | | | | [address] | | | | | | [phone] | | | +--------+---------+ + + + [...] documented as of this encounter Progress Notes Artemio Saba MD - 03/14/2010 3:55 PM Fausto Cabrera is a 54 y.o. female who is referred for evaluation of history of right lower extremity pain and paresthesias status post lumbar spine surgery. Electrodiagnostic studies have been performed today. The data and waveforms have been scanned into Loop Survey. The summary is as follows: Motor Nerve Conduction Studies: The right tibial-AHB response is normal. The right peroneal-EDB response is normal. Sensory Nerve Conduction Studies: The right sural response is normal. Late Responses: The right tibial F-waves are normal. The right peroneal F-waves are normal. Needle Electromyography: There is no abnormal spontaneous activity in the right tibialis anterior, extensor hallucis longus, medial gastrocnemius, vastus lateralis and thigh adductors. Normal motor unit action potential morphology/activation and recruitment is found in the ri ght tibialis anterior, extensor hallucis longus, medial gastrocnemius, vastus lateralis and thigh adductors. Impression: This is a normal study. There is no electrophysiologic evidence of a right tibial or peroneal neuropathy. There are no electrophysiologic findings suggestive of a right lumbosacral radiculopathy. documented in this enco unter Plan of Treatment + + +--------+ + + | Name | Type | Priori | Associated Diagnoses | Order Schedule | | | | ty | | | + + +--------+ + + | KS MUSCLE TEST,ONE | Procedures | Routin | LBP radiating to | Ordered: 03/14/2010 | | LIMB, GLOBAL | | e | right leg | | + + +--------+ + + | KS MOTOR NERVE | Procedures | Routin | LBP radiating to | Ordered: 03/14/2010 | | CONDUCT TEST,W | | e | right leg | | | [id number] | | | | | + + +--------+ + + | KS NERVE COND,EA | Procedures | Routin | LBP radiating to | Ordered: 03/14/2010 | | NERVE, MOTOR | | e | right leg | | | SENSORY-GLOBA | | | | | + + +--------+ + + documented as of this encounter Procedures + +--------+ + + + | Procedure Name | Priori | Date/Time | Associated Diagnosis | Comments | | | ty | | | | + +--------+ + + + | EMG/NERVE CONDUCTION | | 03/14/2010 | | Results for this | | STUDIES,ADULT - | | 4:18 PM | | procedure are in the | | NEUROLOGY | | PDT | | results section. | + +--------+ + + + documented in this encounter Results EMG/NERVE CONDUCTION STUDIES,ADULT - NEUROLOGY (03/14/2010 4:18 PM PDT) + + + | Narrative | Performed At | + + + | | | + + + + + | Procedure Note | + + | Coral Recio - 03/14/2010 4:18 PM PDT | | | + + documented in this encounter Visit Diagnoses + + | Diagnosis | + + | LBP radiating to right leg Lumbago | + + documented in this encounter"
--- OUTSIDE RECORDS SUMMARY | ~2019-07-20 | XMS | Encounter Summary ---
Demographics + + + | Address | [address] | | | [place] [address] | + + + | Home Phone | | + + + | Preferred Language | Unknown | + + + | Marital Status | Single | + + + | Anabaptism Affiliation | NON | + + + [...] Team Providers + +------+ + | Care Dark Room Attendant Name | Role | Phone | + +------+ + | Camacho Fields MD | PCP | | + +------+ + Reason for Visit + + + | Reason | Comments | + + + | New patient | | | consultation | | + + + Office Visit - E/M Services (Routine) +--------+--------+ + + + + | Status | Reason | Specialty | Diagnoses / | Referred By | Referred To | | | | | Procedures | Contact | Contact | +--------+--------+ + + + + | Closed | | Orthopedics | | Donnie, | Danni, | | | | | | Camacho Wan MD | Zaire Simmons MD | | | | | | MELODY | [address] | | | | | | [facility] | [facility] | | | | | | [facility] | [address] [place], | | | | | | [address] | [place] | | | | | | [place], | [address] | | | | | | [place] [address] | Phone: | | | | | | Phone: | [phone] | | | | | | [phone] | Fax: | | | | | | Fax: | [phone] | | | | | | [phone] | | +--------+--------+ + + + + Encounter Details +--------+---------+ + + + | Date | Type | Department | Care Team | Description | +--------+---------+ + + + | 03/22/ | Office | Orthopaedics at | Zaire Razo, | Knee pain (Primary | | 2009 | Visit | [facility] [address] | MD [address] | Dx) | | | | Ave Mailcode: CH12A | Chato Rubi | | | | | [facility] | [place], [place] | | | | | and [place], | [address] | | | | | [facility] | [phone] | | | | | Floor [place], [place] | | | | | | [address] | | | | | | [phone] | | | +--------+---------+ + + + [...] + documented in this encounter Progress Notes Zaire Razo MD - 04/23/2010 10:06 PM PDTFormatting of this note might be different fr om the original. Hafsa Cabrera is a 54 y.o. female here for right lower extremity pain. She describes a latera l thigh stripe of pain and sharp right knee pain and a sense of her knee being "crunchy and ice cold". She feels it will not support her at times. She underwent spine surgery with Dr. Hope, and feels she is recovering well. She also has pain that radiates across her right gr oin. Pain rates 8/10 and is disabling, knee>hip. She did a short course of PT without improvemen t, mostly for her back. Past Medical History Diagnosis Date DM type 2 (diabetes mellitus, type 2) COPD (chronic obstructive pulmonary disease) Depression Dyslipidemia Acute, but ill-defined, cerebrovascular disease Obesity Controlled Medications - Schedule II and III Medication Sig Dispense Refill OrderDate EndDate oxycodone, immediate release, 5 mg Oral Tablet Take 1-3 Tabs by mouth every six hours a s needed. 250 Tab 0 11/20/2009 Soc: smokes 1 ppd. No alcohol. Lives in the [facility]. Here to care for family member s/p CABG . ROS: recent weight gain, depression, questionnaire reviewed PE: Body mass index is 46.77 kg/(m^2). Antalgic gait Right hip pain with all end range motion. Tender over troch bilat. Right knee nl lig exam. Diffusely tender to palpation. Trace effusion. Medial>lat jointline Pos rboyn bilat. Xray: moderate right medial JSN. Hip: mild JSN A./P: right hip troch bursitis, tight IT band bilat. I have recommended an intraarticular s teroid injection and PT. Some of her pain may be radicular, but she certainly has mechanical knee pain as well. She is not a candidate for any arthroplasty at her current BMI. I explai giovanna that she needs to meet with her PCP specifically to discuss a strategy for weight loss. She will start with PT. I have recommended pool PT given her BMI. I offered her an intraarticular right knee steroid injection for interim relief. She unders tands and wishes to proceed. After a PARQ conference regarding this procedure, alternative, risks and an opportunity for questions is completed for a intra-acticular knee injection. This is performed, under steri le conditions, via a standard approach, 8.5cc of fluid is injected comprised of 7cc Marcaine and 1.5cc of Kenalog (40mg/cc). No complications are encountered and a bandage is applied. documented in this en counter Plan of Treatment Not on filedocumented as of this encounter Visit Diagnoses + + | Diagnosis | + + | Knee pain - Primary Pain in joint, lower leg | + + documented in this encounter
--- OUTSIDE RECORDS SUMMARY | ~2019-07-20 | XMS | Encounter Summary ---
Demographics + + + | Address | [address] | | | [place] [address] | + + + | Home Phone [...] Team Providers + +------+ + | Care Fur Cutter Name | Role | Phone | + +------+ + | Camacho Fields MD | PCP | | + +------+ + Reason for Visit + + + | Reason | Comments | + + + | Follow-up in | | | outpatient clinic | | + + + Encounter Details +--------+ + + + + | Date | Type | Department | Care Team | Description | +--------+ + + + + | 02/13/ | Telephone | Orthopaedic Spine | Sherwin Hope | Follow-up in | | 2009 | | Center at [facility] [address] [facility] | outpatient clinic | | | | [address] | [place] [address] | | | | | Mailcode: [facility] | [address] | | | | | [facility] | [place] [address] | | | | | and Healing, | [phone] | | | | | Building | | | | | | Floor [place], [place] | | | | | | [address] | | | | | | [phone] | | | +--------+ + + + [...] as of this encounter Plan of Treatment + + +--------+ + + | Name | Type | Priori | Associated Diagnoses | Order Schedule | | | | ty | | | + + +--------+ + + | EMG/NERVE CONDUCTION | Procedures | Routin | Lumbar | Ordered: 02/15/2010 | | STUDIES - ORTHO | | e | radiculopathy | | + + +--------+ + + documented as of this encounter Visit Diagnoses + + | Diagnosis | + + | Lumbar radiculopathy - Primary Thoracic or lumbosacral neuritis or radiculitis, | | unspecified | + + documented in this encounter"
--- OUTSIDE RECORDS SUMMARY | ~2019-07-20 | XMS | Encounter Summary ---
Demographics + + + | Address | [address] | | | [place] [address] | + + + | Home Phone | | + + + | Preferred Language | Unknown | + + + | Marital Status | Single | + + + | Confucianism Affiliation | NON | + + + | Race | or | + + + | Ethnic Group | Not or | + + + Author + + + | Author | [facility] | + + + | Organization | [facility] | + + + | Address | Unknown | + + + | Phone | Unavailable | + + + Support + + +---------+ + | Name | Relationship | Address | Phone | + + +---------+ + | Geni Oliva | ECON | Unknown | | + + +---------+ + Care Team Providers + +------+ + | Care Handyman Name | Role | Phone | + +------+ + | Camacho Fields MD | PCP | | + +------+ + Reason for Visit + + + | Reason | Comments | + + + | Lab findings, | | | teaching, guidance, | | | and counseling | | + + + Encounter Details +--------+ + + + + | Date | Type | Department | Care Team | Description | +--------+ + + + + | 01/30/ | Telephone | Neurology at | Asuncion Skinner, | Lab findings, | | 2008 | | [facility] & | MD | teaching, guidance, | | | | Healing [address] | | and counseling | | | | Keven Medrano Mailcode: | | | | | | CH8[facility] | | | | | | Health and Healing, | | | | | | Building | | | | | | [place], [place] | | | | | | [address] | | | | | | [phone] | | | +--------+ + + + [...]
--- OUTSIDE RECORDS SUMMARY | ~2019-07-20 | XMS | Encounter Summary ---
Demographics + + + | Address | [address] | | | [place] [address] | + + + | Home Phone | | + + + | Preferred Language | Unknown | + + + | Marital Status | Single | + + + | Evangelical Affiliation | NON | + + + | Race | or | + + + | Ethnic Group | Not or | + + + Author + + + | Author | [facility] | + + + | Organization | [facility] | + + + | Address | Unknown | + + + | Phone | Unavailable | + + + Support + + +---------+ + | Name | Relationship | Address | Phone | + + +---------+ + | Geni Oliva | ECON | Unknown | | + + +---------+ + Care Team Providers + +------+ + | Care Combination Welder Apprentice Name | Role | Phone | + [...] + + | 08/17/ | Office | Preoperative | Deborah, | Other Specified | | 2008 | Visit | Medicine Clinic at | Noble Turcios NP [address] | Pre-Operative | | | | [facility] 4th Floor [address] | [facility] | Examination (Primary | | | | [address] | [address] [place], [place] | Dx) | | | | Mailcode: CH4S | [id number] | | | | | [facility] | [phone] | | | | | and Healing, | | | | | | Building 1,4th Floor | | | | | | [place], [place] | | | | | | [address] | | | | | | [phone] | | | +--------+---------+ + + + [...] + + + | Blood Pressure | 117/62 | 08/17/2009 9:21 AM | | | | | PDT | | + + + + + | Pulse | 88 | 08/17/2009 9:21 AM | | | | | PDT | | + + + + + | Temperature | 35.6 C (96.1 F) | 08/17/2009 9:21 AM | | | | | PDT | | + + + + + | Respiratory Rate | 16 | 08/17/2009 9:21 AM | | | | | PDT | | + + + + + | Oxygen Saturation | 97% | 08/17/2009 9:21 AM | | | | | PDT | | + + + + + | Inhaled Oxygen | - | - | | | Concentration | | | | + + + + + | Weight | 116.1 kg (256 lb) | 08/17/2009 9:21 AM | | | | | PDT | | + + + + + | Height | 157.5 cm (5' 2") | 08/17/2009 9:21 AM | | | | | PDT | | + + + + + | Body Mass Index | 46.82 | 08/17/2009 9:21 AM | | | | | PDT | | + + + + + documented in this encounter Patient Instructions Patient Instructions Noble Cabrera NP - 08/17/2009 9:31 AM PDT Pre-operative instructions DIET Nothing to eat or drink after midnight on the night prior to surgery. Your doctor will inst ruct you on what medications to take the morning of surgery. Please note: Some surgeries may require additional dietary restrictions or a bowel preparation. Your renny gical team will give you additional printed instructions should these be necessary. MEDICATIONS PRE-OP MEDICATIONS INSTRUCTIONS Name Sig FENOFIBRATE NANOCRYSTALLIZED 48 MG TAB USUAL METFORMIN 500 MG TAB SKIP ONCE, IN THE MORNING OF YOUR SURGERY ONLY PHENYLALANINE OR USUAL Unless otherwise directed by your provider, do not take any Aspirin, vitamin E or non-stero idal anti-inflammatory (NSAIDs i.e. Advil, Aleve, Ibuprofen) or herbal supplements seven day s prior to your surgery. These drugs may interfere with normal blood clotting and may cause excessive bleeding and bruising during or after the surgery. Please see the list below, [facility] has a list of products that contain Aspirin, Ibuprofen, or Vitamin E If you are taking Coumadin (warfarin), Plavix or any other blood thinners please let your s urgical team know as medication changes will be necessary. If you need a pain medication for general purposes, use Tylenol as directed. If you are in doubt about any medications that you are taking, please contact our office. PRE-OP BATHING/SHOWERING - HIBICLENS (Chlorhexidine Gluconate) Bathe or shower the evening before and the morning of your surgery Use the bottle of Hibiclens soap for the evening cleansing and the bottle in the morn ing Wash from your neck to your toes. BE CAREFUL NOT TO WASH YOUR FACE OR HAIR WITH THIS SOLUTI ON After your shower or bath do not apply lotions, powders, or deodorant SMOKING You should not smoke for four weeks prior to the procedure and two weeks after the procedur e. If you are a smoker, please speak with your provider. Smoking can significantly affect the outcome of your procedure. Smoking near the time of figueerdo rgery causes a more acute narrowing of the blood vessels, which may lead to decreased blood flow to the tissue, poor healing, bad scars, or actual loss of tissue. WHEN TO ARRIVE Check-in times for Hospital Admissions are not available until the day prior to surgery. So meone from your surgeon's office will contact you with your check in time. If you do not hea r from anyone by 3:00 PM please call your surgeons' office for [id number]. PARKING Parking for patients and visitors is available in the [facility] Parking structure located across from the emergency department. Patient parking is available on level 1 and 3. Metere d parking is available on the top level. TRANSPORTATION You will require transportation home on the day of discharge. Pain medications and physical activity restrictions may limit your ability to drive safely. CANCELLING YOUR PROCEDURE Please notify your surgeons's office as soon as possible should you need to cancel or brock e your surgery date. We will attempt to reschedule your procedure in a timely manner however due to a limited amount of operating room time a waiting list is not uncommon. ILLNESS Please call your surgeons's office with any signs of illness such as cold, flu, infection, fever, or skin rash/infection anytime prior to your surgery. ADDITIONAL ADVICE FOR DAY OF SURGERY: Remove nail korean from at least one fingernail (if applicable) Do not wear any jewelry to the hospital. Leave all your valuables at home! Wear loose, comfortable clothing. Allow enough travel time so you arrive at your check-in location on time. THINGS TO DO AFTER SURGERY: To prevent pneumonia, use an incentive spirometer or "peep breathe" to keep your lungs w orking properly and to help prevent respiratory complications. Use it 3-5 times an hour whi le awake. To prevent blood clots, leg and feet exercises will help maintain good circulation. Someti me your doctor will order "air compression stockings" to help the circulation in your legs. Registration Locations (please check in at one of the following registration desks prior to surgery) For surgeries scheduled to take place on the [place] at the [facility]: Surgeries scheduled in the [facility] ([address] [place] [address]): registration is located on the 4th floor of [facility] (Day Surgery). Surgeries scheduled in the [facility]: registration is located on the 9th floor . For surgeries scheduled to take place at the [facility]: registration i s located on the 4th floor (Surgery Center). AVOID THESE MEDICATIONS FOR 7 DAYS BEFORE SURGERY PRODUCTS CONTAINING ASPIRIN [place], Anacin, Anexsia with Codeine, Fahad nos, Aspirin, Aspirin suppositories, Ascri ptin, Aspergum, Axotal, B-A-C, Baby Aspirin, Khalida, BC Powder, Bexophene, Buffaprin, Bufferi n, Buffinol, Cama-Arthritis Strength, Congespirin, Hyampom, Coricidin, Damason, Darvon, Dristan , Ivett-Gesic, Digel, Dolprin #3 Tablets, Donatab, Doxaphene, Duragesic, Easprin, Ecotrin, Susan grin Forte, Emiprin, Emprazil, Equagesic, Equazine M, Excedrin, Fiogesic, Fiorgen PH, Fioric et, Fiorinal, 4-Way Cold Tablet Gemnisyn, Indocin, Liquprin, Lortab ASA, Magnaprin, Marnal, Meprobamate, Midol, Momentum, N orgesic, [place], Orphengesic, Pabalate, P-A-C, Percodan, Presalin, Robaxasil, Roxiprin, Avel eto, Salocol SK-65 Compound, Sine-Aid, Sine-Off,, [place], Supac, Talwin Compound, Trigesic, Tolectin , Traiminicin, Vanquish, ZORprin, Zomax PRODUCTS CONTAINING IBUPROFEN Advil, Aleve, Haltran, Medipren, Midol, Motrin, Naproxyn, Nuprin, Rufen OTHER PRODUCTS WHICH MAY PROMOTE BLEEDING Vitamin E, Gingko Biloba, Marine Fatty Acids, [place]-3 Fish Oil SupplementsElectronically si gned by Noble Cabrera NP at 08/17/2009 9:31 AM PDT documented in this encounter Progress Notes Noble Cabrera NP - 08/17/2009 10:07 AM PDTPlease see scanned Preop H & P in the "M edia" tab under ANESTHESIA PREOP EVALUATION. NOBLE CABRERA NP [facility] PREOPER[facility]IVE [facility]IC[facility]IC [address] [place] [id number] [phone] signed by Noble Cabrera NP at 08/17/2009 10:07 AM PDTdoc umented in this encounter Plan of Treatment + + +--------+ + + | Name | Type | Priori | Associated Diagnoses | Order Schedule | | | | ty | | | + + +--------+ + + | RI COLLECTION VENOUS | Procedures | Routin | Other Specified | Ordered: 08/17/2009 | | BLOOD,VENIPUNCTURE | | e | Pre-Operative | | | | | | Examination | | + + +--------+ + + [...] | BASIC METABOLIC SET | Routin | 08/17/2009 | Other Specified | Results for this | | (NA, K, CL, TCO2, | e | 9:50 AM | Pre-Operative | procedure are in the | | BUN, CR, GLU, CA) | | PDT | Examination | results section. | + +--------+ + + + | CBC ONLY | Routin | 08/17/2009 | Other Specified | Results for this | | | e | 9:50 AM | Pre-Operative | procedure are in the | | | | PDT | Examination | results section. | + +--------+ + + + | TYPE AND SCREEN | Routin | 08/17/2009 | Other Specified | Results for this | | | e | 9:50 AM | Pre-Operative | procedure are in the | | | | PDT | Examination | results section. | + +--------+ + [...] view image for the detailed interpretation from [employer] results. | CARDIOLOGY | | | | + + + + + + + + | Performing | Address | City/State/Zipcode | Phone Number | | Organization | | | | + + + + + | [facility] | [address] | [place], [place] | | | CARDIOLOGY | [address] | [address] | | + + + + + TYPE AND SCREEN (08/17/2009 9:50 AM PDT) + + + + + + | Component | Value | Ref Range | Performed | Pathologist | | | | | At | Signature | + + + + + + | ABO GROUP | O | | [facility] | | | | | | DEPARTMENT | | | | | | OF | | | | | | PATHOLOGY | | + + + + + + | RH TYPE | Positive | | [facility] | | | | | | DEPARTMENT | | | | | | OF | | | | | | PATHOLOGY | | + + + + + + | Antibody | Negative | | [facility] | | | Screen | | | DEPARTMENT | | | [...] | + + + + + | [facility] | [address] | [place] [address] | | | PATHOLOGY | [address] | | | + + + + + CBC ONLY (08/17/2009 9:50 AM PDT) + +-------+ + + + | Component | Value | Ref Range | Performed | Pathologist | | | | | At | Signature | + +-------+ + + + | WHITE CELL | 8.7 | 4.4 - 11.0 K/cu | [facility] | | | COUNT | | mm | DEPARTMENT | | | | | | OF | | | | | | PATHOLOGY | | + +-------+ + + + | RED CELL | 4.45 | 4.00 - 5.20 | [facility] | | | COUNT | | M/cu mm | DEPARTMENT | | | | | | OF | | | | | | PATHOLOGY | | + +-------+ + + + | HEMOGLOBIN | 13.5 | 12.0 - 16.0 | [facility] | | | | | g/dL | DEPARTMENT | | | | | | OF | | | | | | PATHOLOGY | | + +-------+ + + + | HEMATOCRIT | 39.9 | 36.0 - 46.0 % | [facility] | | | | | | DEPARTMENT | | | | | | OF | | | | | | PATHOLOGY | | + +-------+ + + + | MCV | 89.7 | 80.0 - 96.0 fL | [facility] | | | | | | DEPARTMENT | | | | | | OF | | | | | | PATHOLOGY | | + +-------+ + + + | MCHC | 34.0 | 33.4 - 35.5 | [facility] | | | | | g/dL | DEPARTMENT | | | | | | OF | | | | | | PATHOLOGY | | + +-------+ + + + | RDW | 12.3 | 11.5 - 15.0 % | [facility] | | | | | | DEPARTMENT | | | | | | OF | | | | | | PATHOLOGY | | + +-------+ + + + | PLATELET | 163 | 150 - 400 K/cu | [facility] | | | COUNT | | mm | DEPARTMENT | | | | | | OF | | | | | | PATHOLOGY | | + +-------+ + + + + + | Specimen | + + | Blood - Blood | + + + + + + + | Performing | Address | City/State/Zipcode | Phone Number | | Organization | | | | + + + + + | [facility] | [address] | [place] [address] | | | PATHOLOGY | [address] | | | + + + + + BASIC METABOLIC SET (NA, K, CL, TCO2, BUN, CR, GLU, CA) (08/17/2009 9:50 AM PDT) + + + + + + | Component | Value | Ref Range | Performed | Pathologist | | | | | At | Signature | + + + + + + | GLUCOSE, | 281 (H) | 60 - 99 mg/dL | [...] + + + + | CREATININE | 0.74 | 0.60 - 1.10 | [facility] | | | PLASMA | | mg/dL | DEPARTMENT | | | (LAB) | | | OF | | | | | | PATHOLOGY | | + + + + + + | SODIUM, | 138 | 134 - 143 | [facility] | | | PLASMA | | mmol/L | DEPARTMENT | | | (LAB) | | | OF | | | | | | PATHOLOGY | | + + + + + + | POTASSIUM, | 4.1 | 3.4 - 5.0 | [facility] | | | PLASMA | | mmol/L | DEPARTMENT | | | (LAB) | | | OF | | | | | | PATHOLOGY | | + + + + + + | CHLORIDE, | 99 | 97 - 108 mmol/L | [facility] | | | PLASMA | | | DEPARTMENT | | | (LAB) | | | OF | | | | | | PATHOLOGY | | + + + + + + | CALCIUM, | 9.3 | 8.6 - 10.2 | [facility] | | | PLASMA | | mg/dL | DEPARTMENT | | | (LAB) | | | OF | | | | | | PATHOLOGY | | + + + + + + | TOTAL CO2, | 26 | 23 - 31 mmol/L | [facility] | | | PLASMA | | | DEPARTMENT | | | (LAB) | | | OF | | | | | | PATHOLOGY | | + + + + + + | EGFR | > 60 | >60 mL/min | [facility] | | | - | | | DEPARTMENT | | | [place] | | | OF | | | | | | PATHOLOGY | | + + + + + + | EGFR NON | > 60Comment: GFR is | >60 mL/min | [facility] | | | -VIRGIL | estimated using the MDRD | | DEPARTMENT | | | RICAN | equation recommended by | | OF | | | | theNational Kidney | | PATHOLOGY | | | | Disease Education | | | | | | Program. Estimated GFR | | | | | | Interpretive | | | | | | Information: <60 | | | | | | mL/min/1.73 sq m | | | | | | Chronic Kidney Disease | | | | | | <15 mL/min/1.73 sq | | | | | | m Kidney Failure | | | | | | Estimated GFR greater | | | | | | than 60mL/min/1.73 is of | | | | | | limited clinical Value. | | | | | | The MDRD equation is | | | | | | not valid in the | | | | | | following situations: - | | | | | | Patients under 18 years | | | | | | of age - Severe | | | | | | malnutrition or obesity | | | | | | - Vegetarian diet - | | | | | | Rapidly changing kidney | | | | | | function | | | | + + + + + + + + | Specimen | + + | Blood - Blood | + + + + + + + | Performing | Address | City/State/Zipcode | Phone Number | | Organization | | | | + + + + + | [facility] | [address] | [place] [address] | | | PATHOLOGY | [address] | | | + + + + + documented in this encounter Visit Diagnoses + + | Diagnosis | + + | Other specified pre-operative examination - Primary | + + documented in this encounter
--- OUTSIDE RECORDS SUMMARY | ~2019-07-20 | XMS | Encounter Summary ---
Demographics + + + | Address | [address] | | | [place] [address] | + + + | Home Phone | | + + + | Preferred Language | Unknown | + + + | Marital Status | Single | + + + | Buddhism Affiliation | NON | + + + | Race | or | + + + | Ethnic Group | Not or | + + + Author + + + | Author | [facility] | + + + | Organization | [facility] | + + + | Address | Unknown | + + + | Phone | Unavailable | + + + Support + + +---------+ + | Name | Relationship | Address | Phone | + + +---------+ + | Geni Oliva | ECON | Unknown | | + + +---------+ + Care Team Providers + +------+ + | Care Road Patcher Name | Role | Phone | + +------+ + | Camacho Fields MD | PCP | | + +------+ + Reason for Visit Physical Therapy (Routine) +--------+---------+ + + + [...] Therapy | Spinal | Sherwin Cruz, | [address] | | | | | stenosis, | MD [place] | [address] | | | | | lumbar | Spine Care | Mailcode: | | | | | region, | [address] [address] | [facility] | | | | | without | [address] | for Health | | | | | neurogenic | [address] | and Healing, | | | | | claudication | [place], [place] | Building 1, | | | | | Procedures | [address] | [address] | | | | | PHYSICAL | Phone: | [place], [place] | | | | | THERAPY | [phone] | [phone] | | | | | REFERRAL | Fax: | Phone: | | | | | | [phone] | [phone] | | | | | | | Fax: | | | | | | | [phone] | +--------+---------+ + + + + Encounter Details +--------+---------+ + + + | Date | Type | Department | Care Team | Description | +--------+---------+ + + + | 08/17/ | Office | [facility] | Jannie Torres, | Spinal Stenosis of | | 2008 | Visit | Therapy Services at | PT [address] | Lumbar Region | | | | [facility] | Ave [place], [place] | (Primary Dx) | | | | [address] | [phone] | | | | | Mailcode: [facility] | | | | | | [facility] | | | | | | and Healing, | | | | | | Building | | | | | | Floor [place], [place] | | | | | | [address] | | | | | | [phone] | | | +--------+---------+ + + + [...] documented as of this encounter Progress Notes Natacha Jannie L, PT - 08/17/2009 12:19 PM PDTFormatting of this note might be different fro m the original. [id number] HAFSA CABRERA Date of : 1955 Start of care: 08/17/2009 Date of onset: 06/12/2009 Referring/Attending Practitioner: Sherwin Hope Primary/Referral Diagnosis/ICD-9: Encounter Diagnoses Code Name Primary? Qualifier 724.02 Spinal Stenosis of Lumbar Region Yes Insurance: Payor: neoS[employer] Plan: neoS[employer] Product Type: Agency Service period from: 08/17/2009 to: 09/17/2009 Number visits used/authorized: 10/28 PRE-OP Spine SUBJECTIVE: History of Presenting Problem: Hafsa Cabrera is a 54 y.o. female who is pre-op for planned P OSTERIOR SPINAL FUSION L3-5; POSTERIOR INTERBODY FUSION L3-4 AND L4-5; INSTRUMENTATION L3-5; PLACE PROSTHETIC DEVICE X 2 (CAGES); BMP on 08/18/09. Current level of function: low back and RLE pain. Able to walk about 1 block then leg feel s like it will go out on her, standing <10 min. Gets assistance with home chores. Independe nt with dressing and bathing but it takes a long time. Has not done any exercise for last 1 8 months. Current home environment: lives alone, no stairs, has a shower seat, grab bars in the bathr oom, hospital bed, owns a walker Prior/concurrent treatment: none. Med Hx: Hafsa has a past medical history of DM Type 2 (Diabetes Mellitus, Type 2); COPD (Chr onic Obstructive Pulmonary Disease); Depression; Dyslipidemia; Acute, but Ill-Defined, Cereb rovascular Disease; and Obesity. Surgical Hx: Hafsa past surgical histories include hx hysterectomy (2004); hx open cholecyst ectomy; hx ovarian cyst removal; hx appendectomy; hx tonsillectomy; hx adenoidectomy; and hx breast biopsy. Meds: Current hospital medications: acetaminophen (aka TYLENOL) tablet 325-650 mg, 325-650 mg, Or al, Q4H PRN, Christopher Novak MD bisacodyl (aka DULCOLAX) suppository 10 mg, 10 mg, Rectal, BID PRN, Christopher Novak MD cyclobenzaprine (aka FLEXERIL) tablet 5 mg, 5 mg, Oral, TID PRN, Christopher Novak MD dextrose injection 25 mL, 25 mL, Intravenous, PRN, Christopher Novak MD zcqrlpzgdjHXJWN-etwjpdkab-YNKFEM (aka SPECIAL MOUTHWASH) suspension 5 mL, 5 mL, Oral, QID P RN, Camila Cameron MD docusate sodium (aka COLACE) capsule 100 mg, 100 mg, Oral, BID PRN, Christopher Novak MD fenofibrate nanocrystallized (aka TRICOR) tablet 72.5 mg, 72.5 mg, Oral, DAILY, Noble munoz MD glucagon (aka GLUCAGEN) injection 1 mg, 1 mg, Intramuscular, PRN, Christopher Novak MD glucose chewable tablet 15 g, 15 g, Oral, Q15MIN PRN, Christopher Novak MD HYDROmorphone (aka DILAUDID) injection 0.2-0.8 mg, 0.2-0.8 mg, Intravenous, Q2H PRN, Martina aichelita Novak MD influenza (tri-stephanie split) - PF vaccine (aka FLUZONE) injection 0.5 mL, 0.5 mL, Intramus cular, ONE TIME DURING VISIT, Christopher Novak MD insulin aspart (aka NOVOLOG) injection 1-16 Units, 1-16 Units, Subcutaneous, AC and HS PRN, Dev Barnett MD insulin aspart (aka NOVOLOG) injection 8 Units, 8 Units, Subcutaneous, TID AC, Dev flannery MD insulin glargine (aka LANTUS) injection 35 Units, 35 Units, Subcutaneous, DAILY, Dev brown MD magnesium hydroxide (aka MILK OF MAGNESIA) suspension 30 mL, 30 mL, Oral, Q4H PRN, Lobo n Anay Novak MD naloxone (aka NARCAN) injection, , Intravenous, PRN, Christopher Novak MD ondansetron (aka ZOFRAN) injection 4 mg, 4 mg, Intravenous, Q12H PRN, Christopher Novak MD oxycodone immediate release (aka ROXICODONE) tablet 5-20 mg, 5-20 mg, Oral, Q3H PRN, Martina Novak MD pregabalin (aka LYRICA) capsule 100 mg, 100 mg, Oral, BID, Camila Cameron MD prochlorperazine (aka COMPAZINE) injection 2.5-10 mg, 2.5-10 mg, Intravenous, Q4H PRN, Arron Novak MD promethazine (aka PHENERGAN) injection 6.25-12.5 mg, 6.25-12.5 mg, Intravenous, Q4H PRN, Brent oNvak MD senna-docusate (aka SENOKOT S) 8.6-50 mg 1 Tab, 1 Tab, Oral, BID, Christopher Novak MD simethicone chew (aka MYLICON) tablet 80 mg, 80 mg, Oral, TID PRN, Christopher Novak MD sodium phosphates (aka FLEET) 19-7 gram/118 mL rectal enema 118 mL, 118 mL, Rectal, DAILY P RN, Christopher Novak MD sorbitol liquid 30-60 mL, 30-60 mL, Oral, Q2H PRN, Christopher Novak MD No current outpatient prescriptions on file. Precaution/special problems: no bending/twisting; no pushing/pulling/lifting >10# Pain level (0-10): Patient reports a pain level of 10 today. Equipment at home: Walker and Cane. Hafsa's Goals: Learn precautions, learn post-op exercises. OBJECTIVE: Posture/alignment/observation: overweight female, sits in slouched posture Gait: with SPC, decreased stance on R ROM: not functional piriformis for figure 4 position MMT: NT Neuro Screen: NT. Special tests: none TREATMENT TODAY: PT: Brief evaluation therapeutic exercises . Education of post-op precautions no bending/twisting; no pushing/pulling/lifting >10#. Education of log roll. Education of walking program. Treatment consisted of teaching Hafsa a home exercise program, written instruction was given : Post-op Exercises (10 reps 3x/day): Ankle Pumps to control swelling Gluteal set for muscle activation Quad set for muscle activation Heel Slides to prevent knee and hip stiffness Supine hip abduction for muscle activation Long arc quad for muscle activation Standing march for balance and muscle activation Standing hip abduction for muscle activation and balance Mini squat for functional strengthening ASSESSMENT: Hafsa is pre-op for POSTERIOR SPINAL FUSION L3-5; POSTERIOR INTERBODY FUSION L3-4 AND L4-5; INSTRUMENTATION L3-5; PLACE PROSTHETIC DEVICE X 2 (CAGES); BMP on 08/18/09. She is receptiv e to pre-op education and precautions. Hafsa is ready for surgery. Pt [place] 300 [place] away an d will not be returning to [place] for her post-op PT. She will require PT to restore gait , balance and strength in order to improve participation in ADLs. Hafsa Davey requires services that can be safely and effectively performed only by a qualified therapist to achieve the [facility] goals: Rehab Potential: Good . SHORT-TERM GOALS, discussed with patient, due in 3 weeks: Patient can recall post-op precautions Patient will be independent with mobility while following precautions. Patient will be independent with walking program Patient will have a good understanding of post-op exercises PLAN: Per protocol Review precautions Frequency/Duration: Post-op f/u in [place] Treatment began: 1145 Treatment ended: 1215 This note is to serve as the discharge summary if Hafsa fails to attend further Physical The rapy appointments or contact the therapist regarding any change in their status. JANNIE TORRES, PT [facility] [address] Mailcode: [address] [facility], [address] [facility] [address] documented in this en counter Plan of Treatment + + +--------+ + + | Name | Type | Priori | Associated Diagnoses | Order Schedule | | | | ty | | | + + +--------+ + + | PHYSICAL THERAPY | Procedures | Routin | Spinal Stenosis of | Ordered: 08/21/2009 | | WENDY ANTOINE | | e | Lumbar Region | | + + +--------+ + + documented as of this encounter Visit Diagnoses + + | Diagnosis | + + | Spinal stenosis, lumbar region, without neurogenic claudication - Primary | + + documented in this encounter"
--- OUTSIDE RECORDS SUMMARY | ~2019-07-20 | XMS | Encounter Summary ---
Demographics + + + | Address | [address] | | | [place] [address] | + + + | Home Phone [...] Team Providers + +------+ + | Care Cut Out Press Operator Name | Role | Phone | + +------+ + | Camacho Fields MD | PCP | | + +------+ + Reason for Visit PROC - Inpatient Surgery (Routine) +--------+--------+ + + + + | Status | Reason | Specialty | Diagnoses / | Referred By | Referred To | | | | | Procedures | Contact | Contact | +--------+--------+ + + + + | Closed | | Orthopedics | Diagnoses | Balbina Saba, | | | | | Spinal | MD Artemio | Sherwin Cruz, | | | | | stenosis, | [address] | MD Mcmahon | | | | | lumbar | Chato Venegas | [facility] | | | | | region, | Rd | [address] | | | | | without | [place], [place] | [address] | | | | | neurogenic | [phone] | [address] | | | | | claudication | Phone: | [place], [place] | | | | | Procedures | [phone] | [address] Phone: | | | | | REQUEST TO | Fax: | [phone] | | | | | SURGERY | [phone] | Fax: | | | | | [employer] WORKER | | [phone] | | | | | UT LUMBAR | | | | | | | SPINE | | | | | | | FUSN,POST | | | | | | | TECH UT | | | | | | | SPINE | | | | | | | FUSN,POST | | | | | | | TECH,EA | | | | | | | ADDNL SGMT | | | | | | | UT LUMBAR | | | | | | | SPINE | | | | | | | FUSN,POST | | | | | | | INTRBDY UT | | | | | | | LUMB SP | | | | | | | FUSN,POST | | | | | | | INTERBDY,EA | | | | | | | ADDNL UT | | | | | | | INSERT VERT | | | | | | | FIX | | | | | | | DEV,POST,3-6 | | | | | | | SGMTS UT | | | | | | | SPIN BONE | | | | | | | ALLOGRFT | | | | | | | MORSELIZED | | | | | | | UT | | | | | | | APPLY,SPINE | | | | | | | PROSTHETIC | | | | | | | DEVICE UT | | | | | | | APPLY,SPINE | | | | | | | PROSTHETIC | | | | | | | DEVICE UT | | | | | | | LAMINEC/FACE | | | | | | | TECT/FORAMIN | | | | | | | ,LUMBAR UT | | | | | | | LAMINEC/FACE | | | | | | | TECT/FORAMIN | | | | | | | ,EACH ADDNL | | | | | | | UT | | | | | | | LAMINEC/FACE | | | | | | | TECT/FORAMIN | | | | | | | ,EACH ADDNL | | | +--------+--------+ + + + + Encounter Details +--------+ + + + + | Date | Type | Department | Care Team | Description | +--------+ + + + + | 08/21/ | Erroneous | Orthopaedic Spine | Sherwin Hope | | | 2007 | Enc-IP | Center at [facility] [address] | MD [facility] | | | | | MARI Medrano | Care | | | | | Mailcode: CH[address]N | [address] | | | | | [facility] | [place] [address] | | | | | and Healing, | [phone] | | | | | [facility] | | | | | | [place], [place] | | | | | | [address] | | | | | | [phone] | | | +--------+ + + + [...] hannoney | | | | | per week | + + +---------+ + + + [...]
[~2019-07-20 11:14] MED LIST changes: -ALBUTEROL SULF8.5 GM INH; +LYRICA150 MG PO; -LYRICA50 MG PO; -METFORMIN HCL1000 MG PO; +METFORMIN HCL500 M3 PO; +PROAIR HFA8.5 GM INH
--- NOTE | 2019-07-21 17:18 | NUR ---
PATIENT HERE TODAY FOR PREADMISSION APPOINTMENT. SHE IS SCHEDULED TO HAVE A RIGHT TOTAL HIP ARTHROPLASTY ON 07/27/19. SHE IS ACCOMPANIED BY HER FRIEND BRITTANI WHO WILL ALSO BE HERE TO TAKE HER HOME WHEN SHE IS DISCHARGED AND TO APPOINTMENTS NEEDED. SHE HAS NO STEPS INTO THE HOME AND NO STEPS INSIDE THE HOME. THERE IS A WALK IN SHOWER WITH SHOWER BENCH. SHE HAS A FRONT WHEELED WALKER, WHICH SHE WAS INSTRUCTED TO BRING WITH HER ON DAY OF SURGERY. SHE WILL NOT BE ATTENDING THE [facility] SINCE THEY ARE HEADING TO [place] FOR A . SHE WOULD LIKE TO HAVE PHYSICAL THERAPY SET UP WITH [facility] AFTER SURGERY. THIS INFORMATION WILL BE SENT TO DR CAMPO OFFICE AND CASE MANAGEMENT FOR FURTHER FOLLOW UP.
[2019-07-21] MEDS ORDERED: B-121000 MC2 PO (17:31)
[2019-07-21] MEDS ORDERED: LIPITOR20 MG PO (17:31)
[2019-07-21] MEDS ORDERED: FUROSEMIDE40 MG PO (17:33)
[2019-07-21] MEDS ORDERED: LEVOTHYROXINE50 MCG PO (17:34)
[2019-07-21] MEDS ORDERED: COZAAR50 MG PO (17:34)
[2019-07-21] MEDS ORDERED: POTASSIUM CHLO20 ME2 PO (17:35)
[2019-07-21] MEDS ORDERED: NOVOLOG100 UNIT/2 SQ (17:39)
[2019-07-27] MEDS ORDERED: MORPHINE SULFAT15 M1 PO (06:05)
--- NOTE | 2019-07-27 06:16 | NUR ---
CHG MOUTH RINSE AND NASAL SWAB COMPLETE.
--- NOTE | 2019-07-27 08:36 | NUR ---
PT IS ALERT, ORIENTED AND SUPPORTED BY HER FAMILY. PT IS IN OBVIOUS PAIN-SHE RATED HER PAIN AT LEAST 7. SHARED THIS WITH JERRY SIERRA. PT IS PLEASANT, ALITTLE ANXIOUS ABOUT TODAY. PT REQUESTED PRAYER, WILL FOLLOW NEEDED
--- NOTE | 2019-07-27 10:18 | NUR ---
[facility]U SLEEPY WITH NO C/O'S. BUNNY BOLSTER BETWEEN LEGS. BLOOD SUGAR 164 ON ARRIVAL. 0945 XRAY AT BEDSIDE. PELVIS AND R HIP XRAYS DONE. 1000 OXYGEN REMOVED. SATS DROPPED TO 88% ON RA. O2 AT 4L VIA NC PLACED AND SATS INCREASEDT TO 95%. 1010 TO ROOM 113. REPORT GIVEN TO RAJAN GARCÍA.
--- NOTE | 2019-07-27 10:18 | NUR ---
Pt to unit from surgery dept. Pt A&OX4, a bit sleepy appearing. Right hip dressing CDI, ice over incision. Abductor pillow intact. pedal pulses bialt intact and strong. CMS intact. Pt's vs stable at this time. Pt denies pain, spinal at @T10 approx. Pt reports numbness to lower ext. Bed alarm intact. Instructions provided to pt regarding safety plan and spinal precautions. Pt has no needs at this time. CPOX intact, oxygen sat level 94% on 4L oxygen. Call light within reach.
--- NOTE | 2019-07-27 11:14 | NUR ---
Pt sitting up in bed watching TV, A&OX4. Pt on 4l nc, oxygen sat level of 93%, resp even and non labored. CPOX intact, vs stable. Pt tolerating water and broth well. Pt reports no pain, full numbness to lower ext still. CMS intact, dressing to right hip cdi. Pt denies needs. Brief intact for chronic incontinence reported. Bed alarm intact.
--- NOTE | 2019-07-27 12:13 | NUR ---
Pt awake watching tv. Pt denies pain still, reports numbness and tingling to lower legs. Spinal level at approx L4. VS stable, cpox intact, sat level 94% on 3L 02 per nc. CMS intact, dressing right hip cdi. Abductor pillow remains intact. Pt denies need to void. Brief remains dry. Bed alarm intact. Pt denies needs.
--- NOTE | 2019-07-27 13:01 | NUR ---
Pt eating lunch at this time. Denies pain. Spinal resolving still, at L4. VS stale. Pt denies needs. Bed alarm intact. cms intact, dressing cdi. Oxygen per cpox is 94% on 3l.
--- NOTE | 2019-07-27 13:38 | NUR ---
PT JUST TAKEN TO M/S RM 113 BY PACU STAFF. SHE IS ALERT AND SAID SHE IS FEELING OK. WAITING FOR LUNCH, SON WILL GO HOME AND RETURN, HERBERT DUENAS WILL STAY. HAD PRAYER WITH PT, WILL FOLLOW NEEDED
[2019-07-27] MEDS ORDERED: ALBUTEROL2.5 MG/3 M INH ×2 (14:02→14:03)
[2019-07-27] MEDS ORDERED: ROBAXIN-750750 MG PO (14:06)
[2019-07-27] MEDS ORDERED: ROPINIROLE HCL2 MG PO (15:04)
--- NOTE | 2019-07-27 17:05 | NUR ---
MED REC COMPLETE
--- NOTE | 2019-07-27 19:00 | NUR ---
PATIENT AMBULATED WITH TATUM GERBER AROUND THE NURSE'S STATION X1.
--- NOTE | 2019-07-27 20:00 | NUR ---
PATIENT UP WALKING AROUND THE NURSING UNIT WITH 1PSBA AND WALKER.
--- NOTE | 2019-07-27 22:00 | NUR ---
PATIENT RESTING QUIETLY IN BED WATCHING TV, NO NEEDS AT THIS TIME. CALL LIGHT IN REACH.
--- NOTE | 2019-07-27 22:51 | NUR ---
PATIENT WATCHING TV. GETTING UP NOW TO GO FOR A WALK.
--- NOTE | 2019-07-27 23:22 | NUR ---
PATIENT BACK FROM HER ROOM AND DOING OK. CALL LIGHT IN REACH.
--- NOTE | 2019-07-27 23:24 | NUR ---
ACCOMPANIED PATIENT AMBULATED AROUND THE HALLWAY X1. PATIENT USED THE BATHROOM AND URINATED. PATIENT IS BACK IN BED. ABDUCTION DEVICE, SCD, HEEL PROTECTOR ARE BACK ON. FRUIT PLATE GIVEN. CALL LIGHT IN REAch.
--- NOTE | 2019-07-28 02:10 | NUR ---
PATIENT RESTING QUIETLY RESTING, RESPIRATIONS REGULAR AND EVEN, EYES CLOSED AND SUPINE. CALL LIGHT IN REACH.
--- NOTE | 2019-07-28 03:46 | NUR ---
PATIENT IS RESTING QUIETLY AT THIS TIME, EYES CLOSED, SEMI-FOWLERS POSITION, SCD'S AND HEAL PROTECTORS ON. IV WNL AND CALL LIGHT IN REACH.
--- NOTE | 2019-07-28 05:29 | NUR ---
PATIENT HAS CAT NAPPED THROUGH THE NIGHT, NOT REALLY IN ANYPAIN. RIGHT HIP DRESSING CDI. PATIENT HAS HAD SCD'S AND HEAL PROTECTORS ON IN BED. LIKES TO GET UP AND WALK. JUST WALKED TO THE BATHROOM AND VOIDED 500MLS. IV WNL. PATIENT ORDERED BREAKFASTAND IS NOW SITTING UP IN THE CAIR WITH HER FEET UP AND CALL LIGHT IN REACH AND WORKING ON CHARGING HER PHONE. IN GOOD HUMOR THIS AM.
--- NOTE | 2019-07-28 07:36 | NUR ---
Pt sleeping in chair at this time, resp even and non labored. Oxygen sat level of 93% on 3L nc. Pt has no notable distress at this time. Personal supplies and call light within reach.
--- NOTE | 2019-07-28 08:16 | OR ---
[facility] [address], [place] [address] Signed DATE OF OPERATION: 07/27/2019 SURGEON: Josey Sapp MD PREOPERATIVE DIAGNOSIS: End-stage osteoarthritis, right hip. POSTOPERATIVE DIAGNOSIS: End-stage osteoarthritis, right hip. PROCEDURE: Right total hip arthroplasty. IMPLANTS: A size 52 mm sector cup with 125 mm and 120 mm screw, a 36 neutral liner, a size 4 femoral stem with a +1.5, 36 head. ANESTHESIA: Spinal. SPECIMENS AND COMPLICATIONS: There were no specimens or complications. BLOOD LOSS: About 300 mL. WHAT WAS DONE: The patient was taken to the operating room. After spinal anesthesia was induced and the patient sedated, she was positioned in the left lateral decubitus position. She was then prepped and draped in the routine sterile fashion. Using a straight lateral approach centered over the tip of the greater trochanter, skin and subcutaneous tissue were divided sharply. Hemostasis was achieved and self-retaining retractors were placed. The iliotibial band was then opened in line with the skin incision and the self-retaining retractors were deepened slightly. We then elevated the anterior 1/3rd of the gluteus medius off the anterior aspect of the greater trochanter and again retracted it medially with a Charnley retractor. We then did an anterior and superior capsulectomy and we were able to dislocate the hip. Femoral neck osteotomy was accomplished with the oscillating saw using the guide. The head and neck fragment were then removed and sized to about a 46 mm. We then deepened the self-retaining retractors and had excellent exposure of the acetabulum. We then resected the remnant of the Electronically Signed By: JOSEY SAPP MD 07/28/19 0816 PATIENT NAME: NOLAN SCHUMACHER OPERATIVE REPORT DATE OF : 57 REPORT #: [id number] PHYSICIAN: JOSEY SAPP MD PCP: LIZ KING REPORT IS CONFIDENTIAL AND NOT TO BE RELEASED WITHOUT AUTHORIZATION [facility] [address] [place], [place] [address] Signed labrum along with the contents of the pulvinar. We then sequentially reamed up to 51 mm and impacted a 52 mm Gription sector cup. We had a good alignment, good position, and excellent fit. We then placed one superior and one posterior-superior screw. The neutral 36 liner was then impacted into place. We then rotated the proximal femur up into the incision and prepared it with standard reamers and broaches. We had a very snug fit with a size 4 standard broach. We therefore trialed with a -2, 36 head, and we were happy with the alignment, position, and stability; however, the leg length appeared just slightly short. We took an AP x-ray and again, we were happy with the alignment and position of both the acetabulum and the femoral component. We then re-dislocated the hip, removed the trials, impacted the size 4 femoral component, and then put a +1.5 head on the Alcantara taper. We gently impacted and then reduced the hip. The hip was copiously irrigated and then closed in a standard fashion. Sterile dressings were applied. She was placed on the gurney with a hip abduction brace in place and transferred to recovery room where she arrived in stable condition. Counts were correct and antibiotic protocols were followed. Josey Sapp MD WFB/MODL /[id number] Copies: ~ Electronically Signed By: JOSEY SAPP MD 07/28/19 0816 PATIENT NAME: NOLAN SCHUMACHER OPERATIVE REPORT DATE OF : 57 REPORT #: [id number] PHYSICIAN: JOSEY SAPP MD PCP: LIZ KING REPORT IS CONFIDENTIAL AND NOT TO BE RELEASED WITHOUT AUTHORIZATION
--- NOTE | 2019-07-28 09:30 | NUR ---
SPOKE WITH PATIENT AND SIG OTHER, BRITTANI IN ROOM. PATIENT PLANS TO RETURN HOME AT DISCHARGE. SIG OTHER WILL BE AVAILABLE AT HOME TO HELP. SHE PLANS ON DOING THERAPY AT OUTPATIENT CLINIC AT SOME POINT. SHE HAS SEVERAL WALKERS ALREADY. THE ONLY THING SHE FEELS SHE NEEDS IS A WIDE COMMODE TO PUT OVER THE TOILET. DISCUSSED THIS CAN BE BORROWED FROM LOCAL [facility], OR BOUGHT AT A DME [facility] DOES NOT COVER THIS. SHE STATES IF THEY CAN'T BORROW IT, SHE MAY ASK [facility] TO COVER COST. THEY HAVE A RAMP AT HOUSE, ALL ONE LEVEL INSIDE. THERE IS A TUB/SHOWER COMBO BUT BRITTANI IS PLANNING ON GETTING A SHOWER CHAIR. PATIENT DENIES ANY OTHER QUESTIONS AT THIS TIME. WILL FOLLOW NEEDED.
--- NOTE | 2019-07-28 10:11 | NUR ---
OXYCODONE 5MG PO ADMIN FOR REPORTS OF 7/10 RIGHT HIP PAIN.
--- NOTE | 2019-07-28 10:36 | NUR ---
Pt worked with PT this am, tolerated well. Pt on RA, resp even and non labored, 02 sat level 93%. Pt denies needs. Personal supplies and call light within reach.
--- NOTE | 2019-07-28 11:30 | NUR ---
SPOKE WITH MAN PSYCH SPECIALIST HEALTH NURSE FROM [facility]. SHE STATES SHE WANTED TO REACH OUT TO PATIENT REGARDING THEIR SENIOR MEAL PROGRAM AND FIND OUT IF SHE WOULD LIKE MEALS DELIVERED AFTERM SHE IS DISCHARGED. I WILL TALK WITH PATIENT AND LET HER KNOW.
--- NOTE | 2019-07-28 14:15 | NUR ---
DISCUSSED PHONE CALL FROM [facility] COMMUNITY NURSE REGARDING SENIOR MEAL PROGRAM. SHE IS VERY INTERESTED IN THIS, ASKS I CALL [employer] AND TELL HER THEY WILL TAKE TWO SENIOR MEALS ONCE SHE IS HOME. CALL MADE AND MESSAGE LEFT REGARDING THIS TO MAN AT [phone].
--- NOTE | 2019-07-28 14:23 | NUR ---
PT ALERT, ORIENTED AND TALKING ON PHONE. FAMILY IN AT BS, WILL FOLLOW NEEDED
--- NOTE | 2019-07-28 16:40 | NUR ---
PATIENT SITTING UP IN BED FRESH ICE WATER GIVEN. CALL BUTTON IN REACH. FRESH ICE PACKS GIVEN X2. NO OTHER NEEDS AT THIS TIME.
--- NOTE | 2019-07-28 17:36 | NUR ---
Admin dilaudid 4mg po for reports of 7/10 right hip pain.
--- NOTE | 2019-07-28 20:13 | NUR ---
PATIENT'S ICE BAG POPPD OPEN IN HER BED SO MANUEL IS CHANGING THE PATIENT AND THE BED AND TAKING HER FOR A WALK.
--- NOTE | 2019-07-28 20:56 | NUR ---
PATIENT IS RESTING IN RECLINER. FITZ TOLENTINO PRESENT IN THE ROOM. PATIENT DENIES ANY COMMENTS, QUESTIONS OR CONCERNS. NO NEEDS NOTED. CALL LIGHT IN REACH.
--- NOTE | 2019-07-28 23:00 | NUR ---
PATIENT IN BED RESTING QUIETLY WATCHING TV AT THIS TIME. CALL LIGHT IN REACH.
--- NOTE | 2019-07-29 00:40 | NUR ---
PATIENT RIGHT HIP PAIN 9, SHE BUMPED HER HIP ON THE BED RAIL. MEDICATED FOR PAIN. CALL LIGHT IN REACH.
--- NOTE | 2019-07-29 01:30 | NUR ---
PATIENT GOT HER IV TORADOL AND HAS BEEN RESTING QUIETLY, BUT JUST GOT BACCK FROM THE BATHROOM.
--- NOTE | 2019-07-29 03:45 | NUR ---
PATIENT PLACED ON 2L/NC SINCE HER SATS ARE DROPPING TO 78% ON ROOM AIR WHEN ASLEEP. RT KVNG WAS CALLED AND INFORMED AND A NEW FINGER PROBE WAS ALSO PLACED ON THE PATIENT'S PULSE OX MACHINE. CALL LIGHT IN REACH.
--- NOTE | 2019-07-29 05:45 | NUR ---
PATIENT HAS SLEPT ABOUT 4 HOURS TONIGHT AWAKE NOW WATCHING TV. UP WITH 1PA AND FWW TO THE BATHROOM MULTIPLE TIMES. WATCHING TV AT THIS TIME, NO NEEDS AT THIS TIME CALL LIGHT IN REACH.
--- NOTE | 2019-07-29 07:30 | NUR ---
PATIENT SITTING IN BED. REPORT RECEIVED. PATIENT DENIES ANY NEEDS AT THIS TIME, CALL LIGHT WITHIN REACH.
--- NOTE | 2019-07-29 07:45 | NUR ---
SBA TO BATHROOM, PT WITH ONLY STAND BY GAURD ASSIST. REPORTING PAIN TOLERABLE. UP TO CHAIR FOR BREAKFAST. ICE FOR HIP REFRESHED AND APPLIED, LEGS ELEVATED. WATER PROVIDED. PERSONAL ITEMS AND CALL LIGHT AT SIDE. DENIES FURTHER NEEDS.
--- NOTE | 2019-07-29 08:09 | NUR ---
MORNING CARE DONE WITH PT. PT WASHES FACE AND BRUSHES TEETH. PT UP TO CHAIR, 1PA, FWW. LINEN CHANGE DONE. CBG = 130. PULSE OX READS 92% ON ROOM AIR. PT DEMONSTRATES USE OF I.S. REACHING 1750. COFFEE PROVIDED. NO ADDITIONAL REQUESTS OR COMPLAINTS AT THIS TIME. CALL LIGHT WITHIN REACH.
--- NOTE | 2019-07-29 08:30 | NUR ---
RT IN ROOM WITH PATIENT
--- NOTE | 2019-07-29 09:43 | NUR ---
VITALS AND I/O'S RECORDED. PT UP TO WORK WITH PHYSICAL THERAPY. NO ADDITIONAL REQUESTS OR COMPLAINTS AT THIS TIME.
[2019-07-29] MEDS ORDERED: DILAUDID4 MG PO (09:55)
[2019-07-29] MEDS ORDERED: XARELTO10 MG PO (09:55)
--- NOTE | 2019-07-29 09:55 | NUR ---
PT REPORTING 9/10 PAIN IN RIGHT HIP AFTER FINISHING WITH PHYSICAL THERAPY. PRN PAIN MEDICATION GIVEN. ICE APPLIED TO HIP. CALL LIGHT IN REACH.
[2019-07-29] MEDS ORDERED: OXYCODONE HCL10 MG PO (09:56)
--- NOTE | 2019-07-29 10:00 | NUR ---
PATIENT AMBULATING HALLS WITH PT, USING FWW AND SBA. AM MEDICATIONS GIVEN, TOLERATED WELL. IV SITE FLUSHES WELL. FAMILY IN ROOM VISITING. PATIENT STATES PAIN OF 9/10 POST-AMBULATION WITH PT, PAIN MEDICATION PROVIDED. NO FURTHER NEEDS, CALL LIGHT WITHIN REACH.
--- NOTE | 2019-07-29 12:06 | NUR ---
PT AMSULATING IN [facility] WALKER WITH Kennedi CALDERON. SHE SEEMS TO BE ENJOYING HER EXERCISE, ABLE TO VISIT WITH PT SHE WALKED. GAVE ENCOURAGEMENT, WILL CONTINUE TO FOLLOW NEEDED
--- NOTE | 2019-07-29 13:03 | NUR ---
PHARMACY IN ROOM WITH PATIENT. PATIENT REPORTS PAIN OF 7/10, PAIN MEDICATION GIVEN. IV D/C'D, CATH INTACT. VITAL SIGNS TAKEN. PATIENT AMBULATED WITH FWW AND SBA TO SHOWER CHAIR. NO FURTHER NEEDS, CALL LIGHT WITHIN REACH.
--- NOTE | 2019-07-29 13:33 | NUR ---
DISCHARGE INSTRUCTIONS GIVEN TO PATIENT. DRESSING CHANGED AND FAMILY EDUCATED TO REMOVE DRESSING FRIDAY PER MD ORDER. ALL PATIENT BELONGINGS COLLECTED. PATIENT VERBALIZED UNDERSTANDING OF FOLLOW UP APPOINTMENT WITH DR. CAREY. ALL QUESTIONS AND CONCERNS ANSWERED.
--- NOTE | 2019-07-30 14:50 | NUR ---
FAXED OUTPATIENT ORDER AND CLINICALS TO [facility]. FAX CONFIRMATION RECEIVED 07/30/19 207PM.
== END 2019-07-29 13:33 | disposition home or self-care (01) | DRG 470 ==
LOC: MS 07-27 05:35 → DSVR 07-27 05:35 → MS 07-27 06:45
PROVIDERS: ADMIT Orthopaedic Surgery
PROC: 0SR90JZ Replacement of Right Hip Joint with Synthetic Substitute, Open Approach (ICD-10-PCS; principal; 2019-07-27 06:45)
DX: M16.11 Unilateral primary osteoarthritis, right hip (principal); Z68.42 Body mass index [BMI] 45.0-49.9, adult; E11.9 Type 2 diabetes mellitus without complications; I10 Essential (primary) hypertension; G89.4 Chronic pain syndrome; E66.9 Obesity, unspecified; E78.5 Hyperlipidemia, unspecified; F10.21 Alcohol dependence, in remission; E03.9 Hypothyroidism, unspecified; G25.81 Restless legs syndrome; J44.9 Chronic obstructive pulmonary disease, unspecified; J45.40 Moderate persistent asthma, uncomplicated; Z88.0 Allergy status to penicillin; Z79.4 Long term (current) use of insulin; Z79.891 Long term (current) use of opiate analgesic; Z79.51 Long term (current) use of inhaled steroids; Z79.899 Other long term (current) drug therapy
CPT/HCPCS: 01214; 36415; 72170; 73501; 80048; 85025; 94640; 94762; 97110; 97116; 97162; C1776; J0690; J1100; J1815; J1885; J2250; J2274; J2405; J2704; J2765; J3010; J3370; J7060; J7120

== ENCOUNTER 2023-06-10 10:02 | Day surgery (SDC) | payer MEDICARE, OTHER ==
[2023-03-19 11:27] VITALS: BP 79/45
--- NOTE | 2023-05-05 08:11 | NUR ---
phone call to pt but no answer left message, will try again later today.
--- NOTE | 2023-05-06 10:18 | NUR ---
PHONE CALL TO PT NUMBER, NO ANSWER, LEFT MESSAGE. PHONE CALL TO DR DALLAS OFFICE TALKED WITH STEPHEN ABOUT CLIENT. STEPHEN WILL MAKE A FEW CALLS TO SEE IF PT PICKED UP PREP THAT WAS ORDERED AT [facility]. AND IF NOT THEN CASE WILL BE CANCLED.
--- NOTE | 2023-06-04 09:51 | NUR ---
PHONE CALL TO PT TO UPDATE INFORMATION IN MEICAL RECORD. NO ANSWER, LEFT MESSAGE. ALSO TALKED WITH DR DALLAS OFFICE AND NEW LAB ORDERS SENT TO [place] PER DR JIMENEZ OFFICE.
--- NOTE | 2023-06-04 16:34 | NUR ---
PHONE CALL TO PATIENT WENT STRAIGTH TO VOICE MAIL.
[2023-06-05 13:17] VITALS: BP 79/45
[~2023-06-10] VITALS: Ht 157.5 cm; Wt 115.9 kg
[~2023-06-10 10:02] MED LIST changes: +ALBUTEROL2.5 MG/3 M INH; +ANORO ELLIPTA1 EACH INH; +ATHLETIC FOOT C30 GM TOP; +B-121000 MC2 PO; +COZAAR50 MG PO; +DILAUDID4 MG PO; +FUROSEMIDE40 MG PO; +GOLO ID; +INSULIN GL100 UNIT/4 SQ; +ISOSORBIDE MONO30 MG PO; +LEVOTHYROXINE50 MCG PO; +LIPITOR20 MG PO; +MAGNESIUM CITR100 M1 PO; +MIRAPEX0.5 MG PO; +MORPHINE SULFAT15 M1 PO; +NOVOLOG100 UNIT/2 SQ; +OXYCODONE HCL10 MG PO; +POTASSIUM CHLO20 ME2 PO; +ROBAXIN-750750 MG PO; +ROPINIROLE HCL2 MG PO; +RYBELSUS3 MG PO; +STOOL SOFTENER240 MG PO; +TORSEMIDE10 MG PO; +TRAZODONE HCL100 MG PO; +XARELTO10 MG PO
[2023-06-10 11:00] VITALS: BP 139/58
--- NOTE | 2023-06-10 13:09 | NUR ---
06/10/23 1309 Erica Wild 1301- PT ARRIVES TO PACU, SEMI PEREZ LEFT LATERAL POSITION. ALL MONITORS APPLIED. O2 AT 6L PER MASK. PT TOLERATING WELL. PT RESPONSIVE WHEN TALKED TO, BUT BACK TO RESTING. DENIES PAIN OR NAUSEA. ABD SOFT, NON DISTENDED. WILL CONTINUE TO MONITOR. LR INFUSING TO RFA IV.
[2023-06-10 13:27] VITALS: BP 150/69
--- NOTE | 2023-06-11 09:47 | OR ---
[facility] [address] [place], [place] [address] Signed DATE OF OPERATION: 06/10/2023 SURGEON: Mariela Dallas MD PREOPERATIVE DIAGNOSES: 1. Colon screening. 2. Clinical grade 3 hemorrhoidal disease. POSTOPERATIVE DIAGNOSES: 1. Sigmoid diverticulosis. 2. Two small polyps at 50 cm. 3. Extensive internal hemorrhoidal disease. PROCEDURE: Total colonoscopy to cecum with cold morcellation polypectomy x2. ANESTHESIA: Intravenous sedation, propofol infusion, Tiffany Hernandes CRNA INDICATIONS: This 68-year-old [place] woman is a patient of CLAYTON Zuleta at [facility]. She has had colonoscopy more than 20 years ago. She has no family history of colon cancer. She has had constipation, but no blood per rectum. She certainly has no diarrhea. She has numerous medical problems including morbid obesity, type 2 diabetes, COPD, and other abnormalities. She has had joint replacement therapy in the past. She is admitted at this time to undergo colonoscopy to better characterize her symptoms. FINDINGS: The prep was good. Complete colonoscopy was undertaken of the cecum. She had diverticula of the sigmoid. Two small polyps at 50 cm, both excised and significant internal hemorrhoidal disease. DESCRIPTION OF PROCEDURE: The patient was brought to the endoscopy suite and placed in lateral decubitus position. She was given preoperative antibiotic Ancef 2 g, given joint replacement therapy in the past. She was then given intravenous sedation with propofol infusional technique under full cardiopulmonary monitoring. Digital rectal examination was normal. An Olympus video colonoscope was passed into the rectum and manipulated throughout the colon noting diverticulosis of the sigmoid. The scope was ultimately advanced to the Electronically Signed By: MARIELA DALLAS MD 06/11/23 0947 PATIENT NAME: NOLAN SCHUMACHER OPERATIVE REPORT DATE OF : 57 REPORT #: [id number] PHYSICIAN: MARIELA DALLAS MD PCP: NO PRIMARY CARE PHYSICIAN REPORT IS CONFIDENTIAL AND NOT TO BE RELEASED WITHOUT AUTHORIZATION [facility] [address] [place], [place] [address] Signed cecum, which was fully intubated. The scope was withdrawn. Careful inspection showed no sign of abnormality until approximately 50 cm from the anal verge, where two small adenomatous polyps were noted. Both were excised with cold morcellation technique. Further withdrawal showed diverticular change of the sigmoid once again. Retroflexed view of the rectum confirmed rather extensive internal hemorrhoidal changes. The scope was withdrawn and removed, and the patient taken to the recovery room in good condition. CONCLUDING DIAGNOSES: 1. Polyps x2 of 50 cm. 2. Sigmoid diverticulosis. 3. Significant hemorrhoidal disease, considered grade 3 based on clinical history. FOLLOWUP PLAN: She will return to see the CLAYTON Zuleta. I have recommend high-fiber diet and/or fiber supplement, Metamucil one scoop p.o. daily. We would recommend repeat colonoscopy in 5 years or sooner if clinically indicated. MD STACEY Almodovar/PARISA /[id number] cc: Brigida Davidson Copies: BRIGIDA DAVIDSON ~ Electronically Signed By: MARIELA DALLAS MD 06/11/23 0947 PATIENT NAME: NOLAN SCHUMACHER OPERATIVE REPORT DATE OF : 57 REPORT #: [id number] PHYSICIAN: MARIELA DALLAS MD PCP: NO PRIMARY CARE PHYSICIAN REPORT IS CONFIDENTIAL AND NOT TO BE RELEASED WITHOUT AUTHORIZATION
--- NOTE | 2023-06-13 12:55 | PATH ---
[facility] [address] [place], [place] [address] Signed SPECIMEN(S): A COLON POLYP AT 50 CM SPECIMEN(S): B COLON POLYP AT 52 CM SPECIMEN SOURCE: A. COLON POLYP AT 50 CM B. COLON POLYP AT 52 CM CLINICAL HISTORY: External hemorrhoids, chronic constipation. Postop: Polyps x2, internal hemorrhoids, diverticula. FINAL PATHOLOGIC DIAGNOSIS: A. Colon polyp at 50 cm: - Tubular adenoma (one fragment). B. Colon polyp at 52 cm: - Tubular adenoma (one fragment). JVR:[facility] MICROSCOPIC EXAMINATION: Histologic sections of all submitted blocks are examined by light microscopy. These findings, together with the gross examination, support the pathologic diagnosis. GROSS DESCRIPTION: A. The specimen, labeled and designated "Deborah, colon polyp at 50 cm," is received in formalin and consists of one mills soft tissue fragment, 0.2 cm. Entirely submitted in (A1). B. The specimen, labeled and designated "Deborah, colon polyp at 52 cm," is received in formalin and consists of five mills soft tissue fragments, ranging from 0.1-0.4 cm. Entirely submitted in (B1). JS (under the direct supervision of a pathologist) The Gross Description was prepared using a voice recognition system. The report was reviewed for accuracy; however, sound-alike word errors, addition and/or deletions may occur. If there is any question about this report, please contact Client Services. PERFORMING LABORATORY: Technical component was performed by [facility], [address] [place] [id number] ([id number]# [id number]). Professional interpretation was performed by [facility], [address] [place] [id number] (CLIA#: [id number]). PATIENT NAME: NOLAN SCHUMACHER PATHOLOGY DATE OF : 57 REPORT #: [id number] PHYSICIAN: [facility] PCP: NO PRIMARY CARE PHYSICIAN REPORT IS CONFIDENTIAL AND NOT TO BE RELEASED WITHOUT AUTHORIZATION [address] [place] [address] Signed Diagnostician: Jonathon Alvarez MD Pathologist Electronically Signed 06/13/2023 Copies: ~ PATIENT NAME: NOLAN SCHUMACHER PATHOLOGY DATE OF : 57 REPORT #: [id number] PHYSICIAN: [facility] PCP: NO PRIMARY CARE PHYSICIAN REPORT IS CONFIDENTIAL AND NOT TO BE RELEASED WITHOUT AUTHORIZATION
== END 2023-06-10 13:35 | disposition home or self-care (01) ==
LOC: OPS 10:02 → DS 10:10 → OPS 11:30
PROVIDERS: ATTEND Surgery
PROC: 0DBE8ZZ Excision of Large Intestine, Via Natural or Artificial Opening Endoscopic (ICD-10-PCS; principal; 2023-06-10 11:30)
DX: Z12.11 Encounter for screening for malignant neoplasm of colon (principal); K64.2 Third degree hemorrhoids; K64.8 Other hemorrhoids; K57.30 Diverticulosis of large intestine without perforation or abscess without bleeding; I10 Essential (primary) hypertension; E66.01 Morbid (severe) obesity due to excess calories; E11.9 Type 2 diabetes mellitus without complications; E78.5 Hyperlipidemia, unspecified; Z68.42 Body mass index [BMI] 45.0-49.9, adult; D12.6 Benign neoplasm of colon, unspecified
CPT/HCPCS: 00811; 80053; 85025; J0690; J2001; J2704

== ENCOUNTER 2024-10-25 09:55 | Emergency (ER) | payer MEDICARE, OTHER ==
[~2024-10-25] VITALS: Ht 157.5 cm; Wt 119.3 kg
[2024-10-25] MEDS ORDERED: predniSONE 20 MG TAB PO ONE (10:30)
[2024-10-25] MEDS ORDERED: PREDNISONE20 MG PO (11:15)
[2024-10-25 11:39] VITALS: BP 166/76
== END 2024-10-25 11:41 | disposition home or self-care (01) ==
LOC: ED 09:55
DX: K13.79 Other lesions of oral mucosa (principal); E11.22 Type 2 diabetes mellitus with diabetic chronic kidney disease; I12.9 Hypertensive chronic kidney disease with stage 1 through stage 4 chronic kidney disease, or unspecified chronic kidney disease; N18.9 Chronic kidney disease, unspecified; J44.9 Chronic obstructive pulmonary disease, unspecified; F17.200 Nicotine dependence, unspecified, uncomplicated; Z99.81 Dependence on supplemental oxygen; Z88.0 Allergy status to penicillin; Z79.890 Hormone replacement therapy; Z79.85 Long-term (current) use of injectable non-insulin antidiabetic drugs; Z79.899 Other long term (current) drug therapy
CPT/HCPCS: 87651; 99283; J7512